=== PATIENT | male | born 1945 | race Caucasian/White ===

== ENCOUNTER → 2016-05-23 | Outpatient (CLI) | payer OTHER ==
[~2016-05-23] MED LIST: METO50TA7 PO
--- NOTE | 2016-05-23 14:07 | DIAGNOSTIC IMAGING REPORT ---
LEFT RIBS INCLUDING PA ERECT CHEST CLINICAL HISTORY: Left rib pain status post trauma COMPARISON STUDY: No previous studies for comparison. FINDINGS: The heart is mildly enlarged. There is no pneumothorax. There is a prominent left cardiophrenic angle fat pad. There is no lobar consolidation. No left-sided rib fractures are visualized. IMPRESSION: No evidence of pneumothorax. No left-sided rib fractures identified. Electronically signed by: Pierre Carrion M.D. 05/23/2016 2:06 PM Dictated Date/Time: 05/23/2016 2:05 PM
== END | disposition home or self-care (01) ==
LOC: C.RAD 10:49
PROVIDERS: ATTEND Internal Medicine
DX: R07.81 Pleurodynia (principal); W19.XXXA Unspecified fall, initial encounter

== ENCOUNTER → 2017-02-04 | Outpatient (CLI) | payer OTHER ==
[2017-02-04 15:10] LABS: ALT/SGPT 23 U/L (12-78); AST/SGOT 20 U/L (15-37); BLOOD UREA NITROGEN 28 mg/dl (7-18); CALCIUM 8.5 mg/dl (8.5-10.1); CARBON DIOXIDE 26 mmol/L (21-32); CHLORIDE 107 mmol/L (98-107); CREATININE 0.91 mg/dl (0.60-1.40); GLUCOSE 86 mg/dl (70-99); MAGNESIUM 2.3 mg/dl (1.8-2.4); POTASSIUM 4.4 mmol/L (3.5-5.1); SODIUM 140 mmol/L (136-145)
[2017-02-04 15:12] LABS: ALB/GLOB RATIO 0.9 (0.9-2); ALKALINE PHOSPHATASE 92 U/L (45-117); C-REACTIVE PROTEIN < 0.29 mg/dl (0-0.29)
[2017-02-04 16:06] LABS: BASO % 0.4 %; BASO ABS # 0.03 K/uL (0-0.2); COMPLETE YES; EOS % 1.6 %; HEMATOCRIT 43.2 % (42-52); IG% 0.1 %; LYMPH ABS # 2.69 K/uL (1.2-3.4); MEAN CORPUSCULAR HEMOGLOBIN 33.1 pg (25-34); MEAN CORPUSCULAR HGB CONC 34.5 g/dl (32-36); MEAN PLATELET VOLUME 10.3 fL (7.4-10.4); MONO % 7.9 %; PLATELET COUNT 203 K/uL (130-400); WHITE BLOOD COUNT 6.73 K/uL (4.8-10.8)
== END | disposition home or self-care (01) ==
LOC: C.LABSPEC 14:41
PROVIDERS: ATTEND Internal Medicine
DX: R51 Headache (principal); H53.40 Unspecified visual field defects; R25.2 Cramp and spasm

== ENCOUNTER → 2017-02-04 | Outpatient (CLI) | payer OTHER ==
--- NOTE | 2017-02-04 19:54 | DIAGNOSTIC IMAGING REPORT ---
MRI OF THE BRAIN COMBO CLINICAL HISTORY: Right-sided headache. Visual changes in the right eye. Right jaw pain. COMPARISON STUDY: MR angiogram of the brain dated 02/16/2007. TECHNIQUE: MRI of the brain was performed utilizing various T1 and T2-weighted sequences in the axial, sagittal, and coronal planes. Contrast-enhanced sequences were acquired following the administration of 11 cc of Gadavist. FINDINGS: Brain parenchyma: There are age-related involutional changes noting mild patchy subcortical and periventricular microangiopathic disease. There is no hemorrhage or mass effect. There is no restricted diffusion to suggest acute ischemia. No enhancing mass lesion is identified on the postcontrast images. Rosenthal-white matter differentiation is preserved. No extra-axial fluid collection is seen. The cerebellar tonsils are normal in configuration. Faint mineralization is noted in the basal ganglia. Ventricles, sulci, and cisterns: Prominent secondary to involutional change. Pituitary and sella: Partially empty sella is incidentally noted. Intracranial vasculature: Normal flow voids are maintained at the skull base. Orbits: The bony orbits are grossly intact. Orbital contents are normal in appearance. Sinuses and mastoids: Trace mucosal thickening is seen in the left maxillary antrum. The remaining paranasal sinuses and the metatarsals are clear. Calvarium: Unremarkable. Cervical cord: Partially visualized cervical spinal cord is normal in morphology and signal intensity. IMPRESSION: No acute intracranial abnormality. Electronically signed by: Jasper Owusu M.D. 02/04/2017 7:53 PM Dictated Date/Time: 02/04/2017 7:49 PM
== END | disposition home or self-care (01) ==
LOC: C.MRI 18:39
PROVIDERS: ATTEND Internal Medicine
DX: H53.9 Unspecified visual disturbance (principal); R51 Headache

== ENCOUNTER → 2017-02-09 | Outpatient (CLI) | payer OTHER ==
--- NOTE | 2017-02-09 10:55 | DIAGNOSTIC IMAGING REPORT ---
CAROTID DOPPLER NECK ART HISTORY: Mental status change VISUAL CHANGES COMPARISON: None. TECHNIQUE: Real-time, grayscale, and color Doppler sonography of the carotid arteries was performed. Imaging reviewed in the transverse and longitudinal planes. All measurements were calculated based on NASCET criteria. FINDINGS: Antegrade flow is seen in the bilateral vertebral arteries. The brachial pressures are hemodynamically similar. Moderate plaque formation bilaterally The peak systolic velocity within the right ICA is 62. The right systolic ratio is 0.9. The peak systolic velocity within the left ICA is 62. The left systolic ratio is 0.7. IMPRESSION: No hemodynamically significant stenosis seen within the carotid arteries. Mild/moderate plaque formation bilaterally. 50% narrowing right external carotid artery The above report was generated using voice recognition software. It may contain grammatical, syntax or spelling errors. Electronically signed by: Too Romero M.D. 02/09/2017 10:54 AM Dictated Date/Time: 02/09/2017 10:53 AM
== END | disposition home or self-care (01) ==
LOC: C.ULTR 10:07
PROVIDERS: ATTEND Internal Medicine
DX: H53.40 Unspecified visual field defects (principal); I65.21 Occlusion and stenosis of right carotid artery

== ENCOUNTER 2017-04-17 03:55 | Emergency (ER) | payer OTHER ==
[~2017-04-17] VITALS: Ht 172.7 cm; Wt 119.1 kg
[~2017-04-17 03:55] MED LIST changes: -METO50TA7 PO; +METO50TA8 PO
[2017-04-17 04:00] VITALS: TEMP 36.3; Ht 172.7 cm; Wt 119.1 kg
[2017-04-17] MEDS ORDERED: ONDANSETRON INJ 2 MG/ML 2 ML VIAL IV STA (04:55)
[2017-04-17] MEDS ORDERED: MoRPHine SULFATE 10 MG/ML CARP/VIAL IV STA ×2 (04:55→06:21)
[2017-04-17 05:21] LABS: BASO % 0.2 %; BASO ABS # 0.02 K/uL (0-0.2); EOS % 3.2 %; EOS ABS # 0.26 K/uL (0-0.5); HEMATOCRIT 43.2 % (42-52); HEMOGLOBIN 14.6 g/dL (14.0-18.0); IG# 0.02 K/uL (0.00-0.02); LYMPH % 29.9 %; LYMPH ABS # 2.44 K/uL (1.2-3.4); MEAN CELL VOLUME 96.2 fL (80-100); MEAN CORPUSCULAR HEMOGLOBIN 32.5 pg (25-34); MEAN CORPUSCULAR HGB CONC 33.8 g/dl (32-36); MEAN PLATELET VOLUME 9.8 fL (7.4-10.4); MONO % 11.8 %; MONO ABS # 0.96 K/uL (0.11-0.59); NEUT % 54.7 %; NEUT ABS # 4.47 K/uL (1.4-6.5); PLATELET COUNT 165 K/uL (130-400); RED CELL DISTRIBUTION WIDTH CV 13.8 % (11.5-14.5); RED CELL DISTRIBUTION WIDTH SD 48.9 fL (36.4-46.3); WHITE BLOOD COUNT 8.17 K/uL (4.8-10.8)
[2017-04-17 05:38] LABS: CALCIUM 8.7 mg/dl (8.5-10.1); CREATININE 0.79 mg/dl (0.60-1.40); POTASSIUM 4.2 mmol/L (3.5-5.1)
--- NOTE | 2017-04-17 05:42 | EMERGENCY ROOM VISIT NOTE ---
ED Visit Note First contact with patient: 04:03 I have personally seen and evaluated the patient with the PA. I agree with the diagnosis and management decisions and have been personally involved in the case. Please see Lynnette Hrenandez PA-C's notes for further details of the history, physical and visit.
[2017-04-17] MEDS ORDERED: OXYC-90 PO (06:42)
--- NOTE | 2017-04-17 06:44 | EMERGENCY ROOM VISIT NOTE ---
History First contact with patient: 04:03 Chief Complaint: FACIAL PAIN/INJURY Stated Complaint: SEVERE PAIN ON RIGHT SIDE OF FACE History of Present Illness The patient is a 71 year old male who presents to the Emergency Room with complaints of severe pain on the right side of her face. The patient reports that the pain started yesterday. The pain started in his right eye and then moved down lower into his cheek and jaw. The patient states that the pain is now severe and rates the discomfort a 9.5/10. He states that he had a similar episode of pain 2 months ago and saw his primary care provider for this. He had a full workup for temporal arteritis and states that it was negative. He saw an safety analyst him that he had some vision changes in the right eye, which prompted this workup. The patient states that his pain has now been constant. He took ibuprofen without relief. He denies any facial drooping, slurred speech, blurred vision, numbness or weakness. Review of Systems A complete 10 point review of systems was reviewed with the patient with pertinent positives and negatives as per history of present illness. All else were negative. Past Medical/Surgical History Medical Problems: (1) Chronic osteoarthritis (2) Hydronephrosis, left Social History Smoking Status: Never Smoker Alcohol Use: none Drug Use: none Occupation Status: retired Current/Historical Medications Scheduled Metoprolol Succ (Toprol Xl) (Toprol-Xl), 50 MG PO DAILY Scheduled PRN Oxycodone Ir (Roxicodone Ir), 1-2 TAB PO Q4H PRN for Pain Physical Exam Vital Signs Date Time Temp Pulse Resp B/P (MAP) Pulse Ox O2 Delivery O2 Flow Rate FiO2 04/17/17 06:52 61 20 120/67 95 04/17/17 06:26 59 20 132/84 96 Room Air 04/17/17 05:25 59 16 114/72 93 Room Air 04/17/17 04:00 36.3 67 18 182/98 98 Room Air Physical Exam VITALS: Vitals are noted on the nurse's note and reviewed by myself. Vital signs stable. GENERAL: This is a 71-year-old male, in no acute distress, nondiaphoretic, well- developed well-nourished. SKIN: The skin was without rashes. HEAD: Normocephalic atraumatic. EARS: External auditory canals clear, tympanic membranes pearly cole without erythema or effusion bilaterally. EYES: Pupils equal round and reactive to light and accommodation. Extraocular movements intact. Intraocular pressures measure 14 in the left eye, 15 in the right eye. MOUTH: Mucous membranes moist. Tonsils are not enlarged. Pharynx without erythema or exudate. NECK: Supple without nuchal rigidity. No lymphadenopathy. HEART: Regular rate and rhythm without murmurs gallops or rubs. LUNGS: Clear to auscultation bilaterally without wheezes, rales or rhonchi. MUSCULOSKELETAL: Strength 5/5 throughout. NEURO: Patient was alert and oriented to person place and time. Normal sensation. No focal neurological deficits. Normal facial expressions. Medical Decision & Procedures Laboratory Results 04/17/17 05:05 Red Blood Count 4.49, Mean Corpuscular Volume 96.2, Mean Corpuscular Hemoglobin 32.5, Mean Corpuscular Hemoglobin Concent 33.8, Mean Platelet Volume 9.8, Neutrophils (%) (Auto) 54.7, Lymphocytes (%) (Auto) 29.9, Monocytes (%) (Auto) 11.8, Eosinophils (%) (Auto) 3.2, Basophils (%) (Auto) 0.2, Neutrophils # (Auto ) 4.47, Lymphocytes # (Auto) 2.44, Monocytes # (Auto) 0.96, Eosinophils # (Auto ) 0.26, Basophils # (Auto) 0.02 04/17/17 05:05 Test 04/17/17 05:05 White Blood Count 8.17 K/uL (4.8-10.8) Red Blood Count 4.49 M/uL (4.7-6.1) Hemoglobin 14.6 g/dL (14.0-18.0) Hematocrit 43.2 % (42-52) Mean Corpuscular Volume 96.2 fL (80-100) Mean Corpuscular Hemoglobin 32.5 pg (25-34) Mean Corpuscular Hemoglobin Concent 33.8 g/dl (32-36) Platelet Count 165 K/uL (130-400) Mean Platelet Volume 9.8 fL (7.4-10.4) Neutrophils (%) (Auto) 54.7 % Lymphocytes (%) (Auto) 29.9 % Monocytes (%) (Auto) 11.8 % Eosinophils (%) (Auto) 3.2 % Basophils (%) (Auto) 0.2 % Neutrophils # (Auto) 4.47 K/uL (1.4-6.5) Lymphocytes # (Auto) 2.44 K/uL (1.2-3.4) Monocytes # (Auto) 0.96 K/uL (0.11-0.59) Eosinophils # (Auto) 0.26 K/uL (0-0.5) Basophils # (Auto) 0.02 K/uL (0-0.2) RDW Standard Deviation 48.9 fL (36.4-46.3) RDW Coefficient of Variation 13.8 % (11.5-14.5) Immature Granulocyte % (Auto) 0.2 % Immature Granulocyte # (Auto) 0.02 K/uL (0.00-0.02) Erythrocyte Sedimentation Rate 12 mm/hr (0-14) Anion Gap 3.0 mmol/L (3-11) Est Creatinine Clear Calc Drug Dose 109.1 ml/min Estimated GFR () 105.4 Estimated GFR (Non- 91.0 BUN/Creatinine Ratio 35.6 (10-20) Calcium Level 8.7 mg/dl (8.5-10.1) C-Reactive Protein 0.31 mg/dl (0-0.29) Medications Administered Medications (Trade) Dose Ordered Sig/Sherly Route Start Time Stop Time Status Last Admin Dose Admin Morphine Sulfate (MoRPHine SULFATE INJ) 8 mg NOW STAT IV 04/17/17 04:55 04/17/17 04:57 DC 04/17/17 05:07 8 MG Ondansetron HCl (Zofran Inj) 4 mg NOW STAT IV 04/17/17 04:55 04/17/17 04:57 DC 04/17/17 05:05 4 MG Morphine Sulfate (MoRPHine SULFATE INJ) 6 mg NOW STAT IV 04/17/17 06:21 04/17/17 06:22 DC 04/17/17 06:27 6 MG ECG Rate (beats per minute): 63 Rhythm: normal sinus Findings: RBBB Change: no significant change ED Course The patient was evaluated as above. Labs were drawn and IV access was obtained. Patient was medicated with 8 mg morphine IV and 4 mg Zofran IV. Patient was reevaluated and was feeling much better. Patient was evaluated prior to discharge he stated that his pain was returning. An additional dose of morphine was ordered for the patient. Discharge instructions were reviewed with the patient. The patient verbalized understanding of my assessment and treatment plan and was discharged home in good condition. Medical Decision Differential diagnosis includes temporal arteritis, trigeminal neuralgia, herpes zoster, ice pick headache, migraine headache, glaucoma, among others. The patient is a 71-year-old male who presents today complaining of right-sided facial pain. Patient has had a full workup for temporal arteritis in the past including MRI, labs and biopsy which were negative. Labs today are unremarkable , without any leukocytosis. ESR and CRP are not significantly elevated. Intraocular pressures are not elevated. Patient did feel significantly better after receiving the morphine. I really symptoms may be secondary to trigeminal neuralgia given the patient's presentation. He will be discharged with a prescription for pain medication and will follow-up with his primary care provider today for further evaluation and workup. The patient was independently evaluated by Dr. Lubin, ED attending physician, who agreed with my assessment and treatment plan. Based on the patient's presentation and work up, I feel the patient is stable for outpatient treatment. The patient was educated to return to the emergency department for any worsening of their current condition or new/concerning symptoms. [] will follow up with []. [facility] Drug Monitoring Program Search Results: patient reviewed within database, no issues identified Medication Reconcilliation Current Medication List: was personally reviewed by me Blood Pressure Screening Patient's blood pressure: Normal blood pressure Impression Primary Impression: Right sided facial pain Departure Information Dispostion Home / Self-Care Condition GOOD Prescriptions Oxycodone Ir (Roxicodone Ir) 5 Mg Tab 1-2 TAB PO Q4H Y for Pain, #20 TAB For Initial Treatment Prov: Lynnette Hernandez ., JOSE ENRIQUE 04/17/17 Referrals King Gomez M.D. (PCP) Patient Instructions My [facility] Additional Instructions You have been prescribed OxyIR to be used for pain control. Take 1-2 tablets every 4-6 hours as needed for pain. This is a narcotic medication. You cannot drive or consume alcohol while on this medicine. This medicine should only be used for pain that cannot be controlled with [id number] pain medicines. For pain control, you can use the following [id number] medicines (if >12 yo): - Regular strength (325mg/tab) Tylenol (acetaminophen) 2 tabs every 4-6 hours as needed. Do not exceed 12 tablets in a 24 hour period. Avoid taking more than 4 grams (4000 mg) of Tylenol per day. This includes any other sources of acetaminophen you may take on a regular basis. - Regular strength (200 mg/tab) Advil (ibuprofen) 1-2 tabs every 4-6 hours as needed. Do not exceed a dose of 3200 mg per day. Follow-up with Dr. Emile Rai today. Call for appointment. Return here for worsening pain, numbness, weakness or any other new/concerning symptoms.
[2017-04-17 06:52] VITALS: BP 120/67; PULSE 61; O2SAT 95
--- NOTE | 2017-04-17 14:23 | Pharmacy Progress Note ---
ED Pharmacist Progress Note Date of Service: Apr 17, 2017. Received call from outpatient pharmacist stating current oxycodone RX would require a prior auth. In order to remedy this the RX was changed to oxycodone 1 tab q4h prn X 3 days (qty 18). This was discussed with Fermín Cook PA-C,
== END 2017-04-17 06:53 | disposition home or self-care (01) ==
LOC: C.EDB 03:56
DX: R51 Headache (principal); M19.90 Unspecified osteoarthritis, unspecified site

== ENCOUNTER 2023-06-14 21:43 | Inpatient (IN) ==
--- OUTSIDE RECORDS SUMMARY | 2023-06-14 21:49 | External Medical Summary | Summary of Care ---
Author Name Unknown Organization [facility] Address [address] [facility] [place] [address] Phone [phone] Care Team Providers Care Detective Sergeant Name Role Phone Vic Bill Rizwanbenjamin Primary Care Provider Reason for Visit * Reason Comments IV Therapy Hydration. Encounter Details Date Type Department Care Team (Latest Contact Info) Description 06/11/2023 2:15 PM EST Hem/Onc Treatment Hematology/Oncology Treatment, [address] [id number] Laura, Chair [address] [place], [place] [id number] Dehydration*; Malignant neoplasm of cardio-esophageal junction (HCC) Allergies No known active allergiesdocumented as of this encounter (statuses as of 06/11/2023) Medications Medication Sig Dispensed Refills Start Date End Date Status Aspirin 81 MG Oral Tablet Chewable Take 1 Tablet by mouth in the morning. 0 Active Ventolin HFA 108 (90 Base) MCG/ACT Inhalation Aerosol SolutionIndications :Pneumonia due to infectious organism, unspecified laterality, unspecified part of lung Inhale 2 Puffs by mouth every 4 hours as needed for Wheezing. 18 g 1 06/09/2022 Active Additional Information Patient not taking.Reported on 04/22/2023 Rosuvastatin Calcium 20 MG Oral Tablet (Crestor) Take 1 Tablet by mouth in the morning. 90 Tablet 3 07/16/2022 Active Losartan Potassium 25 MG Oral Tablet (Cozaar)Indications :Hypertension goal BP (blood pressure) < 140/90 Take 1 Tablet by mouth in the morning. 90 Tablet 3 07/16/2022 Active Finasteride 5 MG Oral Tablet (Proscar) TAKE 1 TABLET BY MOUTH EVERY MORNING 90 Tablet 3 12/26/2022 Active Pantoprazole Sodium 40 MG Oral Tablet Delayed Release (Protonix)Indicatio ns:Gastroesophageal reflux disease with esophagitis without hemorrhage Take 1 Tablet by mouth in the morning. 30 minutes before the first meal of the day. Do not crush, split or chew the tablet. 90 Tablet 3 03/24/2023 Active Ciprofloxacin HCl 500 MG Oral Tablet (Cipro) Take 1 Tablet by mouth in the morning and 1 Tablet before bedtime. 10 Tablet 0 04/08/2023 Active Additional Information Patient not taking.Reported on 04/22/2023 Metoprolol Succinate ER 50 MG Oral Tablet Extended Release 24 Hour (toPROL XL) Take 1 Tablet by mouth in the morning. 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 30 Tablet 0 05/05/2023 Active Escitalopram Oxalate 10 MG Oral Tablet (Lexapro)Indication s:Adjustment disorder with depressed mood Take 1 Tablet by mouth at bedtime. 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 Cancer Staging:Clinical stage from 04/23/2023:Stage III(cT2, cN1, cM0, G3) - Signed by Drew Novoa MD on 04/23/2023 Prediabetes 07/28/2022 Overview: Per Prediabetes protocol Body mass index (BMI) of 40.0 to 44.9 in adult 0 06/30/2022 Overview: Per Obesity protocol Morbid obesity due to excess calories 01/07/2022 History of bilateral knee replacement 01/07/2022 Essential tremor 01/07/2022 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 S/P left rotator cuff repair 01/07/2022 TIA (transient ischemic attack) documented as of this encounter (statuses as of 06/11/2023) Immunizations Name Administration Dates Next Due COVID-19 mRNA, LNP-s, No Pre serve, 2-Dose Series (Moderna) 06/18/2020,05/21/2020 COVID-19, mRNA, LNP-s, PF, B ooster, 100mcg/0.5mg (Moderna) 03/06/2021 Covid-19, Mrna, Lnp-s, Pf, B ivalent, 30 Mcg, IM, 12 yrs and above ([employer]) 04/02/2022 Pneumococcal Conjugate Vaccine, 20-valent (Prevn ar20) 02/02/2023 Seasonal Influenza, Quadrivalent Hd (Fluzone Hd) 01/26/2023,01/07/2022 TDAP (age 10 and older)(Boostrix) 02/02/2023 Zoster Vaccine Recombinant (Shingrix) 02/02/2023 documented as of this encounter Social History Tobacco Use Types Packs/Day Years Used Date Smoking Tobacco: Never Passive Smoke Exposure: Never Smokeless Tobacco: Never Alcohol Use Standard Drinks/Week Comments Yes 0 (1 standard drink = 0.6 oz pur e alcohol) 1 drink/day PHQ-2 Answer Date Recorded PHQ Adult Total Score 1 07/16/2022 Sex and Gender Information Value Date Recorded Sex Assigned at Not on file Gender Identity Not on file Sexual Orientation Not on file Job Start Date Occupation Industry Not on file Not on file Not on file documented as of this encounter Last Filed Vital Signs Vital Sign Reading Time Taken Comments Blood Pressure 122/67 06/11/2023 1:25 PM EST Pulse 96 06/11/2023 1:25 PM EST Temperature 36.8 C (98.2 F) 06/11/2023 1:25 PM ES T Respiratory Rate 18 06/11/2023 1:25 PM EST Oxygen Saturation 94% 06/11/2023 1:25 PM EST Inhaled Oxygen Concentration - - Weight - - Height - - Body Mass Index - - documented in this encounter Nursing Notes * Lillie Alexis RN - 06/11/2023 3:49 PM EST Goals: Patient will remain free from injury. Possible barriers to meeting goals: Fall risk d/t ambulation with IV pole. Stability of the patient: Moderately unstable - medium risk of patient condition declining or worsening Summary regarding today's goals: Met: Patient remained free of injury. Patient tolerated infusion well. Discharged in stable condition. * Lillie Alexis RN - 06/11/2023 2:40 PM EST Chair 6. Patient arrived today for hydration. Patient stated he fell on Thursday night, he got dizzy and lightheaded. He states just hasn't been feeling well. Very tired and weak. PIV accessed. Safety and Risk for Injury Patient will remain free from injury. Ensure appropriate safety devices are available. Provide and maintain safe environment. documented in this encounter Plan of Treatment Upcoming Encounters Date Type Department Care Team (Late st Contact Info) Description 06/16/2023 9:00 AM EST Laboratory Laboratory [facility] Marybel Sanchez [address] [place] [phone] Henri Sanchez [facility] [address] [place] [id number] 06/16/2023 9:30 AM EST Office Visit Hematology/Oncology [facility] Marybel Sanchez [address] [place] [phone] An Holly CRNP [address] [place] [address] [place] [id number] 06/16/2023 10:00 AM EST Hem/Onc Treatment Hematology/Oncology Treatment, [place] [address] [place] [phone] Laura, Chair [address] Hem Onc Scenery [address] [place] [id number] 10/05/2023 12:00 PM EDT Office Visit Family [facility] [address] [place] [phone] Vic Bill, [address] [place] [address] Health Maintenance Due Date Last Done Comments COVID-19 Vaccine ( season) 2022 04/02/2022, 03/06/2021, 06/18/2020, Additional history exists Zoster Vaccines (2 of 2) 03/30/2023 02/02/2023 Depression Screening 07/17/2023 07/16/2022 HbA1c 03/24/2024 03/24/2023, 01/18, 07/14/2022, Additional history exists DTaP,Tdap,and Td Vaccines (2 - Td or Tdap) 02/02/2033 02/02/2023 Influenza Vaccine (FLU shot) Completed 01/26/2023, 01/07/2022, 01/07/2022 Pneumococcal Vaccine: 65+ Years Completed 02/02/2023 Colonoscopy Discontinued 03/27/2023, 03/27/2023 Colorectal Cancer Screening Discontinued Cologuard Discontinued Fecal Occult Blood Test Discontinued GARDASIL-HPV IMMUNIZATION SERIES Aged Out No longer eligible based on patient's age to complete this topic Hepatitis B Aged Out No longer eligi ble based on patient's age to complete this topic MENINGOCOCCAL (MENACTRA/MENVEO) Aged Out No longer eligible based on patient's age to complete this topic Sigmoidoscopy Discontinued documented as of this encounter Medical Devices Not on filedocumented as of this encounter Visit Diagnoses Diagnosis Dehydration- Primary Malignant neoplasm of cardio-esophageal junction (HCC) Malignant neoplasm of cardia documented in this encounter Administered Medications Active Administered Medications - up to 3 most recent administrations Medication Order MAR Action Action Date Dose Rate Site hEParin 100 UNIT/ML Lock Flush inj 500 Units 500 Units (5 mL), IV Lock, PRN Other, IV Flush, Starting on Effie 06/11/23 at 1338, Until Thu06/12/23 at 1337, For 24 hours, Do not flush if lock, PICC, or central line not in place; IV infusing or unable to flush. sodium chloride 0.9 % flush central line 10 mL 10 mL, IV Push, PRN Other, IV Flush, Starting on Effie 06/11/23 at 1338, Until Thu06/12/23 at 1337, For 24 hours, Do not flush if lock, PICC, or central line not in place; IV infusing or unable to flush. Inactive Administered Medications - up to 3 most recent administrations Medication Order MAR Action Action Date Dose Rate Site NSS infusion FOR HYDRATION Intravenous, at 500 mL/hr Administer over 2 Hours, ONCE, 1 dose, On Effie 06/11/23 at 1445 Start Infusion 06/11/2023 1:38 PM EST 1,000 mL 500 mL/hr documented in this encounter Care Teams Detective Sergeant Relationship Specialty Start Date End Date Vic Bill DO [address] [id number] PCP - General Family Medicine 01/07/22 documented as of this encounter
--- OUTSIDE RECORDS SUMMARY | 2023-06-14 21:49 | External Medical Summary | Summary of Care ---
Author Name Unknown Organization [facility] Address [address] [place] [address] Phone [phone] Care Team Providers Care Medical Records Administrator Name Role Phone Vic Bill Primary Care Provider Reason for Visit * Reason Onset Date Comments Fall 06/10/2023 Appointment Canceled 06/10/2023 Appointment reschedule due to radiation appointment Encounter Details Date Type Department Care Team (Late st Contact Info) Description 06/10/2023 Refill Hematology/Oncology, [facility] [address] [place] [address] Devon Cortes MD [address] [place] [address] Malignant neoplasm of lower third of esophagus (HCC) Allergies No known active allergiesdocumented as of this encounter (statuses as of 06/10/2023) Medications Medication Sig Dispensed Refills Start Date End Date Status Aspirin 81 MG Oral Tablet Chewable Take 1 Tablet by mouth in the morning. 0 Active Ventolin HFA 108 (90 Base) MCG/ACT Inhalation Aerosol SolutionIndicatio ns:Pneumonia due to infectious organism, unspecified laterality, unspecified part of lung Inhale 2 Puffs by mouth every 4 hours as needed for Wheezing. 18 g 1 06/09/2022 Active Additional Information Patient not taking.Reported on 04/22/2023 Rosuvastatin Calcium 20 MG Oral Tablet (Crestor) Take 1 Tablet by mouth in the morning. 90 Tablet 3 07/16/2022 Active Losartan Potassium 25 MG Oral Tablet (Cozaar)Indicatio ns:Hypertension goal BP (blood pressure) < 140/90 Take 1 Tablet by mouth in the morning. 90 Tablet 3 07/16/2022 Active Finasteride 5 MG Oral Tablet (Proscar) TAKE 1 TABLET BY MOUTH EVERY MORNING 90 Tablet 3 12/26/2022 Active Pantoprazole Sodium 40 MG Oral Tablet Delayed Release (Protonix)Indicat ions:Gastroesopha geal reflux disease with esophagitis without hemorrhage Take [...] 3 04/27/2023 Active dexAMETHasone 4 MG Oral TabletIndications :Malignant neoplasm of lower third of esophagus (HCC) 8 mg (2 tab) 12 and 6 hours before chemotherapy 40 Tablet 0 05/05/2023 Active Additional Information Patient taking differently: 4 mg (1 tab) 12 and 6 hours before chemotherapy, Reported on 05/19/2023 Prochlorperazine Maleate 10 MG Oral Tablet (Compazine)Indica tions:Malignant neoplasm of lower third of esophagus (HCC) Take 1 Tablet by mouth every 6 hours as needed for Nausea. 30 Tablet 0 05/05/2023 Active Escitalopram Oxalate 10 MG Oral Tablet (Lexapro)Indicati ons:Adjustment disorder with depressed mood Take 1 Tablet by mouth at bedtime. 30 Tablet 5 06/09/2023 Active Ondansetron HCl 8 MG Oral TabletIndications :Malignant neoplasm of lower third of esophagus (HCC) Take 1 Tablet by mouth every 8 hours as needed for Nausea. 30 Tablet 1 06/10/2023 Active Ondansetron HCl 8 MG Oral TabletIndications :Malignant neoplasm of lower third of esophagus (HCC) Take 1 Tablet by mouth every 8 hours as needed for Nausea. 30 Tablet 0 05/05/2023 Discontinue d(Refill) documented as of this encounter (statuses as of 06/10/2023) Active Problems Problem Noted Date Diagnosed Date [...] as of this encounter (statuses as of 06/10/2023) Immunizations Name Administration Dates Next Due COVID-19 mRNA, LNP-s, No Pre serve, 2-Dose Series (Moderna) 06/18/2020,05/21/2020 COVID-19, mRNA, LNP-s, PF, B ooster, 100mcg/0.5mg (Moderna) 03/06/2021 Covid-19, Mrna, Lnp-s, Pf, B ivalent, 30 Mcg, IM, 12 yrs and above (Pfizer) 04/02/2022 Pneumococcal Conjugate Vaccine, 20-valent (Prevn ar20) [...] on file documented as of this encounter Miscellaneous Notes * Telephone Encounter - Devon Cortes MD - 06/10/2023 9:17 AM ESTSigned Prescriptions: Disp Refills Ondansetron HCl 8 MG Oral Tablet 30 Tab*1 Sig: Take 1 Tablet by mouth every 8 hours as needed for Nausea. Authorizing Provider: DEVON CORTES * Telephone Encounter - Mariaa Ortega RN - 06/10/2023 8:21 AM EST Patient Linda called to reschedule hydration appointment due to schedule conflict with Radiation appointment. Linda reports that Joel had a fall Thursday morning at 3 a.m. Linda reports that Joel was getting up to the bathroom in the middle of the night and got lightheaded and dizzy and fell on his butt. Linda denies any head injury, but reports he has been walking with his cane due to pain in his tail bone. Linda reports that the dizziness is getting increasingly worse. Her daughter, who is an RN, has beenchecking his blood pressure and it has been consistently around 100/50. Linda reports that he has stopped taking metoprolol as she believes this is causing his low blood pressure and dizziness. Encouraged Linda to check his blood pressure twice a day at home with their machine and that management of his blood pressure medication should be discussed with his PCP, Dr. Bill. Informed Linda I message sent to Dr. Bill in regards to his blood pressure medication. Linda asking for refill on Zofran to be sent to [facility]. Refill placed and routed to Dr. Cortes. Linda reporting that patient has tried to take dexamethasone, but he is intolerant to it with insomnia and jitteriness. Linda asking if there is a different steroid that he can take. Informed Linda thisis an expected side effect of a steroid and any steroid prescribed would be likely to have the sameeffect. Encouraged compliance with dexamethasone for treatment. Encouraged Linda to have patient sleep during the day and find activities to occupy his time while taking the steroid. documented in this encounter Plan of Treatment Upcoming Encounters Date Type Department Care Team (Late st Contact Info) Description 06/11/2023 2:15 PM EST Hem/Onc Treatment Hematology/[address]cology [address] [phone] Laura, Chair 11 Hem Onc [address] [place] [address] 06/16/2023 9:00 AM EST Laboratory Laboratory [facility] [address] [place] [phone] Laura, Lab [address] [facility] [place] [address] 06/16/2023 9:30 AM EST Office Visit Hematology/Oncology [facility] [address] [place] [phone] An Holly CRNP 400 [facility] [place] [address] 06/16/2023 10:00 AM EST Hem/Onc Treatment Hematology/Oncology [address], [address] [phone] Laura, Chair 9 Hem Onc [address] [place] [address] 06/22/2023 9:30 AM EST Office Visit Hematology/Oncology [facility] [address] [facility] [place] [phone] Devon Cortes MD [address] [facility] [place] [address] 10/05/2023 12:00 PM EDT Office Visit Family [facility] [address] [place] [address] Vic Bill DO [address] [place] [address] Health Maintenance Due Date Last Done Comments COVID-19 Vaccine (2022- season) 2022 04/02/2022, 03/06/2021, 06/18/2020, Additional history [...] as of this encounter Visit Diagnoses Diagnosis Malignant neoplasm of lower third of esophagus (HCC) Malignant neoplasm of lower third of esophagus documented in this encounter Care Teams Medical Records Administrator Relationship Specialty Start Date End Date Vic Bill DO [address] [place] [address] PCP - General Family Medicine 01/07/22 documented as of this encounter
--- OUTSIDE RECORDS SUMMARY | 2023-06-14 21:49 | External Medical Summary | Summary of Care ---
Author Name Unknown Organization [facility] Address [address] [place] [address] Phone [phone] Care Team Providers Care Financial Aid Advisor Name Role Phone Vic Bill Primary Care Provider Reason for Visit * Reason Onset Date Comments Fall 06/10/2023 Appointment Canceled 06/10/2023 Appointment reschedule due to radiation appointment Encounter Details Date Type Department Care Team (Late st Contact Info) Description 06/10/2023 Refill Hematology/Oncology, [facility] [address] [place] [address] Devon Cortes MD [address] [place] [address] Malignant neoplasm of lower third of esophagus [...] encounter Miscellaneous Notes * Telephone Encounter - Vic Bill DO - 06/10/2023 1:22 PM EST Agree with DC of metoprolol Given his pre-syncope and light headedness Would also advise stopping losartan if the light headedness continues * Telephone Encounter - Devon Cortes MD [...] refill on Zofran to be sent to [facility]. Refill placed and routed to Dr. [...] 2:15 PM EST Hem/Onc Treatment Hematology/Oncology Treatment, [address] [phone] Laura, Chair 11 Hem Onc [address] [place] [address] 06/16/2023 9:00 AM EST Laboratory Laboratory [address] [place] [phone] [facility] [address] [place] [address] 06/16/2023 9:30 AM EST Office Visit Hematology/Oncology [address] [place] [phone] An Holly CRNP [address] [facility] [place] [address] 06/16/2023 10:00 AM EST Hem/Onc Treatment Hematology/Oncology Treatment, [place] [address] [place] [address] Lauar, Chair 9 Hem Onc Scene [address] [place] [address] 06/22/2023 9:30 AM EST Office Visit Hematology/Oncology [facility] Laura [place] [address] [place] [phone] Devon Cortes MD [address] [place] [address] 10/05/2023 12:00 PM EDT Office Visit Family [facility] [address] [place] [address] Vic Bill DO [address] [place] [address] Health Maintenance Due Date Last Done Comments [...] esophagus documented in this encounter Care Teams Financial Aid Advisor Relationship Specialty Start Date End Date Vic Bill DO [address] [place] [address] PCP - General Family Medicine 01/07/22 documented as of this encounter
--- OUTSIDE RECORDS SUMMARY | 2023-06-14 21:49 | External Medical Summary | Summary of Care ---
Author Name Unknown Organization [facility] Address [address] [place] [address] Phone [phone] Care Team Providers Care Manager Employment Name Role Phone Fly Vic Sherbenjamin Primary Care Provider Reason for Visit * Reason Comments Chemotherapy C1/D1 - Taxol/Carbop latin * Episode Based Medications (Routine) - Authorized Specialty Diagnoses / Procedures Referred By Kwaku cueva Referred To Contact Diagnoses Malignant neoplasm of cardio-esophageal junction (HCC) Encounter for antineoplastic chemotherapy Procedures [place] PALONOSETRON HCL [place] CARBOPLATIN INJECTION [place] PACLITAXEL INJECTION Danny Concepcion MD 200 [facility] [place] [address] Anc Hem/Onc [address] [address] Referral ID Status Reason Start Date Expiration Date V isits Requested Visits Authorized [id number] Authorized 05/05/2023 04/19/2099 [id number] Encounter Details Date Type Department Care Team (Latest Contact Info) Description 05/18/2023 10:30 AM EST Hem/Onc Treatment Hematology/Oncolog y Treatment, [address] [phone] Laura, Chair 6 Hem Onc [address] [place] [address] Malignant neoplasm of cardio-esophageal junction (HCC)*; Encounter for antineoplastic chemotherapy Allergies No known active allergiesdocumented as of [...] before chemotherapy 40 Tablet 0 05/05/2023 Active Ondansetron HCl 8 MG Oral TabletIndications: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 30 Tablet 0 05/05/2023 Active Prochlorperazine Maleate 10 MG Oral Tablet (Compazine)Indicati ons:Malignant neoplasm of lower third of esophagus (HCC) Take 1 Tablet by mouth every 6 hours as needed for Nausea. 30 Tablet 0 05/05/2023 Active documented as of this encounter (statuses as of 06/10/2023) Active Problems Problem Noted Date Diagnosed Date Encounter for antineoplastic chemotherapy 2023 Malignant neoplasm [...] Sign Reading Time Taken Comments Blood Pressure 134/80 05/18/2023 10:10 AM EST Pulse 69 05/18/2023 10:10 AM EST Temperature 36.3 C (97.4 F) 05/18/2023 1 0:10 AM EST Respiratory Rate 16 05/18/2023 10:1 0 AM EST Oxygen Saturation 93% 05/18/2023 10: 10 AM EST Inhaled Oxygen Concentration - - Weight 110.9 kg (244 lb 9.6 oz) 024 10:10 AM EST Height - - Body Mass Index 37.19 05/15/2023 12:49 PM EST documented in this encounter Nursing Notes * Torrie Maldonado RN - 05/18/2023 1:39 PM EST Goals: Patient will remain free from injury. Possible barriers to meeting goals: ambulating with IV pole Stability of the patient: Moderately stable - low risk of patient condition declining or worsening Summary regarding today's goals: Met: pt remained free of harm today Functional status at today's visit: Fully active, able to carry on all pre-disease performance without restriction The drug name, dose, infusion volume, rate and route of administration, expiration date and time, appearance and physical integrity of the drug and rate set on the pump and sequencing of drug administration (as applicable) were verified by me and second sign-in RN. Patient was assessed for symptoms or adverse side effects during treatment. Patient tolerated treatment well without any acute issues or problems. Patient left facility in stable condition and denied any further needs. * Torrie Maldonado RN - 05/18/2023 10:23 AM EST Chair 7. IV inserted. Patient presents today for first cycle of chemotherapy. Patient was educated about establishing IV access, giving premeds, taking PRN home medications, process of getting medication from pharmacy, layout of treatment room, use of call lentz, etc. Patient communicated understanding and denied any further questions, concerns, needs. Chemo agents Taxol/Carboplatin Appetite not great, difficulty swallowing food d/t tumor location/cancer Nausea/Vomiting no Diarrhea no Constipation no Mucositis no Fatigue no Bleeding no Infection no Rash no Numbness tingling no Pain no Radiation yes, 1pm today and daily for several weeks ABN Labs WNL for tx Alt in Tx: N/A Return in 1 week Safety and Risk for Injury Patient will remain free from injury. Ensure appropriate safety devices are available. Provide and maintain safe environment. documented in this encounter Plan of Treatment Upcoming Encounters Date Type Department Care Team (Late st Contact Info) Description 06/10/2023 11:45 AM EST Hem/Onc Treatment Hematology/Oncology [address] [phone] Laura, Chair 11 Hem Onc [address] [place] [address] 06/16/2023 9:00 AM EST Laboratory Laboratory [address] [place] [phone] [place], Lab [address] [place] [address] 06/16/2023 9:30 AM EST Office Visit Hematology/Oncology [address] [place] [phone] An Holly CRNP [address] [facility] [place] [address] 06/16/2023 10:00 AM EST Hem/Onc Treatment Hematology/Oncology [address] [phone] Laura, Chair 9 Hem Onc [address] [place] [address] 06/22/2023 9:30 AM EST Office Visit Hematology/Oncology [facility] Laura [place] [address] [place] [phone] Danny Concepcion MD [address] [place] [address] 10/05/2023 12:00 PM EDT Office Visit [facility] [address] [place] [address] Vic Bill DO [address] [place] [address] Health Maintenance Due Date Last Done Comments [...] encounter Visit Diagnoses Diagnosis 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 Encounter for antineoplastic chemotherapy documented in this encounter Administered Medications Inactive Administered Medications - up to 3 most recent administrations Medication Order MAR Action Action Date Dose Rate Site CARBOplatin (Paraplatin) 220 mg in D5W 250 mL infusion 220 mg (rounded from 219.8 mg, Target AUC = 2), IV Piggyback, at 500 mL/hr Administer over 30 Minutes, PROTECT FROM LIGHT, ONCE, 1 dose, On Thu05/18/23 at 1200 Start Infusion 05/18/2023 12:00 PM EST 220 mg 500 mL/hr dexAMETHasone (Decadron) tab 12 mg 12 mg, Oral, ONCE, On Thu05/18/23 at 1130, For 1 dose Given 05/18/2023 10:34 AM EST 12 mg diphenhydrAMINE (Benadryl) 25 mg in NSS 50 mL ivpb 25 mg, IV Piggyback, ONCE, 1 dose, On Thu05/18/23 at 1100 Start Infusion 05/18/2023 10:36 AM EST 25 mg 200 mL/hr Famotidine (Pepcid) tab 20 mg 20 mg, Oral, ONCE, On Thu05/18/23 at 1130, For 1 dose Given 05/18/2023 10:34 AM EST 20 mg NSS infusion Intravenous, at 50 mL/hr, PRN, Starting on Thu05/18/23 at 1130, Until Thu05/18/23 at 1749, Maintenance line Start Infusion 05/18/2023 10:20 AM EST 50 mL/hr PACLitaxel (Taxol) 116 mg in NSS 250 mL infusion 116 mg (50 mg/m2 2.32 m2 Treatment Plan BSA from Recorded weight), IV Piggyback, at 250 mL/hr Administer over 60 Minutes, Administer through 0.22 micron low protein binding filter!, ONCE, 1 dose, On Thu05/18/23 at 1200 Start Infusion 05/18/2023 10:58 AM EST 116 mg 250 mL/hr Palonosetron (Aloxi) inj SOLN 0.25 mg 0.25 mg, IV Push, ONCE, On Thu05/18/23 at 1130, For 1 dose, Restricted per S antiemetic guidelines Given 05/18/2023 10:35 AM EST 0.25 mg documented in this encounter Care Teams Manager Employment Relationship Specialty Start Date End Date Vic Bill DO [address] [place] [address] PCP - General Family Medicine 01/07/22 documented as of this encounter
--- OUTSIDE RECORDS SUMMARY | 2023-06-14 21:49 | External Medical Summary | Summary of Care ---
Author Name Unknown Organization [facility] Address [address] [place] [address] Phone [phone] Care Team Providers Care Internet Programmer Name Role Phone Fly Vic Sherbenjamin Primary Care Provider Reason for Visit * Reason Comments Chemotherapy C1/D1 - Taxol/Carbop latin * Episode Based Medications (Routine) - Authorized Specialty Diagnoses / Procedures Referred By Kwaku cueva Referred To Contact Diagnoses Malignant neoplasm of cardio-esophageal junction (HCC) Encounter for antineoplastic chemotherapy Procedures [place] PALONOSETRON HCL [place] CARBOPLATIN INJECTION [place] PACLITAXEL INJECTION Danny Concepcion MD 200 [place] [address] Anc Hem/Onc [address] [address] Referral ID Status Reason Start Date Expiration Date V isits Requested Visits Authorized [id number] Authorized 05/05/2023 04/19/2099 999 [id number] Encounter Details Date Type Department Care Team (Latest Contact Info) Description 05/18/2023 10:30 AM EST Hem/Onc Treatment Hematology/Oncolog y Treatment, [address] [place] [address] [phone] Laura, Chair 6 Hem Onc [address] [place] [address] Malignant neoplasm of cardio-esophageal junction (HCC)*; Encounter [...] 06/10/2023 11:45 AM EST Hem/Onc Treatment Hematology/Oncology [address] [phone] Laura, Chair 11 Hem Onc [address] [place] [address] 06/16/2023 9:00 AM EST Laboratory Laboratory [address] [place] [phone] [place], Lab [address] [place] [address] 06/16/2023 9:30 AM EST Office Visit Hematology/Oncology [address] [place] [phone] An Holly CRNP [address] [facility] [place] [address] 06/16/2023 10:00 AM EST Hem/Onc Treatment Hematology/Oncology [address] [phone] Laura, Chair 9 Hem Onc [address] [place] [address] 06/22/2023 9:30 AM EST Office Visit Hematology/Oncology Kathya Laura [place] [address] [place] [phone] Danny Concepcion MD [address] [place] [address] 10/05/2023 12:00 PM EDT Office Visit [facility] [address] [place] [address] Vic Bill DO [address] [place] [address] Health Maintenance Due Date Last Done Comments [...] mg documented in this encounter Care Teams Internet Programmer Relationship Specialty Start Date End Date Vic Bill DO [address] [place] [address] PCP - General Family Medicine 01/07/22 documented as of this encounter
--- OUTSIDE RECORDS SUMMARY | 2023-06-14 21:49 | External Medical Summary | Summary of Care ---
Author Name Unknown Organization [facility] Address [address] [place] [address] Phone [phone] Care Team Providers Care Local Company Refrigerated Truck Driver Name Role Phone Vic Bill Primary Care Provider Reason for Visit * Reason Onset Date Comments Fall 06/10/2023 Appointment Canceled 06/10/2023 Appointment reschedule due to radiation appointment Encounter Details Date Type Department Care Team (Late st Contact Info) Description 06/10/2023 Refill Hematology/Oncology, [facility] [address] [place] [address] Devon Cortes MD [address] [place] [address] Malignant neoplasm of lower third of esophagus [...] due to schedule conflict with Radiation appointment. [place] reports that Joel had a fall Thursday [...] refill on Zofran to be sent to [facility]. Refill placed and routed to Dr. [...] 06/11/2023 2:15 PM EST Hem/Onc Treatment Hematology/Oncology [address] [phone] Laura, Chair 11 Hem Onc [address] [place] [address] 06/16/2023 9:00 AM EST Laboratory Laboratory [facility] [address] [place] [phone] Laura, Lab [address] [facility] [address] 06/16/2023 9:30 AM EST Office Visit Hematology/Oncology [facility] [address] [place] [phone] An Holly CRNP 400 [facility] [place] [address] 06/16/2023 10:00 AM EST Hem/Onc Treatment Hematology/Oncology Treatment, [address] [phone] Laura, Chair 9 Hem Onc [address] [place] [address] 06/22/2023 9:30 AM EST Office Visit Hematology/Oncology [facility] [address] [facility] [place] [phone] Devon Cortes MD 200 [facility] [place] [address] 10/05/2023 12:00 PM EDT Office Visit Family [facility] [address] [place] [address] Vic Bill DO [address] [place] [address] Health Maintenance Due Date Last Done Comments [...] esophagus documented in this encounter Care Teams Local Company Refrigerated Truck Driver Relationship Specialty Start Date End Date Vic Bill DO [address] [place] [address] PCP - General Family Medicine 01/07/22 documented as of this encounter
--- OUTSIDE RECORDS SUMMARY | 2023-06-14 21:49 | External Medical Summary | Summary of Care ---
Author Name Unknown Organization [facility] Address [address] [place] [address] Phone [phone] Care Team Providers Care Stapler Hand Name Role Phone Vic Bill Primary Care Provider Reason for Visit * Reason Onset Date Comments Fall 06/10/2023 Appointment Canceled 06/10/2023 Appointment reschedule due to radiation appointment Encounter Details Date Type Department Care Team (Late st Contact Info) Description 06/10/2023 Refill Hematology/Oncology, [facility] [address] [place] [address] Devon Cortes MD [address] [place] [address] Malignant neoplasm of lower third of esophagus [...] encounter Miscellaneous Notes * Telephone Encounter - Avelina Harman LPN - 06/10/2023 2:22 PM EST Called pts spouse Linda-- no answer, LM on verified VM regarding message below. Also sent my g * Telephone Encounter - Vic Bill DO [...] refill on Zofran to be sent to [facility]. Refill placed and routed to [...] 2:15 PM EST Hem/Onc Treatment Hematology/Oncology Treatment, [place] [address] [place] [phone] Laura, Chair 11 Hem Onc Scenery [address] [place] [address] 06/16/2023 9:00 AM EST Laboratory Laboratory [facility] Marybel Sanchez [address] [place] [phone] Laura, Lab Scenery 200 [facility] [place] [address] 06/16/2023 9:30 AM EST Office Visit Hematology/Oncology [facility] [address] [place], [place] [address] An Holly CRNP [address] [place] [address] 06/16/2023 10:00 AM EST Hem/Onc Treatment Hematology/Oncology Treatment, [place] [address] [facility] [address] [place] [phone] Laura, Chair 9 Hem Onc [facility] 200 [facility] [place] [address] 06/22/2023 9:30 AM EST Office Visit Hematology/Oncology [facility] [place] 200 [facility] [place] [phone] Devon Cortes MD 200 [facility] [place] [address] 10/05/2023 12:00 PM EDT Office Visit Family Practice [facility] [address] [place] [address] Vic Bill DO [address] [place] [address] Health Maintenance Due Date Last Done Comments [...] esophagus documented in this encounter Care Teams Stapler Hand Relationship Specialty Start Date End Date Vic Bill DO [address] [place] [address] PCP - General Family Medicine 01/07/22 documented as of this encounter
--- OUTSIDE RECORDS SUMMARY | 2023-06-14 21:50 | External Medical Summary | Summary of Care ---
Author Name Unknown Organization [facility] Address [address] [place] [address] Phone [phone] Care Team Providers Care Leather Carver Name Role Phone Fly Vic Sherbenjamin Primary Care Provider Reason for Visit * Reason Comments Chemotherapy C1/D1 - Taxol/Carbop latin * Episode Based Medications (Routine) - Authorized Specialty Diagnoses / Procedures Referred By Kwaku cueva Referred To Contact Diagnoses Malignant neoplasm of cardio-esophageal junction (HCC) Encounter for antineoplastic chemotherapy Procedures [place] PALONOSETRON HCL MI CARBOPLATIN INJECTION MI PACLITAXEL INJECTION Danny Concepcion MD 200 [place] [address] Anc Hem/Onc [address] [address] Referral ID Status Reason Start Date Expiration Date V isits Requested Visits Authorized [id number] Authorized 05/05/2023 04/19/2099 [id number] Encounter Details Date Type Department Care Team (Latest Contact Info) Description 05/18/2023 10:30 AM EST Hem/Onc Treatment Hematology/Oncolog y Treatment, [address] [address] Laura, Chair 6 Hem Onc [address] [place] [address] Malignant neoplasm of cardio-esophageal junction (HCC)*; Encounter [...] 06/10/2023 11:45 AM EST Hem/Onc Treatment [facility]ematology[address]cology [address] [phone] Laura, Chair 11 Hem Onc [address] [place] [address] 06/16/2023 9:00 AM EST Laboratory Laboratory [address] [place] [phone] [place] Lab [address] [place] [address] 06/16/2023 9:30 AM EST Office Visit Hematology/Oncology [address] [place] [phone] An Holly CRNP [facility] [place] [address] 06/16/2023 10:00 AM EST Hem/Onc Treatment Hematology/[address]cology [address] [phone] Laura, Chair 9 Hem Onc [address] [place] [address] 06/22/2023 9:30 AM EST Office Visit Hematology/Oncology Kathya Laura [place] [address] [place] [phone] Danny Concepcion MD [address] [place] [address] 10/05/2023 12:00 PM EDT Office Visit [facility] [address] [place] [address] Vic Bill DO [address] [place] [address] Health Maintenance Due Date Last Done Comments [...] mg documented in this encounter Care Teams Leather Carver Relationship Specialty Start Date End Date Vic Bill DO [address] [place] [address] PCP - General Family Medicine 01/07/22 documented as of this encounter
--- OUTSIDE RECORDS SUMMARY | 2023-06-14 21:50 | External Medical Summary | Summary of Care ---
Author Name Unknown Organization [facility] Address [address] [place] [address] Phone [phone] Care Team Providers Care Mixer Lever Operator Name Role Phone BillDamionteresa Astorgabenjamin Primary Care Provider Reason for Visit * Reason Comments Chemotherapy Paclitaxel/carboplat in. IV Therapy Hydration. * Episode Based Medications (Routine) - Authorized Specialty Diagnoses / Procedures Referred By Kwaku cueva Referred To Contact Diagnoses Malignant neoplasm of cardio-esophageal junction (HCC) Encounter for antineoplastic chemotherapy Procedures [place] PALONOSETRON HCL VA CARBOPLATIN INJECTION VA PACLITAXEL INJECTION Danny Concepcion MD 200 [facility] [place] [address] Anc Hem/Onc [address] [address] Referral ID Status Reason Start Date Expiration Date V isits Requested Visits Authorized [id number] Authorized 05/05/2023 04/19/2099 [id number] Encounter Details Date Type Department Care Team (Latest Contact Info) Description 06/08/2023 10:00 AM EST Hem/Onc Treatment Hematology/Oncolog y Treatment, [address] [address] Chair Laura 2 Hem Onc [address] [place] [address] Malignant neoplasm of cardio-esophageal junction (HCC)*; Encounter for antineoplastic chemotherapy Allergies No known active allergiesdocumented as of this encounter (statuses as of 06/08/2023) Medications Medication Sig Dispensed Refills Start Date [...] 6 hours before chemotherapy, Reported on 05/19/2023 Ondansetron HCl 8 MG Oral TabletIndications: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 30 Tablet 0 05/05/2023 Active Prochlorperazine Maleate 10 MG Oral Tablet (Compazine)Indicati ons:Malignant neoplasm of lower third of esophagus (HCC) Take 1 Tablet by mouth every 6 hours as needed for Nausea. 30 Tablet 0 05/05/2023 Active Mirtazapine 15 MG Oral Tablet (Remeron)Indication s:Adjustment disorder with depressed mood Take 1 Tablet by mouth at bedtime. 30 Tablet 5 05/25/2023 Active documented as of this encounter (statuses as of 06/08/2023) Active Problems Problem Noted Date Diagnosed Date [...] as of this encounter (statuses as of 06/08/2023) Immunizations Name Administration Dates Next Due COVID-19 [...] on file documented as of this encounter Nursing Notes * Lillie Alexis RN - 06/08/2023 1:56 PM EST Goals: Patient will remain free from injury. Possible barriers to meeting goals: Fall risk d/t ambulation with IV pole. Stability of the patient: Moderately unstable - medium risk of patient condition declining or worsening Summary regarding today's goals: Met: Patient remained free of injury. Functional status at today's visit: Restricted in physically strenuous activity but ambulatory and able to carry out work on a light orsedentary nature, e.g. light house work, office work The drug name, dose, infusion volume, rate and route of administration, expiration date and time, appearance and physical integrity of the drug and rate set on the pump and sequencing of drug administration (as applicable) were verified by me and second sign-in RN. Patient was assessed for symptoms or adverse side effects during treatment. Patient tolerated procedure well. Discharged in stable condition. * Lillie Alexis RN - 06/08/2023 10:09 AM EST Chair 7. Patient arrived for paclitaxel/carboplatin. Patient was seen by Dr. Concepcion today(see visit note), per Dr. Concepcion ok for treatment but would like patient to also get 1 liter of NSS over 2 hours with treatment today. PIV established. Safety and Risk for Injury Patient will remain free from injury. Ensure appropriate safety devices are available. Provide and maintain safe environment. documented in this encounter Plan of Treatment Upcoming Encounters Date Type Department Care Team (Late st Contact Info) Description 06/10/2023 11:45 AM EST [facility] [phone] Laura, Chair 11 Hem Onc Scenery 200 [facility] [place] [address] 06/16/2023 9:00 AM EST Laboratory Laboratory [facility] [place] 200 [facility] [place] [phone] Laura, Lab [facility] 200 [facility] [place] [address] 06/16/2023 9:30 AM EST Office Visit Hematology/Oncology [facility] [place] [address] [place] [phone] An Holly CRNP 400 [place] [address] 06/16/2023 10:00 AM EST [facility] [phone] Laura, Chair 9 Hem Onc [facility] 200 [facility] [place] [address] 06/22/2023 9:30 AM EST Office Visit Hematology/Oncology [facility] [place] 200 [place] [place] [phone] Danny Concepcion MD [address] [place] [address] 10/05/2023 12:00 PM EDT Office Visit [facility] 132 [facility] [place] [address] Vic Bill [address] [place] [address] Health Maintenance Due Date Last Done Comments COVID-19 Vaccine (5 - 2022-24 season) 2022 04/02/2022, 03/06/2021, 06/18/2020, Additional history [...] chemotherapy documented in this encounter Administered Medications Active Administered Medications - up to 3 most recent administrations Medication Order MAR Action Action Date Dose Rate Site diphenhydrAMINE (Benadryl) inj 50 mg 50 mg, IV Push, ONCE PRN Other, Hypersensitivity Reaction, Starting on 06/08/23 at 1005, Until 06/09/23 at 1004, For 24 hours EPINEPHrine 1 MG/ML inj 0.3 mg 0.3 mg, Intramuscular, ONCE PRN Other, Hypersensitivity Reaction or Anaphylaxis, Starting on 06/08/23 at 1005, Until 06/09/23 at 1004, For 24 hours hEParin 100 UNIT/ML Lock Flush inj 500 Units 500 Units (5 mL), IV Lock, PRN Other, IV Flush, Starting on Thu06/08/23 at 1005, Until Thu06/09/23 at 1004, For 24 hours, Do not flush if lock, PICC, or central line not in place; IV infusing or unable to flush. Hydrocortisone Sod Suc (PF) (Solu-Cortef) inj 100 mg 100 mg, IV Push, ONCE PRN Other, Hypersensitivity Reaction, Starting on Thu06/08/23 at 1005, Until Thu06/09/23 at 1004, For 24 hours LORAzepam (Ativan) tab 0.5 mg 0.5 mg, Oral, ONCE PRN Anxiety, Nausea, Starting on Thu06/08/23 at 1115, Until Discontinued NSS infusion Intravenous, at 50 mL/hr, PRN, Starting on Thu06/08/23 at 1115, Until Discontinued, Maintenance line Start Infusion 06/08/2023 10:00 AM EST 50 mL/hr oxygen GAS Inhalation, OXYGEN, First dose on Thu06/08/23 at 1045, Until Discontinued, Device/Managed by: Low Flow Device, Goal SPO2 (%): 91-95, Starting Device: Nasal Cannula, Initial Flow Rate (LPM): 2, Lowest Support: Nasal Cannula: Flow 0-6 LPM. Titrate up/down by 1 LPM., Higher Support: Non-Rebreather (NRB) Mask: Minimum of 10 LPM. Titrate to maintain bag inflation., Titration Interval: Q2 minutes and as needed., Notify Provider: For sudden DECREASE in resting SPO2 to less than 85% and when escalating delivery device., Wean patient off Oxygen when the oxygen saturation is greater than or equal to 93% sodium chloride 0.9 % flush central line 10 mL 10 mL, IV Push, PRN Other, IV Flush, Starting on Thu06/08/23 at 1005, Until Thu06/09/23 at 1004, For 24 hours, Do not flush if lock, PICC, or central line not in place; IV infusing or unable to flush. Inactive Administered Medications - up to 3 most recent administrations Medication Order MAR Action Action Date Dose Rate Site CARBOplatin (Paraplatin) 241 mg in D5W 250 mL infusion 241 mg (rounded from 241.2 mg, Target AUC = 2), IV Piggyback, at 500 mL/hr Administer over 30 Minutes, PROTECT FROM LIGHT, ONCE, 1 dose, On Thu06/08/23 at 1215 Start Infusion 06/08/2023 12:20 PM EST 241 mg 500 mL/hr dexAMETHasone (Decadron) tab 12 mg 12 mg, Oral, ONCE, On Thu06/08/23 at 1030, For 1 dose Given 06/08/2023 10:15 AM EST 12 mg diphenhydrAMINE (Benadryl) 25 mg in NSS 50 mL ivpb 25 mg, IV Piggyback, ONCE, 1 dose, On Thu06/08/23 at 1045 Start Infusion 06/08/2023 10:17 AM EST 25 mg 200 mL/hr Famotidine (Pepcid) tab 20 mg 20 mg, Oral, ONCE, On Thu06/08/23 at 1030, For 1 dose Given 06/08/2023 10:15 AM EST 20 mg NSS infusion FOR HYDRATION Intravenous, at 500 mL/hr Administer over 2 Hours, ONCE, 1 dose, On Thu06/08/23 at 1045 Start Infusion 06/08/2023 10:00 AM EST 1,000 mL 500 mL/hr PACLitaxel (Taxol) 116 mg in NSS 250 mL infusion 116 mg (50 mg/m2 2.32 m2 Treatment Plan BSA from Recorded weight), IV Piggyback, at 250 mL/hr Administer over 60 Minutes, Administer through 0.22 micron low protein binding filter!, ONCE, 1 dose, On Thu06/08/23 at 1115 Start Infusion 06/08/2023 11:20 AM EST 116 mg 250 mL/hr Palonosetron (Aloxi) inj SOLN 0.25 mg 0.25 mg, IV Push, ONCE, On Thu06/08/23 at 1030, For 1 dose, Restricted per GHS antiemetic guidelines Given 06/08/2023 10:16 AM EST 0.25 mg documented in this encounter Care Teams Mixer Lever Operator Relationship Specialty Start Date End Date Vic Bill DO [address] [place] [address] PCP - General Family Medicine 01/07/22 documented as of this encounter
--- OUTSIDE RECORDS SUMMARY | 2023-06-14 21:50 | External Medical Summary | Summary of Care ---
Author Name Unknown Organization [facility] Address [address] [facility] [address] Phone [phone] Care Team Providers Care Woodworking Belt Sander Name Role Phone Vic Bill Primary Care Provider Reason for Visit * Reason Onset Date Comments Advice 06/05/2023 allyson Encounter Details Date Type Department Care Team (Late st Contact Info) Description 06/05/2023 Telephone Hematology/Oncology [facility] [place] 200 [facility] [place] [address] Ally[place], Danny Pinzon MD 200 [place] [address] Advice (allyson) Allergies No known active allergiesdocumented as of this encounter (statuses as of 06/05/2023) Medications Medication Sig Dispensed Refills Start Date [...] as of this encounter (statuses as of 06/05/2023) Active Problems Problem Noted Date Diagnosed Date [...] as of this encounter (statuses as of 06/05/2023) Immunizations Name Administration Dates Next Due COVID-19 mRNA, LNP-s, No Pre serve, 2-Dose Series (Moderna) 06/18/2020,05/21/2020 COVID-19, mRNA, LNP-s, PF, B ooster, 100mcg/0.5mg (Moderna) 03/06/2021 Covid-19, Mrna, Lnp-s, Pf, B ivalent, 30 Mcg, IM, 12 yrs and above ([employer]) 04/02/2022 Pneumococcal Conjugate Vaccine, 20-valent (Prevn ar20) [...] as of this encounter Miscellaneous Notes * Addendum Note - Won Cuenca RN - 06/05/2023 10:54 AM ESTAddended by: WON CUENCA on: 06/05/2023 10:54 AM Modules accepted: Orders * Telephone Encounter - Won Cuenca RN - 06/05/2023 10:43 AM EST Message sent to Rad Onc as patient is scheduled for Radiation today at 1PM. * Telephone Encounter - Patricia Bill LPN - 06/05/2023 10:24 AM EST Called spoke with and she is going to get him ready and come on over. She stated he does have radiation at 1pm * Telephone Encounter - Won Cuenca RN - 06/05/2023 10:07 AM EST Per , would like patient to have Hydration 1L over 2 hours with PRN mag if needed. Scheduling- Please call patients and schedule patient for 2 hour apt today"Hydration" (Ally[place]).Please also schedule lab appointment 1 hour prior "CBCD, CMP,Mag." * Telephone Encounter - Won Cuenca RN - 06/05/2023 9:46 AM EST Spoke with patients daughter, has noticed that her father has been drinking less fluids, weak, and has been feeling unwell since Thursday. Hasn't fallen but feels unsteady. He states nothing has tasted good, was able to drink tea/toast. Denies nausea/vomiting. Patient with some "hot flashes" but denies fevers. TT sent to Dr. Concepcion to see if he would like labs/fluids today. * Telephone Encounter - Yusra Correia OSA - 06/05/2023 9:38 AM EST Patients daughter called in stating that the patient has a lot of weakness and decreased fluid intake since . She is concerned the patient may need fluids. documented in this encounter Plan of Treatment Upcoming Encounters Date Type Department Care Team (Late st Contact Info) Description 06/05/2023 11:00 AM EST Hem/Onc Treatment Hematology/Oncology Treatment, [place] 200 [facility], [place] [address] Laura, Chair 5 Hem Onc Scenery 200 [facility] [place] [address] Arrived 06/08/2023 8:50 AM EST Laboratory Laboratory [facility] [place] [address] [place] [phone] Laura, [facility] 200 [facility] [place], [place] [address] 06/08/2023 10:00 AM EST Hem/Onc Treatment Hematology/Oncology Treatment, [place] 200 [facility], [place] [address] Laura, Chair 2 Hem Onc Scenery 200 [facility] [place], [place] [address] 06/16/2023 9:00 AM EST Laboratory Laboratory [facility] [place] [address] [place] [phone] Laura, Lab Scenery [address] [place], [place] [address] 06/16/2023 9:30 AM EST Office Visit Hematology/Oncology [facility] [place] [address] [place] [address] An Holly CRNP 400 [facility] [place] [address] 06/16/2023 10:00 AM EST Hem/Onc Treatment Hematology/Oncology Treatment, [place] [address] [place] [address] Laura, Chair 9 Hem Onc Scenery [address] [place] [address] 10/05/2023 12:00 PM EDT Office Visit [facility] [address] [place] [address] Vic Bill, [address] [place] [address] Scheduled Orders Name Type Priority Associated Diagnoses Orde r Schedule MAGNESIUM Lab STAT Malignant neoplasm of cardio-esophageal junction (HCC) Expected: 06/05/2023, Expires: 06/05/2024 Health Maintenance Due Date Last Done Comments [...] junction (HCC)- Primary Malignant neoplasm of cardia documented in this encounter Care Teams Woodworking Belt Sander Relationship Specialty Start Date End Date Vic Bill DO [address] [place] [address] PCP - General Family Medicine 01/07/22 documented as of this encounter
--- OUTSIDE RECORDS SUMMARY | 2023-06-14 21:50 | External Medical Summary | Summary of Care ---
Author Name Unknown Organization [facility] Address [address] [place] [address] Phone [phone] Care Team Providers Care Screedman Name Role Phone Vic Bill Primary Care Provider Encounter Details Date Type Department Care Team (Late st Contact Info) Description 06/08/2023 Orders Only Hematology/Oncology, [facility] 400 [place] [address] Danny Concepcion MD 200 [place] [address] Allergies No known active allergiesdocumented as of [...] 30 Mcg, IM, 12 yrs and above ([employer]) 04/02/2022 Pneumococcal Conjugate Vaccine, 20-valent (Prevn ar20) [...] on file documented as of this encounter Plan of Treatment Upcoming Encounters Date Type Department Care Team (Late st Contact Info) Description 06/16/2023 9:00 AM EST Laboratory Laboratory [facility] [address] [place] [phone] Laura, Lab Scenery [address] [place] [address] 06/16/2023 9:30 AM EST Office Visit Hematology/Oncology [facility] [address] [place] [address] An Holly CRNP 400 [facility] [place] [address] 06/16/2023 10:00 AM EST Hem[facility] [address] [place] [address] Laura, Chair 9 Hem Onc Scenery [address] [place] [address] 10/05/2023 12:00 PM EDT Office Visit Family [facility] [address] [place] [address] Vic Bill DO [address] [place] [address] Health Maintenance Due Date Last Done Comments [...] Not on filedocumented as of this encounter Care Teams Screedman Relationship Specialty Start Date End Date Vic Bill DO [address] [place] [address] PCP - General Family Medicine 01/07/22 documented as of this encounter
--- OUTSIDE RECORDS SUMMARY | 2023-06-14 21:50 | External Medical Summary | Summary of Care ---
Author Name Unknown Organization [facility] Address [address] [facility] [address] Phone [phone] Care Team Providers Care Air Intercept Controller Name Role Phone Vic Bill Primary Care Provider Reason for Visit * Reason Onset Date Comments Advice 06/05/2023 allyson Encounter Details Date Type Department Care Team (Late st Contact Info) Description 06/05/2023 Telephone Hematology/Oncology [facility] [place] [facility] [place] [address] Allyosn, Danny Pinzon MD 200 [facility] [place] [address] Advice (allyson) Allergies No known active allergiesdocumented [...] 30 Mcg, IM, 12 yrs and above ([employer]) 04/02/2022 Pneumococcal Conjugate Vaccine, 20-valent (Prevn ar20) [...] encounter Miscellaneous Notes * Telephone Encounter - Patricia Bill LPN - 06/05/2023 10:24 AM EST Called spoke with and she is going to get him ready and come on over. She stated he does have radiation at 1pm * Telephone Encounter - Won Rhodes RN - 06/05/2023 10:07 AM EST Per , would like patient to have Hydration 1L over 2 hours with PRN mag if needed. Scheduling- Please call patients and schedule patient for 2 hour apt today"Hydration" (Allyson).Please also schedule lab appointment 1 hour prior "CBCD, CMP,Mag." * Telephone Encounter - Won Rhodes RN - 06/05/2023 9:46 AM EST Spoke [...] Team (Late st Contact Info) Description 06/05/2023 10:40 AM EST Laboratory Laboratory [facility] [place] 200 [facility] [place] [phone] Laura, Lab Scenery [address] [place], [place] [address] 06/05/2023 11:00 AM EST Hem/Onc Treatment Hematology/Oncology Treatment, [place] 200 [facility], [place] [address] Park, Chair 5 Hem Onc Scenery [address] [place] [address] 06/08/2023 8:50 AM EST Laboratory Laboratory [address] [place] [address] [place], [place] [phone] Laura, Lab Scenery [address] [place], [place] [address] 06/08/2023 10:00 AM EST Hem/Onc Treatment Hematology/Oncology Treatment, [place] 200 [facility], [place] [address] Laura, Chair 2 Hem Onc Scenery [address] [place], [place] [address] 06/16/2023 9:00 AM EST Laboratory Laboratory [facility] [place] [address] [place], [place] [phone] Laura, Lab Scenery [address] [place], [place] [address] 06/16/2023 9:30 AM EST Office Visit Hematology/Oncology [facility] [place] [address] [place], [place] [address] An Holly CRNP [address] [place] [address] 06/16/2023 10:00 AM EST Hem/Onc Treatment Hematology/Oncology Treatment, [place] 200 [facility], [place] [address] Laura, Chair 9 Hem Onc Scenery [address] [place], [place] [address] 10/05/2023 12:00 PM EDT Office Visit Family Practice [facility] [address] [place] [address] Vic Bill DO [address] [place] [address] Health Maintenance Due Date Last Done Comments [...] filedocumented as of this encounter Care Teams Air Intercept Controller Relationship Specialty Start Date End Date Vic Bill DO [address] [place] [address] PCP - General Family Medicine 01/07/22 documented as of this encounter
--- OUTSIDE RECORDS SUMMARY | 2023-06-14 21:50 | External Medical Summary | Summary of Care ---
Author Name Unknown Organization [facility] Address [address] [place] [address] Phone [phone] Care Team Providers Care Salesperson [employer]ets [employer] Pet Supp[employer] Name Role Phone Fly Vic Sherbenjamin Primary Care Provider Reason for Visit * Reason Comments Chemotherapy C1/D1 - Taxol/Carbop latin * Episode Based Medications (Routine) - Authorized Specialty Diagnoses / Procedures Referred By Kwaku cueva Referred To Contact Diagnoses Malignant neoplasm of cardio-esophageal junction (HCC) Encounter for antineoplastic chemotherapy Procedures ND PALONOSETRON HCL ND CARBOPLATIN INJECTION ND PACLITAXEL INJECTION Danny Concepcion MD 200 [place] [address] Anc Hem/Onc [address] [address] Referral ID Status Reason Start Date Expiration Date V isits Requested Visits Authorized [id number] Authorized 05/05/2023 04/19/2099 [id number] Encounter Details Date Type Department Care Team (Latest Contact Info) Description 05/18/2023 10:30 AM EST Hem/Onc Treatment Hematology/Oncolog y Treatment, [address] [phone] Laura, Chair 6 Hem Onc [address] [place] [address] Malignant neoplasm of cardio-esophageal junction (HCC)*; Encounter [...] 06/10/2023 11:45 AM EST Hem/Onc Treatment Hematology/[address]cology [address] [phone] Laura, Chair 11 Hem Onc [address] [place] [address] 06/16/2023 9:00 AM EST Laboratory Laboratory [address] [place] [phone] [place], Lab [address] [place] [address] 06/16/2023 9:30 AM EST Office Visit Hematology/Oncology [address] [place] [phone] An [place] [facility] [place] [address] 06/16/2023 10:00 AM EST Hem/Onc Treatment Hematology/Oncology [address] [phone] Laura, Chair 9 Hem Onc [address] [place] [address] 06/22/2023 9:30 AM EST Office Visit Hematology/Oncology Kathya Laura [place] [address] [place] [phone] Danny Concepcion MD [address] [place] [address] 10/05/2023 12:00 PM EDT Office Visit [facility] [address] [place] [address] Vic Bill DO [address] [place] [address] Health Maintenance Due Date Last Done Comments [...] mg documented in this encounter Care Teams Salesperson [employer] Relationship Specialty Start Date End Date Vic Bill DO [address] [place] [address] PCP - General Family Medicine 01/07/22 documented as of this encounter
--- OUTSIDE RECORDS SUMMARY | 2023-06-14 21:50 | External Medical Summary | Summary of Care ---
Author Name Unknown Organization [facility] Address [address] [facility] [address] Phone [phone] Care Team Providers Care Call Out Operator Name Role Phone Vic Bill Primary Care Provider Reason for Visit * Reason Onset Date Comments Advice 06/05/2023 allyson Encounter Details Date Type Department Care Team (Late st Contact Info) Description 06/05/2023 Telephone Hematology/Oncology [facility] [place] 200 [facility] [place] [address] Allyson, Danny Pinzon MD 200 [place] [address] Advice (allyson) Allergies No known active allergiesdocumented [...] 30 Mcg, IM, 12 yrs and above (SpineThera) 04/02/2022 Pneumococcal Conjugate Vaccine, 20-valent (Prevn ar20) [...] encounter Miscellaneous Notes * Telephone Encounter - Airam Torres RN - 06/05/2023 1:04 PM EST Patient is not tolerating treatment well. Unsure if he wants to continue with chemotherapy. Scheduling: please add patient to see Dr Concepcion Thursday06/08/23 at 9:30am. I called rad/onc (Jazz) and they will tell him appt is being added. Thanks! * Addendum Note - Won Cuenca RN [...] Team (Late st Contact Info) Description 06/08/2023 8:50 AM EST Laboratory Laboratory [facility] [place] 200 [address] [place] [phone] Laura Lab [place] [address] [place] [address] 06/08/2023 10:00 AM EST Hem/Onc Treatment Hematology/Oncology Treatment, [place] [address] [place] [address] Laura, Chair 2 Hem Onc [facility] 200 [address] [place] [address] 06/16/2023 9:00 AM EST Laboratory Laboratory [facility] Laura [place] [address] [phone] Laura Lab Kath[place] [address] [place] [address] 06/16/2023 9:30 AM EST Office Visit Hematology/Oncology Kathya Laura [place] [address] [place] [address] An [place], TERESA [address] [place] [address] 06/16/2023 10:00 AM EST Hem/Onc Treatment Hematology/Oncology Treatment, [place] [address] [place] [address] Laura, Chair 9 Hem Onc Scenery [address] [place] [address] 10/05/2023 12:00 PM EDT Office Visit Family [facility] [address] [place] [address] Vic Bill, [address] [place] [address] Health Maintenance Due Date Last Done Comments [...] Not on filedocumented as of this encounter Results * MAGNESIUM (06/05/2023 10:54 AM EST) Magnesium 2.4 1.5 - 2.6 mg/dL 06/05/2023 11:23 AM EST [facility] 56-02 Blood Venous blood specimen / Unknown Venipuncture / Unknown 06/05/2023 10:54 AM EST 06/05/2023 10:55 AM EST Danny Concepcion MD LAB BLOOD ORDERA BLES [facility] 56-[address] [place] [address] documented in this encounter Visit Diagnoses Diagnosis 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
--- OUTSIDE RECORDS SUMMARY | 2023-06-14 21:50 | External Medical Summary ---
Author Name Unknown Address Unknown Organization K09[facility] [place] [address] Laboratory Report Ordering Provider Test Date Status SEBASTIAN OSORIO 06/08/2023 09:02:28 Final Observation Date Value Abnormality Reference (Units ) Status WBC, Total 06/08/2023 09:02:28 2.42 Below low normal 4. 00-10.80 (K/uL) Final RBC 06/08/2023 09:02:28 4.49 4.50-5.25 (M/uL) Final Hemoglobin 06/08/2023 09:02:28 14.4 14.0-16.8 (g/dL) Final HCT 06/08/2023 09:02:28 42.7 40.0-48.4 (%) Final MCV 06/08/2023 09:02:28 95.1 82.0-99.5 (fL) Final MCH 06/08/2023 09:02:28 32.1 27.0-34.0 (pg) Final MCHC 06/08/2023 09:02:28 33.7 32.0-36.0 (g/dL) Final RDW 06/08/2023 09:02:28 13.9 11.5-15.5 (%) Final Platelets 06/08/2023 09:02:28 125 Below low normal 140 -400 (K/uL) Final MPV 06/08/2023 09:02:28 8.9 6.6-11.1 ( fL) Final Performing Location [facility] [place] [address]
--- OUTSIDE RECORDS SUMMARY | 2023-06-14 21:50 | External Medical Summary ---
Author Name Unknown Address Unknown Organization [facility] [place] [address] Laboratory Report Ordering Provider Test Date Status SEBASTIAN OSORIO 06/05/2023 10:54:51 Final Observation Date Value Abnormality Reference (Units ) Status WBC, Total 06/05/2023 10:54:51 1.84 Below low normal 4. 00-10.80 (K/uL) Final RBC 06/05/2023 10:54:51 4.55 4.50-5.25 (M/uL) Final Hemoglobin 06/05/2023 10:54:51 14.3 14.0-16.8 (g/dL) Final HCT 06/05/2023 10:54:51 43.8 40.0-48.4 (%) Final MCV 06/05/2023 10:54:51 96.3 82.0-99.5 (fL) Final MCH 06/05/2023 10:54:51 31.4 27.0-34.0 (pg) Final MCHC 06/05/2023 10:54:51 32.6 32.0-36.0 (g/dL) Final RDW 06/05/2023 10:54:51 14.1 11.5-15.5 (%) Final Platelets 06/05/2023 10:54:51 120 Below low normal 140 -400 (K/uL) Final MPV 06/05/2023 10:54:51 9.3 6.6-11.1 ( fL) Final Performing Location [facility] [place] [address]
--- OUTSIDE RECORDS SUMMARY | 2023-06-14 21:50 | External Medical Summary | Summary of Care ---
Author Name Unknown Organization [facility] Address [address] [facility] [address] Phone [phone] Care Team Providers Care Vamp Maker Name Role Phone Vic Bill Primary Care Provider Reason for Visit * Reason Onset Date Comments Advice 06/05/2023 allyson Encounter Details Date Type Department Care Team (Late st Contact Info) Description 06/05/2023 Telephone Hematology/Oncology [facility] [place] 200 [facility] [place] [address] Allyson, Danny Pinzon MD 200 [facility] [place] [address] Advice (allyson) Allergies No known active allergiesdocumented [...] 30 Mcg, IM, 12 yrs and above (Visual[employer]) 04/02/2022 Pneumococcal Conjugate Vaccine, 20-valent (Prevn ar20) [...] Encounter - Patricia Bill LPN - 06/05/2023 1:14 PM EST Appt added * Telephone Encounter - Airam Torres RN [...] Description 06/08/2023 8:50 AM EST Laboratory Laboratory [facility] [place] [address] [place] [phone] Laura, Lab [facility] 200 [facility] [place] [address] 06/08/2023 9:30 AM EST Office Visit Hematology/Oncology [facility] Laura [place] [address] [place] [address] Danny Concepcion MD [address] [place] [address] 06/08/2023 10:00 AM EST Hem/Onc Treatment Hematology/Oncology Treatment, [place] [address] [place] [address] Park, Chair 2 Hem Onc Scenery [address] [place], [place] [address] 06/16/2023 9:00 AM EST Laboratory Laboratory [facility] [address] [place] [phone] Laura, Lab Scenery 200 [facility] [place] [address] 06/16/2023 9:30 AM EST Office Visit Hematology/Oncology [facility] 200 [facility] [place] [address] An Holly CRNP [address] [place], [place] [address] [address] 06/16/2023 10:00 AM EST Hem[facility] [address] [place] [address] Laura, Chair 9 Hem Onc Scenery [address] [place] [address] 10/05/2023 12:00 PM EDT Office Visit Family Practice 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
--- OUTSIDE RECORDS SUMMARY | 2023-06-14 21:50 | External Medical Summary | Summary of Care ---
Author Name Unknown Organization [facility] Address [address] [facility] [place] [address] Phone [phone] Care Team Providers Care Ultrasound Specialist Name Role Phone Vic Bill Primary Care Provider Reason for Visit * Reason Comments Outpatient Testing Encounter Details Date Type Department Care Team (Late st Contact Info) Description 06/05/2023 10:40 AM EST Laboratory Laboratory [facility] [address] [place] [phone] [facility] Scenery 200 [facility] [place] [address] Malignant neoplasm of cardio-esophageal junction (HCC) Allergies [...] III(cT2, cN1, cM0, G3) - Signed by Fackinor, Drew A, MD on 04/23/2023 Prediabetes 07/28/2022 Overview: Per [...] 30 Mcg, IM, 12 yrs and above (iKaaz) 04/02/2022 Pneumococcal Conjugate Vaccine, 20-valent (Prevn ar20) [...] Description 06/08/2023 8:50 AM EST Laboratory Laboratory [facility] [address] [place], [place] [phone] Laura, Lab Scenery [address] [place], [place] [address] 06/08/2023 10:00 AM EST Hem/Onc Treatment Hematology/Oncology Treatment, [place] 200 [facility], [place] [address] Laura, Chair 2 Hem Onc Scenery [address] [place], [place] [address] 06/16/2023 9:00 AM EST Laboratory Laboratory [facility] [place] [address] [place], [place] [phone] Laura, Lab Scenery [address] [place], [place] [address] 06/16/2023 9:30 AM EST Office Visit Hematology/Oncology [facility] [place] [address] [place], [place] [address] An Holly CRNP 400 [facility] [address] 06/16/2023 10:00 AM EST Hem[facility] 200 [facility], [place] [address] Laura, Chair 9 Hem Onc Scen[address] [place], [place] [address] 10/05/2023 12:00 PM EDT Office Visit Family [facility] [address] [place] [address] Vic Bill DO [address] [place] [address] Pending Results Name Type Priority Associated Diagnoses Date /Time CBC WITH WBC DIFFERENTIAL Lab STAT Malignant neoplasm of cardio-esophageal junction (HCC) 06/05/2023 10:54 AM EST COMPREHENSIVE METABOLIC PANEL Lab STAT Malignant neoplasm of cardio-esophageal junction (HCC) 06/05/2023 10:54 AM EST CBC Lab STAT Malignant neoplasm of cardio-esophageal junction (HCC) 06/05/2023 10:54 AM EST DIFFERENTIAL, AUTOMATED Lab STAT Malignant neoplasm of cardio-esophageal junction (HCC) 06/05/2023 10:54 AM EST MAGNESIUM Lab STAT Malignant neoplasm of cardio-esophageal junction (HCC) 06/05/2023 10:54 AM EST Health Maintenance Due Date Last Done Comments [...] Diagnoses Diagnosis 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
--- OUTSIDE RECORDS SUMMARY | 2023-06-14 21:50 | External Medical Summary ---
Author Name Unknown Address Unknown Organization K09:[facility] 56-02 - 200 Ann Marie Chairez [place] [address] Laboratory Report Ordering Provider Test Date Status SEBASTIAN OSORIO 06/05/2023 10:54:51 Final Observation Date Value Abnormality Reference (Units ) Status BUN 06/05/2023 10:54:51 25 Above high normal 6-20 (mg/dL) Final Creatinine 06/05/2023 10:54:51 0.8 0.6-1.2 (mg/dL) Final Glomerular filtration rate/1.73 sq M.predicted [Volume Rate/Area] in Serum, Plasma or Blood by Creatinine-based formula (CKD-EPI) 06/05/2023 10:54:51 >90 >=60 (mL/min) Final eGFR is calculated based on the CKD-EPI 2020 equation SODIUM 06/05/2023 10:54:51 136 135-146 (m mol/L) Final Potassium 06/05/2023 10:54:51 4.5 3.5-5.1 (m mol/L) Final Cl 06/05/2023 10:54:51 101 98-107 (mm ol/L) Final CO2 06/05/2023 10:54:51 27 22-32 (mmo l/L) Final Anion gap 06/05/2023 10:54:51 8 7-15 (mmol /L) Final Glucose 06/05/2023 10:54:51 126 Above high normal 70 -120 (mg/dL) Final Albumin 06/05/2023 10:54:51 3.7 Below low normal 3.8 -5.0 (g/dL) Final AST (Aspartate aminotransferase) 06/05/2023 10:54:51 15 10-50 (U/L) Fin al Alk Phos 06/05/2023 10:54:51 90 35-130 (U/ L) Final Bilirubin, Total 06/05/2023 10:54:51 0.6 <=1 .2 (mg/dL) Final Calcium 06/05/2023 10:54:51 9.2 8.4-10.2 ( mg/dL) Final Protein 06/05/2023 10:54:51 6.8 6.0-8.3 (g /dL) Final ALT (Alanine aminotransferase) 06/05/2023 10:54:51 7 Below low normal 10-50 (U/L) Final Performing Location [facility] [address] [place] [address]
--- OUTSIDE RECORDS SUMMARY | 2023-06-14 21:50 | External Medical Summary | Summary of Care ---
Author Name Unknown Organization [facility] Address [address] [place] [address] Phone [phone] Care Team Providers Care Flyer Builder Name Role Phone Vic Bill Primary Care Provider Encounter Details Date Type Department Care Team (Late st Contact Info) Description 06/05/2023 Orders Only Hematology/Oncology, [facility] 400 [facility] [address] Danny Concepcion MD 200 [place] [address] Allergies No known active allergiesdocumented [...] 30 Mcg, IM, 12 yrs and above ([employer]t [employer]) 04/02/2022 Pneumococcal Conjugate Vaccine, 20-valent (Prevn ar20) [...] Description 06/05/2023 10:40 AM EST Laboratory Laboratory Scenery [facility] [address] [place], [place] [phone] Park, Lab Scenery [address] [place], [place] [address] 06/05/2023 11:00 AM EST Hem[facility]c [facility] 200 [facility], [place] [address] Laura, Chair 5 Hem Onc Scenery [address] [place], [place] [address] 06/08/2023 8:50 AM EST Laboratory Laboratory [facility] [place] [address] [place], [place] [phone] Laura, Lab Scenery [address] [facility] [place], [place] [address] 06/08/2023 10:00 AM EST Hem/Onc Treatment [facility] 200 [facility], [place] [address] Laura, Chair 2 Hem Onc Scenery [address] [place], [place] [address] 06/16/2023 9:00 AM EST Laboratory Laboratory [facility] [address] [place], [place] [phone] Laura, Lab Scenery [address] [facility] [place], [place] [address] 06/16/2023 9:30 AM EST Office Visit Hematology/Oncology [facility] [address] [place] [address] An Holly CRNP [address] [place], [place] [address] [address] 06/16/2023 10:00 AM EST Hem/Onc Treatment [facility] 200 [facility], [place] [address] Laura, Chair 9 Hem Onc Scenery [address] [place], [place] [address] 10/05/2023 12:00 PM EDT Office Visit Family Practice [facility] [address] [place] [address] Vic Bill DO [address] [place] [address] Health Maintenance Due Date Last Done Comments COVID-19 Vaccine (2022-24 season) 2022 04/02/2022, 03/06/2021, 06/18/2020, Additional history [...] filedocumented as of this encounter Care Teams Flyer Builder Relationship Specialty Start Date End Date Vic Bill DO [address] [place] [address] PCP - General Family Medicine 01/07/22 documented as of this encounter
--- OUTSIDE RECORDS SUMMARY | 2023-06-14 21:50 | External Medical Summary | Summary of Care ---
Author Name Unknown Organization [facility] Address [address] [facility] [address] Phone [phone] Care Team Providers Care Gaming Director Name Role Phone Vic Bill Primary Care Provider Reason for Visit * Reason Comments Outpatient Testing Encounter Details Date Type Department Care Team (Late st Contact Info) Description 06/08/2023 8:50 AM EST Laboratory Laboratory [facility] [address] [place] [phone] [facility] Scenery 200 [facility] [place] [address] Malignant neoplasm of cardio-esophageal junction (HCC) Allergies [...] 30 Mcg, IM, 12 yrs and above ([employer]) 04/02/2022 Pneumococcal Conjugate Vaccine, 20-valent (Prevn ar20) [...] Upcoming Encounters Date Type Department Care Team (Latest Contact Info) Description 06/08/2023 9:30 AM EST Office Visit Hematology/Oncology [facility] [address] [place], [place] [address] Danny Concepcion MD [address] [place] [address] Outpatient Consult Note 06/08/2023 10:00 AM EST Hem/Onc Treatment [facility] 200 [facility] [place] [facility] [address] Laura, Chair 2 Hem Onc Scenery 200 [facility] [place], [place] [address] Arrived 06/16/2023 9:00 AM EST Laboratory Laboratory [facility] [place] [address] [place] [phone] Laura, Lab [facility] [place] [address] 06/16/2023 9:30 AM EST Office Visit Hematology/Oncology [facility] [place] [address] [place], [place] [address] An Holly CRNP [address] [place], [place] [address] 06/16/2023 10:00 AM EST Hem/Onc Treatment [facility] 200 [facility] [place] [address] Laura, Chair 9 Hem Onc Scenery 200 [place] [address] 10/05/2023 12:00 PM EDT Office Visit [facility] [address] [place] [address] Vic Bill DO 132 [place] [address] Pending Results Name Type Priority Associated Diagnoses Date /Time CBC WITH WBC DIFFERENTIAL Lab STAT Malignant neoplasm of cardio-esophageal junction (HCC) 06/08/2023 9:02 AM EST COMPREHENSIVE METABOLIC PANEL Lab STAT Malignant neoplasm of cardio-esophageal junction (HCC) 06/08/2023 9:02 AM EST CBC Lab STAT Malignant neoplasm of cardio-esophageal junction (HCC) 06/08/2023 9:02 AM EST DIFFERENTIAL, AUTOMATED Lab STAT Malignant neoplasm of cardio-esophageal junction (HCC) 06/08/2023 9:02 AM EST Health Maintenance Due Date Last [...] cardia documented in this encounter Care Teams Gaming Director Relationship Specialty Start Date End Date Vic Bill DO 132 [facility] [place] [address] PCP - General Family Medicine 01/07/22 documented as of this encounter
--- OUTSIDE RECORDS SUMMARY | 2023-06-14 21:50 | External Medical Summary | Summary of Care ---
Author Name Unknown Organization [facility] Address [address] [facility] [place] [place] [address] Phone [phone] Care Team Providers Care Inspector Watch Train Name Role Phone Vic Bill Rizwanbenjamin Primary Care Provider Reason for Visit * Reason Comments IV Therapy Hydration Encounter Details Date Type Department Care Team (Latest Contact Info) Description 06/05/2023 11:00 AM EST Hem/Onc Treatment Hematology/Oncology Treatment, [address] [address] Laura, Chair 5 Hem Onc Scene [address] [place] [address] Dehydration*; Malignant neoplasm of cardio-esophageal junction (HCC) [...] 30 Mcg, IM, 12 yrs and above ([employer]) 04/02/2022 Pneumococcal Conjugate Vaccine, 20-valent (Prevn ar20) [...] Sign Reading Time Taken Comments Blood Pressure 131/84 06/05/2023 11:00 AM EST Pulse 90 06/05/2023 11:00 AM EST Temperature 36.3 C (97.4 F) 06/05/2023 11:[address] Respiratory Rate 16 06/05/2023 11:00 AM EST Oxygen Saturation 96% 06/05/2023 11:00 AM EST Inhaled Oxygen Concentration - - Weight - - Height - - Body Mass Index - - documented in this encounter Nursing Notes * Torrie Maldonado, RN - 06/05/2023 12:25 PM EST Chair 7. IV inserted. Patient added on to schedule today for 1L NSS and lab work. Labs completed and all WNL. Patient will just receive 1L NSS, and then has radiation at 1 pm afterwards. Overall patient just expressed he has just not been feeling like himself. He feels a "pressure in his head" that is generally there but it does not necessarily feel like a headache. He said it "kind of feels like a headache." Patient has not been drinking much fluid and not eating as much now that he is on treatments. He tries to drink protein shakes but he says he just hates drinking them now, takes about 1.5 hours to get one down. RN educated we can continue to give patient fluids during treatments and radiation if he is not drinking enough at home. Will reassess Thursday when patient comes -- will f/u and have an appt with Dr. Concepcion with labs prior and follow afterwards with treatment. In regards to other chemo side effects, patient does not have much nausea but does throw up, typically after trying to eat some food, he feels it sits in his "chest" and then comes up and after he does this, he says he feels much better. Patient has not complained about much otherwise except just feeling foggy and not himself. He says "I just don't care anymore." Patient is very tearful and feels he cannot get back to how heused to feel. [place] and feels very sad he has not been motivated or able to go out feed the horses/take care of his animals. Patient is ordered mirtazapine 15 mg daily, but his wifesays she was not sure if he took it today or yesterday. Patient just continued to say "I just need to get over it and grow up and stop being a baby." Continues to be tearful, emotional support provided to patient during this time. Patient's fluids started and he is comfortable. Patient feeling emotionally better after discussingthe above. Patient denies further needs at this time. Safety and Risk for Injury Patient will remain free from injury. Ensure appropriate safety devices are available. Provide and maintain safe environment. documented in this encounter Plan of Treatment Upcoming Encounters Date Type Department Care Team (Late st Contact Info) Description 06/08/2023 8:50 AM EST Laboratory Laboratory [facility] [place] [address] [place] [phone] Laura, Lab [facility] [address] [place] [id number] 06/08/2023 9:30 AM EST Office Visit Hematology/Oncology [facility] [place] [address] [place] [id number] Danny Concepcion MD [address] [place] [id number] 06/08/2023 10:00 AM EST Hem/Onc Treatment Hematology/Oncology Treatment, [place] [address] [place] [address] Laura, Chair 2 Hem Onc Scene [address] [place] [id number] 06/16/2023 9:00 AM EST Laboratory Laboratory [facility] [place] [address] [place] [id number] Laura, Lab [address] [place] [address] [id number] 06/16/2023 9:30 AM EST Office Visit Hematology/Oncology [facility] [place] [address] [place] [address] An Holly CRNP [address] [place] [address] 06/16/2023 10:00 AM EST Hem/Onc Treatment Hematology/Oncology Treatment, [place] [address] [place] [address] Laura, Chair 9 Hem Onc Scen[address] [place] [address] 10/05/2023 12:00 PM EDT Office Visit [facility] [address] [place] [address] Vic Bill, [address] [place] [address] Health Maintenance Due Date Last Done Comments [...] Lock, PRN Other, IV Flush, Starting on Thu06/05/23 at 1232, Until 06/06/23 at 1231, For 24 hours, Do not flush if lock, PICC, or central line not in place; IV infusing or unable to flush. sodium chloride 0.9 % flush central line 10 mL 10 mL, IV Push, PRN Other, IV Flush, Starting on Thu06/05/23 at 1232, Until 06/06/23 at 1231, For 24 hours, Do not flush if lock, PICC, or central line not in place; IV infusing or unable to flush. Inactive Administered Medications - up to 3 most recent administrations Medication Order MAR Action Action Date Dose Rate Site NSS infusion FOR HYDRATION Intravenous, at 500 mL/hr Administer over 2 Hours, ONCE, 1 dose, On Thu06/05/23 at 1345 Start Infusion 06/05/2023 11:00 AM EST 1,000 mL 500 mL/hr documented in this encounter Care Teams Inspector Watch Train Relationship Specialty Start Date End Date Vic Bill DO [address] [place] [id number] PCP - General Family Medicine 01/07/22 documented as of this encounter
--- OUTSIDE RECORDS SUMMARY | 2023-06-14 21:50 | External Medical Summary ---
Author Name Unknown Address Unknown Organization [id number]:[facility] [address] [place] [address] Laboratory Report Ordering Provider Test Date Status SEBASTIAN OSORIO 06/08/2023 09:02:28 Final Observation Date Value Abnormality Reference (Units ) Status BUN 06/08/2023 09:02:28 25 Above high normal 6-20 (mg/dL) Final Creatinine 06/08/2023 09:02:28 0.8 0.6-1.2 (mg/dL) Final Glomerular filtration rate/1.73 sq M.predicted [Volume Rate/Area] in Serum, Plasma or Blood by Creatinine-based formula (CKD-EPI) 06/08/2023 09:02:28 >90 >=60 (mL/min) Final eGFR is calculated based on the CKD-EPI 2020 equation SODIUM 06/08/2023 09:02:28 137 135-146 (m mol/L) Final Potassium 06/08/2023 09:02:28 3.9 3.5-5.1 (m mol/L) Final Cl 06/08/2023 09:02:28 100 98-107 (mm ol/L) Final CO2 06/08/2023 09:02:28 29 22-32 (mmo l/L) Final Anion gap 06/08/2023 09:02:28 8 7-15 (mmol /L) Final Glucose 06/08/2023 09:02:28 139 Above high normal 70 -120 (mg/dL) Final Albumin 06/08/2023 09:02:28 3.5 Below low normal 3.8 -5.0 (g/dL) Final AST (Aspartate aminotransferase) 06/08/2023 09:02:28 17 10-50 (U/L) Fin al Alk Phos 06/08/2023 09:02:28 87 35-130 (U/ L) Final Bilirubin, Total 06/08/2023 09:02:28 0.5 <=1 .2 (mg/dL) Final Calcium 06/08/2023 09:02:28 9.3 8.4-10.2 ( mg/dL) Final Protein 06/08/2023 09:02:28 6.6 6.0-8.3 (g /dL) Final ALT (Alanine aminotransferase) 06/08/2023 09:02:28 16 10-50 (U/L) Brandyn arellano Performing Location [facility] [address] [place] [address]
--- OUTSIDE RECORDS SUMMARY | 2023-06-14 21:50 | External Medical Summary ---
Author Name Unknown Address Unknown Organization K09:[facility] [address] [facility] [place] [address] Laboratory Report Ordering Provider Test Date Status SEBASTIAN OSORIO 06/08/2023 09:02:28 Final Observation Date Value Abnormality Reference (Units ) Status SYNC LEUKOCYTES IN BLOOD BY AUTOMATED COUNT 06/08/2023 09:02:28 2.42 Below low normal 4.00-10.80 (K/uL) Final Neutrophils/100 leukocytes in Blood by Manual count 06/08/2023 09:02:28 71.0 40.0-75.0 (%) Final Lymphocytes/100 leukocytes in Blood by Manual count 06/08/2023 09:02:28 15.0 Below low normal 18.0-42.0 (%) Final Monocytes/100 leukocytes in Blood by Manual count 06/08/2023 09:02:28 12.0 Above high normal 1.0-11.0 (%) Final Eosinophils/100 leukocytes in Blood by Manual count 06/08/2023 09:02:28 2.0 0.0-6.0 (%) Final Neutrophils [#/volume] in Blood by Manual count 06/08/2023 09:02:28 1.72 Below low normal 1.80-7.70 (K/uL) Final Lymphocytes [#/volume] in Blood by Manual count 06/08/2023 09:02:28 0.36 Below low normal 1.00-4.80 (K/uL) Final Monocytes [#/volume] in Blood by Manual count 06/08/2023 09:02:28 0.29 0.00-1.10 (K/uL) Final Eosinophils [#/volume] in Blood by Manual count 06/08/2023 09:02:28 0.05 0.00-0.70 (K/uL) Final Nucleated erythrocytes/100 leukocytes [Ratio] in Blood by Automated count 06/08/2023 09:02:28 Final Performing Location [facility] [place] [address]
--- OUTSIDE RECORDS SUMMARY | 2023-06-14 21:50 | External Medical Summary ---
Author Name Unknown Address Unknown Organization K09:[facility] [address] [place] [address] Laboratory Report Ordering Provider Test Date Status SEBASTIAN OSORIO 06/05/2023 10:54:51 Final Observation Date Value Abnormality Reference (Units ) Status SYNC LEUKOCYTES IN BLOOD BY AUTOMATED COUNT 06/05/2023 10:54:51 1.84 Below low normal 4.00-10.80 (K/uL) Final Segs 06/05/2023 10:54:51 73.4 40.0-75.0 (%) Final Lymphs % 06/05/2023 10:54:51 19.0 18.0-42.0 (%) Final Monos 06/05/2023 10:54:51 6.0 1.0-11.0 (%) Final Eosinophils 06/05/2023 10:54:51 1.1 0.0-6.0 (%) Final Basos 06/05/2023 10:54:51 0.5 0.0-2.0 (%) Final Absolute Segs 06/05/2023 10:54:51 1.35 Below low normal 1.80-7.70 (K/uL) Final Lymphs, absolute 06/05/2023 10:54:51 0.35 Below low normal 1.00-4.80 (K/ul) Final Monos, Abs 06/05/2023 10:54:51 0.11 0.00-1.10 (K/uL) Final Eos, Abs 06/05/2023 10:54:51 0.02 0.00-0.70 (K/uL) Final Basos, Abs 06/05/2023 10:54:51 0.01 0.00-0.20 (K/uL) Final Performing Location [facility] [address] [place] [address]
--- OUTSIDE RECORDS SUMMARY | 2023-06-14 21:50 | External Medical Summary | Summary of Care ---
Author Name Unknown Organization [facility] Address [address] [facility] [address] Phone [phone] Care Team Providers Care Medical Anthropologist Name Role Phone Vic Bill Primary Care Provider Reason for Visit * Reason Comments Follow Up Encounter Details Date Type Department Care Team (Late st Contact Info) Description 06/08/2023 9:30 AM EST Office Visit Hematology/Oncology [facility] [place] 200 [facility] [place] [address] Danny Concepcion MD 200 [facility] [place] [address] Malignant neoplasm of cardio-esophageal junction (HCC)* Allergies No known active allergiesdocumented as of [...] 30 Mcg, IM, 12 yrs and above ([employer]) 04/02/2022 Pneumococcal Conjugate Vaccine, 20-valent (Prevn ar20) 02/02/2023 Seasonal Influenza, Quadrivalent Hd (Fluzone Hd) 01/26/2023,01/07/2022 TDAP (age 10 and older)(Boostrix) 02/02/2023 Zoster Vaccine Recombinant (Shingrix) 02/02/2023 documented as of this encounter Social History Tobacco Use Types Packs/Day Years Used Date Smoking Tobacco: Never Passive Smoke Exposure: Never Smokeless Tobacco: Never Tobacco Cessation:Counseling Given: Not Answered Alcohol Use Standard Drinks/Week Comments Yes 0 [...] Sign Reading Time Taken Comments Blood Pressure 109/76 06/08/2023 9:17 AM EST Pulse 100 06/08/2023 9:17 AM EST Temperature 36.5 C (97.7 F) 06/08/2023 9:17 AM ES T Respiratory Rate 16 06/08/2023 9:17 AM EST Oxygen Saturation 95% 06/08/2023 9:17 AM EST Inhaled Oxygen Concentration - - Weight 104.2 kg (229 lb 11.2 oz) 06/08/2023 9:17 AM EST Height 167.6 cm (5' 6") 06/08/2023 9:17 AM EST Body Mass Index 37.07 06/08/2023 9:17 AM EST documented in this encounter Progress Notes * Danny Concepcion MD - 06/08/2023 9:12 AM EST Outpatient Consult Note Data Source: Patient, Epic record. Data Source: Patient, Epic record. 06/08/2023 9:12 AM Joel Nunez [id number] 77 year old Patient Encounter: HEMATOLOGY/ONCOLOGY 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 He also had episodes of regurgitation. He had upper endoscopy and endoscopic ultrasound done on 04/08/2023 which revealed hypoechoic mass was found in the gastroesophageal junction. The mass was encountered at 38 cm from the incisors and extended to 41 cm. The lesion was partially circumferential (involving 50% of the lumen), there were also enlarged lymph nodes. The endosonographic borders were well-defined. 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 FNA from the subcarinal lymph node was non diagnostic. 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 Final Diagnosis A. Lymph Node, Subcarinal, EUS guided fine needle aspiration: Adequacy: Less than optimal- Evaluation limited by scant cellularity. Category: Non-diagnostic. Interpretation: Cellular necrosis. See comment. Other: Cellblock: The histological sections of the cellblock preparation show similar findings. Comment: The cell block demonstrates necrotic debris with few small round bening-appearing lymphocytes present throughout. Immunohistochemical stains are performed on block A1 and controls stain appropriately. A cytokeratin AE1/AE3 stain highlights rare possible benign-appearing squamous epithelialcells and debris. A GMS stain is negative for fungal elements. An AFB-faisal stain is negative for acid-fast bacilli. Viable cells are not present to differentiate metastatic tumor vs benign lymph node HER2 Interpretation Her-2/debi expression is NEGATIVE Patient had PET scan done on 04/21/2023 which revealed focal thickening in the distal esophagus, consistent with known adenocarcinoma, hypermetabolic subcarinal lymph node conglomerate would normallybe concerning for metastatic disease. However, given the presence of internal calcifications and a similar appearing right lung base calcified granuloma, old granulomatous disease is highly considered in this case, no evidence of metastatic disease in the abdomen or pelvis. He denies smoking. He takes 1 drink occasionally. Family history significant for mother was diagnosed breast cancer with bone metastasis. I have also discussed with Dr Maldonado who agree for neoadjuvant chemoradiation then restaging imaging and surgical evaluation. . Interval History: Currently he is on weekly Taxol plus carboplatin concurrent with radiation therapy. He received 15 after 28 fraction of radiation therapy. He is complaining generalized weakness, fatigue and hot flashes. He also had issues toxicity from Decadron which was discontinued before the Taxol. LABS/IMAGING: Results for orders placed or performed in visit on 06/05/23 COMPREHENSIVE METABOLIC PANEL Result Value Ref Range BUN 25 (H) 6 - 20 mg/dL Creatinine 0.8 0.6 - 1.2 mg/dL Estimated Glomerular Filtration Rate >90 >=60 mL/min Sodium 136 135 - 146 mmol/L Potassium 4.5 3.5 - 5.1 mmol/L Chloride 101 98 - 107 mmol/L CO2 27 22 - 32 mmol/L Anion Gap 8 7 - 15 mmol/L Glucose 126 (H) 70 - 120 mg/dL Albumin 3.7 (L) 3.8 - 5.0 g/dL AST 15 10 - 50 U/L Alkaline Phosphatase 90 35 - 130 U/L Bilirubin, Total 0.6 <=1.2 mg/dL Calcium 9.2 8.4 - 10.2 mg/dL Protein 6.8 6.0 - 8.3 g/dL ALT 7 (L) 10 - 50 U/L CBC Result Value Ref Range WBC 1.84 (L) 4.00 - 10.80 K/uL RBC 4.55 4.50 - 5.25 M/uL HGB 14.3 14.0 - 16.8 g/dL HCT 43.8 40.0 - 48.4 % MCV 96.3 82.0 - 99.5 fL MCH 31.4 27.0 - 34.0 pg MCHC 32.6 32.0 - 36.0 g/dL RDW 14.1 11.5 - 15.5 % PLT 120 (L) 140 - 400 K/uL MPV 9.3 6.6 - 11.1 fL DIFFERENTIAL, AUTOMATED Result Value Ref Range WBC 1.84 (L) 4.00 - 10.80 K/uL Neutrophils % 73.4 40.0 - 75.0 % Lymphocytes % 19.0 18.0 - 42.0 % Monocytes % 6.0 1.0 - 11.0 % Eosinophils % 1.1 0.0 - 6.0 % Basophils % 0.5 0.0 - 2.0 % Absolute Neutrophils 1.35 (L) 1.80 - 7.70 K/uL Absolute Lymphocytes 0.35 (L) 1.00 - 4.80 K/ul Absolute Monocytes 0.11 0.00 - 1.10 K/uL Absolute Eosinophils 0.02 0.00 - 0.70 K/uL Absolute Basophils 0.01 0.00 - 0.20 K/uL MAGNESIUM Result Value Ref Range Magnesium 2.4 1.5 - 2.6 mg/dL DIFFERENTIAL, TECHNOLOGIST REVIEW Result Value Ref Range nRBCs All his blood counts are in acceptable range including magnesium level and electrolytes. REVIEW OF SYSTEMS: General: No Fever, chills, night sweats HEENT: No change in visual acuity, blurred or double vision. No epistaxis, nasal discharge or change in hearing. Complain of dysphagia, no muscosal ulceration, or sores noted. Cardiovascular: No chest pain, CURRIE, or palpitations Respiratory: No shortness of breath, cough, hemoptysis, or pleuritic chest pain Gastrointestinal: No abdominal pain, episodes of nausea, vomiting, No diarrhea, rectal pain or bleeding Genitourinary: Denies Hematuria or dysuria Musculoskeletal: Generalized weakness and fatigue Skin: No skin rash or lesions noted Neurologic: No numbness, weakness, neuropathic pain or change in cognitive function Psychiatric: No vegetative signs of depression Endocrine: No symptoms of hypothyroidism or hyperglycemia Hematologic: No bleeding or lymph nodes noted As mentioned above, all of the systems were reviewed in full and are unremarkable. 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 Ventolin HFA 108 (90 Base) MCG/ACT Inhalation Aerosol Solution Inhale 2 Puffs by mouth every 4 hours as needed for Wheezing. (Patient not taking: Reported on 04/22/2023) 18 g 1 Rosuvastatin Calcium 20 MG Oral Tablet (Crestor) Take 1 Tablet by mouth in the morning. 90 Tablet 3 Losartan Potassium 25 MG Oral Tablet (Cozaar) Take 1 Tablet by mouth in the morning. 90 Tablet 3 Finasteride 5 MG Oral Tablet (Proscar) TAKE 1 TABLET BY MOUTH EVERY MORNING 90 Tablet 3 Zoster Vac Recomb Adjuvanted 50 MCG/0.5ML Intramuscular Suspension Reconstituted (Shingrix) Inject 0.5 mL into a large muscle now and repeat dose in 60 to 180 days 1 Each 1 Pantoprazole Sodium 40 MG Oral Tablet Delayed Release (Protonix) Take 1 Tablet by mouth in the morning. 30 minutes before the first meal of the day. Do not crush, split or chew the tablet. 90 Tablet 3 Ciprofloxacin HCl 500 MG Oral Tablet (Cipro) Take 1 Tablet by mouth in the morning and 1 Tablet before bedtime. (Patient not taking: Reported on 04/22/2023) 10 Tablet 0 Metoprolol Succinate ER 50 MG Oral Tablet Extended Release 24 Hour (toPROL XL) Take 1 Tablet by mouth in the morning. 90 Tablet 3 dexAMETHasone 4 MG Oral Tablet 8 mg (2 tab) 12 and 6 hours before chemotherapy (Patient taking differently: 4 mg (1 tab) 12 and 6 hours before chemotherapy) 40 Tablet 0 Ondansetron HCl 8 MG Oral Tablet Take 1 Tablet by mouth every 8 hours as needed for Nausea. 30 Tablet 0 Prochlorperazine Maleate 10 MG Oral Tablet (Compazine) Take 1 Tablet by mouth every 6 hours as needed for Nausea. 30 Tablet 0 Mirtazapine 15 MG Oral Tablet (Remeron) Take 1 Tablet by mouth at bedtime. 30 Tablet 5 No current facility-administered medications for this visit. Social History Tobacco Use Smoking status: Never Passive exposure: Never Smokeless tobacco: Never Vaping Use Vaping Use: Never used Substance Use Topics Alcohol use: Yes Comment: 1 drink/day Drug use: Never Review of patient's allergies indicates: No Known Allergies PHYSICAL EXAMINATION: General Appearance: Healthy appearing patient in no acute distress There were no vitals taken for this visit. Vitals reviewed. HEENT: No oral or pharyngeal masses, ulceration or thrush noted, no sinus tenderness. Neck is supple with no thyromegaly or JVD noted. Lymph Nodes: No lymphadenopathy noted in the occipital, pre and post auricular, cervical, supra andinfraclavicular, axillary, epitrochlear, inguinal, and popliteal region. Lungs/Thorax: Clear to auscultation, no accessory muscles of respiration being used. Heart: Regular rate and rhythm, normal S1, S2 Abdomen: Soft, nontender, bowel sounds present, no appreciable hepatosplenomegaly, no palpable masses Extremeties: Good pulses bilaterally, no peripheral edema. ASSESSMENT: 77-year-old male with a past medical history significant for hypertension and heart disease recently presented with uncomfortable feeling in swallowing and weight loss and decreased appetite. He had endoscopy done which shows mass in the distal esophagus with possible lymph node metastasis. Biopsy from the lymph node was nondiagnostic and biopsy from the esophageal masses consistent with poorly differentiated adenocarcinoma with signet ri ring features. Patient was stage as T2 N1 based on the endoscopic ultrasound finding. He also had a PET scan done which shows thickening in the distal esophagus and there were hypermetabolic subcarinal lymph node with internal calcification and are similar appearing right lung base calcified granuloma, old granulomatous disease is highly considered otherwise there has no other metastatic disease. Patient has local disease esophageal cancer with signet ring features and currently receiving weekly Taxol plus carboplatin and radiation therapy. He completed so far as 15 fraction of radiation therapy. I have also discussed with DR Maldonado who agree for chemoradiation neoadjuvant chemoradiation then restaging imaging and surgical evaluation. He is complaining generalized weakness, poor appetite and chest discomfort. His blood counts are inacceptable range. Most likely he is side effects from the chemotherapy and radiation therapy. I will give extra IV fluid today and also on 06/10/2023. At this point will continue his current treatment. Discussed with the patient and in detail about the diagnosis and reviewed all the available blood test result with them. PLAN: As above. He will return clinic for follow-up in 2 weeks. The patient voiced understanding of all of the above. All questions and concerns were addressed in an apparently satisfactory manner. Danny Concepcion MD (This note was completed using the dictation program Fluency Direct. As such, there may be misspellings, word substitutions, or other variations that should not change the essence of the clinical content of this encounter note. If there is need for further clarification, please direct questions to me.) documented in this encounter Nursing Notes * Patricia Bill LPN - 06/08/2023 9:18 AM EST Patient identifed by name and birthdate Do you have any concerns about pain management for today's visit? No Living Will or Advance Directive for Health Care as noted on the problem list. [facility] is a way you can talk to your provider on line through e-mail. Would you like to sign up? I can activate it for you? ALREADY ACTIVE Filed Vitals: 06/08/23 0917 BP: 109/76 Pulse: 100 Resp: 16 Temp: 36.5 C (97.7 F) TempSrc: Tympanic SpO2: 95% Weight: 104.2 kg (229 lb 11.2 oz) Height: 1.676 m (5' 6") Patient was instructed to not get up on the exam table/exam chair until directed and assisted by their provider; patient is to remain seated in the chair/ wheelchair/ exam table/ exam chair for fall prevention and safety reasons. Patient is aware to have assistance to step down off exam table/exam chair with personnel. Patient voiced full comprehension of instructions. NOTE: Patient reports having dizziness especially when standing up, he gets hot flashes then immediately gets chills, Also reported some gum pain documented in this encounter Plan of Treatment Upcoming Encounters Date Type Department Care Team (Late st Contact Info) Description 06/16/2023 9:00 AM EST Laboratory Laboratory [facility] [address] [place] [phone] Laura, Lab [facility] 200 [facility] [place] [address] 06/16/2023 9:30 AM EST Office Visit Hematology/Oncology [facility] [address] [place] [address] An Holly CRNP 400 [facility] [place] [address] 06/16/2023 10:00 AM EST Hem[facility] [address] [place] [address] Laura, Chair 9 Hem Onc [facility] 200 [facility] [place] [address] 10/05/2023 12:00 PM EDT Office Visit [facility] [address] [place] [address] Vic Bill, [address] [place] [address] Health Maintenance Due Date Last Done Comments [...] cardia documented in this encounter Care Teams Medical Anthropologist Relationship Specialty Start Date End Date Vic Bill DO 132 [facility] [place] [address] PCP - General Family Medicine 01/07/22 documented as of this encounter
--- OUTSIDE RECORDS SUMMARY | 2023-06-14 21:50 | External Medical Summary | Summary of Care ---
Author Name Unknown Organization [facility] Address [address] [place] [address] Phone [phone] Care Team Providers Care Transport Assistant Name Role Phone Vic Bill Primary Care Provider Encounter Details Date Type Department Care Team (Late st Contact Info) Description 06/08/2023 Orders Only Hematology/Oncology, [facility] 400 [place] [address] Danny Concepcion MD 200 [place] [address] Allergies No known active allergiesdocumented [...] 30 Mcg, IM, 12 yrs and above ([employer]) 04/02/2022 Pneumococcal Conjugate Vaccine, 20-valent (Prevn ar20) [...] Description 06/16/2023 9:00 AM EST Laboratory Laboratory [facility] [address] [place] [address] Lauar, Lab [address] [place] [address] 06/16/2023 9:30 AM EST Office Visit Hematology/Oncology [facility] [address] [place] [address] An Holly CRNP 400 [facility] [place] [address] 06/16/2023 10:00 AM EST Hem[facility] [address] [place] [address] Laura, Chair 9 Hem Onc [address] [place] [address] 10/05/2023 12:00 PM EDT Office Visit Family [facility] [address] [place] [address] Vic Bill DO [address] [place] [address] Health Maintenance Due Date Last Done Comments [...] filedocumented as of this encounter Care Teams Transport Assistant Relationship Specialty Start Date End Date Vic Bill DO [address] [place] [address] PCP - General Family Medicine 01/07/22 documented as of this encounter
--- OUTSIDE RECORDS SUMMARY | 2023-06-14 21:50 | External Medical Summary | Summary of Care ---
Author Name Unknown Organization [facility] Address [address] [facility] [address] Phone [phone] Care Team Providers Care Appellate Law Clerk Name Role Phone Vic Bill Primary Care Provider Reason for Visit * Reason Onset Date Comments Advice 06/05/2023 allyson Encounter Details Date Type Department Care Team (Late st Contact Info) Description 06/05/2023 Telephone Hematology/Oncology [facility] [place] 200 [facility] [place] [facility] [place] [address] Allyson, Danny Pinzon MD 200 [facility] [place] [address] Advice (allyson) Allergies No known active allergiesdocumented [...] 30 Mcg, IM, 12 yrs and above ([employer]) 04/02/2022 Pneumococcal Conjugate Vaccine, 20-valent (Prevn ar20) [...] EST Laboratory [facility] 200 [facility] [place] [phone] Laura, Lab [address] [place], [place] [address] 06/05/2023 11:00 AM EST Hem/Onc Treatment Hematology/Oncology Treatment, [place] 200 [facility], [place] [address] Park, Chair 5 Hem Onc Sc[address] [place] [address] 06/08/2023 8:50 AM EST Laboratory Laboratory [address] [place] [address] [place], [place] [id number] Laura, Lab [address] [place], [place] [address] 06/08/2023 10:00 AM EST Hem/Onc Treatment Hematology/Oncology Treatment, [place] 200 [facility], [place] [address] Laura, Chair 2 Hem Onc [address] [place], [place] [address] 06/16/2023 9:00 AM EST Laboratory Laboratory [facility] [place] [address] [place], [place] [phone] aLura, Lab Sc[address]ery [address] [place], [place] [address] 06/16/2023 9:30 AM EST Office Visit Hematology/Oncology [facility] [place] [address] [place], [place] [address] An Holly CRNP [address] [place] [address] 06/16/2023 10:00 AM EST Hem/Onc Treatment Hematology/Oncology Treatment, [place] 200 [facility], [place] [address] Laura, Chair 9 Hem Onc [address] [place], [place] [address] 10/05/2023 12:00 PM EDT Office Visit Family Practice [facility] [address] [place] [address] Vic Bill DO [address] [place] [address] Health Maintenance Due Date Last Done Comments [...] filedocumented as of this encounter Care Teams Appellate Law Clerk Relationship Specialty Start Date End Date Vic Bill DO [address] [place] [address] PCP - General Family Medicine 01/07/22 documented as of this encounter
--- OUTSIDE RECORDS SUMMARY | 2023-06-14 21:50 | External Medical Summary ---
Author Name Unknown Address Unknown Organization [facility] [place] [address] Laboratory Report Ordering Provider Test Date Status SEBASTIAN OSORIO 06/05/2023 10:54:51 Final Observation Date Value Abnormality Reference (Units ) Status Magnesium 06/05/2023 10:54:51 2.4 1.5-2.6 (m g/dL) Final Performing Location [facility] [place] [address]
--- OUTSIDE RECORDS SUMMARY | 2023-06-14 21:50 | External Medical Summary | Summary of Care ---
Author Name Unknown Organization [facility] Address [address] [facility] [address] Phone [phone] Care Team Providers Care Shop Helper Name Role Phone Vic Bill Primary Care Provider Reason for Visit * Reason Onset Date Comments Advice 06/05/2023 allyson Encounter Details Date Type Department Care Team (Late st Contact Info) Description 06/05/2023 Telephone Hematology/Oncology [facility] [place] [address] [facility] [place] [address] Allyson, Danny Pinzon MD [address] [place] [address] Advice (allyson) Allergies No known active allergiesdocumented [...] 30 Mcg, IM, 12 yrs and above ([email or web address]) 04/02/2022 Pneumococcal Conjugate Vaccine, 20-valent (Prevn ar20) [...] encounter Miscellaneous Notes * Telephone Encounter - Won Rhodes RN - 06/05/2023 10:43 AM EST Message [...] 11:00 AM EST Hem/Onc Treatment Hematology/Oncology Treatment, [place] 200 [facility], [place] [address] Laura, Chair 5 Hem Onc [address] [place] [address] 06/08/2023 8:50 AM EST Laboratory Laboratory [address]ery [place] [address] [place] [phone] Laura, Lab [address] [place] [facility] [address] 06/08/2023 10:00 AM EST Hem/Onc Treatment Hematology/Oncology Treatment, [place] [address] [facility], [place] [address] Laura, Chair 2 Hem Onc [address] [place] [address] 06/16/2023 9:00 AM EST Laboratory Laboratory [facility] [place] [place] [address] [place] [phone] Laura, Lab [address] [facility], [place] [address] 06/16/2023 9:30 AM EST Office Visit Hematology/Oncology [facility] [place] [address] [place] [address] An Holly CRNP [facility] [place] [address] 06/16/2023 10:00 AM EST Hem/Onc Treatment Hematology/Oncology Treatment, [place] 200 [facility], [place] [address] Laura, Chair 9 Hem Onc Sc[address]ery [address] [place] [address] 10/05/2023 12:00 PM EDT Office Visit Family Practice [facility] [address] [place] [address] Vic Bill DO [address] [place] [address] Health Maintenance Due Date Last Done Comments [...] filedocumented as of this encounter Care Teams Shop Helper Relationship Specialty Start Date End Date Vic Bill DO [address] [place] [address] PCP - General Family Medicine 01/07/22 documented as of this encounter
--- OUTSIDE RECORDS SUMMARY | 2023-06-14 21:50 | External Medical Summary | Summary of Care ---
Author Name Unknown Organization [facility] Address [address] [facility] [place] [place] [address] Phone [phone] Care Team Providers Care Hydraulic Riveter Name Role Phone Vic Bill Primary Care Provider Reason for Visit * Reason Comments Chemotherapy Chemo/recheck Encounter Details Date Type Department Care Team (Late st Contact Info) Description 06/01/2023 11:00 AM EST Office Visit Hematology/Oncology [facility] [address] [facility] [place] [address] An Holly CRNP [address] [facility] [place] [address] Malignant neoplasm of cardio-esophageal junction (HCC)*; Encounter [...] Sign Reading Time Taken Comments Blood Pressure 140/82 06/01/2023 10:54 AM EST Pulse 72 06/01/2023 10:54 AM EST Temperature 37.1 C (98.8 F) 06/01/2023 10:[address] Respiratory Rate 16 06/01/2023 10:54 AM EST Oxygen Saturation 95% 06/01/2023 10:54 AM EST Inhaled Oxygen Concentration - - Weight 107.3 kg (236 lb 8 oz) 06/01/2023 10:54 A M EST Height 167.6 cm (5' 6") 06/01/2023 10:54 AM EST Body Mass Index 38.17 06/01/2023 10:54 AM EST documented in this encounter Progress Notes * An Holly CRNP - 06/01/2023 11:00 AM EST Hematology/Oncology Outpatient Clinic note [facility] [address] [facility] [place] [address] Name: Joel Nunez Date: 05/31/2023 CHIEF COMPLAINT: Joel Nunez is a 77 year old male patient of Dr. Danny Concepcion here today for f/u visit today. From Patient chart confirmed with patient. From Dr. Danny Trejoon note 05/05/23. 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 He also had episodes of regurgitation. He had upper endoscopy and endoscopic ultrasound done on which revealed hypoechoic mass was found in the gastroesophageal junction. The mass was encountered at 38 cm from the incisors and extended to 41 cm. The lesion was partially circumferential(involving 50% of the lumen), there were also enlarged lymph nodes. The endosonographic borders were well-defined. Biopsy from the mass is consistent with invasive poorly differentiated adenocarcinoma with signet ring features. FNA from the [...] metastatic disease in the abdomen or pelvis. Patient has appointment with Dr. Solis on 05/15/2023. He denies smoking. He takes 1 drink occasionally. Family history significant for mother was diagnosed breast cancer with bone metastasis. HISTORY OF PRESENT ILLNESS: Joel Nunez is a 77 year old male with a history as outlined above. Currently here for f/u visit today and consideration for C1D15 of treatment. Patient noticing some increased trouble swallowing. Having a lot of phlelgm. Feels that things are not going down and is refluxing food during meals. Will happen about six times while eating. Then may not happen for a day or two before happening again. Cannot eat meat. Trying to eat soft foods and chew it well. Tries drinking during meals and sometimes this makes it better but sometimes worse.No difficulties swallowing liquids and is trying to drinkincreased fluid. Is sore but denies any severe pain with swallowing. Taking protonix once a day. Ant iemetics are not making a difference. Had one episode of neuropathy in his right hand, only lasted for an hour or so and then resolved. No further episodes. Reporting severe fatigue. 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 Past Surgical History: Procedure Laterality Date COLONOSCOPY, DIAGNOSTIC (RECTUM) 03/27/2023 COLONOSCOPY FLEXIBLE PROXIMAL DIAGNOSTIC performed by Yady Luis DO at ENDOSCOPY [facility] EGD, FLEXIBLE, DIAGNOSTIC 03/27/2023 ESOPHAGOGASTRODUODENOSCOPY (EGD), FLEXIBLE, TRANSORAL, DIAGNOSTIC performed by Yady Luis DO at ENDOSCOPY [facility] EGD, W/ENDOSCOPIC US 04/08/2023 ESOPHAGOGASTRODUODENOSCOPY (EGD), FLEXIBLE, TRANSORAL, ENDOSCOPIC ULTRASOUND performed by Tay Duran DO at ENDOSCOPY [facility] Social History Socioeconomic History Marital status: Spouse name: Not on file Number of children: Not on file Years of education: Not on file Highest education level: Not on file Occupational History Not on file Tobacco Use Smoking status: Never Passive exposure: Never Smokeless tobacco: Never Vaping Use Vaping Use: Never used Substance and Sexual Activity Alcohol use: Yes Comment: 1 drink/day Drug use: Never Sexual activity: Not on file Other Topics Concern Not on file Social History Narrative Not on file Social Determinants of Health Financial Resource Strain: Not on file Food Insecurity: Not on file Transportation Needs: Not on file Physical Activity: Not on file Stress: Not on file Social Connections: Not on file Intimate Partner Violence: Not on file Housing Stability: Not on file Review of patient's allergies indicates: No Known Allergies Current Outpatient Medications Medication Sig Dispense Refill [...] No current facility-administered medications for this visit. REVIEW OF SYSTEMS: See HPI - otherwise negative OBJECTIVE: Filed Vitals: 06/01/23 1054 BP: 140/82 Pulse: 72 Resp: 16 Temp: 37.1 C (98.8 F) TempSrc: Tympanic SpO2: 95% Weight: 107.3 kg (236 lb 8 oz) Height: 1.676 m (5' 6") Wt Readings from Last 5 Encounters: 06/01/23 107.3 kg (236 lb 8 oz) 05/25/23 108.5 kg (239 lb 3.2 oz) 05/18/23 110.9 kg (244 lb 9.6 oz) 05/15/23 111.6 kg (246 lb 1.6 oz) 05/05/23 112.5 kg (248 lb 1.6 oz) PHYSICAL EXAM: ECOG: Performance Status 1 = 80-90% Symptoms but nearly ambulatory General Appearance: No acute distress HEENT: Normal - No oral or pharyngeal masses, ulceration or thrush noted Lymph Nodes: Normal - No palpable lymph nodes in the neck or supraclavicular areas Lungs/Thorax: Normal - Clear to auscultation Heart: Normal - Regular rate and rhythm, normal S1, S2, no appreciable murmurs Pulses/Extremities: Normal - 2+ throughout and symmetrical, no edema Abdomen: Normal - Soft, nontender, bowel sounds present, no appreciable hepatosplenomegaly, no palpable masses Neurologic: Normal - Grossly intact LABS: Results for orders placed or performed in visit on 06/01/23 COMPREHENSIVE METABOLIC PANEL Result Value Ref Range BUN 24 (H) 6 - 20 mg/dL Creatinine 0.9 0.6 - 1.2 mg/dL Estimated Glomerular Filtration Rate 89 >=60 mL/min Sodium 139 135 - 146 mmol/L Potassium 4.0 3.5 - 5.1 mmol/L Chloride 102 98 - 107 mmol/L CO2 28 22 - 32 mmol/L Anion Gap 9 7 - 15 mmol/L Glucose 143 (H) 70 - 120 mg/dL Albumin 3.7 (L) 3.8 - 5.0 g/dL AST 13 10 - 50 U/L Alkaline Phosphatase 93 35 - 130 U/L Bilirubin, Total 0.3 <=1.2 mg/dL Calcium 9.4 8.4 - 10.2 mg/dL Protein 6.5 6.0 - 8.3 g/dL ALT 14 10 - 50 U/L CBC Result Value Ref Range WBC 2.17 (L) 4.00 - 10.80 K/uL RBC 4.36 4.50 - 5.25 M/uL HGB 13.8 (L) 14.0 - 16.8 g/dL HCT 42.3 40.0 - 48.4 % MCV 97.0 82.0 - 99.5 fL MCH 31.7 27.0 - 34.0 pg MCHC 32.6 32.0 - 36.0 g/dL RDW 13.8 11.5 - 15.5 % PLT 138 (L) 140 - 400 K/uL MPV 9.0 6.6 - 11.1 fL DIFFERENTIAL, AUTOMATED Result Value Ref Range WBC 2.17 (L) 4.00 - 10.80 K/uL Neutrophils % 60.3 40.0 - 75.0 % Lymphocytes % 24.0 18.0 - 42.0 % Monocytes % 13.4 (H) 1.0 - 11.0 % Eosinophils % 1.8 0.0 - 6.0 % Basophils % 0.5 0.0 - 2.0 % Absolute Neutrophils 1.31 (L) 1.80 - 7.70 K/uL Absolute Lymphocytes 0.52 (L) 1.00 - 4.80 K/ul Absolute Monocytes 0.29 0.00 - 1.10 K/uL Absolute Eosinophils 0.04 0.00 - 0.70 K/uL Absolute Basophils 0.01 0.00 - 0.20 K/uL DIFFERENTIAL, TECHNOLOGIST REVIEW Result Value Ref Range nRBCs IMPRESSION/PLAN: Esophageal adenocarcinoma Encounter for chemotherapy Lab results reviewed: unremarkable Ok for treatment today as scheduled. Appears to be tolerating well other than fatigue. Confirms taking dexamethasone as prescribed. Patient reporting occasional dysphagia with solid foods. Denies pain with swallowing. Reinforced dietary modifications including bland soft foods and soups. Eating frequent small meals throughout theday. Avoid hot or cold foods. Recommend high calorie supplements between meals. Encouraged to continue to increase oral fluid intake. Discussed option for PRN IVF between treatments if needed. Plan for chemoradiation neoadjuvant only and proceed to esophagectomy. Per patient end date of radiation therapy currently planned for the or 22 of June. RTC in two weeks with provider for chemo return RTC in four weeks with physician TERESA Crespo documented in this encounter Nursing Notes * Patricia Bill LPN - 06/01/2023 10:57 AM EST Patient identifed by name and birthdate Do you have any concerns about pain management for today's visit? No Living Will or Advance Directive for Health Care as noted on the problem list. [facility] is a way you can talk to your provider on line through e-mail. Would you like to sign up? I can activate it for you? ALREADY ACTIVE Filed Vitals: 06/01/23 1054 BP: 140/82 Pulse: 72 Resp: 16 Temp: 37.1 C (98.8 F) TempSrc: Tympanic SpO2: 95% Weight: 107.3 kg (236 lb 8 oz) Height: 1.676 m (5' 6") Patient [...] personnel. Patient voiced full comprehension of instructions. documented in this encounter Plan of Treatment Upcoming Encounters Date Type Department Care Team (Late st Contact Info) Description 06/08/2023 8:50 AM EST Laboratory Laboratory [facility] [place] [address] [facility] [place] [phone] [place], Lab [facility] [address] [facility] [place] [address] 06/08/2023 9:30 AM EST Office Visit Hematology/Oncology [facility] [place] [address] [place] [address] Danny Concepcion MD [address] [place] [address] 06/08/2023 10:00 AM EST Hem/Onc Treatment Hematology/Oncology Treatment, [place] [address] [place] [address] [place], Chair 2 Hem Onc [facility] [address] [place] [address] 06/16/2023 9:00 AM EST Laboratory Laboratory Scenery [facility] [address] [place] [phone] Laura, Lab [address] [place] [address] 06/16/2023 9:30 AM EST Office Visit Hematology/Oncology [facility] [place] [address] [place] [address] An Holly CRNP [address] [facility] [place] [address] 06/16/2023 10:00 AM EST Hem/Onc Treatment Hematology/Oncology [facility], [place] [address] [place] [address] Laura, Chair 9 Hem Onc Scenery [address] [facility] [place] [address] 10/05/2023 12:00 PM EDT Office Visit Family Practice [facility] [address] [place] [address] Vic Bill, [address] [place] [address] Health Maintenance Due Date Last Done Comments COVID-19 Vaccine ( - 2022-24 season) 2022 04/02/2022, 03/06/2021, 06/18/2020, [...] for antineoplastic chemotherapy documented in this encounter Care Teams Hydraulic Riveter Relationship Specialty Start Date End Date Vic Bill DO [address] [place] [address] PCP - General Family Medicine 01/07/22 documented as of this encounter
--- OUTSIDE RECORDS SUMMARY | 2023-06-14 21:51 | External Medical Summary | Summary of Care ---
Author Name Unknown Organization [facility] Address [address] [facility] [address] Phone [phone] Care Team Providers Care Waiter/Waitress Captain Name Role Phone Johnaa Bill DO Primary Care Provider Reason for Visit * Reason Onset Date Comments Advice 05/21/2023 Encounter Details Date Type Department Care Team (Late st Contact Info) Description 05/21/2023 Telephone Family Practice [facility] [address] [place] [address] Johana Bill DO [address] [facility] [place] [address] Advice Allergies No known active allergiesdocumented as of this encounter (statuses as of 05/27/2023) Medications Medication Sig Dispensed Refills Start Date [...] as of this encounter (statuses as of 05/27/2023) Active Problems Problem Noted Date Diagnosed Date [...] as of this encounter (statuses as of 05/27/2023) Immunizations Name Administration Dates Next Due COVID-19 mRNA, LNP-s, No Pre serve, 2-Dose Series (Moderna) 06/18/2020,05/21/2020 COVID-19, mRNA, LNP-s, PF, B ooster, 100mcg/0.5mg (Moderna) 03/06/2021 Covid-19, Mrna, Lnp-s, Pf, B ivalent, 30 Mcg, IM, 12 yrs and above ([email or web address]) 04/02/2022 Pneumococcal Conjugate Vaccine, 20-valent (Prevn ar20) [...] encounter Miscellaneous Notes * Addendum Note - Johana Bill DO - 05/25/2023 1:09 PM ESTAddended by: JOHANA BILL on: 05/25/2023 01:09 PM Modules accepted: Orders * Telephone Encounter - Johana Bill DO - 05/25/2023 1:09 PM EST Would advise trying low dose remeron at bed time for depression Sent to pharmacy * Telephone Encounter - Airam Torres RN - 05/22/2023 10:22 AM EST Reviewed with An, would defer to PCP for medication for depression. Called patients . She notes that patient is doing better today. Drinking fluids, last night he had 2 bowls of ham and will soup that their daughter made and then finished the rest this morning which surprised her. Advised that we would defer to PCP for medication for depression, but did offer to place oncology behavioral health referral if patient felt it would helpful to speak to someone. She declined this at this time as she states that patient is very quiet so she doesn't think he would talk to anyone. Offered to route this encounter to PCP, she verbalized appreciation. * Telephone Encounter - Almita Delgadillo RN - 05/21/2023 3:[address] Concepcion/Covering provider: please advise. Ana Luisa LAZCANO you are seeing the patient on 06/01/23. * Telephone Encounter - Juliann Castellanos OSA - 05/21/2023 3:29 PM EST An Holly pt. Pt not feeling well after chemo on Thursday. Yesterday and today has nausea. took Zofran and still not wanting to eat. , Linda, feels as if he is depressed. He is not himself. Feeling down. Can something be prescribed for depression? Please call Linda back at [phone] documented in this encounter Plan of Treatment Upcoming Encounters Date Type Department Care Team (Late st Contact Info) Description 06/01/2023 9:50 AM EST Laboratory Laboratory [facility] [place] [address] [place] [phone] Laura, Lab [address] COUNT INCLUDES [facility] [place] [address] 06/01/2023 11:00 AM EST Office Visit Hematology/Oncology [facility] [place] [address] [place] [address] An Holly CRNP [address] [facility] [place] [address] 06/01/2023 11:00 AM EST Hem/Onc Treatment Hematology/Oncology Treatment, [place] [address] [facility] [place] [address] Laura, Chair 7 Hem Onc [facility] [address] [place] [address] 06/08/2023 8:50 AM EST Laboratory Laboratory [facility] [place] [address] [place] [phone] Laura Lab Scenery [address] COUNT INCLUDES THE [facility] [place] [address] 06/08/2023 10:00 AM EST Hem/Onc Treatment [facility] [place] [facility] [address] Laura, Chair 2 Hem Onc [address]enery [address] [place] [address] 06/15/2023 9:00 AM EST Laboratory Laboratory [facility] [place] [address] [place] [phone] Henri Sanchez Scenery 200 [facility] [place] [address] 06/15/2023 10:00 AM EST Hem/Onc Treatment Hematology/Oncology Treatment, [place] [address] [place] [address] Laura, Chair 1 Hem Onc Scenery [address] [place] [address] 10/05/2023 12:00 PM EDT Office Visit Family [facility] [address] [place] [address] Johana Bill, [address] [place] [address] Health Maintenance Due Date Last Done Comments [...] as of this encounter Visit Diagnoses Diagnosis Adjustment disorder with depressed mood- Primary documented in this encounter Care Teams Waiter/Waitress Captain Relationship Specialty Start Date End Date Johana Bill DO [address] [place] [address] PCP - General Family Medicine 01/07/22 documented as of this encounter
--- OUTSIDE RECORDS SUMMARY | 2023-06-14 21:51 | External Medical Summary ---
Author Name Unknown Address Unknown Organization K[facility] [address] [place] [address] Laboratory Report Ordering Provider Test Date Status SEBASTIAN OSORIO 06/01/2023 09:58:55 Final Observation Date Value Abnormality Reference (Units ) Status BUN 06/01/2023 09:58:55 24 Above high normal 6-20 (mg/dL) Final Creatinine 06/01/2023 09:58:55 0.9 0.6-1.2 (mg/dL) Final Glomerular filtration rate/1.73 sq M.predicted [Volume Rate/Area] in Serum, Plasma or Blood by Creatinine-based formula (CKD-EPI) 06/01/2023 09:58:55 89 >=60 (mL/min) Final eGFR is calculated based on the CKD-EPI 2020 equation SODIUM 06/01/2023 09:58:55 139 135-146 (m mol/L) Final Potassium 06/01/2023 09:58:55 4.0 3.5-5.1 (m mol/L) Final Cl 06/01/2023 09:58:55 102 98-107 (mm ol/L) Final CO2 06/01/2023 09:58:55 28 22-32 (mmo l/L) Final Anion gap 06/01/2023 09:58:55 9 7-15 (mmol /L) Final Glucose 06/01/2023 09:58:55 143 Above high normal 70 -120 (mg/dL) Final Albumin 06/01/2023 09:58:55 3.7 Below low normal 3.8 -5.0 (g/dL) Final AST (Aspartate aminotransferase) 06/01/2023 09:58:55 13 10-50 (U/L) Fin al Alk Phos 06/01/2023 09:58:55 93 35-130 (U/ L) Final Bilirubin, Total 06/01/2023 09:58:55 0.3 <=1 .2 (mg/dL) Final Calcium 06/01/2023 09:58:55 9.4 8.4-10.2 ( mg/dL) Final Protein 06/01/2023 09:58:55 6.5 6.0-8.3 (g /dL) Final ALT (Alanine aminotransferase) 06/01/2023 09:58:55 14 10-50 (U/L) Brandyn arellano Performing Location [facility] [address] [place] [address]
--- OUTSIDE RECORDS SUMMARY | 2023-06-14 21:51 | External Medical Summary | Summary of Care ---
Author Name Unknown Organization [facility] Address [address] [facility] [place] [address] Phone [phone] Care Team Providers Care Cab Starter Name Role Phone Vic Bill Primary Care Provider Reason for Visit * Reason Comments Outpatient Testing Encounter Details Date Type Department Care Team (Late st Contact Info) Description 05/25/2023 8:00 AM EST Laboratory Laboratory [facility] [address] [place] [phone] [facility] 200 [facility] [place] [address] Malignant neoplasm of cardio-esophageal junction (HCC) Allergies No known active allergiesdocumented as of this encounter (statuses as of 05/25/2023) Medications Medication Sig Dispensed Refills Start Date [...] as of this encounter (statuses as of 05/25/2023) Active Problems Problem Noted Date Diagnosed Date [...] as of this encounter (statuses as of 05/25/2023) Immunizations Name Administration Dates Next Due COVID-19 mRNA, LNP-s, No Pre serve, 2-Dose Series (Moderna) 06/18/2020,05/21/2020 COVID-19, mRNA, LNP-s, PF, B ooster, 100mcg/0.5mg (Moderna) 03/06/2021 Covid-19, Mrna, Lnp-s, Pf, B ivalent, 30 Mcg, IM, 12 yrs and above ([employer]) 04/02/2022 Pneumococcal Conjugate Vaccine, 20-valent (Prevn ar20) [...] Care Team (Late st Contact Info) Description 05/25/2023 9:00 AM EST Hem/Onc Treatment Hematology/Oncology Treatment, [place] [address] [place] [address] Laura, Chair 2 Hem Onc [address] [place] [address] Arrived 06/01/2023 9:50 AM EST Laboratory Laboratory Scenery [facility] [place] [address] [place], [place] [phone] Laura, Lab Scenery [address] [place], [place] [address] 06/01/2023 11:00 AM EST Office Visit Hematology/Oncology [facility] [place] [address] [place], [place] [address] An Holly CRNP [address] [facility] [place] [address] 06/01/2023 11:00 AM EST [facility] 200 [facility] [place], [place] [address] Laura, Chair 7 Hem Onc Scenery [address] [place], [place] [address] 06/08/2023 8:50 AM EST Laboratory Laboratory [facility] Laura [place] [address] [place], [place] [phone] Laura, Lab Scenery [address] [place], [place] [address] 06/08/2023 10:00 AM EST Hem/Onc Treatment Hematology/Oncology Treatment [place] [address] [facility] [place], [place] [address] Laura, Chair 2 Hem Onc Scenery [address] [place] [address] 06/15/2023 9:00 AM EST Laboratory Laboratory Scenery [facility] [place] [address] [place], [place] [phone] Laura, Lab Scenery [address] [place], [place] [address] 06/15/2023 10:00 AM EST [facility] [address] [place] [address] Laura, Chair 1 Hem Onc Scenery [address] [place] [address] 10/05/2023 12:00 PM EDT Office Visit [facility] [address] [place] [address] Vic Bill, [address] [place] [address] Pending Results Name Type Priority Associated Diagnoses Date /Time CBC WITH WBC DIFFERENTIAL Lab STAT Malignant neoplasm of cardio-esophageal junction (HCC) 05/25/2023 8:03 AM EST COMPREHENSIVE METABOLIC PANEL Lab STAT Malignant neoplasm of cardio-esophageal junction (HCC) 05/25/2023 8:03 AM EST CBC Lab STAT Malignant neoplasm of cardio-esophageal junction (HCC) 05/25/2023 8:03 AM EST DIFFERENTIAL, AUTOMATED Lab STAT Malignant neoplasm of cardio-esophageal junction (HCC) 05/25/2023 8:03 AM EST Health Maintenance Due Date Last [...] cardia documented in this encounter Care Teams Cab Starter Relationship Specialty Start Date End Date Vic Bill DO [address] [place] [address] PCP - General Family Medicine 01/07/22 documented as of this encounter
--- OUTSIDE RECORDS SUMMARY | 2023-06-14 21:51 | External Medical Summary ---
Author Name Unknown Address Unknown Organization [facility] [place] [address] Laboratory Report Ordering Provider Test Date Status SEBASTIAN OSORIO 05/25/2023 08:03:50 Final Observation Date Value Abnormality Reference (Units ) Status Nucleated erythrocytes/100 leukocytes [Ratio] in Blood by Automated count 05/25/2023 08:03:50 Final Performing Location [facility] [place] [address]
--- OUTSIDE RECORDS SUMMARY | 2023-06-14 21:51 | External Medical Summary ---
Author Name Unknown Address Unknown Organization [facility] [address] [place] [address] Laboratory Report Ordering Provider Test Date Status SEBASTIAN OSORIO 05/25/2023 08:03:50 Final Observation Date Value Abnormality Reference (Units ) Status SYNC LEUKOCYTES IN BLOOD BY AUTOMATED COUNT 05/25/2023 08:03:50 6.55 4.00-10.80 (K/uL) Final Segs 05/25/2023 08:03:50 88.1 Above high normal 40.0-75.0 (%) Final Lymphs % 05/25/2023 08:03:50 9.3 Below low normal 18.0-42.0 (%) Final Monos 05/25/2023 08:03:50 2.3 1.0-11.0 (%) Final Eosinophils 05/25/2023 08:03:50 0.3 0.0-6.0 (%) Final Basos 05/25/2023 08:03:50 0.0 0.0-2.0 (%) Final Absolute Segs 05/25/2023 08:03:50 5.77 1.80-7.70 (K/uL) Final Lymphs, absolute 05/25/2023 08:03:50 0.61 Below low normal 1.00-4.80 (K/ul) Final Monos, Abs 05/25/2023 08:03:50 0.15 0.00-1.10 (K/uL) Final Eos, Abs 05/25/2023 08:03:50 0.02 0.00-0.70 (K/uL) Final Basos, Abs 05/25/2023 08:03:50 0.00 0.00-0.20 (K/uL) Final Performing Location [facility] [address] [place] [address]
--- OUTSIDE RECORDS SUMMARY | 2023-06-14 21:51 | External Medical Summary | Summary of Care ---
Author Name Unknown Organization [facility] Address [address] [facility] [address] Phone [phone] Care Team Providers Care Manufacturer'S Representative Name Role Phone Johana Bill DO Primary Care Provider Reason for Visit * Reason Onset Date Comments Advice 05/21/2023 Encounter Details Date Type Department Care Team (Late st Contact Info) Description 05/21/2023 Telephone Family Practice [facility] [address] [place] [address] Johana Bill DO [address] [facility] [place] [address] Advice Allergies No known active allergiesdocumented as [...] Mcg, IM, 12 yrs and above ([email or web address]) 04/02/2022 Pneumococcal Conjugate Vaccine, 20-valent (Prevn ar20) [...] for depression? Please call Linda back at [phone] documented in this encounter Plan of Treatment Upcoming Encounters Date Type Department Care Team (Late st Contact Info) Description 06/01/2023 9:50 AM EST Laboratory Laboratory [facility] [place] [address] [place] [phone] Laura, Lab Scenery [address] [facility] [place] [address] 06/01/2023 11:00 AM EST Office Visit Hematology/Oncology [facility] [place] [address] [place] [address] An Holly CRNP 400 [facility] [place] [address] 06/01/2023 11:00 AM EST Hem/Onc Treatment Hematology/Oncology Treatment, [place] 200 [facility] [place] [address] Laura, Chair 7 Hem Onc [facility] [address] [place] [address] 06/08/2023 8:50 AM EST Laboratory Laboratory [facility] [place] [address] [place] [phone] Laura Lab Scenery [address] [facility] [place] [address] 06/08/2023 10:00 AM EST Hem/Onc Treatment [facility]ology[facility], [place] 200 [facility] [address] Laura, Chair 2 Hem Onc Scenery [address] [place] [address] 06/15/2023 9:00 AM EST Laboratory Laboratory [facility] [place] [address] [place] [phone] Henri Sanchez Scenery 200 [facility] [place] [address] 06/15/2023 10:00 AM EST Hem/Onc Treatment Hematology/Oncology Treatment, [place] [address] [place] [address] Laura, Chair 1 Hem Onc Scenery [address] [place] [address] 10/05/2023 12:00 PM EDT Office Visit Family [facility] [address] [place] [address] Johana Bill, [address] [place] [address] Health Maintenance Due Date Last Done Comments [...] Primary documented in this encounter Care Teams Manufacturer'S Representative Relationship Specialty Start Date End Date Johana Bill DO [address] [place] [address] PCP - General Family Medicine 01/07/22 documented as of this encounter
--- OUTSIDE RECORDS SUMMARY | 2023-06-14 21:51 | External Medical Summary ---
Author Name Unknown Address Unknown Organization K[facility] [place] [address] Laboratory Report Ordering Provider Test Date Status SEBASTIAN OSORIO 05/25/2023 08:03:50 Final Observation Date Value Abnormality Reference (Units ) Status WBC, Total 05/25/2023 08:03:50 6.55 4.00-10.8 0 (K/uL) Final RBC 05/25/2023 08:03:50 4.48 4.50-5.25 (M/uL) Final Hemoglobin 05/25/2023 08:03:50 14.3 14.0-16.8 (g/dL) Final HCT 05/25/2023 08:03:50 44.0 40.0-48.4 (%) Final MCV 05/25/2023 08:03:50 98.2 82.0-99.5 (fL) Final MCH 05/25/2023 08:03:50 31.9 27.0-34.0 (pg) Final MCHC 05/25/2023 08:03:50 32.5 32.0-36.0 (g/dL) Final RDW 05/25/2023 08:03:50 13.8 11.5-15.5 (%) Final Platelets 05/25/2023 08:03:50 133 Below low normal 140 -400 (K/uL) Final MPV 05/25/2023 08:03:50 10.1 6.6-11.1 ( fL) Final Performing Location [facility] [address]
--- OUTSIDE RECORDS SUMMARY | 2023-06-14 21:51 | External Medical Summary ---
Author Name Unknown Address Unknown Organization K09:[facility] [place] [address] Laboratory Report Ordering Provider Test Date Status SEBASTIAN OSORIO 05/25/2023 08:03:50 Final Observation Date Value Abnormality Reference (Units ) Status BUN 05/25/2023 08:03:50 20 6-20 (mg/dL) Final Creatinine 05/25/2023 08:03:50 0.7 0.6-1.2 (mg/dL) Final Glomerular filtration rate/1.73 sq M.predicted [Volume Rate/Area] in Serum, Plasma or Blood by Creatinine-based formula (CKD-EPI) 05/25/2023 08:03:50 >90 >=60 (mL/min) Final eGFR is calculated based on the CKD-EPI 2020 equation SODIUM 05/25/2023 08:03:50 136 135-146 (m mol/L) Final Potassium 05/25/2023 08:03:50 4.8 3.5-5.1 (m mol/L) Final Cl 05/25/2023 08:03:50 103 98-107 (mm ol/L) Final CO2 05/25/2023 08:03:50 22 22-32 (mmo l/L) Final Anion gap 05/25/2023 08:03:50 11 7-15 (mmol /L) Final Glucose 05/25/2023 08:03:50 208 Above high normal 70 -120 (mg/dL) Final Albumin 05/25/2023 08:03:50 3.7 Below low normal 3.8 -5.0 (g/dL) Final AST (Aspartate aminotransferase) 05/25/2023 08:03:50 23 10-50 (U/L) Fin al Result may be falsely elevat ed due to hemolysis. Alk Phos 05/25/2023 08:03:50 106 35-130 (U/ L) Final Bilirubin, Total 05/25/2023 08:03:50 0.6 <=1 .2 (mg/dL) Final Calcium 05/25/2023 08:03:50 9.4 8.4-10.2 ( mg/dL) Final Protein 05/25/2023 08:03:50 6.8 6.0-8.3 (g /dL) Final ALT (Alanine aminotransferase) 05/25/2023 08:03:50 27 10-50 (U/L) Final Performing Location [facility] [address] [place] [address]
--- OUTSIDE RECORDS SUMMARY | 2023-06-14 21:51 | External Medical Summary ---
Author Name Unknown Address Unknown Organization K09[facility] [place] [place] [address] Laboratory Report Ordering Provider Test Date Status SEBASTIAN OSORIO 06/01/2023 09:58:55 Final Observation Date Value Abnormality Reference (Units ) Status Nucleated erythrocytes/100 leukocytes [Ratio] in Blood by Automated count 06/01/2023 09:58:55 Final Performing Location [facility] [place] [address]
--- OUTSIDE RECORDS SUMMARY | 2023-06-14 21:51 | External Medical Summary | Summary of Care ---
Author Name Unknown Organization [facility] Address [address] [facility] [place] [address] Phone [phone] Care Team Providers Care Information Writer Name Role Phone Vic Bill Primary Care Provider Reason for Visit * Reason Comments Outpatient Testing Encounter Details Date Type Department Care Team (Late st Contact Info) Description 06/01/2023 9:50 AM EST Laboratory Laboratory [facility] [address] [place] [phone] [facility] [place] 200 [facility] [place] [address] Malignant neoplasm of cardio-esophageal junction (HCC) Allergies No known active allergiesdocumented as of this encounter (statuses as of 06/01/2023) Medications Medication Sig Dispensed Refills Start Date [...] as of this encounter (statuses as of 06/01/2023) Active Problems Problem Noted Date Diagnosed Date [...] as of this encounter (statuses as of 06/01/2023) Immunizations Name Administration Dates Next Due COVID-19 mRNA, LNP-s, No Pre serve, 2-Dose Series (Modern[employer]) 06/18/2020,05/21/2020 COVID-19, mRNA, LNP-s, PF, B ooster, 100mcg/0.5mg (Moderna) 03/06/2021 Covid-19, Mrna, Lnp-s, Pf, B ivalent, 30 Mcg, IM, 12 yrs and above ([employer]) 04/02/2022 Pneumococcal Conjugate Vaccine, 20-valent (Prevn ar20) [...] 11:00 AM EST Office Visit Hematology/Oncology Scenery [facility] [address] [place], [place] [address] An Holly CRNP 400 [facility] [place] [address] 06/01/2023 11:00 AM EST Hem/Onc Treatment Hematology/Oncology Treatment, [place] 200 [facility], [place] [address] Laura, Chair 7 Hem Onc Scenery [address] [place], [place] [address] 06/08/2023 8:50 AM EST Laboratory Laboratory [facility] Laura [place] [address] [place], [place] [phone] Laura, Lab Scenery [address] [place], [place] [address] 06/08/2023 10:00 AM EST Hem/Onc Treatment Hematology/Oncology Treatment, [place] 200 [facility], [place] [address] Laura, Chair 2 Hem Onc Scenery [address] [place], [place] [address] 06/15/2023 9:00 AM EST Laboratory Laboratory [place] [facility] [address] [place], [place] [phone] Laura, Lab Scenery [address] [facility] [place], [place] [address] 06/15/2023 10:00 AM EST Hem/Onc Treatment Hematology/Oncology Treatment, [place] 200 [facility], [place] [address] Laura, Chair 1 Hem Onc Scenery [address] [place], [place] [address] 10/05/2023 12:00 PM EDT Office Visit [facility] [address] [place] [address] Vic Bill, [address] [place] [address] Pending Results Name Type Priority Associated Diagnoses Date /Time CBC WITH WBC DIFFERENTIAL Lab STAT Malignant neoplasm of cardio-esophageal junction (HCC) 06/01/2023 9:58 AM EST COMPREHENSIVE METABOLIC PANEL Lab STAT Malignant neoplasm of cardio-esophageal junction (HCC) 06/01/2023 9:58 AM EST CBC Lab STAT Malignant neoplasm of cardio-esophageal junction (HCC) 06/01/2023 9:58 AM EST DIFFERENTIAL, AUTOMATED Lab STAT Malignant neoplasm of cardio-esophageal junction (HCC) 06/01/2023 9:58 AM EST Health Maintenance Due Date Last [...] cardia documented in this encounter Care Teams Information Writer Relationship Specialty Start Date End Date Vic Bill DO [address] [place] [address] PCP - General Family Medicine 01/07/22 documented as of this encounter
--- OUTSIDE RECORDS SUMMARY | 2023-06-14 21:51 | External Medical Summary | Summary of Care ---
Author Name Unknown Organization [facility] Address [address] [facility] [address] Phone [phone] Care Team Providers Care Electromechanisms Design Drafter Name Role Phone Vic Bill DO Primary Care Provider Reason for Visit * Reason Onset Date Comments Advice 05/21/2023 Encounter Details Date Type Department Care Team (Late st Contact Info) Description 05/21/2023 Telephone Family Practice [facility] [address] [place] [address] Vic Bill DO [address] [facility] [place] [address] Advice Allergies No known active allergiesdocumented as of this encounter (statuses as of 05/22/2023) Medications Medication Sig Dispensed Refills Start Date [...] as of this encounter (statuses as of 05/22/2023) Active Problems Problem Noted Date Diagnosed Date [...] as of this encounter (statuses as of 05/22/2023) Immunizations Name Administration Dates Next Due COVID-19 mRNA, LNP-s, No Pre serve, 2-Dose Series (Moderna) 06/18/2020,05/21/2020 COVID-19, mRNA, LNP-s, PF, B ooster, 100mcg/0.5mg (Moderna) 03/06/2021 Covid-19, Mrna, Lnp-s, Pf, B ivalent, 30 Mcg, IM, 12 yrs and above ([employer]) 04/02/2022 Pneumococcal Conjugate Vaccine, 20-valent (Prevn ar20) [...] OSA - 05/21/2023 3:29 PM EST An Avni pt. Pt not feeling well after chemo on Thursday. Yesterday and today has nausea. took Zofran and still not wanting to eat. , Linda, feels as if he is depressed. He is not himself. Feeling down. Can something be prescribed for depression? Please call Linda back at [phone] documented in this encounter Plan of Treatment Upcoming Encounters Date Type Department Care Team (Late st Contact Info) Description 05/25/2023 8:00 AM EST Laboratory Laboratory [facility] Laura [place] [address] [place] [phone] [facility] [place] [address] 05/25/2023 9:00 AM EST Hem/Onc Treatment Hematology/Oncology Treatment, [place] [address] [place] [address] Laura, Chair 2 Hem Onc Scenery [address] [place] [address] 06/01/2023 9:50 AM EST Laboratory Laboratory Scenery [facility] [address] [place], [place] [phone] Laura, Lab Scenery [address] [place] [address] 06/01/2023 11:00 AM EST Office [facility] [address] [place], [place] [address] An Holly CRNP [address] [place] [address] [place] [address] 06/01/2023 11:00 AM EST [facility] 200 [facility], [place] [address] Laura, Chair 7 Hem Onc Scenery [address] [place], [place] [address] 06/08/2023 8:50 AM EST Laboratory Laboratory [facility] [address] [place], [place] [phone] Laura, Lab Scenery [address] [place] [address] 06/08/2023 10:00 AM EST [facility] [address] [facility] [address] [place], [place] [address] Laura, Chair 2 Hem Onc Scenery [address] [place] [address] 06/15/2023 9:00 AM EST Laboratory [facility] [address] [place] [phone] Laura, Lab Scenery [address] [place] [address] 06/15/2023 10:00 AM EST Hem/Onc Treatment Hematology/Oncology Treatment, [place] [address] [place] [address] Laura, Chair 1 Hem Onc Scenery [address] [place] [address] 10/05/2023 12:00 PM EDT Office Visit [facility] [address] [place] [address] Vic Bill DO [address] [place] [address] Health Maintenance Due Date Last Done Comments [...] filedocumented as of this encounter Care Teams Electromechanisms Design Drafter Relationship Specialty Start Date End Date Vic Bill DO [address] [place] [address] PCP - General Family Medicine 01/07/22 documented as of this encounter
--- OUTSIDE RECORDS SUMMARY | 2023-06-14 21:51 | External Medical Summary | Summary of Care ---
Author Name Unknown Organization [facility] Address [address] [place] [address] Phone [phone] Care Team Providers Care Survival Equipment Repairer Name Role Phone Fly Vic Sherbenjamin Primary Care Provider Reason for Visit * Reason Comments Chemotherapy Taxol/Carbo C1D15 * Episode Based Medications (Routine) - Authorized Specialty Diagnoses / Procedures Referred By Kwaku cueva Referred To Contact Diagnoses Malignant neoplasm of cardio-esophageal junction (HCC) Encounter for antineoplastic chemotherapy Procedures NV PALONOSETRON HCL NV CARBOPLATIN INJECTION NV PACLITAXEL INJECTION Danny Concepcion MD 200 [facility] [place] [place] [address] Anc Hem/Onc [facility] Laura [address] [place] [address] Referral ID Status Reason Start Date Expiration Date V isits Requested Visits Authorized [id number] Authorized 05/05/2023 04/19/2099 [id number] Encounter Details Date Type Department Care Team (Latest Contact Info) Description 06/01/2023 11:00 AM EST Hem/Onc Treatment Hematology/Oncolog y Treatment, [address] [address] Laura, Chair 7 Hem Onc [address] [place] [address] Malignant neoplasm of cardio-esophageal junction (HCC)*; Encounter [...] as of this encounter Nursing Notes * Maura Goomdan RN - 06/01/2023 2:14 PM EST Pt completed treatment without issues. IV removed by Regulo Alexis RN. Goals: Pt will remain free from injury. Possible barriers to meeting goals: ambulation with IV pole/pt is a high fall risk Stability of the patient: Moderately stable - low risk of patient condition declining or worsening Summary regarding today's goals: Met: Pt remained free from injury during treatment today. Discharged in stable condition. * Maura Goodman RN - 06/01/2023 1:44 PM EST Chair 4, Taxol/Carbo D15C1. Pt seen by An MOORE; refer to OV notes. Labs okay for treatment; proceed as ordered. PIV established; NSS infusing. Safety and Risk for Injury Patient will remain free from injury. Ensure appropriate safety devices are available. Provide and maintain safe environment. Functional status at today's visit: Restricted in [...] symptoms or adverse side effects during treatment. documented in this encounter Plan of Treatment Upcoming Encounters Date Type Department Care Team (Late st Contact Info) Description 06/08/2023 8:50 AM EST Laboratory Laboratory [facility] [address] [place] [phone] Laura, Lab Scenery [address] [place] [address] 06/08/2023 10:00 AM EST [facility] [address] Laura, Chair 2 Hem Onc Scenery [address] [place] [address] 06/16/2023 9:00 AM EST Laboratory Laboratory [facility] [place] [address] [place] [phone] Laura, Lab Scenery [address] [place] [address] 06/16/2023 9:30 AM EST Office Visit Hematology/Oncology [facility] [place] [address] [place] [address] An Holly CRNP 400 [facility] [address] 06/16/2023 10:00 AM EST Hem/Onc Treatment Hematology/Oncology Treatment, [place] 200 [facility], [place] [address] Laura, Chair 9 Hem Onc Scenery [address] [place], [place] [address] 10/05/2023 12:00 PM EDT Office Visit [facility] [address] [place] [address] Vic Bill, [address] [place] [address] Health Maintenance Due Date Last Done Comments [...] ONCE PRN Other, Hypersensitivity Reaction, Starting on Thu06/01/23 at 1154, Until Tu06/02/23 at 1153, For 24 hours EPINEPHrine 1 MG/ML inj 0.3 mg 0.3 mg, Intramuscular, ONCE PRN Other, Hypersensitivity Reaction or Anaphylaxis, Starting on Thu06/01/23 at 1154, Until Tu06/02/23 at 1153, For 24 hours hEParin 100 UNIT/ML Lock Flush inj 500 Units 500 Units (5 mL), IV Lock, PRN Other, IV Flush, Starting on Thu06/01/23 at 1154, Until Thu06/02/23 at 1153, For 24 hours, Do not flush if lock, PICC, or central line not in place; IV infusing or unable to flush. Hydrocortisone Sod Suc (PF) (Solu-Cortef) inj 100 mg 100 mg, IV Push, ONCE PRN Other, Hypersensitivity Reaction, Starting on Thu06/01/23 at 1154, Until Thu06/02/23 at 1153, For 24 hours LORAzepam (Ativan) tab 0.5 mg 0.5 mg, Oral, ONCE PRN Anxiety, Nausea, Starting on Thu06/01/23 at 1300, Until Discontinued NSS infusion Intravenous, at 50 mL/hr, PRN, Starting on Thu06/01/23 at 1300, Until Discontinued, Maintenance line Start Infusion 06/01/2023 12:05 PM EST 50 mL/hr oxygen GAS Inhalation, OXYGEN, First dose on Thu06/01/23 at 1600, Until Discontinued, Device/Managed by: Low Flow Device, [...] Push, PRN Other, IV Flush, Starting on Thu06/01/23 at 1154, Until Thu06/02/23 at 1153, For 24 hours, Do not flush if [...] PROTECT FROM LIGHT, ONCE, 1 dose, On Thu06/01/23 at 1330 Start Infusion 06/01/2023 1:36 PM EST 220 mg 500 mL/hr dexAMETHasone (Decadron) tab 12 mg 12 mg, Oral, ONCE, On Thu06/01/23 at 1300, For 1 dose Given 06/01/2023 12:06 PM EST 12 mg diphenhydrAMINE (Benadryl) 25 mg in NSS 50 mL ivpb 25 mg, IV Piggyback, ONCE, 1 dose, On Thu06/01/23 at 1230 Start Infusion 06/01/2023 12:09 PM EST 25 mg 200 mL/hr Famotidine (Pepcid) tab 20 mg 20 mg, Oral, ONCE, On Thu06/01/23 at 1300, For 1 dose Given 06/01/2023 12:06 PM EST 20 mg PACLitaxel (Taxol) 116 mg in NSS 250 mL infusion 116 mg (50 mg/m2 2.32 m2 Treatment Plan BSA from Recorded weight), IV Piggyback, at 250 mL/hr Administer over 60 Minutes, Administer through 0.22 micron low protein binding filter!, ONCE, 1 dose, On Thu06/01/23 at 1330 Start Infusion 06/01/2023 12:32 PM EST 116 mg 250 mL/hr Palonosetron (Aloxi) inj SOLN 0.25 mg 0.25 mg, IV Push, ONCE, On Thu06/01/23 at 1300, For 1 dose, Restricted per S antiemetic guidelines Given 06/01/2023 12:06 PM EST 0.25 mg documented in this encounter Care Teams Survival Equipment Repairer Relationship Specialty Start Date End Date Vic Bill DO [address] [place] [address] PCP - General Family Medicine 01/07/22 documented as of this encounter
--- OUTSIDE RECORDS SUMMARY | 2023-06-14 21:51 | External Medical Summary ---
Author Name Unknown Address Unknown Organization K[facility] [place] [address] Laboratory Report Ordering Provider Test Date Status SEBASTIAN OSORIO 06/01/2023 09:58:55 Final Observation Date Value Abnormality Reference (Units ) Status SYNC LEUKOCYTES IN BLOOD BY AUTOMATED COUNT 06/01/2023 09:58:55 2.17 Below low normal 4.00-10.80 (K/uL) Final Segs 06/01/2023 09:58:55 60.3 40.0-75.0 (%) Final Lymphs % 06/01/2023 09:58:55 24.0 18.0-42.0 (%) Final Monos 06/01/2023 09:58:55 13.4 Above high normal 1.0-11.0 (%) Final Eosinophils 06/01/2023 09:58:55 1.8 0.0-6.0 (%) Final Basos 06/01/2023 09:58:55 0.5 0.0-2.0 (%) Final Absolute Segs 06/01/2023 09:58:55 1.31 Below low normal 1.80-7.70 (K/uL) Final Lymphs, absolute 06/01/2023 09:58:55 0.52 Below low normal 1.00-4.80 (K/ul) Final Monos, Abs 06/01/2023 09:58:55 0.29 0.00-1.10 (K/uL) Final Eos, Abs 06/01/2023 09:58:55 0.04 0.00-0.70 (K/uL) Final Basos, Abs 06/01/2023 09:58:55 0.01 0.00-0.20 (K/uL) Final Performing Location [facility] [place] [address]
--- OUTSIDE RECORDS SUMMARY | 2023-06-14 21:51 | External Medical Summary | Summary of Care ---
Author Name Unknown Organization [facility] Address [address] [facility] [address] Phone [phone] Care Team Providers Care Salesperson Flying Squad Name Role Phone Johana Bill DO Primary Care Provider Reason for Visit * Reason Onset Date Comments Advice 05/21/2023 Encounter Details Date Type Department Care Team (Late st Contact Info) Description 05/21/2023 Telephone Family Practice [facility] [address] [place] [address] Johana Bill DO [address] [facility] [place] [address] Advice Allergies No known active allergiesdocumented as [...] 30 Mcg, IM, 12 yrs and above ([employer]) 04/02/2022 Pneumococcal Conjugate Vaccine, 20-valent (Prevn ar20) [...] for depression? Please call Linda back at [phone] documented in this encounter Plan of Treatment Upcoming Encounters Date Type Department Care Team (Late st Contact Info) Description 06/01/2023 9:50 AM EST Laboratory Laboratory [facility] [place] [address] [place] [phone] Laura, Lab Scenery [address] [facility] [place] [address] 06/01/2023 11:00 AM EST Office Visit Hematology/Oncology [facility] [place] [address] [place] [address] An Holly CRNP 400 [facility] [place] [address] 06/01/2023 11:00 AM EST Hem/Onc Treatment Hematology/Oncology Treatment, [place] 200 [facility] [place] [address] Laura, Chair 7 Hem Onc [facility] [address] [place] [address] 06/08/2023 8:50 AM EST Laboratory Laboratory [facility] [place] [address] [place] [phone] Laura Lab Scenery [address] [facility] [place] [address] 06/08/2023 10:00 AM EST Hem/Onc Treatment Hematology[facility]Oncology Treatment, [place] 200 [facility] [address] Laura, Chair 2 Hem Onc Scenery [address] [place] [address] 06/15/2023 9:00 AM EST Laboratory Laboratory [facility] [place] [address] [place] [phone] Henri Sanchez Scenery 200 [facility] [place] [address] 06/15/2023 10:00 AM EST Hem/Onc Treatment Hematology/Oncology Treatment, [place] [address] [place] [address] Laura, Chair 1 Hem Onc Scenery [address] [place] [address] 10/05/2023 12:00 PM EDT Office Visit [facility] [address] [place] [address] Johana Bill, [address] [place] [address] Health Maintenance Due Date Last Done Comments [...] Primary documented in this encounter Care Teams Salesperson Flying Squad Relationship Specialty Start Date End Date Johana Bill DO [address] [place] [address] PCP - General Family Medicine 01/07/22 documented as of this encounter
--- OUTSIDE RECORDS SUMMARY | 2023-06-14 21:51 | External Medical Summary | Summary of Care ---
Author Name Unknown Organization [facility] [address] [facility] [address] Phone [phone] Care Team Providers Care Steam Clothes Press Operator Name Role Phone Johana Bill DO Primary Care Provider Reason for Visit * Reason Onset Date Comments Advice 05/21/2023 Encounter Details Date Type Department Care Team (Late st Contact Info) Description 05/21/2023 Telephone Family Practice [facility] [address] [place] [address] Johana Bill DO [address] [facility] [place] [id number] Advice Allergies No known active allergiesdocumented as [...] 30 Mcg, IM, 12 yrs and above (Eqalix) 04/02/2022 Pneumococcal Conjugate Vaccine, 20-valent (Prevn ar20) [...] encounter Miscellaneous Notes * Telephone Encounter - Lauryn Black RN - 05/27/2023 9:58 AM EST Called pharmacy and confirmed that medication has been picked up. * Addendum Note - Johana Bill DO [...] PM EST Dr. Concepcion/Covering provider: please advise. An: NENO you are seeing the patient on 06/01/23. [...] for depression? Please call Linda back at [phone] documented in this encounter Plan of Treatment Upcoming Encounters Date Type Department Care Team (Late st Contact Info) Description 06/01/2023 9:50 AM EST Laboratory Laboratory [facility] [address] [facility] [place] [phone] Henri Sanchez [place] [address] [address] [place] [address] 06/01/2023 11:00 AM EST Office Visit Hematology/Oncology [facility] [address] [place] [address] An Holly, TERESA [address] [place] [address] 06/01/2023 11:00 AM EST Hem/Onc Treatment [address]ematology[address], [address] [address] Laura, Chair 7 Hem Onc [facility] [address] [place] [address] 06/08/2023 8:50 AM EST Laboratory Laboratory [facility] [place] [address] [place] [phone] Laura Lab [facility] [address] [place] [address] 06/08/2023 10:00 AM EST Hem/Onc Treatment [address]ematology[address] [address] Laura, Chair 2 Hem Onc [address] [place], [place] [address] 06/15/2023 9:00 AM EST Laboratory Laboratory [address] [place] [address] [place] [phone] Laura, Lab Scenery [address] [place] [address] 06/15/2023 10:00 AM EST Hem/Onc Treatment Hematology/Oncology Treatment, [place] [address] [place], [place] [address] Laura, Chair 1 Hem Onc [address] [place] [address] 10/05/2023 12:00 PM EDT Office Visit Family Practice [facility] [address] [place] [address] Johana Bill, [address] [place] [address] Health Maintenance Due Date Last Done Comments [...] Primary documented in this encounter Care Teams Steam Clothes Press Operator Relationship Specialty Start Date End Date Johana Bill DO [address] [place] [address] PCP - General Family Medicine 01/07/22 documented as of this encounter
--- OUTSIDE RECORDS SUMMARY | 2023-06-14 21:51 | External Medical Summary ---
Author Name Unknown Address Unknown Organization K09:[facility] [place] [address] Laboratory Report Ordering Provider Test Date Status SEBASTIAN OSORIO 06/05/2023 10:54:51 Final Observation Date Value Abnormality Reference (Units ) Status Nucleated erythrocytes/100 leukocytes [Ratio] in Blood by Automated count 06/05/2023 10:54:51 Final Performing Location [facility] [place] [address]
--- OUTSIDE RECORDS SUMMARY | 2023-06-14 21:51 | External Medical Summary ---
Author Name Unknown Address Unknown Organization [facility] [place] [address] Laboratory Report Ordering Provider Test Date Status SEBASTIAN OSORIO 06/01/2023 09:58:55 Final Observation Date Value Abnormality Reference (Units ) Status WBC, Total 06/01/2023 09:58:55 2.17 Below low normal 4. 00-10.80 (K/uL) Final RBC 06/01/2023 09:58:55 4.36 4.50-5.25 (M/uL) Final Hemoglobin 06/01/2023 09:58:55 13.8 Below low normal 14 .0-16.8 (g/dL) Final HCT 06/01/2023 09:58:55 42.3 40.0-48.4 (%) Final MCV 06/01/2023 09:58:55 97.0 82.0-99.5 (fL) Final MCH 06/01/2023 09:58:55 31.7 27.0-34.0 (pg) Final MCHC 06/01/2023 09:58:55 32.6 32.0-36.0 (g/dL) Final RDW 06/01/2023 09:58:55 13.8 11.5-15.5 (%) Final Platelets 06/01/2023 09:58:55 138 Below low normal 140 -400 (K/uL) Final MPV 06/01/2023 09:58:55 9.0 6.6-11.1 ( fL) Final Performing Location [facility] [address] [place] [address]
--- OUTSIDE RECORDS SUMMARY | 2023-06-14 21:51 | External Medical Summary | Summary of Care ---
Author Name Unknown Organization [facility] Address [address] [place] [address] Phone [phone] Care Team Providers Care Bowl Sander Name Role Phone Fly Vic Sherbenjamin Primary Care Provider Reason for Visit * Reason Comments Chemotherapy C1/D8 - Taxol/Carbop latin * Episode Based Medications (Routine) - Authorized Specialty Diagnoses / Procedures Referred By Kwaku cueva Referred To Contact Diagnoses Malignant neoplasm of cardio-esophageal junction (HCC) Encounter for antineoplastic chemotherapy Procedures OK PALONOSETRON HCL OK CARBOPLATIN INJECTION OK PACLITAXEL INJECTION Danny Concepcion MD [address] [facility] [place] [address] Anc Hem/Onc [facility] Laura [address] [place] [id number] Referral ID Status Reason Start Date Expiration Date V isits Requested Visits Authorized [id number] Authorized 05/05/2023 04/19/[phone] Encounter Details Date Type Department Care Team (Latest Contact Info) Description 05/25/2023 9:00 AM EST Hem/Onc Treatment Hematology/Oncolog y Treatment, [address] [address] Laura, Chair 2 Hem Onc [address] [place] [address] Malignant neoplasm of cardio-esophageal junction (HCC)*; Encounter [...] Sign Reading Time Taken Comments Blood Pressure 132/87 05/25/2023 9:00 AM EST Pulse 71 05/25/2023 9:00 AM EST Temperature 36.3 C (97.4 F) 05/25/2023 9:00 AM ES T Respiratory Rate 16 05/25/2023 9:00 AM EST Oxygen Saturation 93% 05/25/2023 9:00 AM EST Inhaled Oxygen Concentration - - Weight 108.5 kg (239 lb 3.2 oz) 05/25/2023 9:00 AM EST Height - - Body Mass Index 36.37 05/15/2023 12:49 PM EST documented in this encounter Nursing Notes * Torrie Maldonado RN - 05/25/2023 12:10 PM EST Goals: Patient will remain free from injury. Possible barriers to meeting goals: ambulating with IV pole Stability of the patient: Moderately stable - low risk of patient condition declining or worsening Summary regarding today's goals: Met: pt remained free of harm today Functional status at today's visit: Restricted in [...] further needs. * Torrie Maldonado RN - 05/25/2023 10:09 AM EST Chair 9. IV inserted. Patient here for tx, overall feeling better today. Patient said after his tx last week, he had to go to the hospital about 1 am Thursday night because he had been constipated and in a lot of pain fromnot going. Patient said he takes daily stool softeners and Miralax as needed, at baseline, and saidhe definitely knew he was constipated. He ended up having a BM and has been feeling back to himself. RN educated that the Zofran can also cause constipation as well and to make sure he is staying ahead of his constipation this time with his treatment. Patient says he is also trying to eat differently and eat different foods. With it being difficult to eat a lot of foods d/t tumor location and eatsolid foods, he is trying to make it work now to prevent constipation. Patient had also expressed he felt very bad with the steroids and could not sleep at all the night of his treatment. Sonal said he called in and he was instr Chemo agents Taxol/Carboplatin Appetite overall fair, taste had gotten bad but improved over the weekend, otherwise, can only eat soft foods and liquids overall, and cannot eat a lot at once because he feels it sits where to tumoris at and can make him nauseas and vomit. Nausea/Vomiting overall not too nauseas, pt said he just "did not feel great" last week but later started improving Diarrhea no Constipation yes, see above noted Mucositis no Fatigue some fatigue yes, improved now. [place] and feels he cannot do as much as he is used to now, but his helps a lot Bleeding no Infection no Rash rash was noted on face, but when patient was asked about the rash, he states that he does get a rash from time to time on his face and this had been going on before chemo started. Patient did not seem to feel the rash noted today was d/t the chemo but will CTM Numbness tingling no Pain -- patient states he does get a pain where his tumor is located on occasion, and says it is very painful but only lasts about 5 minutes, then goes away completed, until it happens again, randomly Radiation yes, today at 1pm ABN Labs WNL for tx Alt in Tx: N/A Return in 1 week Safety and Risk for Injury Patient will remain free from injury. Ensure appropriate safety devices are available. Provide and maintain safe environment. documented in this encounter Plan of Treatment Upcoming Encounters Date Type Department Care Team (Late st Contact Info) Description 06/01/2023 9:50 AM EST Laboratory Laboratory [facility] [place] [address] [place] [phone] [place], Lab Scenery [address] [facility] [place] [address] 06/01/2023 11:00 AM EST Office Visit Hematology/Oncology [facility] [place] [address] [place] [address] An Holly CRNP [address] [place] [address] 06/01/2023 11:00 AM EST Hem/Onc Treatment Hematology/Oncology Treatment, [place] [address] [facility] [address] Laura, Chair 7 Hem Onc Scen[address] [place] [address] 06/08/2023 8:50 AM EST Laboratory Laboratory [facility] [place] [address] [place] [phone] Laura, Lab Scenery [address] [facility] [place] [address] 06/08/2023 10:00 AM EST Hem/Onc Treatment Hematology/Oncology Treatment, [place] [address] [facility] [address] Laura, Chair 2 Hem Onc Sc[address] [place] [address] 06/15/2023 9:00 AM EST Laboratory Laboratory [address] [place] [address] [place] [phone] [place], Lab Scenery [address] [facility] [place] [address] 06/15/2023 10:00 AM EST Hem/Onc Treatment Hematology/Oncology Treatment, [place] [address] [place] [address] Laura, Chair 1 Hem Onc Scenery [address] [place] [address] 10/05/2023 12:00 PM EDT Office Visit Family [facility] [address] [place] [address] Vic Bill, [address] [place] [address] Health Maintenance Due Date Last Done Comments [...] ONCE PRN Other, Hypersensitivity Reaction, Starting on Thu05/25/23 at 0919, Until Thu05/26/23 at 0918, For 24 hours EPINEPHrine 1 MG/ML inj 0.3 mg 0.3 mg, Intramuscular, ONCE PRN Other, Hypersensitivity Reaction or Anaphylaxis, Starting on Thu05/25/23 at 0919, Until Thu05/26/23 at 0918, For 24 hours hEParin 100 UNIT/ML Lock Flush inj 500 Units 500 Units (5 mL), IV Lock, PRN Other, IV Flush, Starting on Thu05/25/23 at 0919, Until Thu05/26/23 at 0918, For 24 hours, Do not flush if lock, PICC, or central line not in place; IV infusing or unable to flush. Hydrocortisone Sod Suc (PF) (Solu-Cortef) inj 100 mg 100 mg, IV Push, ONCE PRN Other, Hypersensitivity Reaction, Starting on Thu05/25/23 at 0919, Until Thu05/26/23 at 0918, For 24 hours LORAzepam (Ativan) tab 0.5 mg 0.5 mg, Oral, ONCE PRN Anxiety, Nausea, Starting on Thu05/25/23 at 1030, Until Discontinued NSS infusion Intravenous, at 50 mL/hr, PRN, Starting on Thu05/25/23 at 1030, Until Discontinued, Maintenance line Start Infusion 05/25/2023 9:05 AM EST 50 mL/hr oxygen GAS Inhalation, OXYGEN, First dose on Thu05/25/23 at 1000, Until Discontinued, Device/Managed by: Low Flow Device, [...] Push, PRN Other, IV Flush, Starting on Thu05/25/23 at 0919, Until Thu05/26/23 at 0918, For 24 hours, Do not flush if lock, PICC, or central line not in place; IV infusing or unable to flush. Inactive Administered Medications - up to 3 most recent administrations Medication Order MAR Action Action Date Dose Rate Site CARBOplatin (Paraplatin) 268 mg in D5W 250 mL infusion 268 mg (rounded from 268.4 mg, Target AUC = 2), IV Piggyback, at 500 mL/hr Administer over 30 Minutes, PROTECT FROM LIGHT, ONCE, 1 dose, On Thu05/25/23 at 1100 Start Infusion 05/25/2023 11:04 AM EST 268 mg 500 mL/hr dexAMETHasone (Decadron) tab 12 mg 12 mg, Oral, ONCE, On Thu05/25/23 at 1030, For 1 dose Given 05/25/2023 9:38 AM EST 12 mg diphenhydrAMINE (Benadryl) 25 mg in NSS 50 mL ivpb 25 mg, IV Piggyback, ONCE, 1 dose, On Thu05/25/23 at 1000 Start Infusion 05/25/2023 9:40 AM EST 25 mg 200 mL/hr Famotidine (Pepcid) tab 20 mg 20 mg, Oral, ONCE, On Thu05/25/23 at 1030, For 1 dose Given 05/25/2023 9:38 AM EST 20 mg PACLitaxel (Taxol) 116 mg in NSS 250 mL infusion 116 mg (50 mg/m2 2.32 m2 Treatment Plan BSA from Recorded weight), IV Piggyback, at 250 mL/hr Administer over 60 Minutes, Administer through 0.22 micron low protein binding filter!, ONCE, 1 dose, On Thu05/25/23 at 1100 Start Infusion 05/25/2023 10:02 AM EST 116 mg 250 mL/hr Palonosetron (Aloxi) inj SOLN 0.25 mg 0.25 mg, IV Push, ONCE, On Thu05/25/23 at 1030, For 1 dose, Restricted per [facility] antiemetic guidelines Given 05/25/2023 9:39 AM EST 0.25 mg documented in this encounter Care Teams Bowl Sander Relationship Specialty Start Date End Date Vic Bill DO [address] [place] [address] PCP - General Family Medicine 01/07/22 documented as of this encounter
[2023-06-14 22:18] LABS: Basophils # (auto) 0.02 K/uL (0.00-0.20); Basophils % (auto) 0.9 %; Eosinophils # (auto) 0.02 K/uL (0.00-0.50); Eosinophils % (auto) 0.9 %; Hematocrit (blood only) 38.6 % (42.0-52.0); Hemoglobin 13.6 g/dl (14.0-18.0); Immature Granulocytes # (auto) 0.02 K/uL (0.01-0.20); Immature Granulocytes % (auto) 0.9 %; Lymphocytes # (auto) 0.38 K/uL (1.20-3.40); Lymphocytes % (auto) 17.5 %; Mean Corpuscular Hemoglobin 31.5 pg (25.0-34.0); Mean Corpuscular Hgb Conc 35.2 g/dL (32.0-36.0); Mean Corpuscular Volume 89.4 fL (80.0-100.0); Mean Platelet Volume 9.7 fL (9.4-12.4); Monocytes % (auto) 13.8 %; Neutrophils # (auto) 1.43 K/uL (1.40-6.50); Platelet Count 101 K/uL (130-400); RDW Coefficient of Variation 13.3 % (11.5-14.5); RDW Standard Deviation 42.6 fL (36.4-46.3); Red Blood Count 4.32 M/uL (4.70-6.10); White Blood Count 2.17 K/ul (4.8-10.8)
[2023-06-14 22:30] LABS: Albumin Level 3.5 gm/dl (3.4-5.0); Bilirubin,Total 0.8 mg/dl (0.2-1.0); Calcium 8.9 mg/dl (8.6-10.3); Potassium 4.4 mmol/L (3.5-5.1)
[2023-06-14 22:36] LABS: Albumin Globulin Ratio 1.1 (0.9-2); BUN Creatinine Ratio 47.6 (10-20); Creatinine Clr Calc Pharmacy 115.9 ml/min; Est GFR (African American) 110.9 ml/min; Est GFR (Non-African American) 95.7 ml/min; Globulin 3.1 gm/dl (2.5-4.0); Total Protein 6.6 gm/dl (6.0-8.3)
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
[2023-06-14 22:50] LABS: Magnesium 1.9 mg/dl (1.7-2.4)
[2023-06-14] MEDS: SODIUM CHLORIDE 0.9% 1,000 ML IV SCH (22:52)
[2023-06-15 00:30] LABS: Appearance Urine Cloudy (Clear); Bacteria Urine Automated Negative (Negative); Bilirubin Urine Negative (Negative); Blood Urine Negative (Negative); Color Urine Yellow; Glucose Urine UA Negative (Negative); Ketones Urine Negative (Negative); Leukocyte Esterase Urine Negative (Negative); Nitrite Urine Negative (Negative); Protein Urine Negative (Negative); RBC Urine Automated 0-4 /hpf (0-4); Specific Gravity Urine 1.024 (1.000-1.030); Urobilinogen Urine Negative (Negative); pH Urine 5.5 (4.5-7.5)
--- NOTE | 2023-06-15 00:58 | Emergency Department Note ---
ED Visit Note I have personally evaluated this patient examined him and reviewed the pertinent labs and data. I have discussed the case with Manuel Sarabia, the physician financial planning assistant and agree with the plan. Please refer to the PA note. This patient is being treated for esophageal cancer with chemo and radiation with the radiation last on Thursday he has had some nausea he cannot swallow because he has discomfort. He feels dehydrated no chest pain or shortness of breath. Has been weak at home. We did hydrate him with normal saline and his labs look fairly reassuring he has some mild pancytopenia consistent with the chemo. He has nothing to suggest infection or sepsis but he continues to not feel well and weak. I talked to his daughter at length who is a nurse and she does not feel he can go home. He appears in no respiratory distress on my exam and his abdomen is benign his lungs are clear. We have consulted Dr. Bunn to see the patient in the ER for admission/observation and further rehydration and treatment EKGas per my independent interpretation-normal sinus rhythm rate of 94. Right bundle branch block. Nonspecific T wave abnormality. No acute ST segment elevation. When I compare it to old EKG from 02-24-2023 there is no acute change .
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
[2023-06-15] MEDS ORDERED: ACETAMINOPHEN SUSP 325 MG/10.15 ML UDC PO PRN (01:52)
[2023-06-15 02:20] LABS: Influenza A virus by PCR Negative (Neg); Influenza B virus by PCR Negative (Neg); RSV by PCR Negative (Neg); SARS CoV2 RNA(COVID-19) Ceph NEGATIVE (Negative)
[2023-06-15 02:51] LABS: Thyroid Stimulating Hormone 1.164 uIu/ml (0.300-4.500)
[2023-06-15] MEDS: SODIUM CHLORIDE 0.9% 1,000 ML IV ONE (03:11)
[2023-06-15 03:45] LABS: BUN Creatinine Ratio 54.2 (10-20); Creatinine Clr Calc Pharmacy 152.1 ml/min; Est GFR (African American) 124.1 ml/min; Potassium 3.6 mmol/L (3.5-5.1)
[2023-06-15 03:59] LABS: Eosinophils # (auto) 0.02 K/uL (0.00-0.50); Eosinophils % (auto) 1.1 %; Hematocrit (blood only) 34.2 % (42.0-52.0); Hemoglobin 11.7 g/dl (14.0-18.0); Immature Granulocytes # (auto) 0.02 K/uL (0.01-0.20); Immature Granulocytes % (auto) 1.1 %; Lymphocytes # (auto) 0.36 K/uL (1.20-3.40); Lymphocytes % (auto) 19.9 %; Mean Corpuscular Hgb Conc 34.2 g/dL (32.0-36.0); Mean Corpuscular Volume 90.5 fL (80.0-100.0); Mean Platelet Volume 9.2 fL (9.4-12.4); Monocytes % (auto) 16.6 %; Neutrophils # (auto) 1.11 K/uL (1.40-6.50); Neutrophils % (auto) 61.3 %; Platelet Count 97 K/uL (130-400); Platelet Estimate Decreased (Normal); RDW Coefficient of Variation 13.3 % (11.5-14.5); RDW Standard Deviation 43.2 fL (36.4-46.3); Red Blood Count 3.78 M/uL (4.70-6.10); White Blood Count 1.81 K/ul (4.8-10.8)
[2023-06-15] MEDS: ASPIRIN 81 MG ECTAB PO SCH (07:42)
[2023-06-15] MEDS: ESCITALOPRAM OXALATE 10 MG TAB PO SCH (07:43)
[2023-06-15] MEDS: LOSARTAN POTASSIUM 25 MG TAB PO SCH (07:43)
[2023-06-15] MEDS: PANTOprazole 40 MG TAB PO SCH (07:43)
[2023-06-15] MEDS: FINASTERIDE 5 MG TAB PO SCH (07:43)
[2023-06-15] MEDS: ROSUVASTATIN CALCIUM 20 MG TAB PO SCH (07:43)
--- NOTE | 2023-06-15 08:23 | Hospitalist Progress Note ---
Date of Service June 15, 2023 Assessment & Plan (1) Odynophagia: Plan Pt is a 77yoF with PMHx significant for complete heart block status post PPM, hypertension, TIA/PVD as per records, esophageal cancer with ongoing chemoradiation, prediabetes, BPH, urolithiasis admitted with odynophagia. Odynophagia Esophageal cancer Pt with noted odynophagia Daughter also requesting PEG placement as pt has not been able to eat States he need nutritional support so that surgery can be considered to treat his cancer as well GI consulted, appreciate recs -no EGD -lidocaine -add sucralfate if not improving Reached out to GI about PEG placement on 06/16 about possible PEG placement per daughter request, awaiting further recs. Ongoing chemoradiation for esophageal cancer, visit yesterday discontinued as pt hospitalized. Pancytopenia In setting of chemo Continue to monitor complete heart block s/p pacemaker placement HTN Slightly elevated Continue home losartan as tolerated Pt currently refusing po meds Mood On lexapro Pt currently refusing po meds GERD Continue ppi Pt currently refusing po meds HLD Continue statin Pt currently refusing po meds BPH Continue home finasteride Pt currently refusing po meds Prediabetes hemoglobin A1c of 6.20 March 2023 Monitor glucose levels CODE STATUS: full code Diet: Liquids DVT prophylaxis: SCDs Re: Thrombocytopenia Dispo: PT/OT, pt currently refusing participation Admission and Anticipated Discharge Date Admission Date: June 15, 2023 Subjective Pt was seen laying in bed. Stated that he felt better. Feels like the fluids are helping. Later discussion with his daughter who works in the PCU here States that she has been in communication with Dr Duran from [facility]. Would like radiation held. Also wants a PEG tube placed. Review of Systems Review of Systems: All systems reviewed & are unremarkable except as noted in Subjective Physical Exam Physical Exam: General: Alert, oriented. No acute distress Skin: No noted rashes or bruises Psych: Appropriate mood and affect Neuro: No gross deficits HEENT: NC/AT Chest: Nontender to palpation. CV: RRR Resp: Breath sounds clear bilaterally, no increased effort of breathing. Abdomen: Soft, nontender, nondistended. Extremities: No edema in lower extremities bilaterally. Results & Data Results & Data Vital Signs (Past 12 Hours) Vital Signs Temp Pulse Pulse Resp BP BP Pulse Ox 06/15/23 08:17 36.8 C 77 18 148/93 H 95 06/15/23 04:15 36.6 C 69 18 150/76 H 95 06/15/23 03:11 78 18 137/76 94 06/15/23 02:00 98 06/15/23 00:00 18 97 06/14/23 22:55 79 18 142/86 H 95 06/14/23 22:55 94 06/14/23 21:52 36.0 C L 104 H 17 152/86 H 94 O2 Del Method 06/15/23 08:17 Room Air 06/15/23 04:15 Room Air 06/15/23 03:11 Room Air 06/15/23 02:00 Room Air 06/15/23 00:00 Room Air 06/14/23 22:55 Room Air 06/14/23 22:55 Room Air 06/14/23 21:52 Room Air
[2023-06-15] MEDS ORDERED: METOPROLOL SUCC 50MG EXT REL TAB PO SCH (09:00)
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
[2023-06-15] MEDS: LIDOCAINE VISCOUS 2% 15 ML UDC PO SCH (13:20)
--- NOTE | 2023-06-15 16:00 | Electrocardiogram Report ---
Test Reason : Blood Pressure : / mmHG Vent. Rate : 094 BPM Atrial Rate : 094 BPM P-R Int : 142 ms QRS Dur : 124 ms QT Int : 362 ms P-R-T Axes : 003 029 -12 degrees QTc Int : 452 ms Normal sinus rhythm Right bundle branch block Abnormal ECG When compared with ECG of 24-FEB-2023 11:32, MI interval has decreased Confirmed by Emanuel Tripathi ([id number]) on 06/15/2023 4:00:20 PM Referred By: REFERRED SELF Confirmed By:Emanuel Tripathi
--- OUTSIDE RECORDS SUMMARY | 2023-06-16 07:31 | External Medical Summary | Summary of Care ---
Author Name Unknown Organization [facility] [address] [facility] [address] Phone [phone] Care Team Providers Care Sock Knitting Machine Operator Name Role Phone Vic Bill DO Primary Care Provider Reason for Visit * Reason Onset Date Comments FYI 03/16/2023 Advice 03/16/2023 Encounter Details Date Type Department Care Team (Late st Contact Info) Description 03/16/2023 Telephone Family Practice [facility] [address] [place] [id number] Vic Bill DO [address] [place] [id number] FYI; Advice Allergies No known active allergiesdocumented as of this encounter (statuses as of 06/15/2023) Medications Medication Sig Dispensed Refills Start Date End Date Status Aspirin 81 MG Oral Tablet Chewable Take 1 Tablet by mouth in the morning. 0 Active Ventolin HFA 108 (90 Base) MCG/ACT Inhalation Aerosol SolutionIndicati ons:Pneumonia due to infectious organism, unspecified laterality, unspecified part of lung Inhale 2 Puffs by mouth every 4 hours as needed for Wheezing. 18 g 1 06/09/2022 Active Additional Information Patient not taking.Reported on 04/22/2023 Rosuvastatin Calcium 20 MG Oral Tablet (Crestor) Take 1 Tablet by mouth in the morning. 90 Tablet 3 07/16/2022 Active Losartan Potassium 25 MG Oral Tablet (Cozaar)Indicati ons:Hypertension goal BP (blood pressure) < 140/90 Take 1 Tablet by mouth in the morning. 90 Tablet 3 07/16/2022 Active Finasteride 5 MG Oral Tablet (Proscar) TAKE 1 TABLET BY MOUTH EVERY MORNING 90 Tablet 3 12/26/2022 Active Omeprazole 40 MG Oral Capsule Delayed Release (PriLOSEC)Indica tions:Gastroesop hageal reflux disease with esophagitis without hemorrhage Take 1 Capsule by mouth in the morning. 1 hour before the first meal of the day. 90 Capsule 3 02/02/2023 Discontinued documented as of this encounter (statuses as of 06/15/2023) Active Problems Problem Noted Date Diagnosed Date [...] as of this encounter (statuses as of 06/15/2023) Immunizations Name Administration Dates Next Due COVID-19 mRNA, LNP-s, No Pre serve, 2-Dose Series (Moderna) 06/18/2020,05/21/2020 COVID-19, mRNA, LNP-s, PF, B ooster, 100mcg/0.5mg (Moderna) 03/06/2021 Covid-19, Mrna, Lnp-s, Pf, B ivalent, 30 Mcg, IM, 12 yrs and above ([facility]) 04/02/2022 Pneumococcal Conjugate Vaccine, 20-valent (Prevn ar20) [...] encounter Miscellaneous Notes * Telephone Encounter - Fermín Crowley OSA - 03/19/2023 2:39 PM EST 2nd attempt, LMOM for pt to schedule f/u with [facility]. Sent [employer] message * Telephone Encounter - Stacy Bill OSA - 03/17/2023 12:54 PM EST LM for pt/ to call back for message/appt * Telephone Encounter - Vic Bill DO - 03/17/2023 12:50 PM EST Advise f/u in short term with Thiede or Rhed for 40 min appt and then f/u with me as scheduled I can weigh in if needed But he just had pacer placed which is good And hopefully will help prevent the passing out * Telephone Encounter - Corby Chirinos OSA - 03/16/2023 12:49 PM EST Patients Linda is calling to speak with Dr. Bill or one of his providers regarding their plan for Joel moving forward. She states waiting until June is not feasible. documented in this encounter Plan of Treatment Upcoming Encounters Date Type Department Care Team (Late st Contact Info) Description 10/05/2023 12:00 PM EDT Office Visit [facility] [address] [place] [id number] Vic Bill DO [address] [place] [address] Health Maintenance Due Date Last Done Comments [...] filedocumented as of this encounter Care Teams Sock Knitting Machine Operator Relationship Specialty Start Date End Date Vic Bill DO [address] [place] [address] PCP - General Family Medicine 01/07/22 documented as of this encounter
[2023-06-16 08:02] LABS: Hematocrit (blood only) 35.3 % (42.0-52.0); Hemoglobin 12.3 g/dl (14.0-18.0); Mean Corpuscular Hemoglobin 31.4 pg (25.0-34.0); Mean Corpuscular Hgb Conc 34.8 g/dL (32.0-36.0); Mean Corpuscular Volume 90.1 fL (80.0-100.0); Mean Platelet Volume 9.2 fL (9.4-12.4); Platelet Count 101 K/uL (130-400); RDW Coefficient of Variation 13.5 % (11.5-14.5); RDW Standard Deviation 43.3 fL (36.4-46.3); Red Blood Count 3.92 M/uL (4.70-6.10); White Blood Count 2.04 K/ul (4.8-10.8)
[2023-06-16 08:18] LABS: Albumin Globulin Ratio 1.1 (0.9-2); Albumin Level 3.1 gm/dl (3.4-5.0); BUN Creatinine Ratio 51.1 (10-20); Bilirubin,Total 0.6 mg/dl (0.2-1.0); Calcium 8.5 mg/dl (8.6-10.3); Est GFR (African American) 127.4 ml/min; Est GFR (Non-African American) 109.9 ml/min; Globulin 2.7 gm/dl (2.5-4.0); Magnesium 1.9 mg/dl (1.7-2.4); Phosphorus 3.4 mg/dl (2.5-4.9); Potassium 3.6 mmol/L (3.5-5.1); Total Protein 5.8 gm/dl (6.0-8.3)
[2023-06-16 08:32] LABS: Basophils # (auto) 0.02 K/uL (0.00-0.20); Eosinophils # (auto) 0.01 K/uL (0.00-0.50); Eosinophils % (auto) 0.5 %; Immature Granulocytes # (auto) 0.03 K/uL (0.01-0.20); Immature Granulocytes % (auto) 1.5 %; Lymphocytes # (auto) 0.34 K/uL (1.20-3.40); Lymphocytes % (auto) 16.7 %; Monocytes # (auto) 0.34 K/uL (0.11-0.59); Monocytes % (auto) 16.7 %; Neutrophils % (auto) 63.6 %; RBC Morphology Unremarkable
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
[2023-06-16] MEDS: SODIUM CHLORIDE 0.9% 500 ML IV SCH (11:07)
--- NOTE | 2023-06-16 12:34 | Hospitalist Progress Note ---
Date of Service June 16, 2023 Assessment & Plan (1) Odynophagia: Plan Pt is a 77yoF with PMHx significant for complete heart block status post PPM, hypertension, TIA/PVD as per records, esophageal cancer with ongoing chemoradiation, prediabetes, BPH, urolithiasis admitted with odynophagia. Odynophagia Esophageal cancer Pt with noted odynophagia Daughter also requesting PEG placement as pt has not been able to eat States he need nutritional support so that surgery can be considered to treat his cancer as well GI consulted, appreciate recs -no EGD -lidocaine -add sucralfate if not improving Reached out to GI about PEG placement on 06/16 about possible PEG placement per daughter request, awaiting further recs. -GI recommending surgery consult given pt might need J tube -surgery consulted, recommending starting ppn, possible transfer to pt's surgical oncologist at [facility] -Pt's surgical oncologist Brian Solis was contacted on 06/16 via Fab [employer] asking to discuss possible transfer. Conversation via [email or web address] text, he was advised pt currently admitted and [facility] surgery service recommending transfer. Awaiting further response/recs from him. PPN orders placed to start ppn on 06/17. Ongoing chemoradiation for esophageal cancer Pancytopenia In setting of chemo Continue to monitor complete heart block s/p pacemaker placement HTN Slightly elevated Continue home losartan as tolerated Pt currently refusing po meds Mood On lexapro Pt currently refusing po meds GERD Continue ppi Pt currently refusing po meds HLD Continue statin Pt currently refusing po meds BPH Continue home finasteride Pt currently refusing po meds Prediabetes hemoglobin A1c of 6.20 March 2023 Monitor glucose levels CODE STATUS: full code Diet: Liquids DVT prophylaxis: SCDs Re: Thrombocytopenia Dispo: PT/OT, pt currently refusing participation Admission and Anticipated Discharge Date Admission Date: June 15, 2023 Subjective Pt refusing po meds. Daughter would like feeding option, possible transfer to [facility]. Review of Systems Review of Systems: All systems reviewed & are unremarkable except as noted in Subjective Physical Exam Physical Exam: General: Alert, oriented. No acute distress Skin: No noted rashes or bruises Psych: Appropriate mood and affect Neuro: No gross deficits HEENT: NC/AT Chest: Nontender to palpation. CV: RRR Resp: Breath sounds clear bilaterally, no increased effort of breathing. Abdomen: Soft, nontender, nondistended. Extremities: No edema in lower extremities bilaterally. Results & Data Results & Data Vital Signs (Past 12 Hours) Vital Signs Temp Pulse Resp BP Pulse Ox O2 Del Method 06/16/23 08:05 36.7 C 89 18 146/92 H 94 Room Air
[2023-06-16] MEDS: SODIUM CHLORIDE 0.9% 1,000 ML IV SCH (12:46)
[2023-06-17] MEDS ORDERED: DEXTROSE 10% 1,000 ML IV PRN (04:11)
[2023-06-17] MEDS ORDERED: TPN/PPN CONSULT PHARMACY PRN (04:15)
[2023-06-17 05:54] LABS: Hematocrit (blood only) 34.5 % (42.0-52.0); Mean Corpuscular Hemoglobin 31.8 pg (25.0-34.0); Mean Corpuscular Hgb Conc 34.8 g/dL (32.0-36.0); Mean Corpuscular Volume 91.5 fL (80.0-100.0); Mean Platelet Volume 9.3 fL (9.4-12.4); Platelet Count 90 K/uL (130-400); RDW Coefficient of Variation 13.7 % (11.5-14.5); Red Blood Count 3.77 M/uL (4.70-6.10); White Blood Count 2.16 K/ul (4.8-10.8)
[2023-06-17 06:10] LABS: Albumin Globulin Ratio 1.1 (0.9-2); Albumin Level 2.8 gm/dl (3.4-5.0); BUN Creatinine Ratio 52.2 (10-20); Bilirubin,Total 0.6 mg/dl (0.2-1.0); Calcium 7.9 mg/dl (8.6-10.3); Creatinine Clr Calc Pharmacy 159.5 ml/min; Est GFR (African American) 126.3 ml/min; Est GFR (Non-African American) 108.9 ml/min; Globulin 2.6 gm/dl (2.5-4.0); Magnesium 1.8 mg/dl (1.7-2.4); Phosphorus 3.7 mg/dl (2.5-4.9); Potassium 3.2 mmol/L (3.5-5.1); Total Protein 5.4 gm/dl (6.0-8.3)
--- NOTE | 2023-06-17 06:36 | Surgery Progress Note ---
Date of Service June 17, 2023 Assessment & Plan (1) Esophageal cancer: Plan: Patient awaiting transfer for planned procedure at [place] and agrees with that plan. I have advised him that medicine will follow up with him today regarding the status of the transfer and address his nutritional needs if that may be further delayed. We will follow with you to transfer. The surgical PA/ADMINISTRATIVE SERVICES SPECIALIST will follow up to see what ETA for transfer is. Admission and Anticipated Discharge Date Admission Date: June 15, 2023 Subjective Patient seen this am. C/o heartburn and inability to tolerate ice after having an episode of vomiting yellow gunk followed by thick white "gummy" material. He is wondering when he may be transferred to his surgeons in [place] and whether or not he will receive TPN while here awaiting transfer. Physical Exam Constitutional: average body habitus; not ill appearing, not in distress and not diaphoretic Respiratory: normal respiratory effort; no respiratory distress, no labored breathing and does not use accessory muscles Results & Data Vital Signs (Past 12 Hours) Vital Signs Temp Pulse Resp BP Pulse Ox O2 Del Method 06/16/23 20:30 Room Air 06/16/23 20:15 37.1 C 92 H 16 147/86 H 96 Room Air PG Care Time/CCT Total # of Minutes Spent Total Time Spent with Patient: Total time spent is greater than 50% in coordination of care (as documented) at patient's floor/unit and/or counseling patient: C[place] [address] SUB INP/OBS CARE 25MIN Patient Type Established Diagnoses 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
[2023-06-17] MEDS: POTASSIUM CHLORIDE / WTR 10 MEQ/100 ML PLCT IV SCH (07:51)
--- NOTE | 2023-06-17 10:34 | Pharmacy Report ---
Pharmacy Initial PN Consult Nt - Date of Service June 17, 2023 - Scope Pharmacy has been consulted on this date to manage parenteral nutrition orders and order appropriate labs. As part of the Nutrition Support Team Guidelines, pharmacy will work in conjunction with dietary when determining the patients caloric needs. - Subjective * The patient is a 77 year old Male admitted on 06/17/23 for ODYNOPHAGIA, WEAKNESS. * Patient is to receive parenteral nutrition for odynophagia secondary to esophageal cancer w/ plan for J-tube placement. * Pertinent PMHx: esophageal cancer w/ ongoing chemoradiation, prediabetes, and hypertension - Objective Vascular Access: * Patient currently has a [peripheral line][central line]. * [Peripheral line was confirmed by IV Team to be acceptable for PPN use on this date.] Height & Weight (Last Documented) Height 5 ft 8 in Weight 103.7 kg Diet Order(s) 06/15/23 Dinner Diet 06/18/23 00:01 NPO Intake & Ouput (24hrs) 06/16/23 06/17/23 06/18/23 06:59 06:59 06:59 Intake Total 1000 / 1000 1098 / 1098 200 / 200 Output Total 6 / 6 Balance 994 / 994 1098 / 1098 200 / 200 Selected Laboratory Results 06/17/23 05:23 Sodium 136 Potassium 3.2 L Chloride 104 Carbon Dioxide 23 Anion Gap 9 BUN 24 H Creatinine 0.46 L Est GFR ( Amer) 126.3 Est GFR (Non-Af Amer) 108.9 BUN/Creatinine Ratio 52.2 H Glucose 95 Calcium 7.9 L Phosphorus 3.7 Magnesium 1.8 Total Bilirubin 0.6 AST 19 ALT [address] - Follow Up Nutrition Assessment Start: 06/15/23 13:11 Freq: Status: Active Protocol: Document 06/17/23 09:09 [id number] (Rec: 06/17/23 09:17 [id number]) RD - Initial Nutrition Assessment Start: 06/15/23 12:45 Freq: Status: Active Protocol: Document 06/15/23 12:45 ALR (Rec: 06/15/23 13:11 ALR [id number]) - Assessment & Plan Assessment: * Appreciate dietitians recommendations for macronutrients. Okay to start at goal. * Plan is for OR tomorrow for J-tube placement, PPN today per surgery * Labs largely WNL, potassium of 3.2 mmol/L this morning and repleted with 30 mEq IV KCl * Anticipating short-term PPN Plan: * For Day #1 of PPN administration, the following will be ordered: * Macronutrients: * Amino Acids: 85 grams/day * Dextrose: 100 grams/day * Lipids: 50 grams/day * Micronutrients: * TPN electrolytes: 40 mL/day - Contains 35 mEq Na, 20 mEq K, 4.5 mEq Ca, 5 mEq Mg, 35 mEq Cl, 29.5 mEq Acetate per 20 mL * Sodium chloride: 80 mEq/day * Potassium phosphate: 21 mMol/day * Potassium acetate: 30 mEq/day * Multivitamins: 10 mL/day * Trace elements: 1 mL/day * Thiamine: 100 mg/day * Total volume of 2106 mL will be infused over 24 hours and will provide 1180 kcal/day * Patient is on PPN which has a maximum mOsm/L of 900. Final osmolarity of current solution is 887 mOsm/L. * Labs will be ordered per PN protocol. * Pharmacy will follow and adjust PN orders on a daily basis. Thank you!
--- NOTE | 2023-06-17 11:24 | Hospitalist Progress Note ---
Date of Service June 17, 2023 Assessment & Plan (1) Odynophagia: Plan Pt is a 77yoF with PMHx significant for complete heart block status post PPM, hypertension, TIA/PVD as per records, esophageal cancer with ongoing chemoradiation, prediabetes, BPH, urolithiasis admitted with odynophagia. Odynophagia Esophageal cancer Pt with noted odynophagia Daughter also requesting PEG placement as pt has not been able to eat States he need nutritional support so that surgery can be considered to treat his cancer as well GI consulted, appreciate recs -no EGD -lidocaine -add sucralfate if not improving Reached out to GI about PEG placement on 06/16 about possible PEG placement per daughter request, awaiting further recs. -GI recommending surgery consult given pt might need J tube -surgery consulted, recommending starting ppn, possible transfer to pt's surgical oncologist at [facility] -Pt's surgical oncologist Brian Solis was contacted on 06/16 via [facility] Bitt[facility] asking to discuss possible transfer. Conversation via [email or web address] text, he was advised pt currently admitted and General surgery service recommending transfer. -PPN orders placed to start ppn on 06/17. - discussed with Dr. Solis today. Pt has received rounds of xrt, plan is for surgery 6 weeks after completion of radiation. He expects sx to improve after completion of radiation. - Dr. Solis recommends J tube vs corflo. Discussed these options with daughter and surgical team, Dr. Ellington. Dr. Solis okay for procedure to be done here and will not interfere with his upcoming surgery. -Tentative plan is for patient to have a J tube placement tomorrow to assist with nutritional support -Dr. Ellington would like to talk to Dr. Solis, and her number was provided to him to give a call back via [email or web address] text. -Daughter is in agreement of plan Ongoing chemoradiation for esophageal cancer Paroxysmal atrial fibrillation Received phone call from daughter that patient's pacemaker was interrogated and she was notified that he has been having intermittent episodes of atrial fibrillation Will transfer patient to telemetry for further monitoring Will consult cardiology in light of upcoming procedure tomorrow EKG NSR Will need to get electrolytes, potassium and magnesium replaced, will discuss with pharmacy [id number], given NSR will hold on anticoag at this time Pancytopenia In setting of chemo, stable Continue to monitor complete heart block s/p pacemaker placement pacer interrogation as above HTN chronic, stable Continue home losartan as tolerated Pt currently refusing po meds Mood On lexapro Pt currently refusing po meds GERD Continue ppi Pt currently refusing po meds HLD Continue statin Pt currently refusing po meds BPH Continue home finasteride Pt currently refusing po meds Prediabetes hemoglobin A1c of 6.20 March 2023 Monitor glucose levels CODE STATUS: full code Diet: Liquids DVT prophylaxis: SCDs Re: Thrombocytopenia Dispo: PT/OT, pt currently refusing participation Patient was seen and examined in collaboration with, Dr. Wen, placed addendum. A total of 95 minutes was spent coordinating, documenting, and providing care for this patient excluding time spent in the performance of separately billed services. This included personally viewing all current laboratories and imaging studies, medication reconciliation, outpatient chart review, and discussion with specialists. Admission and Anticipated Discharge Date Admission Date: June 17, 2023 Supervising Physician Co-Signing Physician Notes Pt seen and examined by me, care coordinated with Steven Galvan PA-C. Pls refer to her note above for further detail. I take responsibility for the plan. Pt with Odynophagia and Esophageal cancer, currently presents d/t inability to take PO. Patient is currently lying in bed, in no acute distress. He is awake alert oriented answering questions appropriately. Currently denies any significant pain besides some esophageal pain. Denies abd. pain. Denies chest pain , shortness of breath. Lungs CTAB, heart sounds regular. abdomen soft nontender. Surgery consulted and discussed w/ C surg. oncology. Plan for J-tube placement tmrw. MD Bettye Subjective This is a 77-year-old male currently undergoing chemoradiation for GE junction esophageal adenocarcinoma. He is hospitalized secondary to weakness and inability to tolerate oral intake. Daughter is at bedside. Initial plan was for transfer to [facility] for possible surgical procedure due to patient inability to tolerate oral intake. Discussed case with daughter, patient surgical oncologist Dr. Solis, who states a cor tonny or J tube would be feasible at this point in time. He expects swallowing to improve with chemo/radiation. Her currently is ordered to begin PPN. He feels generally weak. Describes painful swallowing and viscous lidocaine is only very temporary. He denies f/c/s, chest pain, sob, n/v, abd pain. He is agreeable to a J tube as he wishes to get stronger. When discussing a corflo he asked that I please, "leave him alone." Review of Systems Review of Systems: All systems reviewed & are unremarkable except as noted in HPI & below Physical Exam Physical Exam: Gen: WD/WN, elderly, M, sitting up in bed, disgusted, chronically ill appearing, NAD, A&O x3 HEENT: Normocephalic, atraumatic, conjunctivae moist, sclerae anicteric, mucous membranes moist. Lung: Clear to Auscultation bilaterally, no wheezes/rales/rhonchi Heart: Regular rate, regular rhythm, no murmurs, rubs, or gallops Abdomen: Soft, NT, ND +BS x 4 Extremities: No edema Skin: Warm, no rash, negative turgor. Results & Data Results & Data Vital Signs (Past 12 Hours) Vital Signs Temp Pulse Resp BP Pulse Ox O2 Del Method 06/17/23 07:21 36.7 C 84 18 127/75 95 Room Air Laboratory Results Short CBC 06/17/23 Range/Units 05:23 WBC 2.16 L (4.8-10.8) K/ul Hgb 12.0 L (14.0-18.0) g/dl Hct 34.5 L (42.0-52.0) % Plt Count 90 L (130-400) K/uL BMP 06/17/23 05:23 Sodium 136 Potassium 3.2 L Chloride 104 Carbon Dioxide 23 BUN 24 H Creatinine 0.46 L Glucose 95 Calcium 7.9 L Liver Function 06/17/23 Range/Units 05:23 Total Bilirubin 0.6 (0.2-1.0) mg/dl AST 19 (13-39) U/L ALT 30 (7-52) U/L Alkaline Phosphatase 64 (34-104) U/L Albumin 2.8 L (3.4-5.0) gm/dl Medications Administered Current Inpatient Medications Acetaminophen (Acetaminophen Susp 325 Mg/10.15 Ml Udc) 650 mg PO Q6H PRN PRN Reason: pain/fever Stop: 07/15/23 01:51 Aspirin (Aspirin 81 Mg Ectab) 81 mg PO DAILY [facility] Stop: 07/15/23 08:59 Last Admin: 06/17/23 07:50 Dose: Not Given Escitalopram Oxalate (Escitalopram Oxalate 10 Mg Tab) 10 mg PO DAILY [facility] Stop: 07/15/23 08:59 Last Admin: 06/17/23 07:50 Dose: Not Given Finasteride (Finasteride 5 Mg Tab) 5 mg PO DAILY [facility] Stop: 07/15/23 08:59 Last Admin: 06/17/23 07:50 Dose: Not Given Promethazine HCl 6.25 mg/ (Sodium Chloride) 50.25 mls @ 201 mls/hr IV Q6H PRN PRN Reason: Nausea And Vomiting Stop: 07/15/23 01:51 Sodium Chloride (Nss) 1,000 mls @ 60 mls/hr IV .[id number] [facility] Stop: 06/17/23 15:59 Last Admin: 06/17/23 05:39 Dose: 60 mls/hr Dextrose (D10w) 1,000 mls @ 0 mls/hr IV .Q0M PRN PRN Reason: protocol (see label comments) Stop: 07/17/23 04:10 Fat Emulsion-[place] Oil/Soybean Oil (Clinolipid 20% Iv Fat Emulsion) 250 mls @ 41.7 mls/hr IV .Q6H [facility] Stop: 06/17/23 21:59 Amino Acids 2,106 ml/ (Nutrition (Parenteral)) 2,106 mls @ 87.8 mls/hr IV .Q24H [facility]; Protocol Stop: 06/18/23 15:59 Lidocaine HCl (Lidocaine Viscous 2% 15 Ml Udc) 15 ml PO AC [facility] Stop: 07/15/23 11:29 Last Admin: 06/17/23 11:08 Dose: Not Given Losartan Potassium (Losartan Potassium 25 Mg Tab) 25 mg PO DAILY [facility] Stop: 07/15/23 08:59 Last Admin: 06/17/23 07:50 Dose: Not Given Miscellaneous (Stop Order) 1 each N/A TODAY@1559 ONE Stop: 06/17/23 16:00 Miscellaneous (Stop Clinolipid) 1 each N/A TODAY@22 [facility] Stop: 06/17/23 22:01 Miscellaneous Information (Tpn/Ppn Consult Pharmacy) 1 each N/A UD PRN PRN Reason: Consult Stop: 07/17/23 04:14 Morphine Sulfate (Morphine Sulfate 4 Mg/Ml 1 Ml Carp\\Vial) 4 mg IV Q4H PRN PRN Reason: Pain Stop: 06/29/23 01:51 Oxycodone HCl (Oxycodone Hcl Soln 5 Mg/5 Ml Udc) 5 mg PO QID PRN PRN Reason: Pain Stop: 06/29/23 01:51 Pantoprazole Sodium (Pantoprazole 40 Mg Tab) 40 mg PO DAILY [facility] Stop: 07/15/23 08:59 Last Admin: 06/17/23 07:50 Dose: Not Given Rosuvastatin Calcium (Rosuvastatin Calcium 20 Mg Tab) 20 mg PO DAILY [facility] Stop: 07/15/23 08:59 Last Admin: 06/17/23 07:50 Dose: Not Given
[2023-06-17] MEDS ORDERED: POTASSIUM CHLORIDE / WTR 10 MEQ/100 ML PLCT IV SCH (12:00)
[2023-06-17] MEDS: MAGNESIUM SULFATE / D5W 1 GM/100 ML BAG IV SCH (12:05)
--- NOTE | 2023-06-17 15:08 | Electrocardiogram Report ---
Test Reason : Blood Pressure : / mmHG Vent. Rate : 087 BPM Atrial Rate : 087 BPM P-R Int : 150 ms QRS Dur : 130 ms QT Int : 388 ms P-R-T Axes : 058 025 -05 degrees QTc Int : 466 ms Normal sinus rhythm Right bundle branch block Abnormal ECG When compared with ECG of 14-JUN-2023 22:09, No significant change was found Confirmed by Emanuel Tripathi ([id number]) on 06/17/2023 3:08:16 PM Referred By: REFERRED SELF Confirmed By:Emanuel Tripathi
[2023-06-17] MEDS: PERIPHERAL TPN IV SCH (15:56)
[2023-06-17] MEDS: CLINOLIPID 20% IV FAT EMULSION 250 ML IV SCH (15:56)
[2023-06-17] MEDS: [UNRECOGNIZED DRUG - OTHER] IV SCH (15:56)
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
[2023-06-17] MEDS: METOPROLOL SUCC 25MG EXT REL TAB PO SCH (16:43)
[2023-06-17] MEDS: METOPROLOL TARTRATE 1 MG/ML VIAL IV SCH (16:47)
[2023-06-17] MEDS: METOPROLOL TARTRATE 1 MG/ML VIAL IV ONE (16:48)
[2023-06-17] MEDS ORDERED: hydrALAZINE HCL 20 MG/ML VIAL IV PRN (17:45)
[2023-06-17] MEDS: STOP CLINOLIPID SCH (23:07)
[2023-06-18] MEDS: PROMETHAZINE HCL 6.25 MG in SODIUM CHLORIDE 0.9% 50 ML IV PRN (00:25)
[2023-06-18 04:10] LABS: Hematocrit (blood only) 32.4 % (42.0-52.0); Hemoglobin 11.1 g/dl (14.0-18.0); Mean Corpuscular Hemoglobin 31.4 pg (25.0-34.0); Mean Corpuscular Hgb Conc 34.3 g/dL (32.0-36.0); Mean Corpuscular Volume 91.5 fL (80.0-100.0); Mean Platelet Volume 9.1 fL (9.4-12.4); Platelet Count 88 K/uL (130-400); RDW Coefficient of Variation 13.6 % (11.5-14.5); RDW Standard Deviation 43.8 fL (36.4-46.3); Red Blood Count 3.54 M/uL (4.70-6.10); White Blood Count 1.74 K/ul (4.8-10.8)
[2023-06-18 04:37] LABS: Albumin Globulin Ratio 1.1 (0.9-2); Albumin Level 2.7 gm/dl (3.4-5.0); Bilirubin,Total 0.6 mg/dl (0.2-1.0); Calcium 7.6 mg/dl (8.6-10.3); Creatinine Clr Calc Pharmacy 188.1 ml/min; Est GFR (African American) 135.1 ml/min; Est GFR (Non-African American) 116.6 ml/min; Globulin 2.5 gm/dl (2.5-4.0); Phosphorus 2.7 mg/dl (2.5-4.9); Potassium 3.8 mmol/L (3.5-5.1); Total Protein 5.2 gm/dl (6.0-8.3)
--- NOTE | 2023-06-18 10:36 | Surgery Progress Note ---
Date of Service June 18, 2023 Assessment & Plan (1) Esophageal cancer: Plan: Pt in bed resting, was moved to tele unit was going in and out of Afib noted after interrogation of his pacemaker Unable to eat due to dysphagia states lidocaine helps only for a few minutes and he is not able to take fluids in Plan for jejunostomy tube today, robotic, possible laparoscopic, possible open. Consent has been obtained. Admission and Anticipated Discharge Date Admission Date: June 17, 2023 Subjective Pt in bed resting, was moved to tele unit was going in and out of Afib noted after interrogation of his pacemaker Unable to eat due to dysphagia states lidocaine helps only for a few minutes and he is not able to take fluids in Currently getting PPN Review of Systems Constitutional: + fatigue; no fever and no chills Respiratory: no dyspnea Cardiovascular: no chest pain Gastrointestinal: + dysphagia; no nausea and no vomiting Physical Exam Physical Exam: alert oriented Constitutional: cooperative and comfortable; no acute distress Respiratory: normal respiratory effort and able to speak in complete sentences; no respiratory distress Cardiovascular: Rate/Rhythm: regular rate Gastrointestinal (Abdomen): Inspection/Auscultation: abdomen not distended Percussion/Palpation: abdomen soft Results & Data Vital Signs (Past 12 Hours) Vital Signs Pulse Resp BP 06/18/23 07:01 71 170/85 H 06/18/23 04:29 87 26 H 06/18/23 04:29 164/93 H 06/18/23 04:00 84 18 06/18/23 03:00 84 19 06/18/23 02:00 81 20 06/18/23 01:00 80 10 L 06/18/23 00:45 77 151/72 H 06/18/23 00:30 77 15 06/18/23 00:25 87 157/94 H 06/18/23 00:21 157/99 H 06/18/23 00:21 86 16 06/18/23 00:00 87 18 06/17/23 23:30 87 19 06/17/23 23:00 89 19 06/17/23 22:00 84 18 PG Care Time/CCT Total # of Minutes Spent Total Time Spent with Patient: Total time spent is greater than 50% in coordination of care (as documented) at patient's floor/unit and/or counseling patient: Coding Level of Care Code 31911 SUB INP/OBS CARE 1/25MIN Diagnoses 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
--- NOTE | 2023-06-18 11:18 | Cardiology Progress Note ---
Date of Service June 18, 2023 Assessment & Plan (1) Paroxysmal atrial fibrillation: (2) Hypertension: (3) Odynophagia: (4) Esophageal cancer: Plan Assessment: 77 year old male with esophageal cancer undergoing chemoradiation with plans for G tube placement tomorrow asked to be seen by cardiology due to an abnormal remote pacemaker device report for A-fib with RVR lasting 22 hours. Plan: 1. paroxysmal A-fib -New diagnosis. -Patient is asymptomatic and euvolemic on physical exam -No evidence of A-fib events during course of hospitalization. -CHADS-VASC score 3. -At this time, patient remains in NSR. -We will not initiate anticoagulation therapy in light of this as well as he is scheduled to move forward with feeding tube placement which is a necessity. -Spoke with hospitalist team today and have been informed that surgery does not want to move forward with G tube placement and would rather have PICC line placed and receive TPN support. This patient can not remain without beta domonique therapy as he will have recurrence of A-fib. This is only going to be available OP in oral form. 2. Hypertension -poorly controlled in the setting of no PO intake. -Continue with IV lopressor as ordered -may consider catapress patch if ongoing NPO status 2. Odynophagia 3. Esophageal cancer -Per management of primary team. -will not start anticoagulation therapy at this time. -Ok to proceed with placement of feeding tube if surgery decides to move forward. Case has been discussed with Dr. Israel. Further recommendations regarding plan of care as per his assessment. I spent a total of 30 minutes on the date of service in preparation, delivery, documentation of the care provided to the patient excluding any time spent in the performance of separately billed services. TERESA Robertson [facility] Cardiology [facility] Admission and Anticipated Discharge Date Admission Date: June 17, 2023 Supervising Physician Co-Signing Physician Notes I have reviewed the advance practitioner's documentation, and I agree with, and take responsibility for the plan of care. 77-year-old male feeling well from a cardiovascular perspective today. Blood pressure controlled with intravenous Lopressor and as needed hydralazine. Pacemaker interrogation is demonstrating episodes of asymptomatic atrial fibrillation. Notes intermittent mild discomfort in his epigastric region. Reports rare episodes of hemoptysis over the past 2 weeks. No hemoptysis or hematemesis during hospitalization. Remains in sinus rhythm on telemetry since admission. PE: VSS. Hypertensive. General: NAD, awake alert orient x 3. Heart: Regular rhythm, normal S1-S2. No murmur. Lungs: Clear bilateral, no rales, rhonchi, wheeze. Extremities: No edema. A/P: 77-year-old patient with evidence of paroxysmal atrial fibrillation via pacemaker interrogation. Elevated blood pressure noted on admission with antihypertensive therapies on hold. Remains in sinus rhythm on telemetry. Currently NPO in anticipation of J-tube placement. Continue Lopressor 5 mg IV every 6 hours perioperatively and hydralazine 10 mg IV every 6 hours as needed for hypertension. Transition back to Toprol-XL 50 mg daily and losartan when J- tube in place. Currently, risk of anticoagulation appears to outweigh benefit with recent episode of hemoptysis reported. Hemoglobin stable. I spent a total of 30 minutes on the date of service in preparation, delivery, and documentation of the care provided to this patient, excluding any time spent in the performance of separately billed services. Subjective 06/18/23: Patient resting comfortably in bed. Offers no significant complaints. BP well above target. Still unable to take PO meds. Spoke with hospitalist team that states that surgery has changed their mind and will now be placing a G tube at this time. Patient is to have PICC line placed for TPN and will be having a G tube at later date. This creates significant concern for management of his other medical comorbidities. Review of Telemetry demonstrates paced. No events overnight and no recurrence of A-fib. Denies any chest pain, pressure, palpitations, no shortness of breath of dyspnea. No edema. Notes, labs/diagnostics and VS reviewed. Review of Systems Review of Systems: All systems reviewed & are unremarkable except as noted in HPI & below Physical Exam Constitutional: well developed and well nourished; no acute distress Neck: normal visual inspection and trachea midline Respiratory: normal respiratory effort, lungs clear to auscultation Cardiovascular: RRR, no murmur, no edema Vessels: dorsalis pedis pulses present; no JVD Extremities: no edema Skin: no rashes, warm and dry Psychiatric: A+Ox3, euthymic affect Results & Data Vital Signs (Past 12 Hours) Vital Signs Pulse Resp BP Pulse Ox 06/18/23 10:11 81 06/18/23 10:07 81 19 86 L 06/18/23 10:07 121/68 06/18/23 10:05 81 19 06/18/23 08:34 85 13 06/18/23 08:34 152/95 H 06/18/23 08:00 97 H 24 06/18/23 07:01 71 170/85 H 06/18/23 07:00 79 19 06/18/23 04:29 87 26 H 06/18/23 04:29 164/93 H 06/18/23 04:00 84 18 06/18/23 03:00 84 19 06/18/23 02:00 81 20 06/18/23 01:00 80 10 L 06/18/23 00:45 77 151/72 H 06/18/23 00:30 77 15 06/18/23 00:25 87 157/94 H 06/18/23 00:21 157/99 H 06/18/23 00:21 86 16 06/18/23 00:00 87 18 06/17/23 23:30 87 19 Laboratory Results Cardiac Enzymes 06/18/23 Range/Units 03:54 AST 16 (13-39) U/L Lipids 06/18/23 Range/Units 03:54 Triglycerides 112 (0-150) mg/dl CBC 06/18/23 Range/Units 03:54 WBC 1.74 L (4.8-10.8) K/ul RBC 3.54 L (4.70-6.10) M/uL Hgb 11.1 L (14.0-18.0) g/dl Hct 32.4 L (42.0-52.0) % Plt Count 88 L (130-400) K/uL Comprehensive Metabolic Panel 06/18/23 Range/Units 03:54 Sodium 133 L (136-145) mmol/L Potassium 3.8 (3.5-5.1) mmol/L Chloride 103 (98-107) mmol/L Carbon Dioxide 25 (21-32) mmol/L BUN 23 (6-23) mg/dl Creatinine 0.39 L (0.6-1.4) mg/dl Glucose 125 H (70-99(Fasting)) mg/dl Calcium 7.6 L (8.6-10.3) mg/dl AST 16 (13-39) U/L ALT 26 (7-52) U/L Alkaline Phosphatase 59 (34-104) U/L Total Protein 5.2 L (6.0-8.3) gm/dl Albumin 2.7 L (3.4-5.0) gm/dl Intake and Output 06/17/23 06/18/23 06/18/23 22:59 06:59 14:59 Intake Total 983 / 1422.417 50.25 / 1422.417 Balance 983 / 1422.417 50.25 / 1422.417 Intake: IV 983 / 1422.417 50.25 / 1422.417 Clinolipid 20% IV Fat Emulsion 250 / 250 250 ml @ 41.7 mls/hr IV .Q6H [facility] Rx#:[id number] Magnesium Sulfate / D5w 1 gm In 100 / 189.167 100 ml @ 50 mls/hr IV Q2H [facility] Rx#:[id number] Promethazine HCl 6.25 mg In 50.25 / 50.25 Sodium Chloride 0.9% 50 ml @ 201 mls/hr IV Q6H PRN Rx#: [id number] Sodium Chloride 0.9% 1,000 ml @ 633 / 633 60 mls/hr IV .[id number] [facility] Rx#: [id number] Oral 0 / 0 0 / 0 Other: Other Intake Source ice chips # Unmeasured Voids 1 1 Weight 101 kg Weight Measurement Method Built in [facility]
[2023-06-18] MEDS: ACETAMINOPHEN 1,000 MG/100 ML VIAL IV STA (11:23)
--- NOTE | 2023-06-18 11:34 | Pharmacy Report ---
Pharmacy PN Follow-up Note - Date of Service June 18, 2023 - Subjective * Patient is currently on day #2 of PPN for odynophagia. * PMHx: esophageal cancer w/ ongoing chemoradiation, prediabetes, hypertension. * Patient currently has a peripheral line that was confirmed by IV Team to be acceptable for PPN use on 06/17/23. - Objective Height & Weight (Last Documented) Height 5 ft 8 in Weight 101 kg Diet Order(s) 06/18/23 00:01 NPO Intake & Ouput (24hrs) 06/17/23 06/18/23 06/19/23 06:59 06:59 06:59 Intake Total 1098 / 1098 1422.417 / 1422.417 Balance 1098 / 1098 1422.417 / 1422.417 Selected Laboratory Results 06/18/23 03:54 Sodium 133 L Potassium 3.8 Chloride 103 Carbon Dioxide 25 Anion Gap 5 BUN 23 Creatinine 0.39 L Est GFR ( Amer) 135.1 Est GFR (Non-Af Amer) 116.6 BUN/Creatinine Ratio 59.0 H Glucose 125 H Calcium 7.6 L Phosphorus 2.7 D Magnesium 2.0 Total Bilirubin 0.6 AST 16 ALT 26 Alkaline Phosphatase 59 Triglycerides 112 - Assessment & Plan Assessment: * Appreciate dietitians recommendations for macronutrients. Tolerating at goal. * Per surgery's note, no longer planning for J-tube. Looks like PICC placement and long-term TPN may be the plan. * Na, Phos, Ca all decreased slightly on this AM's BMP. Will increase each in the bag. No outside electrolytes today. * TPN electrolytes in stock at [facility] on 06/19/23 and are on long-term backorder so will remove these today and replace with individual electrolytes. Plan: * For Day #2 of PPN administration, the following will be ordered: * Macronutrients: * Amino Acids: 85 grams/day * Dextrose: 100 grams/day * Lipids: 50 grams/day * Micronutrients: * Sodium phosphate: 30 mMol/day * Sodium chloride: 100 mEq/day * Sodium acetate: 20 mEq/day * Potassium chloride: 60 mEq/day * Potassium acetate: 40 mEq/day * Magnesium sulfate: 8.12 mEq/day * Calcium gluconate: 13.95 mEq/day * Multivitamins: 10 mL/day * Trace elements: 1 mL/day * Thiamine: 100 mg/day * Total volume of 2154 mL will be infused over 24 hours and will provide 1180 kcal/day * Patient is on PPN which has a maximum mOsm/L of 900. Final osmolarity of current solution is 877 mOsm/L. * Labs will be ordered per PN protocol. * Pharmacy will follow and adjust PN orders on a daily basis. Thank you!
[2023-06-18] MEDS: MoRPHine SULFATE 4 MG/ML 1 ML CARP\\VIAL IV PRN (12:50)
--- NOTE | 2023-06-18 13:07 | Hospitalist Progress Note ---
Date of Service June 18, 2023 Assessment & Plan (1) Odynophagia: Plan Pt is a 77yoF with PMHx significant for complete heart block status post PPM, hypertension, TIA/PVD as per records, esophageal cancer with ongoing chemoradiation, prediabetes, BPH, urolithiasis admitted with odynophagia. Odynophagia Esophageal cancer Pt with noted odynophagia Daughter also requesting PEG placement as pt has not been able to eat States he need nutritional support so that surgery can be considered to treat his cancer as well GI consulted, appreciate recs -no EGD -lidocaine -add sucralfate if not improving Reached out to GI about PEG placement on 06/16 about possible PEG placement per daughter request, awaiting further recs. -GI recommending surgery consult given pt might need J tube -surgery consulted, recommending starting ppn, possible transfer to pt's surgical oncologist at [facility] -Pt's surgical oncologist Brian Solis was contacted on 06/16 via [employer] asking to discuss possible transfer. Conversation via [employer] text, he was advised pt currently admitted and General surgery service recommending transfer. -PPN orders placed to start ppn on 06/17. - discussed with Dr. Solis. Pt has received rounds of xrt, plan is for surgery 6 weeks after completion of radiation. He expects sx to improve after completion of radiation. - Dr. Solis recommends J tube vs corflo. Discussed these options with daughter and surgical team, Dr. Ellington. Dr. Solis okay for procedure to be done here and will not interfere with his upcoming surgery. -Tentative plan is for patient to have a J tube placement to assist with nutritional support -Dr. Ellington would like to talk to Dr. Solis, and her number was provided to him to give a call back via [employer] text. -Daughter is in agreement of plan Ongoing chemoradiation for esophageal cancer Paroxysmal atrial fibrillation Received phone call from daughter that patient's pacemaker was interrogated and she was notified that he has been having intermittent episodes of atrial fibrillation Will transfer patient to telemetry for further monitoring consulted cardiology in light of upcoming procedure tomorrow EKG NSR Will need to get electrolytes, potassium and magnesium replaced, will discuss with pharmacy [id number], given NSR will hold on anticoag at this time Considering TPN however pt will be off beta domonique if not having j-tube - concern for uncontrolled afib Pancytopenia In setting of chemo, stable Continue to monitor complete heart block s/p pacemaker placement pacer interrogation as above HTN chronic, stable Continue home losartan as tolerated Pt currently refusing po meds Mood On lexapro Pt currently refusing po meds GERD Continue ppi Pt currently refusing po meds HLD Continue statin Pt currently refusing po meds BPH Continue home finasteride Pt currently refusing po meds Prediabetes hemoglobin A1c of 6.20 March 2023 Monitor glucose levels CODE STATUS: full code Diet: Liquids DVT prophylaxis: SCDs Re: Thrombocytopenia Dispo: PT/OT, pt currently refusing participation Admission and Anticipated Discharge Date Admission Date: June 17, 2023 Subjective Pt is a 77 yo M currently undergoing chemoradiation for GE junction esophageal adenocarcinoma. He is hospitalized secondary to weakness and inability to tolerate oral intake. Discussed today again with surgical oncologist Dr. Solis, and Dr. Stephenson - considering J tube placement vs. PICC placement for TPN. Consent obtained for PICC line. Discussed w/ cardiology - concern about pt's Afib if not bale to take beta domonique - which he can't do just w/ TPN. Discussed also with pt's daughter. Cont. to have pain w/ swallowing and viscous lidocaine is only very temporary. Has pain even when not swallowing. He denies f/c/s, chest pain, sob, n/v, abd pain. Review of Systems Review of Systems: All systems reviewed & are unremarkable except as noted in Subjective Physical Exam Physical Exam: Gen: WD/WN, elderly, M, sitting up in bed, +chronically ill appearing, NAD, A&O x3 HEENT: Normocephalic, atraumatic, conjunctivae moist, sclerae anicteric, mucous membranes moist. Lung: Clear to Auscultation bilaterally, no wheezes/rales/rhonchi Heart: Regular rate, regular rhythm, no murmurs, rubs, or gallops Abdomen: Soft, NT, ND +BS x 4 Extremities: No edema Skin: Warm, no rash, negative turgor. Results & Data Results & Data Vital Signs (Past 12 Hours) Vital Signs Pulse Resp BP Pulse Ox 06/18/23 12:55 68 06/18/23 11:25 80 133/81 06/18/23 10:11 81 06/18/23 10:07 81 19 86 L 06/18/23 10:07 121/68 06/18/23 10:05 81 19 06/18/23 08:34 85 13 06/18/23 08:34 152/95 H 06/18/23 08:00 97 H 24 06/18/23 07:01 71 170/85 H 06/18/23 07:00 79 19 06/18/23 04:29 87 26 H 06/18/23 04:29 164/93 H 06/18/23 04:00 84 18 06/18/23 03:00 84 19 06/18/23 02:00 81 20 06/18/23 01:00 80 10 L Laboratory Results 06/18/23 06/18/23 Range/Units 12:47 03:54 WBC 1.74 L (4.8-10.8) K/ul RBC 3.54 L (4.70-6.10) M/uL Hgb 11.1 L (14.0-18.0) g/dl Hct 32.4 L (42.0-52.0) % MCV 91.5 (80.0-100.0) fL MCH 31.4 (25.0-34.0) pg MCHC 34.3 (32.0-36.0) g/dL RDW Std Deviation 43.8 (36.4-46.3) fL RDW Coeff of Meka 13.6 (11.5-14.5) % Plt Count 88 L (130-400) K/uL MPV 9.1 L (9.4-12.4) fL Sodium 133 L (136-145) mmol/L Potassium 3.8 (3.5-5.1) mmol/L Chloride 103 (98-107) mmol/L Carbon Dioxide 25 (21-32) mmol/L Anion Gap 5 (3-11) BUN 23 (6-23) mg/dl Creatinine 0.39 L (0.6-1.4) mg/dl Est Cr Clr Drug Dosing 188.1 ml/min Est GFR ( Amer) 135.1 ml/min Est GFR (Non-Af Amer) 116.6 ml/min BUN/Creatinine Ratio 59.0 H (10-20) Glucose 125 H (70-99(Fasting)) mg/dl POC Glucose 115 H (70-99) mg/dl Calcium 7.6 L (8.6-10.3) mg/dl Phosphorus 2.7 D (2.5-4.9) mg/dl Magnesium 2.0 (1.7-2.4) mg/dl Total Bilirubin 0.6 (0.2-1.0) mg/dl AST 16 (13-39) U/L ALT 26 (7-52) U/L Alkaline Phosphatase 59 (34-104) U/L Total Protein 5.2 L (6.0-8.3) gm/dl Albumin 2.7 L (3.4-5.0) gm/dl Globulin 2.5 (2.5-4.0) gm/dl Albumin/Globulin Ratio 1.1 (0.9-2) Triglycerides 112 (0-150) mg/dl Medications Administered Current Inpatient Medications Aspirin (Aspirin 81 Mg Ectab) 81 mg PO DAILY [facility] Stop: 07/15/23 08:59 Last Admin: 06/18/23 09:27 Dose: Not Given Escitalopram Oxalate (Escitalopram Oxalate 10 Mg Tab) 10 mg PO DAILY [facility] Stop: 07/15/23 08:59 Last Admin: 06/18/23 09:27 Dose: Not Given Finasteride (Finasteride 5 Mg Tab) 5 mg PO DAILY [facility] Stop: 07/15/23 08:59 Last Admin: 06/18/23 09:27 Dose: Not Given Hydralazine HCl (Hydralazine Hcl 20 Mg/Ml Vial) 10 mg IV Q6 PRN PRN Reason: htn Stop: 07/17/23 17:44 Promethazine HCl 6.25 mg/ (Sodium Chloride) 50.25 mls @ 201 mls/hr IV Q6H PRN PRN Reason: Nausea And Vomiting Stop: 07/15/23 01:51 Last Infusion: 06/18/23 00:42 Dose: Infused Dextrose (D10w) 1,000 mls @ 0 mls/hr IV .Q0M PRN PRN Reason: protocol (see label comments) Stop: 07/17/23 04:10 Amino Acids 2,106 ml/ (Nutrition (Parenteral)) 2,106 mls @ 87.8 mls/hr IV .Q24H [facility]; Protocol Stop: 06/18/23 15:59 Last Admin: 06/17/23 15:56 Dose: 87.8 mls/hr Acetaminophen (Ofirmev) 1,000 mg in 100 mls @ 400 mls/hr IV Q8H PRN PRN Reason: Pain Stop: 06/21/23 11:03 Pantoprazole Sodium 40 mg/ (Syringe) 10 mls @ 5 mls/min IV DAILY@1100 [facility] Stop: 07/18/23 11:14 Fat Emulsion-[place] Oil/Soybean Oil (Clinolipid 20% Iv Fat Emulsion) 250 mls @ 41.7 mls/hr IV .Q6H [facility] Stop: 06/18/23 21:59 Amino Acids 2,154 ml/ (Nutrition (Parenteral)) 2,154 mls @ 89.75 mls/hr IV .Q24H [facility]; Protocol Stop: 06/19/23 15:59 Lidocaine HCl (Lidocaine Viscous 2% 15 Ml Udc) 15 ml PO AC [facility] Stop: 07/15/23 11:29 Last Admin: 06/18/23 11:20 Dose: Not Given Losartan Potassium (Losartan Potassium 25 Mg Tab) 25 mg PO DAILY [facility] Stop: 07/15/23 08:59 Last Admin: 06/18/23 09:27 Dose: Not Given Metoprolol Tartrate (Metoprolol Tartrate 1 Mg/Ml Vial) 5 mg IV Q6 [facility] Stop: 07/17/23 17:59 Last Admin: 06/18/23 11:25 Dose: 5 mg Miscellaneous (Stop Clinolipid) 1 each N/A TODAY@22 [facility] Stop: 07/18/23 21:59 Miscellaneous Information (Tpn/Ppn Consult Pharmacy) 1 each N/A UD PRN PRN Reason: Consult Stop: 07/17/23 04:14 Morphine Sulfate (Morphine Sulfate 4 Mg/Ml 1 Ml Carp\Vial) 4 mg IV Q4H PRN PRN Reason: Pain Stop: 06/29/23 01:51 Last Admin: 06/18/23 12:50 Dose: 4 mg Morphine Sulfate (Morphine Sulfate 2 Mg/Ml Carp) 1 mg IV Q2H PRN PRN Reason: Pain Stop: 07/02/23 12:48 Oxycodone HCl (Oxycodone Hcl Soln 5 Mg/5 Ml Udc) 5 mg PO QID PRN PRN Reason: Pain Stop: 06/29/23 01:51 Rosuvastatin Calcium (Rosuvastatin Calcium 20 Mg Tab) 20 mg PO DAILY [facility] Stop: 07/15/23 08:59 Last Admin: 06/18/23 09:27 Dose: Not Given
[2023-06-18] MEDS: PANTOprazole 40 MG in SYRINGE DAILY IV SCH (13:33)
[2023-06-18] MEDS ORDERED: PROPOFOL IV EMULSION 10 MG/ML 20 ML VIAL IV ONE (14:58)
[2023-06-18] MEDS ORDERED: GLYCOPYRROLATE 0.2 MG/ML VIAL ONE (14:58)
[2023-06-18] MEDS ORDERED: LIDOCAINE 2% 2 ML VIAL/AMP(20MG/ML) INFIL ONE (14:58)
[2023-06-18] MEDS ORDERED: DEXAMETHASONE SOD INJ 4 MG/ML VIAL ONE (14:58)
[2023-06-18] MEDS ORDERED: ONDANSETRON INJ 2 MG/ML 2 ML VIAL ONE (14:58)
[2023-06-18] MEDS ORDERED: MIDAZOLAM HCL 1 MG/ML 2ML VIAL ONE (14:59)
[2023-06-18] MEDS ORDERED: fentaNYL citrate PF 100 MCG/2 ML VIAL ONE (14:59)
[2023-06-18] MEDS ORDERED: SUGAMMADEX SODIUM 200 MG/2 ML VIAL IV ONE (15:01)
[2023-06-18] MEDS ORDERED: ATROPINE SULFATE 0.1 MG/ML 10ML SYR IV PRN (15:02)
[2023-06-18] MEDS ORDERED: ePHEDrine sulfate 50 MG/ML AMP IV PRN (15:02)
[2023-06-18] MEDS ORDERED: fentaNYL citrate PF 100 MCG/2 ML VIAL IV PRN (15:02)
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
[2023-06-18] MEDS: cefOXitin SOD 1,000 MG VIAL IV STA (16:06)
[2023-06-18] MEDS ORDERED: cefOXitin SOD 1,000 MG VIAL ONE (16:07)
[2023-06-18] MEDS ORDERED: PHENYLEPHRINE HCL 10 MG/ML VIAL ONE (16:37)
[2023-06-18] MEDS: BUPIVACAINE 0.5 % 5 MG/1 ML MPF 30ML VIAL ONE (18:04)
--- NOTE | 2023-06-18 18:19 | Operative Report ---
PG Post Operative Report Pre & Post Diagnosis Operation Date: 06/18/23 11:25 Pre-Op Diagnosis: ODYNOPHAGIA, WEAKNESS Post-Op Diagnosis: ODYNOPHAGIA, WEAKNESS I identified the patient and participated in the time-out.: Yes Procedure Operation Date: 06/18/23 11:25 Actual Procedures p Robot assisted Laparoscopic, Jejunostomy Tube Placement(Not Applicable) - Usman Ellington DO Surgeon Jose Ellington DO Hourly Shift Manager ANKIT Bates Estimated Blood Loss 1 Findings Consistent with Post-Op Diagnosis Specimens None Drains None Anesthesia Type General Complications None Indications Esophageal cancer, inability to take in oral intake. Description of Procedure The patient was brought back to the operating room placed on the operating room table in supine position. He was connected to cardiac and oxygen monitoring, supplemental O2 was administered. SCDs were applied to bilateral lower extremities. The patient was administered general anesthesia and a secure airway was established. The abdomen was prepped and draped in typical sterile fashion and a timeout was conducted. Local anesthetic was injected into the skin and subcutaneous tissues just above the umbilicus and a Veress needle was used at this point to access the intra-abdominal space. Pneumoperitoneum was established with CO2 to a goal pressure 15 mmHg. Once this was established, the Veress needle was removed and an 8 mm robotic trocar was inserted using direct visualization with a Visiport and 5 mm laparoscope at the right side of the abdominal wall adjacent to the umbilicus. Under direct visualization 2 additional robotic trocars were inserted at the right upper and right lower quadrants. The robot was docked, targeted and aligned. Once at the console the ligament of Treitz was identified, a location 20 cm downstream was selected and measured to the abdominal wall. A 5 mm trocar was inserted at this location and the selected site on the jejunum was sutured to the left lateral abdominal wall just caudal to this trocar using a 2-0 absorbable V-Loc suture. An enterotomy was then made several centimeters downstream from this location. A pursestring suture was fixed around this enterotomy using a 3-0 Vicryl suture and a 14 Telugu jejunostomy feeding tube was inserted at the 5 mm trocar site. The 5 mm trocar had been removed. The feeding tube was inserted for about 20 cm downstream up to the point at which the balloon portion of the tube was inserted into the enterostomy. Of note, the balloon was not used, not expanded. The pursestring suture was tied. The previously placed the V-lock stitch was then used to Nicholas the jejunum around the exposed portion of the jejunostomy tube from its insertion site at the abdominal wall to just distal to its insertion into the small intestine this and was then additionally tacked to the abdominal wall. The V-Loc suture was locked in place and cut. The 2 needles from the Vicryl suture as well as the V-Loc suture were both removed along with the cut tails of the stitches. The instruments were removed, CO2 insufflation was discontinued and pneumoperitoneum was evacuated. The robot was undocked. The bumper to the jejunostomy tube was placed at the skin without tension. The 3 robotic incisions along the right abdominal wall were closed using 4-0 Vicryl suture. The incisions were dressed with Dermabond. The patient tolerated the procedure well, he was awakened from anesthesia. The secure airway was removed and he was transferred to recovery in stable condition I attest to the content of the Intraoperative Record and any orders documented therein. Any exceptions are noted below.
--- NOTE | 2023-06-18 18:46 | Anesthesiology Progress Note ---
Date of Service June 18, 2023 Anesthesia Post Procedure Vital Signs Vital Signs: Temp Pulse Pulse Pulse Resp BP BP 06/18/23 18:40 86 17 115/81 06/18/23 18:30 87 12 130/78 06/18/23 18:24 97.2 F L 90 16 116/62 06/18/23 15:05 72 16 142/88 H 06/18/23 15:00 142/88 H 06/18/23 15:00 76 13 06/18/23 14:00 103/67 06/18/23 14:00 78 17 06/18/23 13:06 06/18/23 13:00 69 06/18/23 13:00 130/78 06/18/23 12:55 68 06/18/23 12:53 71 10 L 06/18/23 12:53 136/78 06/18/23 12:00 71 18 06/18/23 12:00 126/79 06/18/23 11:26 84 18 06/18/23 11:26 133/81 06/18/23 11:25 80 133/81 06/18/23 11:00 84 15 06/18/23 10:11 81 06/18/23 10:07 81 19 06/18/23 10:07 121/68 06/18/23 10:05 81 19 06/18/23 08:34 85 13 06/18/23 08:34 152/95 H 06/18/23 08:00 97 H 24 06/18/23 07:01 71 170/85 H 06/18/23 07:00 79 19 06/18/23 04:29 87 26 H 06/18/23 04:29 164/93 H 06/18/23 04:00 84 18 06/18/23 03:00 84 19 06/18/23 02:00 81 20 06/18/23 01:00 80 10 L 06/18/23 00:45 77 151/72 H 06/18/23 00:30 77 15 06/18/23 00:25 87 157/94 H 06/18/23 00:21 157/99 H 06/18/23 00:21 86 16 06/18/23 00:00 87 18 06/17/23 23:30 87 19 06/17/23 23:00 89 19 02/28/24 22:00 84 18 06/17/23 21:11 169/102 H 06/17/23 21:02 88 29 H 06/17/23 21:00 85 23 06/17/23 20:00 86 21 06/17/23 19:00 84 17 Pulse Ox O2 Del Method O2 Flow Rate 06/18/23 18:40 95 Nasal Cannula 3 06/18/23 18:30 93 Nasal Cannula 3 06/18/23 18:24 93 Nasal Cannula 3 06/18/23 15:05 96 Room Air 06/18/23 15:00 06/18/23 15:00 94 06/18/23 14:00 06/18/23 14:00 94 06/18/23 13:06 Room Air 06/18/23 13:00 06/18/23 13:00 06/18/23 12:55 06/18/23 12:53 06/18/23 12:53 06/18/23 12:00 06/18/23 12:00 06/18/23 11:26 06/18/23 11:26 06/18/23 11:25 06/18/23 11:00 06/18/23 10:11 06/18/23 10:07 86 L 06/18/23 10:07 06/18/23 10:05 06/18/23 08:34 06/18/23 08:34 06/18/23 08:00 06/18/23 07:01 06/18/23 07:00 06/18/23 04:29 06/18/23 04:29 06/18/23 04:00 06/18/23 03:00 06/18/23 02:00 06/18/23 01:00 06/18/23 00:45 06/18/23 00:30 06/18/23 00:25 06/18/23 00:21 06/18/23 00:21 06/18/23 00:00 06/17/23 23:30 06/17/23 23:00 06/17/23 22:00 06/17/23 21:11 06/17/23 21:02 06/17/23 21:00 06/17/23 20:00 06/17/23 19:00 Pain Intensity Throat: Pain Intensity: 7 Transfer of Care Handoff Completed per policy Notes Mental Status: alert / awake / arousable and participated in evaluation Patient Amnestic to Procedure: Yes Nausea / Vomiting: adequately controlled Pain: adequately controlled Airway Patency, RR, SpO2: stable & adequate BP & HR: stable & adequate Hydration State: stable & adequate Anesthetic Complications: no major complications apparent and Pt Satisfied with anesthetic care
[2023-06-18] MEDS: [UNRECOGNIZED DRUG - OTHER] IV SCH (19:15)
[2023-06-18] MEDS: PERIPHERAL TPN IV SCH (19:15)
[2023-06-18] MEDS: CLINOLIPID 20% IV FAT EMULSION 250 ML IV SCH (19:16)
[2023-06-18] MEDS: MoRPHine SULFATE 2 MG/ML CARP IV PRN (20:01)
[2023-06-18] MEDS: oxyCODONE HCL SOLN 5 MG/5 ML UDC PO PRN (20:02)
[2023-06-18] MEDS: cefOXitin 1,000 MG in DEXTROSE 5 % MINI-B 50 ML IV SCH (20:41)
[2023-06-18] MEDS: STOP CLINOLIPID SCH (22:34)
[2023-06-19] MEDS: ACETAMINOPHEN 1,000 MG/100 ML VIAL IV PRN (03:50)
[2023-06-19 04:23] LABS: Hematocrit (blood only) 31.1 % (42.0-52.0); Hemoglobin 11.1 g/dl (14.0-18.0); Mean Corpuscular Hemoglobin 31.9 pg (25.0-34.0); Mean Corpuscular Hgb Conc 35.7 g/dL (32.0-36.0); Mean Corpuscular Volume 89.4 fL (80.0-100.0); Mean Platelet Volume 9.2 fL (9.4-12.4); Platelet Count 81 K/uL (130-400); RDW Coefficient of Variation 13.4 % (11.5-14.5); RDW Standard Deviation 43.1 fL (36.4-46.3); Red Blood Count 3.48 M/uL (4.70-6.10); White Blood Count 1.93 K/ul (4.8-10.8)
[2023-06-19 04:40] LABS: BUN Creatinine Ratio 42.9 (10-20); Calcium 8.3 mg/dl (8.6-10.3); Creatinine Clr Calc Pharmacy 172.4 ml/min; Est GFR (African American) 131.1 ml/min; Est GFR (Non-African American) 113.1 ml/min; Magnesium 1.9 mg/dl (1.7-2.4); Phosphorus 3.9 mg/dl (2.5-4.9); Potassium 4.6 mmol/L (3.5-5.1)
[2023-06-19] MEDS ORDERED: MoRPHine SULFATE 2 MG/ML CARP IV PRN (07:49)
--- NOTE | 2023-06-19 07:52 | Hospitalist Progress Note ---
Date of Service June 19, 2023 Assessment & Plan (1) Odynophagia: Plan Pt is a 77yoF with PMHx significant for complete heart block status post PPM, hypertension, TIA/PVD as per records, esophageal cancer with ongoing chemoradiation, prediabetes, BPH, urolithiasis admitted with odynophagia. Odynophagia Esophageal cancer Pt with noted odynophagia Daughter also requesting PEG placement as pt has not been able to eat States he need nutritional support so that surgery can be considered to treat his cancer as well GI consulted, appreciate recs -no EGD -lidocaine -add sucralfate if not improving Reached out to GI about PEG placement on 06/16 about possible PEG placement per daughter request, awaiting further recs. -GI recommending surgery consult given pt might need J tube -surgery consulted, recommending starting ppn, possible transfer to pt's surgical oncologist at [facility] -Pt's surgical oncologist Brian Solis was contacted on 06/16 via [employer] asking to discuss possible transfer. Conversation via [employer] text, he was advised pt currently admitted and General surgery service recommending transfer. -PPN orders placed to start ppn on 06/17. - discussed with Dr. Solis. Pt has received rounds of xrt, plan is for surgery 6 weeks after completion of radiation. He expects sx to improve after completion of radiation. - Dr. Solis recommends J tube vs corflo. Discussed these options with daughter and surgical team, Dr. Ellington. Dr. Solis okay for procedure to be done here and will not interfere with his upcoming surgery. -Tentative plan is for patient to have a J tube placement to assist with nutritional support -Dr. Ellington would like to talk to Dr. Solis, and her number was provided to him to give a call back via [employer] text. -Daughter is in agreement of plan Ongoing chemoradiation for esophageal cancer - J-tube placed by surgery 06/18 starting feeds - cont. to closely monitor - if H&H trending dowm, will stop feeds Paroxysmal atrial fibrillation Received phone call from daughter that patient's pacemaker was interrogated and she was notified that he has been having intermittent episodes of atrial fibrillation transferred patient to telemetry for further monitoring Cardiology consulted - > switch IV metoprolol to PO/ J-tube now PE - scattered pulmonary emboli w/ poss. right heart strain - developed chest pain which led to CT PE study - starting IV heparin - discussed w/ surgery - monitor H&H Pancytopenia In setting of chemo, stable Continue to monitor complete heart block s/p pacemaker placement pacer interrogation as above HTN chronic, stable Continue home losartan as tolerated Pt currently refusing po meds on IV metoprolol-> now switching to po/ J-tube Mood On lexapro Pt currently refusing po meds GERD Continue ppi - IV form Pt currently refusing po meds HLD Continue statin Pt currently refusing po meds BPH Continue home finasteride Pt currently refusing po meds Prediabetes hemoglobin A1c of 6.20 March 2023 Monitor glucose levels CODE STATUS: full code Diet: Liquids DVT prophylaxis: SCDs Re: Thrombocytopenia Dispo: PT/OT, pt currently refusing participation Admission and Anticipated Discharge Date Admission Date: June 17, 2023 Subjective Pt is a 77 yo M currently undergoing chemoradiation for GE junction esophageal adenocarcinoma. He is hospitalized secondary to weakness and inability to tolerate oral intake. S/p J tube placement yesterday Overnight developed much more severe chest pain. ECG troponin, CT PE ordered this a.m. Discussed with cardiology and surgery. Patient denies any abdominal pain. CT PE positive for scattered bilateral PE, with possible right heart strain. Troponin mildly elevated, per cardiology, IV metoprolol switched to p.o. to be able to take via J-tube. IV heparin started, monitor H&H. Discussed also with pt's daughter. Review of Systems Review of Systems: All systems reviewed & are unremarkable except as noted in Subjective Physical Exam Physical Exam: Gen: WD/WN, elderly, M, sitting up in bed, +chronically ill appearing, NAD, A&O x3 HEENT: Normocephalic, atraumatic, conjunctivae moist, sclerae anicteric, mucous membranes moist. Lung: Clear to Auscultation bilaterally, no wheezes/rales/rhonchi Heart: Regular rate, regular rhythm, no murmurs, rubs, or gallops Abdomen: Soft, NT, ND +BS x 4 Extremities: No edema Skin: Warm, no rash, negative turgor. Results & Data Results & Data Vital Signs (Past 12 Hours) Vital Signs Pulse Resp BP Pulse Ox O2 Del Method O2 Flow Rate 03/01/24 06:49 59 L 119/71 06/19/23 02:30 116/72 06/19/23 02:30 62 10 L 06/19/23 02:00 123/76 06/19/23 02:00 67 12 06/19/23 01:30 123/77 06/19/23 01:30 68 15 06/19/23 01:00 71 13 06/19/23 01:00 117/60 06/19/23 00:54 79 16 06/19/23 00:54 123/66 06/19/23 00:00 78 13 06/18/23 23:00 76 8 L 06/18/23 22:00 75 15 06/18/23 21:00 71 12 97 06/18/23 20:30 74 14 96 06/18/23 20:15 69 10 L 96 06/18/23 20:00 70 15 125/77 94 06/18/23 20:00 Nasal Cannula 3 Laboratory Results 06/19/23 06/18/23 Range/Units 03:43 12:47 WBC 1.93 L (4.8-10.8) K/ul RBC 3.48 L (4.70-6.10) M/uL Hgb 11.1 L (14.0-18.0) g/dl Hct 31.1 L (42.0-52.0) % MCV 89.4 (80.0-100.0) fL MCH 31.9 (25.0-34.0) pg MCHC 35.7 (32.0-36.0) g/dL RDW Std Deviation 43.1 (36.4-46.3) fL RDW Coeff of Meka 13.4 (11.5-14.5) % Plt Count 81 L (130-400) K/uL MPV 9.2 L (9.4-12.4) fL Sodium 132 L (136-145) mmol/L Potassium 4.6 D (3.5-5.1) mmol/L Chloride 101 (98-107) mmol/L Carbon Dioxide 25 (21-32) mmol/L Anion Gap 6 (3-11) BUN 18 (6-23) mg/dl Creatinine 0.42 L (0.6-1.4) mg/dl Est Cr Clr Drug Dosing 172.4 ml/min Est GFR ( Amer) 131.1 ml/min Est GFR (Non-Af Amer) 113.1 ml/min BUN/Creatinine Ratio 42.9 H (10-20) Glucose 168 H (70-99(Fasting)) mg/dl POC Glucose 115 H (70-99) mg/dl Calcium 8.3 L (8.6-10.3) mg/dl Phosphorus 3.9 D (2.5-4.9) mg/dl Magnesium 1.9 (1.7-2.4) mg/dl Medications Administered Current Inpatient Medications Aspirin (Aspirin 81 Mg Ectab) 81 mg PO DAILY [facility] Stop: 07/15/23 08:59 Last Admin: 06/18/23 09:27 Dose: Not Given Escitalopram Oxalate (Escitalopram Oxalate 10 Mg Tab) 10 mg PO DAILY [facility] Stop: 07/15/23 08:59 Last Admin: 06/18/23 09:27 Dose: Not Given Finasteride (Finasteride 5 Mg Tab) 5 mg PO DAILY [facility] Stop: 07/15/23 08:59 Last Admin: 06/18/23 09:27 Dose: Not Given Hydralazine HCl (Hydralazine Hcl 20 Mg/Ml Vial) 10 mg IV Q6 PRN PRN Reason: htn Stop: 07/17/23 17:44 Promethazine HCl 6.25 mg/ (Sodium Chloride) 50.25 mls @ 201 mls/hr IV Q6H PRN PRN Reason: Nausea And Vomiting Stop: 07/15/23 01:51 Last Infusion: 06/18/23 00:42 Dose: Infused Dextrose (D10w) 1,000 mls @ 0 mls/hr IV .Q0M PRN PRN Reason: protocol (see label comments) Stop: 07/17/23 04:10 Acetaminophen (Ofirmev) 1,000 mg in 100 mls @ 400 mls/hr IV Q8H PRN PRN Reason: Pain Stop: 06/21/23 11:03 Last Infusion: 06/19/23 04:05 Dose: Infused Pantoprazole Sodium 40 mg/ (Syringe) 10 mls @ 5 mls/min IV DAILY@1100 [facility] Stop: 07/18/23 11:14 Last Admin: 06/18/23 13:33 Dose: 5 mls/min Amino Acids 2,154 ml/ (Nutrition (Parenteral)) 2,154 mls @ 89.75 mls/hr IV .Q24H [facility]; Protocol Stop: 06/19/23 15:59 Last Admin: 06/18/23 19:15 Dose: 89.8 mls/hr Lidocaine HCl (Lidocaine Viscous 2% 15 Ml Udc) 15 ml PO AC [facility] Stop: 07/15/23 11:29 Last Admin: 06/18/23 20:01 Dose: Not Given Losartan Potassium (Losartan Potassium 25 Mg Tab) 25 mg PO DAILY [facility] Stop: 07/15/23 08:59 Last Admin: 06/18/23 09:27 Dose: Not Given Metoprolol Tartrate (Metoprolol Tartrate 1 Mg/Ml Vial) 5 mg IV Q6 [facility] Stop: 07/17/23 17:59 Last Admin: 06/19/23 06:49 Dose: Not Given Miscellaneous (Stop Clinolipid) 1 each N/A TODAY@22 [facility] Stop: 07/18/23 21:59 Last Admin: 06/18/23 22:34 Dose: 1 each Miscellaneous Information (Tpn/Ppn Consult Pharmacy) 1 each N/A UD PRN PRN Reason: Consult Stop: 07/17/23 04:14 Morphine Sulfate (Morphine Sulfate 4 Mg/Ml 1 Ml Carp\Vial) 4 mg IV Q4H PRN PRN Reason: Pain Stop: 06/29/23 01:51 Last Admin: 06/18/23 12:50 Dose: 4 mg Morphine Sulfate (Morphine Sulfate 4 Mg/Ml 1 Ml Carp\Vial) 3 mg IV NOW STA Stop: 06/19/23 07:49 Morphine Sulfate (Morphine Sulfate 2 Mg/Ml Carp) 2 mg IV Q2H PRN PRN Reason: Pain Stop: 07/02/23 12:48 Oxycodone HCl (Oxycodone Hcl Soln 5 Mg/5 Ml Udc) 5 mg PO QID PRN PRN Reason: Pain Stop: 06/29/23 01:51 Last Admin: 06/19/23 04:49 Dose: 5 mg Rosuvastatin Calcium (Rosuvastatin Calcium 20 Mg Tab) 20 mg PO DAILY [facility] Stop: 07/15/23 08:59 Last Admin: 06/18/23 09:27 Dose: Not Given
[2023-06-19] MEDS: MoRPHine SULFATE 4 MG/ML 1 ML CARP\\VIAL IV STA (08:16)
--- NOTE | 2023-06-19 08:22 | Cardiology Progress Note ---
Date of Service June 19, 2023 Assessment & Plan (1) Paroxysmal atrial fibrillation: (2) Hypertension: (3) Odynophagia: (4) Esophageal cancer: (5) Right-sided chest pain: (6) Right sided facial pain: Plan Assessment: 77 year old male with esophageal cancer undergoing chemoradiation with plans for G tube placement tomorrow asked to be seen by cardiology due to an abnormal remote pacemaker device report for A-fib with RVR lasting 22 hours. Plan: 1. paroxysmal A-fib -New diagnosis. -Patient is asymptomatic and euvolemic on physical exam -No evidence of A-fib events during course of hospitalization. -CHADS-VASC score 3. -At this time patient remains in NSR -J-tube in place and has been used. We will discontinue IV lopressor in favor of starting Metoprolol Tartrate 25mg BID via J-tube. 2. Hypertension -controlled today -Switch from IV lopressor to Metoprolol tartrate 25mg BID via J-tube. -Continue Losartan 25mg QD 2. Odynophagia 3. Esophageal cancer -Per management of primary team. 4. right sided chest pain: -mild elevation in High sensativity troponin, will repeat to trend. -EKG shows no acute ischemic changes -CTA chest pending as per management of primary team for further evaluation. Case has been discussed with Dr. Israel. Further recommendations regarding plan of care as per his assessment. I spent a total of 30 minutes on the date of service in preparation, delivery, documentation of the care provided to the patient excluding any time spent in the performance of separately billed services. TERESA Robertson [facility] Admission and Anticipated Discharge Date Admission Date: June 17, 2023 Supervising Physician Co-Signing Physician Notes I have reviewed the advance practitioner's documentation, and I agree with, and take responsibility for the plan of care. 77-year-old male seen and examined at the bedside. J-tube placed 06/18/2023 without complication. Mild chest discomfort noted overnight. A CTA of the chest was performed demonstrating few scattered bilateral pulmonary emboli. Possible flattening of the interventricular septum representing right-sided heart strain. Remains in sinus rhythm on telemetry since admission. PE: VSS. General: NAD, awake alert orient x 3. Heart: Regular rhythm, normal S1-S2. No murmur. Lungs: Clear bilateral, no rales, rhonchi, wheeze. Extremities: No edema. A/P: 77-year-old patient with bilateral pulmonary embolus per CTA. Initiate anticoagulation as per the hospitalist service. Evidence of paroxysmal atrial fibrillation via pacemaker interrogation. Successful J-tube placement 06/18/2023. Transition IV beta-domonique to oral metoprolol tartrate 25 mg twice daily. Recommend repeat 2D transthoracic echocardiogram due to CT findings of possible right ventricular strain. No further inpatient cardiac testing or intervention recommended at this time. Cardiology will sign off. Please call with additional concerns/questions. I spent a total of 35 minutes on the date of service in preparation, delivery, and documentation of the care provided to this patient, excluding any time spent in the performance of separately billed services. Subjective 06/19/23: Patient seen and examined in follow up today. He is resting in bed with complaints of intermittent right sided chest discomfort. he reports that this has been going on for a few weeks, but has been much more persistent overnight. Hospitalist service has rounded and ordered a CTA chest, and High sensitivity troponin which is elevated at 50. EKG obtained showing no acute ST-T wave changes. Patient denies any shortness of breath, PND, pre-syncope, syncope or palpitations. Review of telemetry shows SR/Paced. No events overnight and no recurrence of A- fib. Labs/diagnostics, notes, vitals and telemetry reviewed. Review of Systems Review of Systems: All systems reviewed & are unremarkable except as noted in HPI & below Physical Exam Constitutional: well developed and well nourished; no acute distress Neck: normal visual inspection and trachea midline Respiratory: normal respiratory effort, lungs clear to auscultation Cardiovascular: RRR, no murmur, no edema Vessels: dorsalis pedis pulses present; no JVD Extremities: no edema Skin: no rashes, warm and dry Psychiatric: A+Ox3, euthymic affect Results & Data Vital Signs (Past 12 Hours) Vital Signs Pulse Resp BP Pulse Ox 06/19/23 07:30 121/73 06/19/23 07:30 68 15 06/19/23 07:00 114/69 06/19/23 07:00 64 12 06/19/23 06:49 59 L 119/71 06/19/23 02:30 116/72 06/19/23 02:30 62 10 L 06/19/23 02:00 123/76 06/19/23 02:00 67 12 06/19/23 01:30 123/77 06/19/23 01:30 68 15 06/19/23 01:00 71 13 06/19/23 01:00 117/60 06/19/23 00:54 79 16 06/19/23 00:54 123/66 06/19/23 00:00 78 13 06/18/23 23:00 76 8 L 06/18/23 22:00 75 15 06/18/23 21:00 71 12 97 06/18/23 20:30 74 14 96 Laboratory Results Cardiac Enzymes 06/19/23 Range/Units 07:48 Troponin I High Sens 52.0 H* (0-20) pg/ml CBC 06/19/23 Range/Units 03:43 WBC 1.93 L (4.8-10.8) K/ul RBC 3.48 L (4.70-6.10) M/uL Hgb 11.1 L (14.0-18.0) g/dl Hct 31.1 L (42.0-52.0) % Plt Count 81 L (130-400) K/uL Comprehensive Metabolic Panel 06/19/23 Range/Units 03:43 Sodium 132 L (136-145) mmol/L Potassium 4.6 D (3.5-5.1) mmol/L Chloride 101 (98-107) mmol/L Carbon Dioxide 25 (21-32) mmol/L BUN 18 (6-23) mg/dl Creatinine 0.42 L (0.6-1.4) mg/dl Glucose 168 H (70-99(Fasting)) mg/dl Calcium 8.3 L (8.6-10.3) mg/dl Intake and Output 06/18/23 06/19/23 06/19/23 22:59 06:59 14:59 Intake Total 3206 / 3656 350 / 3656 Output Total 751 / 1701 950 / 1701 Balance 2454 / 1954 -1954 Intake: IV 2105 / 6 350 / 2556 Aa 4.25%/D5w 2L 2,106 ml In 2105 Peripheral TPN bag 0 ml @ 87.8 mls/hr IV .Q24H [facility] Rx#: [id number] Acetaminophen 1,000 mg In 100 100 / 100 ml @ 400 mls/hr IV Q8H PRN Rx#: [id number] Clinolipid 20% IV Fat Emulsion 250 / 250 250 ml @ 41.7 mls/hr IV .Q6H [facility] Rx#:[id number] IV Perioperative 1100 / 1100 Oral 0 / 0 0 / 0 Output: Estimated Blood Loss 1 / 1 Urine Amount (Catheter) 750 / 1700 950 / 1700 Xie/Indwelling 750 / 1700 950 / 1700 Other: Weight 101 kg 101 kg Patient Weight 06/20/23 06:59 Weight 101 kg
[2023-06-19] MEDS: OPTIRAY 320 125ml IV ONE (08:35)
--- NOTE | 2023-06-19 08:56 | CT Scan Report ---
CHEST CTA for PULMONARY ARTERIES CT DOSE: HISTORY: Right-sided chest discomfort. TECHNIQUE: Multiaxial CT images of the chest were performed following the intravenous administration of contrast to evaluate the pulmonary arteries. 3D/Maximal intensity projection images were also obta ined. Sagittal and coronal reformations were also reviewed. A dose lowering technique was utilized a dhering to the principles of ALARA. COMPARISON STUDY: Chest CT 03/27/2023. FINDINGS: Normal caliber thoracic aorta with no evidence for a dissection. The heart is mildly enlarg ed. Left-sided pacemaker is again noted. Trace bilateral pleural effusions. No pericardial effusion. A few scattered filling defects seen within the bilateral upper lobes and left lower lobe pulmonary a rteries consistent with pulmonary emboli. There is mild flattening of the interventricular septum whi ch could represent developing right-sided heart strain. Limited views of the upper abdomen demonstrat e a small amount of pneumoperitoneum and predominantly right-sided abdominal wall mild subcutaneous e mphysema. This is indeterminate but could be due to recent postoperative change. Prior trauma or carlito l perforation or also considered in the differential diagnosis. There are healing right anterior sixt h and seventh rib fractures. No acute fractures identified. Stable 1.2 cm left hepatic lobe cyst. The visualized spleen and adrenal glands are unremarkable. Moderate thickening within the distal esophag us again noted. The thyroid gland enhances normally. No pneumothorax or pneumomediastinum. Subcentime ter mediastinal lymph nodes remain stable and do not meet CT criteria for pathologic involvement. The re is a calcified subcarinal lymph node. The central airways are patent. Bibasilar linear densities f avor subsegmental atelectasis. No evidence for pulmonary edema. IMPRESSION: 1. A few scattered bilateral pulmonary emboli. There is also flattening of the interventricular septu m which could represent early right-sided heart strain. 2. Small amount of pneumoperitoneum and predominantly right-sided abdominal wall subcutaneous emphyse ma. This is indeterminate but could be due to recent postoperative change. Prior trauma or bowel perf oration also considered in the differential diagnosis. Clinical correlation recommended. 3. Healing right anterior sixth and seventh rib fractures. No pneumothorax. No mediastinum. 4. Trace bilateral pleural effusions. 5. Moderate thickening of the distal esophagus again noted consistent the patient's known esophageal lesion. 6. Additional findings as described above. ACT 112: Negative or not required by law. Electronically signed by: Won Curiel M.D. 06/19/2023 8:54 AM
[2023-06-19] MEDS: HYDROmorphone INJ 0.5 MG/0.5 ML SYR IV PRN (09:33)
[2023-06-19] MEDS: LIDOCAINE 1%/EPINEPHRINE 1:100,000 50 ML VIAL INFIL ONE (11:33)
[2023-06-19] MEDS: TUBE FEEDING WATER FLUSH JT SCH (11:34)
[2023-06-19] MEDS: Heparin IV Adult Wt-Based Low-Dose *NO* INITIAL Bolus Protocol IV STA (11:49)
[2023-06-19] MEDS: ALTEPLASE, RECOMBINANT 1 MG/ML 2ML VIAL INSTIL ONE (12:29)
[2023-06-19 12:49] LABS: INR 1.2 (0.9-1.1); Partial Thromboplastin Time 28 Seconds (21-31); Prothrombin Time 12.8 Seconds (9.0-12.0)
--- NOTE | 2023-06-19 12:54 | Electrocardiogram Report ---
Test Reason : Blood Pressure : / mmHG Vent. Rate : 060 BPM Atrial Rate : 060 BPM P-R Int : 176 ms QRS Dur : 128 ms QT Int : 436 ms P-R-T Axes : 014 023 013 degrees QTc Int : 436 ms Normal sinus rhythm Right bundle branch block Abnormal ECG When compared with ECG of 17-JUN-2023 12:10, T wave inversion no longer evident in Anterior leads Confirmed by Vinnie Fuller ([id number]) on 06/19/2023 12:54:23 PM Referred By: REFERRED SELF Confirmed By:Vinnie Fuller
[2023-06-19] MEDS: HEPARIN SODIUM/DEXTROSE 25,000 UNITS/500 ML BAG IV SCH (13:03)
[2023-06-19] MEDS: HEPARIN 25000 UNIT/500 ML D5W IV ONE (13:04)
--- NOTE | 2023-06-19 14:27 | Pharmacy Report ---
Pharmacy PN Follow-up Note - Date of Service June 19, 2023 - Subjective Patient is currently on day #[] of [PPN][TPN] for [Indication]. - Objective Height & Weight (Last Documented) Height 5 ft 8 in Weight 101 kg Diet Order(s) 06/18/23 Dinner Diet Intake & Ouput (24hrs) 06/18/23 06/19/23 06/20/23 06:59 06:59 06:59 Intake Total 1422.417 / 1008.461 9166 / 3656 Output Total 1701 / 1701 400 / 400 Balance 1422.417 / 7505.985 1379 / 1954 -400 / -400 Selected Laboratory Results 06/19/23 03:43 Sodium 132 L Potassium 4.6 D Chloride 101 Carbon Dioxide 25 Anion Gap 6 BUN 18 Creatinine 0.42 L Est GFR ( Amer) 131.1 Est GFR (Non-Af Amer) 113.1 BUN/Creatinine Ratio 42.9 H Glucose 168 H Calcium 8.3 L Phosphorus 3.9 D Magnesium 1.9 - Assessment & Plan Assessment: 06/18: * Patient had J-tube placed PM- per rehabilitation worker's conversation with surgery okay to start Tube feeds via j-tube and stop PPN after yesterdays bag. Orders were placed by rehabilitation worker for the tube feeds. * Discussed with hospitalist to d/c TPN consult as it was ordered by primary service, per hospitalist patient is starting on IV heparin for PE(after rehabilitation worker had conversation with surgery) and has concerns starting tube feeds if patient starting heparin. Per hospitalist placed the tube feeds on hold until she is able to reach surgery and will continue with same PPN (with electrolyte adjustments) as yesterday for now pending further approval from surgery. * Appreciate dietitians recommendations for macronutrients. Tolerating at goal. * Per surgery's note, no longer planning for J-tube. Looks like PICC placement and long-term TPN may be the plan. * Na, Phos, Ca all decreased slightly on this AM's BMP. Will increase each in the bag. No outside electrolytes today. * TPN electrolytes in stock at [facility] on 06/19/23 and are on long-term backorder so will remove these today and replace with individual electrolytes. Plan: * For Day #3 of PPN administration, the following will be ordered: * Macronutrients: * Amino Acids: 85 grams/day * Dextrose: 100 grams/day * Lipids: 50 grams/day * Micronutrients: * Sodium phosphate: 30 mMol/day * Sodium chloride: 120 mEq/day * Sodium acetate: 60 mEq/day * Potassium chloride: 50 mEq/day * Potassium acetate: -- mEq/day * Magnesium sulfate: 8.12 mEq/day * Calcium gluconate: 9.3 mEq/day * Multivitamins: 10 mL/day * Trace elements: 1 mL/day * Thiamine: 100 mg/day * Total volume of 2147 mL will be infused over 24 hours and will provide 1180 kcal/day * Patient is on PPN which has a maximum mOsm/L of 900. Final osmolarity of current solution is 885 mOsm/L. * Labs will be ordered per PN protocol. * Pharmacy will follow and adjust PN orders on a daily basis. Thank you!
--- NOTE | 2023-06-19 16:09 | Surgery Progress Note ---
Date of Service June 19, 2023 Assessment & Plan (1) Right-sided chest pain: (2) Esophageal cancer: Plan POD 1 s/p robotic jejunostomy insertion. Patient c/o significant chest pain o/n worse than what he says he has had in the past. Discussed with primary medical team; CT chest, EKG, cardiac enzymes obtained. Patient appears to have evidence for b/l segmental PE's along with right heart strain. Mild pleural effusions b/l. Also, anterior rib fractures 6&7 noted on the right at the site of his chest pain. Abdominal and pelvic CT was obtain which expectedly reveals pneumoperitoneum, and other typical post operative changes. Patient is POD1 from a robotic jejunostomy placement. Advised the tube may be used after surgery. May continue using this tube for medication and/or alimentary administration. May be treated with heparin for PE's. Monitor H/H q8. Hold Heparin if an H/H has shown evidence for trending down. At that time, hold TF as well. Weekend surgical coverage will follow this Thursday and Thursday. Consent was obtained to place sutures to the bolster at the jejunostomy site. Local anesthetic was injected into the skin and two sutures were added at 3 and 9:00 The jejunostomy tube was also further secured to the bolster with tape. The patient experienced no pain with this. Please do not pull, yank or heavily manipulate this jejunostomy tube. Admission and Anticipated Discharge Date Admission Date: June 17, 2023 Subjective Patient seen and examined this am. Denies N/V, abdominal pain. Had chest pains o/n which he says he has been having occasionally but last night it became more severe. Physical Exam Constitutional: cooperative; not ill appearing, not in distress and not diaphoretic Respiratory: normal respiratory effort; no respiratory distress, no labored breathing and does not use accessory muscles Gastrointestinal (Abdomen): Inspection/Auscultation: abdomen not distended Percussion/Palpation: abdomen soft; abdomen nontender and no guarding Jejunostomy site is intact without erythema or drainage around the site. Non- tender. Results & Data Vital Signs (Past 12 Hours) Vital Signs Pulse Resp BP Pulse Ox O2 Del Method O2 Flow Rate 06/19/23 12:30 131/78 06/19/23 12:30 65 20 96 06/19/23 12:22 Nasal Cannula 2 06/19/23 12:00 63 13 95 06/19/23 12:00 129/76 06/19/23 11:30 66 14 95 06/19/23 11:30 140/83 06/19/23 11:00 63 16 94 06/19/23 11:00 134/78 06/19/23 10:30 65 12 96 06/19/23 10:30 114/75 06/19/23 10:00 60 14 96 06/19/23 10:00 135/81 06/19/23 09:30 153/93 H 06/19/23 09:30 60 10 L 97 06/19/23 09:00 136/89 06/19/23 09:00 62 8 L 97 06/19/23 08:41 60 19 06/19/23 08:41 134/82 06/19/23 08:00 142/78 H 06/19/23 08:00 61 12 06/19/23 07:30 121/73 06/19/23 07:30 68 15 06/19/23 07:00 114/69 06/19/23 07:00 64 12 06/19/23 06:49 59 L 119/71 PG Care Time/CCT Total # of Minutes Spent Total Time Spent with Patient: Total time spent is greater than 50% in coordination of care (as documented) at patient's floor/unit and/or counseling patient: Coding Level of Care Code 15273 SUB INP/OBS CARE 2/35MIN Diagnoses Right-sided chest pain R07.9 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
[2023-06-19] MEDS: LIDOCAINE 1% LOCAL 20 ML VIAL ONE (17:20)
[2023-06-19] MEDS: PEPTAMEN 1.5 CAL 1,000 ML BAG JT SCH (17:24)
[2023-06-19] MEDS: PERIPHERAL TPN IV SCH (17:27)
[2023-06-19] MEDS: [UNRECOGNIZED DRUG - OTHER] IV SCH (17:27)
[2023-06-19] MEDS: CLINOLIPID 20% IV FAT EMULSION 250 ML IV SCH (17:28)
[2023-06-19 17:56] LABS: Hematocrit (blood only) 32.9 % (42.0-52.0); Hemoglobin 11.2 g/dl (14.0-18.0)
[2023-06-19 20:10] LABS: ANTI-Xa, UFH(UnfractionatedHep 0.25 IU/ml (0.3-0.7)
[2023-06-19] MEDS: METOPROLOL TARTRATE 25 MG TAB PO SCH (20:28)
[2023-06-19 23:48] LABS: Hematocrit (blood only) 31.4 % (42.0-52.0); Hemoglobin 11.1 g/dl (14.0-18.0)
[2023-06-20 04:23] LABS: Hematocrit (blood only) 33.5 % (42.0-52.0); Hemoglobin 11.5 g/dl (14.0-18.0); Mean Corpuscular Hemoglobin 31.9 pg (25.0-34.0); Mean Corpuscular Hgb Conc 34.3 g/dL (32.0-36.0); Mean Corpuscular Volume 92.8 fL (80.0-100.0); Mean Platelet Volume 9.3 fL (9.4-12.4); Platelet Count 76 K/uL (130-400); RDW Coefficient of Variation 13.8 % (11.5-14.5); RDW Standard Deviation 44.6 fL (36.4-46.3); Red Blood Count 3.61 M/uL (4.70-6.10); White Blood Count 1.98 K/ul (4.8-10.8)
[2023-06-20 04:36] LABS: BUN Creatinine Ratio 39.6 (10-20); Calcium 7.9 mg/dl (8.6-10.3); Creatinine Clr Calc Pharmacy 150.8 ml/min; Est GFR (African American) 124.1 ml/min; Magnesium 1.8 mg/dl (1.7-2.4); Phosphorus 3.1 mg/dl (2.5-4.9); Potassium 4.1 mmol/L (3.5-5.1)
--- NOTE | 2023-06-20 08:12 | Hospitalist Progress Note ---
Date of Service June 20, 2023 Assessment & Plan (1) Odynophagia: Plan Pt is a 77yoF with PMHx significant for complete heart block status post PPM, hypertension, TIA/PVD as per records, esophageal cancer with ongoing chemoradiation, prediabetes, BPH, urolithiasis admitted with odynophagia. Odynophagia Esophageal cancer Pt with noted odynophagia Daughter also requesting PEG placement as pt has not been able to eat States he need nutritional support so that surgery can be considered to treat his cancer as well GI consulted, appreciate recs -no EGD -lidocaine -add sucralfate if not improving Reached out to GI about PEG placement on 06/16 about possible PEG placement per daughter request, awaiting further recs. -GI recommending surgery consult given pt might need J tube -surgery consulted, recommending starting ppn, possible transfer to pt's surgical oncologist at [facility] -Pt's surgical oncologist Brian Solis was contacted on 06/16 via [employer] asking to discuss possible transfer. Conversation via [employer] text, he was advised pt currently admitted and General surgery service recommending transfer. -PPN orders placed to start ppn on 06/17. - discussed with Dr. Solis. Pt has received rounds of xrt, plan is for surgery 6 weeks after completion of radiation. He expects sx to improve after completion of radiation. - Dr. Solis recommends J tube vs corflo. Discussed these options with daughter and surgical team, Dr. Ellington. Dr. Solis okay for procedure to be done here and will not interfere with his upcoming surgery. -Tentative plan is for patient to have a J tube placement to assist with nutritional support -Dr. Ellington would like to talk to Dr. Solis, and her number was provided to him to give a call back via [employer] text. -Daughter is in agreement of plan Ongoing chemoradiation for esophageal cancer - J-tube placed by surgery 06/18 starting feeds - cont. to closely monitor - if H&H trending dowm, will stop feeds Paroxysmal atrial fibrillation Received phone call from daughter that patient's pacemaker was interrogated and she was notified that he has been having intermittent episodes of atrial fibrillation transferred patient to telemetry for further monitoring Cardiology consulted - > switched IV metoprolol to PO/ J-tube now PE - scattered pulmonary emboli w/ poss. right heart strain - developed chest pain which led to CT PE study - started IV heparin - discussed w/ surgery - monitor H&H Pancytopenia In setting of chemo, stable Continue to monitor complete heart block s/p pacemaker placement pacer interrogation as above HTN chronic, stable Continue home losartan as tolerated Pt currently refusing po meds on IV metoprolol-> now switched to po/ J-tube Mood On lexapro Pt currently refusing po meds GERD Continue ppi - IV form Pt currently refusing po meds HLD Continue statin Pt currently refusing po meds BPH Continue home finasteride Pt currently refusing po meds Prediabetes hemoglobin A1c of 6.20 March 2023 Monitor glucose levels CODE STATUS: full code Diet: Liquids DVT prophylaxis: IV heparin - monitor H&H and Thrombocytopenia Dispo: PT/OT, pt currently refusing participation Admission and Anticipated Discharge Date Admission Date: June 17, 2023 Subjective Pt is a 77 yo M currently undergoing chemoradiation for GE junction esophageal adenocarcinoma. He is hospitalized secondary to weakness and inability to tolerate oral intake. S/p J tube placement CT PE positive for scattered bilateral PE, with possible right heart strain. Troponin mildly elevated, per cardiology, IV metoprolol switched to p.o. to be able to take via J-tube. IV heparin started yesterday, monitor H&H. Hgb 8.8 however when fluids stopped and repeated H&H unchanged Currently reports epigastric/ chest pain that comes and goes, gets exacerbated with movement. Discussed also with pt's daughter. Review of Systems Review of Systems: All systems reviewed & are unremarkable except as noted in Subjective Physical Exam Physical Exam: Gen: WD/WN, elderly, M, sitting up in bed, +chronically ill appearing A&O x3 HEENT: Normocephalic, atraumatic, conjunctivae moist, sclerae anicteric, mucous membranes moist. Lung: Clear to Auscultation bilaterally, no wheezes/rales/rhonchi Heart: Regular rate, regular rhythm, no murmurs, rubs, or gallops Abdomen: Soft, NT, ND +BS x 4 Extremities: No edema Skin: Warm, no rash, negative turgor. Results & Data Results & Data Vital Signs (Past 12 Hours) Vital Signs Temp Pulse Pulse Resp BP BP Pulse Ox 03/02/24 07:42 37.1 C 93 H 16 133/77 92 06/20/23 02:10 36.4 C L 80 22 133/80 06/20/23 00:00 72 06/19/23 23:18 36.5 C 77 14 127/78 90 06/19/23 20:25 36.6 C 85 14 131/76 95 O2 Del Method O2 Flow Rate 06/20/23 07:42 Room Air 06/20/23 02:10 Room Air 06/20/23 00:00 06/19/23 23:18 Nasal Cannula 2 06/19/23 20:25 Nasal Cannula 2 Laboratory Results 06/20/23 06/20/23 06/19/23 Range/Units 06:10 03:43 23:27 WBC 1.98 L (4.8-10.8) K/ul RBC 3.61 L (4.70-6.10) M/uL Hgb 11.5 L 11.1 L (14.0-18.0) g/dl Hct 33.5 L 31.4 L (42.0-52.0) % MCV 92.8 (80.0-100.0) fL MCH 31.9 (25.0-34.0) pg MCHC 34.3 (32.0-36.0) g/dL RDW Std Deviation 44.6 (36.4-46.3) fL RDW Coeff of Meka 13.8 (11.5-14.5) % Plt Count 76 L (130-400) K/uL MPV 9.3 L (9.4-12.4) fL PT (9.0-12.0) Seconds INR (0.9-1.1) APTT (21-31) Seconds PTT Ratio Heparin Anti-Xa, Unfract 0.50 (0.3-0.7) IU/ml Sodium 130 L (136-145) mmol/L Potassium 4.1 (3.5-5.1) mmol/L Chloride 97 L (98-107) mmol/L Carbon Dioxide 26 (21-32) mmol/L Anion Gap 7 (3-11) BUN 19 (6-23) mg/dl Creatinine 0.48 L (0.6-1.4) mg/dl Est Cr Clr Drug Dosing 150.8 ml/min Est GFR ( Amer) 124.1 ml/min Est GFR (Non-Af Amer) 107.0 ml/min BUN/Creatinine Ratio 39.6 H (10-20) Glucose 109 H (70-99(Fasting)) mg/dl POC Glucose 97 (70-99) mg/dl Calcium 7.9 L (8.6-10.3) mg/dl Phosphorus 3.1 (2.5-4.9) mg/dl Magnesium 1.8 (1.7-2.4) mg/dl Troponin I High Sens (0-20) pg/ml 06/19/23 06/19/23 06/19/23 Range/Units 23:15 19:23 17:36 WBC (4.8-10.8) K/ul RBC (4.70-6.10) M/uL Hgb 11.2 L (14.0-18.0) g/dl Hct 32.9 L (42.0-52.0) % MCV (80.0-100.0) fL MCH (25.0-34.0) pg MCHC (32.0-36.0) g/dL RDW Std Deviation (36.4-46.3) fL RDW Coeff of Meka (11.5-14.5) % Plt Count (130-400) K/uL MPV (9.4-12.4) fL PT (9.0-12.0) Seconds INR (0.9-1.1) APTT (21-31) Seconds PTT Ratio Heparin Anti-Xa, Unfract 0.25 L (0.3-0.7) IU/ml Sodium (136-145) mmol/L Potassium (3.5-5.1) mmol/L Chloride (98-107) mmol/L Carbon Dioxide (21-32) mmol/L Anion Gap (3-11) BUN (6-23) mg/dl Creatinine (0.6-1.4) mg/dl Est Cr Clr Drug Dosing ml/min Est GFR ( Amer) ml/min Est GFR (Non-Af Amer) ml/min BUN/Creatinine Ratio (10-20) Glucose (70-99(Fasting)) mg/dl POC Glucose 107 H (70-99) mg/dl Calcium (8.6-10.3) mg/dl Phosphorus (2.5-4.9) mg/dl Magnesium (1.7-2.4) mg/dl Troponin I High Sens (0-20) pg/ml 06/19/23 06/19/23 06/19/23 Range/Units 12:19 12:05 10:47 WBC (4.8-10.8) K/ul RBC (4.70-6.10) M/uL Hgb (14.0-18.0) g/dl Hct (42.0-52.0) % MCV (80.0-100.0) fL MCH (25.0-34.0) pg MCHC (32.0-36.0) g/dL RDW Std Deviation (36.4-46.3) fL RDW Coeff of Meka (11.5-14.5) % Plt Count (130-400) K/uL MPV (9.4-12.4) fL PT 12.8 H (9.0-12.0) Seconds INR 1.2 H (0.9-1.1) APTT 28 (21-31) Seconds PTT Ratio 1.0 Heparin Anti-Xa, Unfract (0.3-0.7) IU/ml Sodium (136-145) mmol/L Potassium (3.5-5.1) mmol/L Chloride (98-107) mmol/L Carbon Dioxide (21-32) mmol/L Anion Gap (3-11) BUN (6-23) mg/dl Creatinine (0.6-1.4) mg/dl Est Cr Clr Drug Dosing ml/min Est GFR ( Amer) ml/min Est GFR (Non-Af Amer) ml/min BUN/Creatinine Ratio (10-20) Glucose (70-99(Fasting)) mg/dl POC Glucose 124 H (70-99) mg/dl Calcium (8.6-10.3) mg/dl Phosphorus (2.5-4.9) mg/dl Magnesium (1.7-2.4) mg/dl Troponin I High Sens 45.2 H (0-20) pg/ml 06/19/23 Range/Units 07:48 WBC (4.8-10.8) K/ul RBC (4.70-6.10) M/uL Hgb (14.0-18.0) g/dl Hct (42.0-52.0) % MCV (80.0-100.0) fL MCH (25.0-34.0) pg MCHC (32.0-36.0) g/dL RDW Std Deviation (36.4-46.3) fL RDW Coeff of Meka (11.5-14.5) % Plt Count (130-400) K/uL MPV (9.4-12.4) fL PT (9.0-12.0) Seconds INR (0.9-1.1) APTT (21-31) Seconds PTT Ratio Heparin Anti-Xa, Unfract (0.3-0.7) IU/ml Sodium (136-145) mmol/L Potassium (3.5-5.1) mmol/L Chloride (98-107) mmol/L Carbon Dioxide (21-32) mmol/L Anion Gap (3-11) BUN (6-23) mg/dl Creatinine (0.6-1.4) mg/dl Est Cr Clr Drug Dosing ml/min Est GFR ( Amer) ml/min Est GFR (Non-Af Amer) ml/min BUN/Creatinine Ratio (10-20) Glucose (70-99(Fasting)) mg/dl POC Glucose (70-99) mg/dl Calcium (8.6-10.3) mg/dl Phosphorus (2.5-4.9) mg/dl Magnesium (1.7-2.4) mg/dl Troponin I High Sens 52.0 H* (0-20) pg/ml Medications Administered Current Inpatient Medications Aspirin (Aspirin 81 Mg Ectab) 81 mg PO DAILY [facility] Stop: 07/15/23 08:59 Last Admin: 06/19/23 09:33 Dose: Not Given Enteral Nutritional Formula (Peptamen 1.5 Fam 1,000 Ml Bag) 1,000 ml JT .See Protocol [facility]; Protocol Stop: 07/19/23 10:29 Last Admin: 06/19/23 17:24 Dose: 1,000 ml Escitalopram Oxalate (Escitalopram Oxalate 10 Mg Tab) 10 mg PO DAILY [facility] Stop: 07/15/23 08:59 Last Admin: 06/19/23 08:56 Dose: 10 mg Finasteride (Finasteride 5 Mg Tab) 5 mg PO DAILY [facility] Stop: 07/15/23 08:59 Last Admin: 06/19/23 08:56 Dose: 5 mg Hydralazine HCl (Hydralazine Hcl 20 Mg/Ml Vial) 10 mg IV Q6 PRN PRN Reason: htn Stop: 07/17/23 17:44 Hydromorphone HCl (Hydromorphone Inj 0.5 Mg/0.5 Ml Syr) 0.5 mg IV Q3H PRN PRN Reason: Pain Stop: 07/03/23 09:18 Last Admin: 06/20/23 06:10 Dose: 0.5 mg Promethazine HCl 6.25 mg/ (Sodium Chloride) 50.25 mls @ 201 mls/hr IV Q6H PRN PRN Reason: Nausea And Vomiting Stop: 07/15/23 01:51 Last Infusion: 06/20/23 02:02 Dose: Infused Acetaminophen (Ofirmev) 1,000 mg in 100 mls @ 400 mls/hr IV Q8H PRN PRN Reason: Pain Stop: 06/21/23 11:03 Last Infusion: 06/19/23 04:05 Dose: Infused Pantoprazole Sodium 40 mg/ (Syringe) 10 mls @ 5 mls/min IV DAILY@1100 [facility] Stop: 07/18/23 11:14 Last Admin: 06/19/23 11:34 Dose: 5 mls/min Heparin Sodium/Dextrose (Heparin Sodium/Dextrose) 25,000 units in 500 mls @ 22 mls/hr IV .[id number] [facility]; Protocol Stop: 07/19/23 11:59 Last Titration: 06/20/23 07:17 Dose: 1,100 units/hr, 22 mls/hr Lidocaine HCl (Lidocaine Viscous 2% 15 Ml Udc) 15 ml PO AC [facility] Stop: 07/15/23 11:29 Last Admin: 06/19/23 16:40 Dose: Not Given Losartan Potassium (Losartan Potassium 25 Mg Tab) 25 mg PO DAILY [facility] Stop: 07/15/23 08:59 Last Admin: 06/19/23 08:55 Dose: 25 mg Metoprolol Tartrate (Metoprolol Tartrate 25 Mg Tab) 25 mg PO BID [facility] Stop: 07/19/23 20:59 Last Admin: 06/19/23 20:28 Dose: 25 mg Morphine Sulfate (Morphine Sulfate 4 Mg/Ml 1 Ml Carp\Vial) 4 mg IV Q4H PRN PRN Reason: Pain Stop: 06/29/23 01:51 Last Admin: 06/18/23 12:50 Dose: 4 mg Morphine Sulfate (Morphine Sulfate 2 Mg/Ml Carp) 2 mg IV Q2H PRN PRN Reason: Pain Stop: 07/02/23 12:48 Oxycodone HCl (Oxycodone Hcl Soln 5 Mg/5 Ml Udc) 5 mg PO QID PRN PRN Reason: Pain Stop: 06/29/23 01:51 Last Admin: 06/19/23 04:49 Dose: 5 mg Rosuvastatin Calcium (Rosuvastatin Calcium 20 Mg Tab) 20 mg PO DAILY [facility] Stop: 07/15/23 08:59 Last Admin: 06/19/23 08:56 Dose: 20 mg Sterile Water (Tube Feeding Water Flush) 150 ml JT Q4H [facility] Stop: 07/19/23 10:29 Last Admin: 06/20/23 06:01 Dose: 150 ml
--- NOTE | 2023-06-20 10:15 | Surgery Progress Note ---
Date of Service June 20, 2023 Assessment & Plan (1) Esophageal cancer: Plan: s/p j tube placement working well abdomen with minimal post-op tenderness Admission and Anticipated Discharge Date Admission Date: June 17, 2023 Subjective doing well minimal complaints of abdominal discomfort Review of Systems Constitutional: no fever and no chills Ear, Nose, Mouth, Throat: + pain with swallowing Respiratory: no cough Gastrointestinal: + abdominal pain; no nausea and no vomit ing Physical Exam Gastrointestinal (Abdomen): Inspection/Auscultation: abdomen normal to inspection, normal bowel sounds and + abdominal surgical incision; abdomen not distended Percussion/Palpation: + abdomen tender and abdomen soft; no guarding and abdomen not rigid Results & Data Vital Signs (Past 12 Hours) Vital Signs Temp Pulse Pulse Resp BP BP Pulse Ox 06/20/23 08:14 86 06/20/23 08:00 06/20/23 07:42 37.1 C 93 H 16 133/77 92 06/20/23 02:10 36.4 C L 80 22 133/80 06/20/23 00:00 72 06/19/23 23:18 36.5 C 77 14 127/78 90 O2 Del Method O2 Flow Rate 06/20/23 08:14 06/20/23 08:00 Room Air 06/20/23 07:42 Room Air 06/20/23 02:10 Room Air 06/20/23 00:00 06/19/23 23:18 Nasal Cannula 2
[2023-06-20 13:02] LABS: Hematocrit (blood only) 26.2 % (42.0-52.0); Hemoglobin 8.8 g/dl (14.0-18.0)
[2023-06-20] MEDS: HYDROmorphone INJ 0.5 MG/0.5 ML SYR IV STA (14:18)
[2023-06-20 15:51] LABS: Hematocrit (blood only) 34.4 % (42.0-52.0); Hemoglobin 11.7 g/dl (14.0-18.0)
[2023-06-20] MEDS: PANTOprazole 40 MG in SYRINGE 0 ML IV SCH (20:37)
[2023-06-20 21:44] LABS: Hematocrit (blood only) 29.4 % (42.0-52.0); Hemoglobin 10.4 g/dl (14.0-18.0)
--- NOTE | 2023-06-21 07:42 | Hospitalist Progress Note ---
Date of Service June 21, 2023 Assessment & Plan (1) Odynophagia: Plan Pt is a 77yoF with PMHx significant for complete heart block status post PPM, hypertension, TIA/PVD as per records, esophageal cancer with ongoing chemoradiation, prediabetes, BPH, urolithiasis admitted with odynophagia. Odynophagia Esophageal cancer Pt with noted odynophagia Daughter also requesting PEG placement as pt has not been able to eat States he need nutritional support so that surgery can be considered to treat his cancer as well GI consulted, appreciate recs -no EGD -lidocaine -add sucralfate if not improving Reached out to GI about PEG placement on 06/16 about possible PEG placement per daughter request, awaiting further recs. -GI recommending surgery consult given pt might need J tube -surgery consulted, recommending starting ppn, possible transfer to pt's surgical oncologist at [facility] -Pt's surgical oncologist Brian Solis was contacted on 06/16 via [employer] asking to discuss possible transfer. Conversation via [employer] text, he was advised pt currently admitted and General surgery service recommending transfer. -PPN orders placed to start ppn on 06/17. - discussed with Dr. Solis. Pt has received rounds of xrt, plan is for surgery 6 weeks after completion of radiation. He expects sx to improve after completion of radiation. - Dr. Solis recommends J tube vs corflo. Discussed these options with daughter and surgical team, Dr. Ellington. Dr. Solis okay for procedure to be done here and will not interfere with his upcoming surgery. -Tentative plan is for patient to have a J tube placement to assist with nutritional support -Dr. Ellington would like to talk to Dr. Solis, and her number was provided to him to give a call back via [employer] text. -Daughter is in agreement of plan Ongoing chemoradiation for esophageal cancer - J-tube placed by surgery 06/18 starting feeds - cont. to closely monitor - if H&H trending dowm, will stop feeds Paroxysmal atrial fibrillation Received phone call from daughter that patient's pacemaker was interrogated and she was notified that he has been having intermittent episodes of atrial fibrillation transferred patient to telemetry for further monitoring Cardiology consulted - > switched IV metoprolol to PO/ J-tube now PE - scattered pulmonary emboli w/ poss. right heart strain - developed chest pain which led to CT PE study - started IV heparin - discussed w/ surgery - monitor H&H Pancytopenia In setting of chemo, stable Continue to monitor complete heart block s/p pacemaker placement pacer interrogation as above HTN chronic, stable Continue home losartan as tolerated Pt currently refusing po meds on IV metoprolol-> now switched to po/ J-tube Mood On lexapro Pt currently refusing po meds GERD Continue ppi - IV form Pt currently refusing po meds HLD Continue statin Pt currently refusing po meds BPH Continue home finasteride Pt currently refusing po meds Prediabetes hemoglobin A1c of 6.20 March 2023 Monitor glucose levels CODE STATUS: full code Diet: Liquids DVT prophylaxis: IV heparin - monitor H&H and Thrombocytopenia Dispo: PT/OT, pt currently refusing participation Admission and Anticipated Discharge Date Admission Date: June 17, 2023 Subjective Pt is a 77 yo M currently undergoing chemoradiation for GE junction esophageal adenocarcinoma. He is hospitalized secondary to weakness and inability to tolerate oral intake. S/p J tube placement CT PE positive for scattered bilateral PE, with possible right heart strain. Troponin mildly elevated, per cardiology, IV metoprolol switched to p.o. to be able to take via J-tube. IV heparin started, monitor H&H. Pain currently better controlled, gets exacerbated with movement. Surgery at the bedside. Review of Systems Review of Systems: All systems reviewed & are unremarkable except as noted in Subjective Physical Exam Physical Exam: Gen: WD/WN, elderly, M, sitting up in bed, A&O x3 HEENT: Normocephalic, atraumatic, conjunctivae moist, sclerae anicteric, mucous membranes moist. Lung: Clear to Auscultation bilaterally, no wheezes/rales/rhonchi Heart: Regular rate, regular rhythm, no murmurs, rubs, or gallops Abdomen: Soft, NT, ND +BS x 4 Extremities: No edema Skin: Warm, no rash, negative turgor. Results & Data Results & Data Vital Signs (Past 12 Hours) Vital Signs Temp Pulse Pulse Resp BP Pulse Ox O2 Del Method 06/21/23 03:03 36.7 C 100 H 18 116/76 94 Nasal Cannula 06/20/23 22:50 36.7 C 88 18 127/74 94 Nasal Cannula 06/20/23 22:30 85 06/20/23 20:00 Room Air Laboratory Results 06/21/23 06/21/23 06/21/23 Range/Units 14:37 12:01 07:08 WBC 2.16 L (4.8-10.8) K/ul RBC 3.36 L (4.70-6.10) M/uL Hgb 9.9 L 10.7 L (14.0-18.0) g/dl Hct 28.1 L 30.4 L (42.0-52.0) % MCV 90.5 (80.0-100.0) fL MCH 31.8 (25.0-34.0) pg MCHC 35.2 (32.0-36.0) g/dL RDW Std Deviation 45.4 (36.4-46.3) fL RDW Coeff of Meka 14.3 (11.5-14.5) % Plt Count 71 L (130-400) K/uL MPV 9.5 (9.4-12.4) fL Immature Gran % (Auto) 5.6 % Neut % (Auto) 70.8 % Lymph % (Auto) 12.5 % [place] % (Auto) 9.7 % Eos % (Auto) 0.9 % Baso % (Auto) 0.5 % Neut # (Auto) 1.53 (1.40-6.50) K/uL Lymph # (Auto) 0.27 L (1.20-3.40) K/uL [place] # (Auto) 0.21 (0.11-0.59) K/uL Eos # (Auto) 0.02 (0.00-0.50) K/uL Baso # (Auto) 0.01 (0.00-0.20) K/uL Immature Gran # (Auto) 0.12 (0.01-0.20) K/uL Toxic Granulation 1+ Polychromasia 1+ Heparin Anti-Xa, Unfract 0.53 (0.3-0.7) IU/ml Sodium 129 L (136-145) mmol/L Potassium 3.9 (3.5-5.1) mmol/L Chloride 97 L (98-107) mmol/L Carbon Dioxide 28 (21-32) mmol/L Anion Gap 4 (3-11) BUN 18 (6-23) mg/dl Creatinine 0.49 L (0.6-1.4) mg/dl Est Cr Clr Drug Dosing 147.6 ml/min Est GFR ( Amer) 123.0 ml/min Est GFR (Non-Af Amer) 106.1 ml/min BUN/Creatinine Ratio 36.7 H (10-20) Glucose 115 H (70-99(Fasting)) mg/dl POC Glucose 122 H (70-99) mg/dl Calcium 7.6 L (8.6-10.3) mg/dl Phosphorus 3.3 (2.5-4.9) mg/dl Magnesium 1.7 (1.7-2.4) mg/dl 06/21/23 06/21/23 06/20/23 Range/Units 06:23 00:02 21:29 WBC (4.8-10.8) K/ul RBC (4.70-6.10) M/uL Hgb 10.4 L (14.0-18.0) g/dl Hct 29.4 L (42.0-52.0) % MCV (80.0-100.0) fL MCH (25.0-34.0) pg MCHC (32.0-36.0) g/dL RDW Std Deviation (36.4-46.3) fL RDW Coeff of Meka (11.5-14.5) % Plt Count (130-400) K/uL MPV (9.4-12.4) fL Immature Gran % (Auto) % Neut % (Auto) % Lymph % (Auto) % [place] % (Auto) % Eos % (Auto) % Baso % (Auto) % Neut # (Auto) (1.40-6.50) K/uL Lymph # (Auto) (1.20-3.40) K/uL [place] # (Auto) (0.11-0.59) K/uL Eos # (Auto) (0.00-0.50) K/uL Baso # (Auto) (0.00-0.20) K/uL Immature Gran # (Auto) (0.01-0.20) K/uL Toxic Granulation Polychromasia Heparin Anti-Xa, Unfract (0.3-0.7) IU/ml Sodium (136-145) mmol/L Potassium (3.5-5.1) mmol/L Chloride (98-107) mmol/L Carbon Dioxide (21-32) mmol/L Anion Gap (3-11) BUN (6-23) mg/dl Creatinine (0.6-1.4) mg/dl Est Cr Clr Drug Dosing ml/min Est GFR ( Amer) ml/min Est GFR (Non-Af Amer) ml/min BUN/Creatinine Ratio (10-20) Glucose (70-99(Fasting)) mg/dl POC Glucose 129 H 117 H (70-99) mg/dl Calcium (8.6-10.3) mg/dl Phosphorus (2.5-4.9) mg/dl Magnesium (1.7-2.4) mg/dl 06/20/23 Range/Units 18:12 WBC (4.8-10.8) K/ul RBC (4.70-6.10) M/uL Hgb (14.0-18.0) g/dl Hct (42.0-52.0) % MCV (80.0-100.0) fL MCH (25.0-34.0) pg MCHC (32.0-36.0) g/dL RDW Std Deviation (36.4-46.3) fL RDW Coeff of Meka (11.5-14.5) % Plt Count (130-400) K/uL MPV (9.4-12.4) fL Immature Gran % (Auto) % Neut % (Auto) % Lymph % (Auto) % [place] % (Auto) % Eos % (Auto) % Baso % (Auto) % Neut # (Auto) (1.40-6.50) K/uL Lymph # (Auto) (1.20-3.40) K/uL [place] # (Auto) (0.11-0.59) K/uL Eos # (Auto) (0.00-0.50) K/uL Baso # (Auto) (0.00-0.20) K/uL Immature Gran # (Auto) (0.01-0.20) K/uL Toxic Granulation Polychromasia Heparin Anti-Xa, Unfract (0.3-0.7) IU/ml Sodium (136-145) mmol/L Potassium (3.5-5.1) mmol/L Chloride (98-107) mmol/L Carbon Dioxide (21-32) mmol/L Anion Gap (3-11) BUN (6-23) mg/dl Creatinine (0.6-1.4) mg/dl Est Cr Clr Drug Dosing ml/min Est GFR ( Amer) ml/min Est GFR (Non-Af Amer) ml/min BUN/Creatinine Ratio (10-20) Glucose (70-99(Fasting)) mg/dl POC Glucose 105 H (70-99) mg/dl Calcium (8.6-10.3) mg/dl Phosphorus (2.5-4.9) mg/dl Magnesium (1.7-2.4) mg/dl Medications Administered Current Inpatient Medications Aspirin (Aspirin 81 Mg Ectab) 81 mg PO DAILY [facility] Stop: 07/15/23 08:59 Last Admin: 06/20/23 09:09 Dose: 81 mg Enteral Nutritional Formula (Peptamen 1.5 Fam 1,000 Ml Bag) 1,000 ml JT .See Protocol [facility]; Protocol Stop: 07/19/23 10:29 Last Admin: 06/20/23 17:37 Dose: 1,000 ml Escitalopram Oxalate (Escitalopram Oxalate 10 Mg Tab) 10 mg PO DAILY [facility] Stop: 07/15/23 08:59 Last Admin: 06/20/23 09:09 Dose: 10 mg Finasteride (Finasteride 5 Mg Tab) 5 mg PO DAILY [facility] Stop: 07/15/23 08:59 Last Admin: 06/20/23 09:09 Dose: 5 mg Hydralazine HCl (Hydralazine Hcl 20 Mg/Ml Vial) 10 mg IV Q6 PRN PRN Reason: htn Stop: 07/17/23 17:44 Hydromorphone HCl (Hydromorphone Inj 0.5 Mg/0.5 Ml Syr) 0.5 mg IV Q3H PRN PRN Reason: Pain Stop: 07/03/23 09:18 Last Admin: 06/21/23 04:07 Dose: 0.5 mg Promethazine HCl 6.25 mg/ (Sodium Chloride) 50.25 mls @ 201 mls/hr IV Q6H PRN PRN Reason: Nausea And Vomiting Stop: 07/15/23 01:51 Last Infusion: 06/20/23 02:02 Dose: Infused Acetaminophen (Ofirmev) 1,000 mg in 100 mls @ 400 mls/hr IV Q8H PRN PRN Reason: Pain Stop: 06/21/23 11:03 Last Infusion: 06/19/23 04:05 Dose: Infused Heparin Sodium/Dextrose (Heparin Sodium/Dextrose) 25,000 units in 500 mls @ 22 mls/hr IV .[id number] [facility]; Protocol Stop: 07/19/23 11:59 Last Titration: 06/20/23 19:04 Dose: 1,100 units/hr, 22 mls/hr Pantoprazole Sodium 40 mg/ (Syringe) 10 mls @ 5 mls/min IV BID [facility] Stop: 07/20/23 20:59 Last Admin: 06/20/23 20:37 Dose: 5 mls/min Lidocaine HCl (Lidocaine Viscous 2% 15 Ml Udc) 15 ml PO AC [facility] Stop: 07/15/23 11:29 Last Admin: 06/20/23 16:33 Dose: Not Given Losartan Potassium (Losartan Potassium 25 Mg Tab) 25 mg PO DAILY [facility] Stop: 07/15/23 08:59 Last Admin: 06/20/23 09:09 Dose: 25 mg Metoprolol Tartrate (Metoprolol Tartrate 25 Mg Tab) 25 mg PO BID [facility] Stop: 07/19/23 20:59 Last Admin: 06/20/23 20:37 Dose: 25 mg Morphine Sulfate (Morphine Sulfate 4 Mg/Ml 1 Ml Carp\Vial) 4 mg IV Q4H PRN PRN Reason: Pain Stop: 06/29/23 01:51 Last Admin: 06/18/23 12:50 Dose: 4 mg Morphine Sulfate (Morphine Sulfate 2 Mg/Ml Carp) 2 mg IV Q2H PRN PRN Reason: Pain Stop: 07/02/23 12:48 Oxycodone HCl (Oxycodone Hcl Soln 5 Mg/5 Ml Udc) 5 mg PO QID PRN PRN Reason: Pain Stop: 06/29/23 01:51 Last Admin: 06/20/23 09:20 Dose: 5 mg Rosuvastatin Calcium (Rosuvastatin Calcium 20 Mg Tab) 20 mg PO DAILY [facility] Stop: 07/15/23 08:59 Last Admin: 03/02/24 09:09 Dose: 20 mg Sterile Water (Tube Feeding Water Flush) 150 ml JT Q4H [facility] Stop: 07/19/23 10:29 Last Admin: 06/21/23 06:37 Dose: 150 ml
[2023-06-21 08:26] LABS: Hematocrit (blood only) 30.4 % (42.0-52.0); Hemoglobin 10.7 g/dl (14.0-18.0); Mean Corpuscular Hemoglobin 31.8 pg (25.0-34.0); Mean Corpuscular Hgb Conc 35.2 g/dL (32.0-36.0); Mean Corpuscular Volume 90.5 fL (80.0-100.0); Mean Platelet Volume 9.5 fL (9.4-12.4); Platelet Count 71 K/uL (130-400); RDW Coefficient of Variation 14.3 % (11.5-14.5); RDW Standard Deviation 45.4 fL (36.4-46.3); Red Blood Count 3.36 M/uL (4.70-6.10); White Blood Count 2.16 K/ul (4.8-10.8)
[2023-06-21 08:32] LABS: BUN Creatinine Ratio 36.7 (10-20); Calcium 7.6 mg/dl (8.6-10.3); Creatinine Clr Calc Pharmacy 147.6 ml/min; Est GFR (Non-African American) 106.1 ml/min; Magnesium 1.7 mg/dl (1.7-2.4); Phosphorus 3.3 mg/dl (2.5-4.9); Potassium 3.9 mmol/L (3.5-5.1)
[2023-06-21 08:39] LABS: ANTI-Xa, UFH(UnfractionatedHep 0.53 IU/ml (0.3-0.7)
[2023-06-21 09:48] LABS: Basophils # (auto) 0.01 K/uL (0.00-0.20); Basophils % (auto) 0.5 %; Eosinophils # (auto) 0.02 K/uL (0.00-0.50); Eosinophils % (auto) 0.9 %; Immature Granulocytes # (auto) 0.12 K/uL (0.01-0.20); Immature Granulocytes % (auto) 5.6 %; Lymphocytes # (auto) 0.27 K/uL (1.20-3.40); Lymphocytes % (auto) 12.5 %; Monocytes # (auto) 0.21 K/uL (0.11-0.59); Monocytes % (auto) 9.7 %; Neutrophils # (auto) 1.53 K/uL (1.40-6.50); Neutrophils % (auto) 70.8 %; Polychromasia 1+; Toxic Granulation 1+
--- NOTE | 2023-06-21 11:59 | Surgery Progress Note ---
Date of Service June 21, 2023 Assessment & Plan (1) Esophageal cancer: Plan: s/p j tube placement working well abdomen with minimal post-op tenderness advance as tolerated to goal Admission and Anticipated Discharge Date Admission Date: June 17, 2023 Subjective Pt is a 77 yo M currently undergoing chemoradiation for GE junction esophageal adenocarcinoma. He is hospitalized secondary to weakness and inability to tolerate oral intake. S/p J tube placement CT PE positive for scattered bilateral PE, with possible right heart strain. Troponin mildly elevated, per cardiology, IV metoprolol switched to p.o. to be able to take via J-tube. IV heparin started yesterday, monitor H&H. Hgb 8.8 however when fluids stopped and repeated H&H unchanged doing well from J tube placement - on TF at 50; goal 60; no nausea/vomiting Physical Exam Physical Exam: NAD, A&Ox3 AFVSS Abd soft NTND J tube in place; no erythema Results & Data Vital Signs (Past 12 Hours) Vital Signs Temp Pulse Pulse Resp BP Pulse Ox O2 Del Method 06/21/23 11:20 37.3 C 86 17 134/80 93 Nasal Cannula 06/21/23 09:40 95 H 06/21/23 08:00 Nasal Cannula 06/21/23 07:41 37.3 C 93 H 18 137/81 97 Nasal Cannula 06/21/23 03:03 36.7 C 100 H 18 116/76 94 Nasal Cannula O2 Flow Rate 06/21/23 11:20 06/21/23 09:40 06/21/23 08:00 2 06/21/23 07:41 06/21/23 03:03
[2023-06-21 14:52] LABS: Hematocrit (blood only) 28.1 % (42.0-52.0); Hemoglobin 9.9 g/dl (14.0-18.0)
[2023-06-22 00:27] LABS: Hematocrit (blood only) 30.4 % (42.0-52.0); Hemoglobin 10.5 g/dl (14.0-18.0)
[2023-06-22] MEDS: HEPARIN 100 UNIT/ML 5ML FLUSH FLUSH STA (01:52)
[2023-06-22 06:28] LABS: Hematocrit (blood only) 31.6 % (42.0-52.0); Hemoglobin 10.9 g/dl (14.0-18.0); Mean Corpuscular Hemoglobin 31.5 pg (25.0-34.0); Mean Corpuscular Hgb Conc 34.5 g/dL (32.0-36.0); Mean Corpuscular Volume 91.3 fL (80.0-100.0); Mean Platelet Volume 9.5 fL (9.4-12.4); Platelet Count 62 K/uL (130-400); RDW Coefficient of Variation 14.2 % (11.5-14.5); Red Blood Count 3.46 M/uL (4.70-6.10); White Blood Count 2.58 K/ul (4.8-10.8)
[2023-06-22 06:46] LABS: BUN Creatinine Ratio 30.4 (10-20); Calcium 7.9 mg/dl (8.6-10.3); Creatinine Clr Calc Pharmacy 160.5 ml/min; Est GFR (African American) 126.3 ml/min; Est GFR (Non-African American) 108.9 ml/min; Magnesium 1.8 mg/dl (1.7-2.4); Phosphorus 3.9 mg/dl (2.5-4.9); Potassium 4.2 mmol/L (3.5-5.1)
[2023-06-22 07:20] LABS: ANTI-Xa, UFH(UnfractionatedHep < 0.10 IU/ml (0.3-0.7)
--- NOTE | 2023-06-22 07:26 | Hospitalist Progress Note ---
Date of Service June 22, 2023 Assessment & Plan (1) Odynophagia: Plan Pt is a 77yoF with PMHx significant for complete heart block status post PPM, hypertension, TIA/PVD as per records, esophageal cancer with ongoing chemoradiation, prediabetes, BPH, urolithiasis admitted with odynophagia. Odynophagia Esophageal cancer Pt with noted odynophagia Daughter also requesting PEG placement as pt has not been able to eat States he need nutritional support so that surgery can be considered to treat his cancer as well GI consulted, appreciate recs -no EGD -lidocaine -add sucralfate if not improving Reached out to GI about PEG placement on 06/16 about possible PEG placement per daughter request, awaiting further recs. -GI recommending surgery consult given pt might need J tube -surgery consulted, recommending starting ppn, possible transfer to pt's surgical oncologist at [facility] -Pt's surgical oncologist Brian Solis was contacted on 06/16 via [email or web address] asking to discuss possible transfer. Conversation via [employer] text, he was advised pt currently admitted and General surgery service recommending transfer. -PPN orders placed to start ppn on 06/17. - discussed with Dr. Solis. Pt has received rounds of xrt, plan is for surgery 6 weeks after completion of radiation. He expects sx to improve after completion of radiation. - Dr. Solis recommends J tube vs corflo. Discussed these options with daughter and surgical team, Dr. Ellington. Dr. Solis okay for procedure to be done here and will not interfere with his upcoming surgery. -Tentative plan is for patient to have a J tube placement to assist with nutritional support -Dr. Ellington would like to talk to Dr. Solis, and her number was provided to him to give a call back via [employer] text. -Daughter is in agreement of plan Ongoing chemoradiation for esophageal cancer - J-tube placed by surgery 06/18 starting feeds - cont. to closely monitor - if H&H trending dowm, will stop feeds 06/21 -substernal/epigastric pain not well-controlled. Starting fentanyl patch in addition to IV Dilaudid as needed. Palliative medicine also consulted for pain control. Discussed with Dr. Duran, from Rad Onc, possible treatment tomorrow if pain is better controlled. Paroxysmal atrial fibrillation Received phone call from daughter that patient's pacemaker was interrogated and she was notified that he has been having intermittent episodes of atrial fibrillation transferred patient to telemetry for further monitoring Cardiology consulted - > switched IV metoprolol to PO/ J-tube now PE - scattered pulmonary emboli w/ poss. right heart strain - developed chest pain which led to CT PE study - started IV heparin - discussed w/ surgery - monitor H&H Pancytopenia In setting of chemo, stable Continue to monitor complete heart block s/p pacemaker placement pacer interrogation as above HTN chronic, stable Continue home losartan as tolerated Pt currently refusing po meds on IV metoprolol-> now switched to po/ J-tube Mood On lexapro Pt currently refusing po meds GERD Continue ppi - IV form Pt currently refusing po meds HLD Continue statin Pt currently refusing po meds BPH Continue home finasteride Pt currently refusing po meds Prediabetes hemoglobin A1c of 6.20 March 2023 Monitor glucose levels CODE STATUS: full code Diet: Liquids DVT prophylaxis: IV heparin - monitor H&H and Thrombocytopenia Dispo: PT/OT, pt currently refusing participation Admission and Anticipated Discharge Date Admission Date: June 17, 2023 Subjective Pt is a 77 yo M currently undergoing chemoradiation for GE junction esophageal adenocarcinoma. He is hospitalized secondary to weakness and inability to tolerate oral intake. S/p J tube placement CT PE positive for scattered bilateral PE, with possible right heart strain. Troponin mildly elevated, per cardiology, IV metoprolol switched to p.o. to be able to take via J-tube. IV heparin started, monitor H&H. Pain gets exacerbated with movement. Substernal/epigastric pain worsened today. Started fentanyl patch in addition to IV Dilaudid as needed. Palliative medicine consulted. Discussed with Dr. Duran, radiology, plan for treatment when pain is better controlled, perhaps tomorrow. Review of Systems Review of Systems: All systems reviewed & are unremarkable except as noted in Subjective Physical Exam Physical Exam: Gen: WD/WN, elderly, M, sitting up in bed, A&O x3 HEENT: Normocephalic, atraumatic, conjunctivae moist, sclerae anicteric, mucous membranes moist. Lung: Clear to Auscultation bilaterally, no wheezes/rales/rhonchi Heart: Regular rate, regular rhythm, no murmurs, rubs, or gallops Abdomen: Soft, NT, ND +BS x 4 Extremities: No edema Skin: Warm, no rash, negative turgor. Results & Data Results & Data Vital Signs (Past 12 Hours) Vital Signs Temp Pulse Pulse Resp BP Pulse Ox O2 Del Method 06/22/23 03:13 37.2 C 78 20 130/74 94 Nasal Cannula 06/21/23 23:09 82 06/21/23 22:37 37.4 C 80 18 128/76 94 Nasal Cannula O2 Flow Rate 06/22/23 03:13 2 06/21/23 23:09 06/21/23 22:37 2 Laboratory Results 06/22/23 06/22/23 06/22/23 Range/Units 06:25 06:03 00:16 WBC 2.58 L (4.8-10.8) K/ul RBC 3.46 L (4.70-6.10) M/uL Hgb 10.9 L 10.5 L (14.0-18.0) g/dl Hct 31.6 L 30.4 L (42.0-52.0) % MCV 91.3 (80.0-100.0) fL MCH 31.5 (25.0-34.0) pg MCHC 34.5 (32.0-36.0) g/dL RDW Std Deviation 45.0 (36.4-46.3) fL RDW Coeff of Meka 14.2 (11.5-14.5) % Plt Count 62 L (130-400) K/uL MPV 9.5 (9.4-12.4) fL Immature Gran % (Auto) % Neut % (Auto) % Lymph % (Auto) % [place] % (Auto) % Eos % (Auto) % Baso % (Auto) % Neut # (Auto) (1.40-6.50) K/uL Lymph # (Auto) (1.20-3.40) K/uL [place] # (Auto) (0.11-0.59) K/uL Eos # (Auto) (0.00-0.50) K/uL Baso # (Auto) (0.00-0.20) K/uL Immature Gran # (Auto) (0.01-0.20) K/uL Toxic Granulation Polychromasia Heparin Anti-Xa, Unfract < 0.10 L (0.3-0.7) IU/ml Sodium 128 L (136-145) mmol/L Potassium 4.2 (3.5-5.1) mmol/L Chloride 96 L (98-107) mmol/L Carbon Dioxide 27 (21-32) mmol/L Anion Gap 5 (3-11) BUN 14 (6-23) mg/dl Creatinine 0.46 L (0.6-1.4) mg/dl Est Cr Clr Drug Dosing 160.5 ml/min Est GFR ( Amer) 126.3 ml/min Est GFR (Non-Af Amer) 108.9 ml/min BUN/Creatinine Ratio 30.4 H (10-20) Glucose 93 (70-99(Fasting)) mg/dl POC Glucose 99 (70-99) mg/dl Calcium 7.9 L (8.6-10.3) mg/dl Phosphorus 3.9 (2.5-4.9) mg/dl Magnesium 1.8 (1.7-2.4) mg/dl 06/22/23 06/21/23 06/21/23 Range/Units 00:09 18:01 14:37 WBC (4.8-10.8) K/ul RBC (4.70-6.10) M/uL Hgb 9.9 L (14.0-18.0) g/dl Hct 28.1 L (42.0-52.0) % MCV (80.0-100.0) fL MCH (25.0-34.0) pg MCHC (32.0-36.0) g/dL RDW Std Deviation (36.4-46.3) fL RDW Coeff of Meka (11.5-14.5) % Plt Count (130-400) K/uL MPV (9.4-12.4) fL Immature Gran % (Auto) % Neut % (Auto) % Lymph % (Auto) % [place] % (Auto) % Eos % (Auto) % Baso % (Auto) % Neut # (Auto) (1.40-6.50) K/uL Lymph # (Auto) (1.20-3.40) K/uL [place] # (Auto) (0.11-0.59) K/uL Eos # (Auto) (0.00-0.50) K/uL Baso # (Auto) (0.00-0.20) K/uL Immature Gran # (Auto) (0.01-0.20) K/uL Toxic Granulation Polychromasia Heparin Anti-Xa, Unfract (0.3-0.7) IU/ml Sodium (136-145) mmol/L Potassium (3.5-5.1) mmol/L Chloride (98-107) mmol/L Carbon Dioxide (21-32) mmol/L Anion Gap (3-11) BUN (6-23) mg/dl Creatinine (0.6-1.4) mg/dl Est Cr Clr Drug Dosing ml/min Est GFR ( Amer) ml/min Est GFR (Non-Af Amer) ml/min BUN/Creatinine Ratio (10-20) Glucose (70-99(Fasting)) mg/dl POC Glucose 94 90 (70-99) mg/dl Calcium (8.6-10.3) mg/dl Phosphorus (2.5-4.9) mg/dl Magnesium (1.7-2.4) mg/dl 06/21/23 06/21/23 Range/Units 12:01 07:08 WBC 2.16 L (4.8-10.8) K/ul RBC 3.36 L (4.70-6.10) M/uL Hgb 10.7 L (14.0-18.0) g/dl Hct 30.4 L (42.0-52.0) % MCV 90.5 (80.0-100.0) fL MCH 31.8 (25.0-34.0) pg MCHC 35.2 (32.0-36.0) g/dL RDW Std Deviation 45.4 (36.4-46.3) fL RDW Coeff of Meka 14.3 (11.5-14.5) % Plt Count 71 L (130-400) K/uL MPV 9.5 (9.4-12.4) fL Immature Gran % (Auto) 5.6 % Neut % (Auto) 70.8 % Lymph % (Auto) 12.5 % [place] % (Auto) 9.7 % Eos % (Auto) 0.9 % Baso % (Auto) 0.5 % Neut # (Auto) 1.53 (1.40-6.50) K/uL Lymph # (Auto) 0.27 L (1.20-3.40) K/uL [place] # (Auto) 0.21 (0.11-0.59) K/uL Eos # (Auto) 0.02 (0.00-0.50) K/uL Baso # (Auto) 0.01 (0.00-0.20) K/uL Immature Gran # (Auto) 0.12 (0.01-0.20) K/uL Toxic Granulation 1+ Polychromasia 1+ Heparin Anti-Xa, Unfract 0.53 (0.3-0.7) IU/ml Sodium 129 L (136-145) mmol/L Potassium 3.9 (3.5-5.1) mmol/L Chloride 97 L (98-107) mmol/L Carbon Dioxide 28 (21-32) mmol/L Anion Gap 4 (3-11) BUN 18 (6-23) mg/dl Creatinine 0.49 L (0.6-1.4) mg/dl Est Cr Clr Drug Dosing 147.6 ml/min Est GFR ( Amer) 123.0 ml/min Est GFR (Non-Af Amer) 106.1 ml/min BUN/Creatinine Ratio 36.7 H (10-20) Glucose 115 H (70-99(Fasting)) mg/dl POC Glucose 122 H (70-99) mg/dl Calcium 7.6 L (8.6-10.3) mg/dl Phosphorus 3.3 (2.5-4.9) mg/dl Magnesium 1.7 (1.7-2.4) mg/dl Medications Administered Current Inpatient Medications Aspirin (Aspirin 81 Mg Ectab) 81 mg PO DAILY [facility] Stop: 07/15/23 08:59 Last Admin: 06/21/23 08:06 Dose: 81 mg Enteral Nutritional Formula (Peptamen 1.5 Fam 1,000 Ml Bag) 1,000 ml JT .See Protocol [facility]; Protocol Stop: 07/19/23 10:29 Last Admin: 06/20/23 17:37 Dose: 1,000 ml Escitalopram Oxalate (Escitalopram Oxalate 10 Mg Tab) 10 mg PO DAILY [facility] Stop: 07/15/23 08:59 Last Admin: 06/21/23 08:06 Dose: 10 mg Finasteride (Finasteride 5 Mg Tab) 5 mg PO DAILY [facility] Stop: 07/15/23 08:59 Last Admin: 06/21/23 08:06 Dose: 5 mg Hydralazine HCl (Hydralazine Hcl 20 Mg/Ml Vial) 10 mg IV Q6 PRN PRN Reason: htn Stop: 07/17/23 17:44 Hydromorphone HCl (Hydromorphone Inj 0.5 Mg/0.5 Ml Syr) 0.5 mg IV Q3H PRN PRN Reason: Pain Stop: 07/03/23 09:18 Last Admin: 06/22/23 05:28 Dose: 0.5 mg Promethazine HCl 6.25 mg/ (Sodium Chloride) 50.25 mls @ 201 mls/hr IV Q6H PRN PRN Reason: Nausea And Vomiting Stop: 07/15/23 01:51 Last Infusion: 06/20/23 02:02 Dose: Infused Heparin Sodium/Dextrose (Heparin Sodium/Dextrose) 25,000 units in 500 mls @ 22 mls/hr IV .[id number] [facility]; Protocol Stop: 07/19/23 11:59 Last Admin: 06/21/23 12:57 Dose: 1,100 units/hr, 22 mls/hr Pantoprazole Sodium 40 mg/ (Syringe) 10 mls @ 5 mls/min IV BID [facility] Stop: 07/20/23 20:59 Last Admin: 06/21/23 20:32 Dose: 5 mls/min Lidocaine HCl (Lidocaine Viscous 2% 15 Ml Udc) 15 ml PO AC [facility] Stop: 07/15/23 11:29 Last Admin: 06/21/23 16:30 Dose: Not Given Losartan Potassium (Losartan Potassium 25 Mg Tab) 25 mg PO DAILY [facility] Stop: 07/15/23 08:59 Last Admin: 06/21/23 08:06 Dose: 25 mg Metoprolol Tartrate (Metoprolol Tartrate 25 Mg Tab) 25 mg PO BID [facility] Stop: 07/19/23 20:59 Last Admin: 06/21/23 20:32 Dose: 25 mg Morphine Sulfate (Morphine Sulfate 4 Mg/Ml 1 Ml Carp\Vial) 4 mg IV Q4H PRN PRN Reason: Pain Stop: 06/29/23 01:51 Last Admin: 06/18/23 12:50 Dose: 4 mg Morphine Sulfate (Morphine Sulfate 2 Mg/Ml Carp) 2 mg IV Q2H PRN PRN Reason: Pain Stop: 07/02/23 12:48 Oxycodone HCl (Oxycodone Hcl Soln 5 Mg/5 Ml Udc) 5 mg PO QID PRN PRN Reason: Pain Stop: 06/29/23 01:51 Last Admin: 06/22/23 04:17 Dose: 5 mg Rosuvastatin Calcium (Rosuvastatin Calcium 20 Mg Tab) 20 mg PO DAILY [facility] Stop: 07/15/23 08:59 Last Admin: 06/21/23 08:07 Dose: 20 mg Sterile Water (Tube Feeding Water Flush) 150 ml JT Q4H [facility] Stop: 07/19/23 10:29 Last Admin: 06/21/23 14:47 Dose: 150 ml
[2023-06-22] MEDS: fentaNYL 12 MCG/HR TDSY TD SCH (08:14)
--- NOTE | 2023-06-22 09:19 | Surgery Progress Note ---
<Statement entered by Jose Ellington, DO - 06/23/23 08:14> I have seen the patient. Feeds going well, no abdominal pain. No bulky gauze behind the bumper to keep sutures from pulling. Date of Service June 22, 2023 Assessment & Plan (1) Esophageal cancer: Plan: POD 4 Robot assisted Laparoscopic, Jejunostomy Tube Placement with Dr. Ashish Stephenson port sites CDI covered with dermabond, J tube site CDI no s/s of infection Resume feedings per primary service Abdomen soft non TTP, pt reports epigastric pain, on going since admission Poss. from tumor / healing rib fractures on right side seen on imaging Last documented BM 06/17/23 ordered suppository Denies N/V VSS Admission and Anticipated Discharge Date Admission Date: June 17, 2023 Subjective Patient reporting epigastric pain ongoing No nausea /vomiting denies abdominal pain otherwise Review of Systems Constitutional: + weakness Gastrointestinal: + abdominal pain (epigastric ) and + dys phagia; no nausea and no vomiting Musculoskeletal: + muscle weakness Integumentary: no rash Psychiatric: no confusion Physical Exam Physical Exam: alert oriented Constitutional: cooperative; no acute distress Respiratory: normal respiratory effort and able to speak in complete sentences; no respiratory distress wearing 02 at 2L/min Cardiovascular: Rate/Rhythm: regular rate (82) Gastrointestinal (Abdomen): Inspection/Auscultation: + abdominal surgical incision (dermabond CDI J tube no s/s of infection noted, dressing dry); abdomen not distended Percussion/Palpation: abdomen soft; no guarding Skin: no rashes, warm and dry Psychiatric: Orientation: oriented x 3 Results & Data Vital Signs (Past 12 Hours) Vital Signs Temp Pulse Pulse Resp BP Pulse Ox O2 Del Method 06/22/23 08:02 98.2 F 82 18 152/92 H 95 Nasal Cannula 06/22/23 03:13 99.0 F 78 20 130/74 94 Nasal Cannula 06/21/23 23:09 82 06/21/23 22:37 99.3 F 80 18 128/76 94 Nasal Cannula O2 Flow Rate 06/22/23 08:02 2.0 06/22/23 03:13 2 06/21/23 23:09 06/21/23 22:37 2 PG Care Time/CCT Total # of Minutes Spent Total Time Spent with Patient: Total time spent is greater than 50% in coordination of care (as documented) at patient's floor/unit and/or counseling patient: Coding Level of Care Code 80752 Post Operative Follow-Up Diagnoses 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
[2023-06-22] MEDS: bisacodyL 10 MG SUPP PR ONE (10:57)
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
[2023-06-22 15:22] LABS: ANTI-Xa, LMWH(Low Molecular Wt 0.35 IU/ML (< 0.10)
[2023-06-22] MEDS: oxyCODONE HCL SOLN 5 MG/5 ML UDC PO PRN (16:27)
[2023-06-22] MEDS: CHECK fentaNYL PATCH PLACEMENT SCH (16:28)
[2023-06-22] MEDS: diazePAM 2 MG TABLET PO PRN (16:33)
[2023-06-22] MEDS ORDERED: HEPARIN 100 UNIT/ML 5ML FLUSH FLUSH PRN (20:51)
[2023-06-23 06:29] LABS: Hematocrit (blood only) 31.5 % (42.0-52.0); Hemoglobin 10.8 g/dl (14.0-18.0); Mean Corpuscular Hemoglobin 30.7 pg (25.0-34.0); Mean Corpuscular Hgb Conc 34.3 g/dL (32.0-36.0); Mean Corpuscular Volume 89.5 fL (80.0-100.0); Mean Platelet Volume 9.2 fL (9.4-12.4); Platelet Count 66 K/uL (130-400); RDW Coefficient of Variation 13.9 % (11.5-14.5); RDW Standard Deviation 43.9 fL (36.4-46.3); Red Blood Count 3.52 M/uL (4.70-6.10); White Blood Count 2.59 K/ul (4.8-10.8)
[2023-06-23 06:52] LABS: BUN Creatinine Ratio 32.7 (10-20); Calcium 7.8 mg/dl (8.6-10.3); Creatinine Clr Calc Pharmacy 150.5 ml/min; Est GFR (Non-African American) 106.1 ml/min; Magnesium 1.8 mg/dl (1.7-2.4); Phosphorus 3.6 mg/dl (2.5-4.9)
[2023-06-23 06:53] LABS: Basophils # (auto) 0.02 K/uL (0.00-0.20); Basophils % (auto) 0.8 %; Eosinophils # (auto) 0.02 K/uL (0.00-0.50); Eosinophils % (auto) 0.8 %; Immature Granulocytes # (auto) 0.16 K/uL (0.01-0.20); Immature Granulocytes % (auto) 6.2 %; Lymphocytes # (auto) 0.33 K/uL (1.20-3.40); Lymphocytes % (auto) 12.7 %; Monocytes # (auto) 0.26 K/uL (0.11-0.59); Neutrophils % (auto) 69.5 %; Polychromasia 1+
--- NOTE | 2023-06-23 06:56 | Hospitalist Progress Note ---
Date of Service June 23, 2023 Assessment & Plan (1) Odynophagia: Plan Pt is a 77yoF with PMHx significant for complete heart block status post PPM, hypertension, TIA/PVD as per records, esophageal cancer with ongoing chemoradiation, prediabetes, BPH, urolithiasis admitted with odynophagia. Odynophagia Esophageal cancer Pt with noted odynophagia Daughter also requesting PEG placement as pt has not been able to eat States he need nutritional support so that surgery can be considered to treat his cancer as well GI consulted, appreciate recs -no EGD -lidocaine -add sucralfate if not improving Reached out to GI about PEG placement on 06/16 about possible PEG placement per daughter request, awaiting further recs. -GI recommending surgery consult given pt might need J tube -surgery consulted, recommending starting ppn, possible transfer to pt's surgical oncologist at [facility] -Pt's surgical oncologist Brian Solis was contacted on 06/16 via [employer] asking to discuss possible transfer. Conversation via [employer] text, he was advised pt currently admitted and General surgery service recommending transfer. -PPN orders placed to start ppn on 06/17. - discussed with Dr. Solis. Pt has received rounds of xrt, plan is for surgery 6 weeks after completion of radiation. He expects sx to improve after completion of radiation. - Dr. Solis recommends J tube vs corflo. Discussed these options with daughter and surgical team, Dr. Ellington. Dr. Solis okay for procedure to be done here and will not interfere with his upcoming surgery. -Tentative plan is for patient to have a J tube placement to assist with nutritional support -Dr. Ellington would like to talk to Dr. Solis, and her number was provided to him to give a call back via [employer] text. -Daughter is in agreement of plan Ongoing chemoradiation for esophageal cancer - J-tube placed by surgery 06/18 starting feeds - cont. to closely monitor - if H&H trending dowm, will stop feeds 3 -substernal/epigastric pain not well-controlled. Starting fentanyl patch in addition to IV Dilaudid as needed. Palliative medicine also consulted for pain control. Discussed with Dr. Duran, from Rad Onc, possible treatment tomorrow if pain is better controlled. 3/5 Per palliative - oxy via j-tube and valiym started. Plan for radiation treatment today. Paroxysmal atrial fibrillation Received phone call from daughter that patient's pacemaker was interrogated and she was notified that he has been having intermittent episodes of atrial fibrillation transferred patient to telemetry for further monitoring Cardiology consulted - > switched IV metoprolol to PO/ J-tube now PE - scattered pulmonary emboli w/ poss. right heart strain - developed chest pain which led to CT PE study - started IV heparin - discussed w/ surgery - monitor H&H Pancytopenia In setting of chemo, stable Continue to monitor complete heart block s/p pacemaker placement pacer interrogation as above HTN chronic, stable Continue home losartan as tolerated Pt currently npo d/t pain on IV metoprolol -> now switched to po/ J-tube Mood On lexapro Pt currently npo d/t pain GERD Continue ppi - IV form Pt currently npo d/t pain HLD Continue statin Pt currently npo d/t pain BPH Continue home finasteride Pt currently npo d/t pain Prediabetes hemoglobin A1c of 6.20 March 2023 Monitor glucose levels CODE STATUS: full code Diet: Liquids DVT prophylaxis: IV heparin - monitor H&H and Thrombocytopenia Dispo: PT/OT, ( pain w/ movement) Admission and Anticipated Discharge Date Admission Date: June 17, 2023 Subjective Pt is a 77 yo M currently undergoing chemoradiation for GE junction esophageal adenocarcinoma. He is hospitalized secondary to weakness and inability to tolerate oral intake. S/p J tube placement CT PE positive for scattered bilateral PE, with possible right heart strain. Troponin mildly elevated, per cardiology, IV metoprolol switched to p.o. to be able to take via J-tube. IV heparin started, monitor H&H. Pain gets exacerbated with movement. Substernal/epigastric pain - feels as a s junie sharp cramp to pt. Started fentanyl patch in addition to IV Dilaudid as needed. Palliative medicine consulted - oxy vua j-tube and valium started. Discussed with Dr. Duran, radiology, plan for radiation therapy treatment today. daughter aware and in agreement. Also discussed w/ RN at the bedside. Review of Systems Review of Systems: All systems reviewed & are unremarkable except as noted in Subjective Physical Exam Physical Exam: Gen: WD/WN, elderly, M, sitting up in bed, A&O x3 HEENT: Normocephalic, atraumatic, conjunctivae moist, sclerae anicteric, mucous membranes moist. Lung: Clear to Auscultation bilaterally, no wheezes/rales/rhonchi Heart: Regular rate, regular rhythm, no murmurs, rubs, or gallops Abdomen: Soft, + epigastric pain, ND +BS x 4 Extremities: No edema Skin: Warm, no rash, negative turgor. Results & Data Results & Data Vital Signs (Past 12 Hours) Vital Signs Temp Pulse Pulse Resp BP Pulse Ox O2 Del Method 06/23/23 02:40 36.6 C 83 18 125/77 94 Room Air 06/22/23 23:42 83 06/22/23 23:16 37.2 C 88 18 119/75 94 Room Air 06/22/23 22:56 36.6 C 82 18 109/73 93 Nasal Cannula 06/22/23 21:55 Room Air 06/22/23 19:34 36.6 C 92 H 18 115/77 94 Nasal Cannula Laboratory Results 06/23/23 06/23/23 06/22/23 Range/Units 05:33 00:08 18:00 WBC 2.59 L (4.8-10.8) K/ul RBC 3.52 L (4.70-6.10) M/uL Hgb 10.8 L (14.0-18.0) g/dl Hct 31.5 L (42.0-52.0) % MCV 89.5 (80.0-100.0) fL MCH 30.7 (25.0-34.0) pg MCHC 34.3 (32.0-36.0) g/dL RDW Std Deviation 43.9 (36.4-46.3) fL RDW Coeff of Meka 13.9 (11.5-14.5) % Plt Count 66 L (130-400) K/uL MPV 9.2 L (9.4-12.4) fL Heparin Anti-Xa, LM Wt (< 0.10) IU/ML Heparin Anti-Xa, Unfract Pending (0.3-0.7) IU/ml Sodium Pending Potassium Pending Chloride Pending Carbon Dioxide Pending Anion Gap Pending BUN Pending Creatinine Pending Est Cr Clr Drug Dosing Pending Est GFR ( Amer) Pending Est GFR (Non-Af Amer) Pending BUN/Creatinine Ratio Pending Glucose Pending POC Glucose 129 H 127 H (70-99) mg/dl Calcium Pending Phosphorus Pending Magnesium Pending 06/22/23 06/22/23 06/22/23 Range/Units 14:47 12:00 06:03 WBC (4.8-10.8) K/ul RBC (4.70-6.10) M/uL Hgb (14.0-18.0) g/dl Hct (42.0-52.0) % MCV (80.0-100.0) fL MCH (25.0-34.0) pg MCHC (32.0-36.0) g/dL RDW Std Deviation (36.4-46.3) fL RDW Coeff of Meka (11.5-14.5) % Plt Count (130-400) K/uL MPV (9.4-12.4) fL Heparin Anti-Xa, LM Wt 0.35 (< 0.10) IU/ML Heparin Anti-Xa, Unfract < 0.10 L (0.3-0.7) IU/ml Sodium Potassium Chloride Carbon Dioxide Anion Gap BUN Creatinine Est Cr Clr Drug Dosing Est GFR ( Amer) Est GFR (Non-Af Amer) BUN/Creatinine Ratio Glucose POC Glucose 103 H (70-99) mg/dl Calcium Phosphorus Magnesium Medications Administered Current Inpatient Medications Aspirin (Aspirin 81 Mg Ectab) 81 mg PO DAILY [facility] Stop: 07/15/23 08:59 Last Admin: 06/21/23 08:06 Dose: 81 mg Diazepam (Diazepam 2 Mg Tablet) 1 mg PO BID PRN PRN Reason: spasms, esopha spasms, anxiety Stop: 07/22/23 14:23 Last Admin: 06/22/23 16:33 Dose: 1 mg Enteral Nutritional Formula (Peptamen 1.5 Fam 1,000 Ml Bag) 1,000 ml JT .See Protocol [facility]; Protocol Stop: 07/19/23 10:29 Last Admin: 06/22/23 08:06 Dose: 1,000 ml Escitalopram Oxalate (Escitalopram Oxalate 10 Mg Tab) 10 mg PO DAILY [facility] Stop: 07/15/23 08:59 Last Admin: 06/22/23 07:51 Dose: 10 mg Fentanyl (Fentanyl 12 Mcg/Hr Tdsy) 12 mcg TD Q72H [facility] Stop: 07/06/23 07:59 Last Admin: 06/22/23 08:14 Dose: 12 mcg Finasteride (Finasteride 5 Mg Tab) 5 mg PO DAILY [facility] Stop: 07/15/23 08:59 Last Admin: 06/22/23 07:51 Dose: 5 mg Heparin Sodium (Beef Lung) (Heparin 10 Unit/Ml 5 Ml Flush) 5 ml FLUSH PRN PRN PRN Reason: Flush Stop: 07/22/23 21:02 Last Admin: 06/22/23 23:13 Dose: 5 ml Hydralazine HCl (Hydralazine Hcl 20 Mg/Ml Vial) 10 mg IV Q6 PRN PRN Reason: htn Stop: 07/17/23 17:44 Hydromorphone HCl (Hydromorphone Inj 0.5 Mg/0.5 Ml Syr) 0.5 mg IV Q3H PRN PRN Reason: Pain Stop: 07/03/23 09:18 Last Admin: 06/23/23 04:39 Dose: 0.5 mg Promethazine HCl 6.25 mg/ (Sodium Chloride) 50.25 mls @ 201 mls/hr IV Q6H PRN PRN Reason: Nausea And Vomiting Stop: 07/15/23 01:51 Last Infusion: 06/20/23 02:02 Dose: Infused Heparin Sodium/Dextrose (Heparin Sodium/Dextrose) 25,000 units in 500 mls @ 22 mls/hr IV .[id number] [facility]; Protocol Stop: 07/19/23 11:59 Last Titration: 06/22/23 15:50 Dose: 1,100 units/hr, 22 mls/hr Pantoprazole Sodium 40 mg/ (Syringe) 10 mls @ 5 mls/min IV BID [facility] Stop: 07/20/23 20:59 Last Admin: 06/22/23 20:54 Dose: 5 mls/min Lidocaine HCl (Lidocaine Viscous 2% 15 Ml Udc) 15 ml PO AC [facility] Stop: 07/15/23 11:29 Last Admin: 06/22/23 16:29 Dose: 15 ml Losartan Potassium (Losartan Potassium 25 Mg Tab) 25 mg PO DAILY [facility] Stop: 07/15/23 08:59 Last Admin: 06/22/23 07:51 Dose: 25 mg Metoprolol Tartrate (Metoprolol Tartrate 25 Mg Tab) 25 mg PO BID [facility] Stop: 07/19/23 20:59 Last Admin: 06/22/23 20:53 Dose: 25 mg Miscellaneous (Check Fentanyl Patch Placement) 1 each N/A QS [facility] Stop: 07/22/23 15:59 Last Admin: 06/23/23 00:53 Dose: 1 each Miscellaneous (Fentanyl Patch Remove & Waste) 1 each N/A Q72H [facility] Stop: 07/22/23 07:58 Last Admin: 06/22/23 10:11 Dose: Not Given Morphine Sulfate (Morphine Sulfate 4 Mg/Ml 1 Ml Carp\Vial) 4 mg IV Q4H PRN PRN Reason: Pain Stop: 06/29/23 01:51 Last Admin: 06/18/23 12:50 Dose: 4 mg Morphine Sulfate (Morphine Sulfate 2 Mg/Ml Carp) 2 mg IV Q2H PRN PRN Reason: Pain Stop: 07/02/23 12:48 Oxycodone HCl (Oxycodone Hcl Soln 5 Mg/5 Ml Udc) 7.5 mg PO QID PRN PRN Reason: Pain Stop: 06/29/23 01:51 Last Admin: 06/23/23 00:41 Dose: 7.5 mg Rosuvastatin Calcium (Rosuvastatin Calcium 20 Mg Tab) 20 mg PO DAILY [facility] Stop: 07/15/23 08:59 Last Admin: 06/22/23 07:51 Dose: 20 mg Sterile Water (Tube Feeding Water Flush) 150 ml JT Q4H [facility] Stop: 07/19/23 10:29 Last Admin: 06/23/23 05:58 Dose: 150 ml
[2023-06-23 07:34] LABS: ANTI-Xa, UFH(UnfractionatedHep 0.45 IU/ml (0.3-0.7)
--- NOTE | 2023-06-23 08:16 | Surgery Progress Note ---
Date of Service June 23, 2023 Assessment & Plan (1) Esophageal cancer: Plan: patient s/p robotic j- tube placement TEN currently at 40cc/hour. pt tolerating this well, may adv to goal as tolerates abd. soft, non distended, non tender. wounds c/d/i. J-tube in tact with surrounding dressing overtop he is passing small amounts of gas, no BM yet. may try another suppository today continues with chest spasms/pain that he feels is worsening. palliative care is on board for assistance with pain management, likely multi-factorial given afib, PE's, esophageal tumor, anxiety Admission and Anticipated Discharge Date Admission Date: June 17, 2023 Subjective Patient reporting worsening pain in chest region, rating it an 11/10. He says it is intermittent and feels like a spasm. From belly standpoint he denies any pain, nausea, or issues related to TEN/medication administration. He believes he is passing small amounts of flatus. No BM yet. Physical Exam Physical Exam: awake,alert, rubbing chest area reporting pain Gastrointestinal (Abdomen): Inspection/Auscultation: + abdominal surgical incision (c/d/i); abdomen not distended Percussion/Palpation: abdomen soft; abdomen nontender J tube in-tact with dressing surrounding. TEN administering currently Results & Data Vital Signs (Past 12 Hours) Vital Signs Temp Pulse Pulse Resp BP Pulse Ox O2 Del Method 06/23/23 07:47 97.9 F 86 17 117/76 92 Room Air 06/23/23 02:40 97.9 F 83 18 125/77 94 Room Air 06/22/23 23:42 83 06/22/23 23:16 99.0 F 88 18 119/75 94 Room Air 06/22/23 22:56 97.9 F 82 18 109/73 93 Nasal Cannula 06/22/23 21:55 Room Air PG Care Time/CCT Total # of Minutes Spent Total Time Spent with Patient: Total time spent is greater than 50% in coordination of care (as documented) at patient's floor/unit and/or counseling patient: Coding Level of Care Code 00950 Post Operative Follow-Up Diagnoses 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
[2023-06-23] MEDS ORDERED: bisacodyL 10 MG SUPP PR PRN (08:23)
[2023-06-23] MEDS: POLYETHYLENE (MIRALAX) 17 GM PACK PO SCH (13:34)
[2023-06-23] MEDS: ACETAMINOPHEN 1,000 MG/100 ML VIAL IV PRN (19:25)
[2023-06-24 06:39] LABS: Hematocrit (blood only) 30.4 % (42.0-52.0); Hemoglobin 10.7 g/dl (14.0-18.0); Mean Corpuscular Hemoglobin 31.3 pg (25.0-34.0); Mean Corpuscular Hgb Conc 35.2 g/dL (32.0-36.0); Mean Corpuscular Volume 88.9 fL (80.0-100.0); Platelet Count 72 K/uL (130-400); RDW Standard Deviation 43.8 fL (36.4-46.3); Red Blood Count 3.42 M/uL (4.70-6.10)
[2023-06-24 06:43] LABS: ANTI-Xa, UFH(UnfractionatedHep 0.43 IU/ml (0.3-0.7)
[2023-06-24 06:46] LABS: BUN Creatinine Ratio 33.3 (10-20); Calcium 7.8 mg/dl (8.6-10.3); Creatinine Clr Calc Pharmacy 163.6 ml/min; Est GFR (African American) 127.4 ml/min; Est GFR (Non-African American) 109.9 ml/min; Magnesium 1.9 mg/dl (1.7-2.4); Phosphorus 3.6 mg/dl (2.5-4.9); Potassium 4.1 mmol/L (3.5-5.1)
--- NOTE | 2023-06-24 07:50 | Hospitalist Progress Note ---
Date of Service June 24, 2023 Assessment & Plan (1) Odynophagia: Plan Pt is a 77yoF with PMHx significant for complete heart block status post PPM, hypertension, TIA/PVD as per records, esophageal cancer with ongoing chemoradiation, prediabetes, BPH, urolithiasis admitted with odynophagia. Odynophagia Esophageal cancer Pt with noted odynophagia Daughter also requesting PEG placement as pt has not been able to eat States he need nutritional support so that surgery can be considered to treat his cancer as well GI consulted, appreciate recs -no EGD -lidocaine -add sucralfate if not improving Reached out to GI about PEG placement on 06/16 about possible PEG placement per daughter request, awaiting further recs. -GI recommending surgery consult given pt might need J tube -surgery consulted, recommending starting ppn, possible transfer to pt's surgical oncologist at [facility] -Pt's surgical oncologist Brian Solis was contacted on 06/16 via [employer] asking to discuss possible transfer. Conversation via [employer] text, he was advised pt currently admitted and General surgery service recommending transfer. -PPN orders placed to start ppn on 06/17. - discussed with Dr. Solis. Pt has received rounds of xrt, plan is for surgery 6 weeks after completion of radiation. He expects sx to improve after completion of radiation. - Dr. Solis recommends J tube vs corflo. Discussed these options with daughter and surgical team, Dr. Ellington. Dr. Solis okay for procedure to be done here and will not interfere with his upcoming surgery. -Tentative plan is for patient to have a J tube placement to assist with nutritional support -Dr. Ellington would like to talk to Dr. Solis, and her number was provided to him to give a call back via [facility] text. -Daughter is in agreement of plan Ongoing chemoradiation for esophageal cancer - J-tube placed by surgery 06/18 starting feeds - cont. to closely monitor - if H&H trending dowm, will stop feeds 3 -substernal/epigastric pain not well-controlled. Starting fentanyl patch in addition to IV Dilaudid as needed. Palliative medicine also consulted for pain control. Discussed with Dr. Duran, from Rad Onc, possible treatment tomorrow if pain is better controlled. 3/5 Per palliative - oxy via j-tube and valium started. Plan for radiation treatment today. 3/6 S/p second radiation treatment, tolerating well. Pain still difficult to control. Constipation - already on miralax - will add enema Paroxysmal atrial fibrillation Received phone call from daughter that patient's pacemaker was interrogated and she was notified that he has been having intermittent episodes of atrial fibrillation transferred patient to telemetry for further monitoring Cardiology consulted - > switched IV metoprolol to PO/ J-tube now PE - scattered pulmonary emboli w/ poss. right heart strain - developed chest pain which led to CT PE study - started IV heparin - discussed w/ surgery - monitor H&H Pancytopenia In setting of chemo, stable Continue to monitor complete heart block s/p pacemaker placement pacer interrogation as above HTN chronic, stable Continue home losartan as tolerated Pt currently npo d/t pain on IV metoprolol -> now switched to po/ J-tube Mood On lexapro Pt currently npo d/t pain GERD Continue ppi - IV form Pt currently npo d/t pain HLD Continue statin Pt currently npo d/t pain BPH Continue home finasteride Pt currently npo d/t pain Prediabetes hemoglobin A1c of 6.20 March 2023 Monitor glucose levels CODE STATUS: full code Diet: Liquids DVT prophylaxis: IV heparin - monitor H&H and Thrombocytopenia Dispo: PT/OT, ( pain w/ movement) Admission and Anticipated Discharge Date Admission Date: June 17, 2023 Subjective Pt is a 77 yo M currently undergoing chemoradiation for GE junction esophageal adenocarcinoma. He is hospitalized secondary to weakness and inability to tolerate oral intake. S/p J tube placement CT PE positive for scattered bilateral PE, with possible right heart strain. Troponin mildly elevated, per cardiology, IV metoprolol switched to p.o. to be able to take via J-tube. IV heparin started, monitor H&H. Pain gets exacerbated with movement. Substernal/epigastric pain. Started fentanyl patch in addition to IV Dilaudid as needed. Palliative medicine consulted - oxy via j-tube and valium started. Discussed with Dr. Duran, radiology - started radiation therapy treatment yesterday - tolerating well. Discussed w/ daughter and updated. Also discussed w/ RN at the bedside. Constipated, will try enema today in addition to current bowel regimen. Sodium trending down, discussed w/ nutrition - will decrease free water. Review of Systems Review of Systems: All systems reviewed & are unremarkable except as noted in Subjective Physical Exam Physical Exam: Gen: WD/WN, elderly, M, sitting up in bed, A&O x3 HEENT: Normocephalic, atraumatic, conjunctivae moist, sclerae anicteric, mucous membranes moist. Lung: Clear to Auscultation bilaterally, no wheezes/rales/rhonchi Heart: Regular rate, regular rhythm, no murmurs, rubs, or gallops Abdomen: Soft, + epigastric pain, ND +BS x 4 Extremities: No edema Skin: Warm, no rash, negative turgor. Results & Data Results & Data Vital Signs (Past 12 Hours) Vital Signs Temp Pulse Pulse Resp BP Pulse Ox O2 Del Method 06/24/23 07:45 36.6 C 83 18 116/73 92 Room Air 06/24/23 07:33 36.6 C 81 18 116/70 91 Room Air 06/24/23 02:51 36.8 C 79 18 125/79 92 Nasal Cannula 06/23/23 23:41 36.6 C 74 18 105/69 95 Room Air 06/23/23 21:58 69 06/23/23 20:00 Room Air Laboratory Results 06/24/23 06/24/23 06/24/23 Range/Units 07:21 05:43 02:21 WBC 2.70 L (4.8-10.8) K/ul RBC 3.42 L (4.70-6.10) M/uL Hgb 10.7 L (14.0-18.0) g/dl Hct 30.4 L (42.0-52.0) % MCV 88.9 (80.0-100.0) fL MCH 31.3 (25.0-34.0) pg MCHC 35.2 (32.0-36.0) g/dL RDW Std Deviation 43.8 (36.4-46.3) fL RDW Coeff of Meka 14.0 (11.5-14.5) % Plt Count 72 L (130-400) K/uL MPV 10.0 (9.4-12.4) fL Heparin Anti-Xa, Unfract 0.43 (0.3-0.7) IU/ml Sodium 127 L (136-145) mmol/L Potassium 4.1 (3.5-5.1) mmol/L Chloride 93 L (98-107) mmol/L Carbon Dioxide 30 (21-32) mmol/L Anion Gap 4 (3-11) BUN 15 (6-23) mg/dl Creatinine 0.45 L (0.6-1.4) mg/dl Est Cr Clr Drug Dosing 163.6 ml/min Est GFR ( Amer) 127.4 ml/min Est GFR (Non-Af Amer) 109.9 ml/min BUN/Creatinine Ratio 33.3 H (10-20) Glucose 141 H (70-99(Fasting)) mg/dl POC Glucose 155 H 140 H (70-99) mg/dl Calcium 7.8 L (8.6-10.3) mg/dl Phosphorus 3.6 (2.5-4.9) mg/dl Magnesium 1.9 (1.7-2.4) mg/dl 06/23/23 06/23/23 06/23/23 Range/Units 16:28 11:27 07:50 WBC (4.8-10.8) K/ul RBC (4.70-6.10) M/uL Hgb (14.0-18.0) g/dl Hct (42.0-52.0) % MCV (80.0-100.0) fL MCH (25.0-34.0) pg MCHC (32.0-36.0) g/dL RDW Std Deviation (36.4-46.3) fL RDW Coeff of Meka (11.5-14.5) % Plt Count (130-400) K/uL MPV (9.4-12.4) fL Heparin Anti-Xa, Unfract (0.3-0.7) IU/ml Sodium (136-145) mmol/L Potassium (3.5-5.1) mmol/L Chloride (98-107) mmol/L Carbon Dioxide (21-32) mmol/L Anion Gap (3-11) BUN (6-23) mg/dl Creatinine (0.6-1.4) mg/dl Est Cr Clr Drug Dosing ml/min Est GFR ( Amer) ml/min Est GFR (Non-Af Amer) ml/min BUN/Creatinine Ratio (10-20) Glucose (70-99(Fasting)) mg/dl POC Glucose 140 H 146 H 138 H (70-99) mg/dl Calcium (8.6-10.3) mg/dl Phosphorus (2.5-4.9) mg/dl Magnesium (1.7-2.4) mg/dl Medications Administered Current Inpatient Medications Aspirin (Aspirin 81 Mg Ectab) 81 mg PO DAILY NEGRO Stop: 07/15/23 08:59 Last Admin: 06/21/23 08:06 Dose: 81 mg Bisacodyl (Bisacodyl 10 Mg Supp) 10 mg [place] BID PRN PRN Reason: Constipation Stop: 07/23/23 08:22 Diazepam (Diazepam 2 Mg Tablet) 1 mg PO BID PRN PRN Reason: spasms, esopha spasms, anxiety Stop: 07/22/23 14:23 Last Admin: 06/23/23 20:16 Dose: 1 mg Enteral Nutritional Formula (Peptamen 1.5 Fam 1,000 Ml Bag) 1,000 ml JT .See Protocol NGERO; Protocol Stop: 07/19/23 10:29 Last Admin: 06/23/23 16:07 Dose: 1,000 ml Escitalopram Oxalate (Escitalopram Oxalate 10 Mg Tab) 10 mg PO DAILY NEGRO Stop: 07/15/23 08:59 Last Admin: 06/23/23 08:11 Dose: 10 mg Fentanyl (Fentanyl 12 Mcg/Hr Tdsy) 12 mcg TD Q72H NEGRO Stop: 07/06/23 07:59 Last Admin: 06/22/23 08:14 Dose: 12 mcg Finasteride (Finasteride 5 Mg Tab) 5 mg PO DAILY NEGRO Stop: 07/15/23 08:59 Last Admin: 06/23/23 08:12 Dose: 5 mg Heparin Sodium (Beef Lung) (Heparin 10 Unit/Ml 5 Ml Flush) 5 ml FLUSH PRN PRN PRN Reason: Flush Stop: 07/22/23 21:02 Last Admin: 06/22/23 23:13 Dose: 5 ml Hydralazine HCl (Hydralazine Hcl 20 Mg/Ml Vial) 10 mg IV Q6 PRN PRN Reason: htn Stop: 07/17/23 17:44 Hydromorphone HCl (Hydromorphone Inj 0.5 Mg/0.5 Ml Syr) 0.5 mg IV Q3H PRN PRN Reason: Pain Stop: 07/03/23 09:18 Last Admin: 06/24/23 07:46 Dose: 0.5 mg Hydromorphone HCl (Hydromorphone Inj 0.5 Mg/0.5 Ml Syr) 0.5 mg IV NOW PRN PRN Reason: pain, radiation txt Stop: 06/25/23 13:08 Promethazine HCl 6.25 mg/ (Sodium Chloride) 50.25 mls @ 201 mls/hr IV Q6H PRN PRN Reason: Nausea And Vomiting Stop: 07/15/23 01:51 Last Infusion: 06/24/23 05:13 Dose: Infused Heparin Sodium/Dextrose (Heparin Sodium/Dextrose) 25,000 units in 500 mls @ 22 mls/hr IV .[id number] [facility]; Protocol Stop: 07/19/23 11:59 Last Admin: 06/24/23 07:27 Dose: 1,100 units/hr, 22 mls/hr Pantoprazole Sodium 40 mg/ (Syringe) 10 mls @ 5 mls/min IV BID [facility] Stop: 07/20/23 20:59 Last Admin: 06/23/23 20:16 Dose: 5 mls/min Acetaminophen (Ofirmev) 1,000 mg in 100 mls @ 400 mls/hr IV Q8H PRN PRN Reason: Pain Stop: 06/26/23 11:31 Last Infusion: 06/24/23 04:58 Dose: Infused Lidocaine HCl (Lidocaine Viscous 2% 15 Ml Udc) 15 ml PO AC [facility] Stop: 07/15/23 11:29 Last Admin: 06/24/23 07:49 Dose: Not Given Losartan Potassium (Losartan Potassium 25 Mg Tab) 25 mg PO DAILY [facility] Stop: 07/15/23 08:59 Last Admin: 06/23/23 10:19 Dose: 25 mg Metoprolol Tartrate (Metoprolol Tartrate 25 Mg Tab) 25 mg PO BID [facility] Stop: 07/19/23 20:59 Last Admin: 06/23/23 20:19 Dose: 25 mg Miscellaneous (Check Fentanyl Patch Placement) 1 each N/A QS [facility] Stop: 07/22/23 15:59 Last Admin: 06/24/23 07:48 Dose: 1 each Miscellaneous (Fentanyl Patch Remove & Waste) 1 each N/A Q72H [facility]GR[facility] Stop: 07/22/23 07:58 Last Admin: 06/22/23 10:11 Dose: Not Given Morphine Sulfate (Morphine Sulfate 4 Mg/Ml 1 Ml Carp\Vial) 4 mg IV Q4H PRN PRN Reason: Pain Stop: 06/29/23 01:51 Last Admin: 06/18/23 12:50 Dose: 4 mg Morphine Sulfate (Morphine Sulfate 2 Mg/Ml Carp) 2 mg IV Q2H PRN PRN Reason: Pain Stop: 07/02/23 12:48 Oxycodone HCl (Oxycodone Hcl Soln 5 Mg/5 Ml Udc) 7.5 mg PO QID PRN PRN Reason: Pain Stop: 06/29/23 01:51 Last Admin: 06/24/23 04:44 Dose: 7.5 mg Polyethylene Glycol (Polyethylene (Miralax) 17 Gm Pack) 17 gm PO DAILY NEGRO Stop: 07/23/23 11:29 Last Admin: 06/23/23 13:34 Dose: 17 gm Rosuvastatin Calcium (Rosuvastatin Calcium 20 Mg Tab) 20 mg PO DAILY NEGRO Stop: 07/15/23 08:59 Last Admin: 06/23/23 08:13 Dose: 20 mg Sterile Water (Tube Feeding Water Flush) 150 ml JT Q4H NEGRO Stop: 07/19/23 10:29 Last Admin: 06/24/23 06:14 Dose: 150 ml
--- NOTE | 2023-06-24 08:29 | Surgery Progress Note ---
<Statement entered by Jose Ellington, - 06/24/23 21:52> I went to see the patient with the surgical PA this afternoon. He was at radiation oncology. Date of Service June 24, 2023 Assessment & Plan (1) Esophageal cancer: Plan: patient s/p robotic j- tube placement J tube feed running 60/hr Received radiation yesterday abd. soft, non distended, TTP RUQ wounds c/d/i. J-tube in tact Reports no gas OR BM, give suppository today Has Xie cath Palliative care following, helping with pain management VSS Admission and Anticipated Discharge Date Admission Date: June 17, 2023 Subjective Pt resting in bed Has epigastric pain, nurse admin. pain meds Review of Systems Constitutional: + weakness Gastrointestinal: + abdominal pain (epigastric ) and + dys phagia; no nausea and no vomiting Musculoskeletal: + muscle weakness Physical Exam Physical Exam: alert oriented Constitutional: cooperative and comfortable; no acute distress Respiratory: normal respiratory effort and able to speak in complete sentences; no respiratory distress Gastrointestinal (Abdomen): Inspection/Auscultation: + abdominal surgical incision (dermabond CDI J tube no s/s of infection noted, dressing dry); abdomen not distended Percussion/Palpation: abdomen soft; no guarding Skin: no rashes, warm and dry Neurologic: awake; not confused Results & Data Vital Signs (Past 12 Hours) Vital Signs Temp Pulse Pulse Resp BP Pulse Ox O2 Del Method 06/24/23 07:45 97.9 F 83 18 116/73 92 Room Air 06/24/23 07:33 97.9 F 81 18 116/70 91 Room Air 06/24/23 02:51 98.2 F 79 18 125/79 92 Nasal Cannula 06/23/23 23:41 97.8 F 74 18 105/69 95 Room Air 06/23/23 21:58 69 PG Care Time/CCT Total # of Minutes Spent Total Time Spent with Patient: Total time spent is greater than 50% in coordination of care (as documented) at patient's floor/unit and/or counseling patient: Coding Level of Care Code 49880 Post Operative Follow-Up Diagnoses 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
[2023-06-24] MEDS: TUBE FEEDING WATER FLUSH JT SCH (14:53)
[2023-06-24] MEDS: POLYETHYLENE (MIRALAX) 17 GM PACK PO ONE (16:34)
--- NOTE | 2023-06-25 06:10 | Hospitalist Progress Note ---
Date of Service June 25, 2023 Assessment & Plan (1) Odynophagia: Plan Pt is a 77yoF with PMHx significant for complete heart block status post PPM, hypertension, TIA/PVD as per records, esophageal cancer with ongoing chemoradiation, prediabetes, BPH, urolithiasis admitted with odynophagia. Odynophagia Esophageal cancer Pt with noted odynophagia Daughter also requesting PEG placement as pt has not been able to eat States he need nutritional support so that surgery can be considered to treat his cancer as well GI consulted, appreciate recs -no EGD -lidocaine -add sucralfate if not improving Reached out to GI about PEG placement on 06/16 about possible PEG placement per daughter request, awaiting further recs. -GI recommending surgery consult given pt might need J tube -surgery consulted, recommending starting ppn, possible transfer to pt's surgical oncologist at [facility] -Pt's surgical oncologist Brian Solis was contacted on 06/16 via Nivela asking to discuss possible transfer. Conversation via [employer] text, he was advised pt currently admitted and General surgery service recommending transfer. -PPN orders placed to start ppn on 06/17. - discussed with Dr. Solis. Pt has received rounds of xrt, plan is for surgery 6 weeks after completion of radiation. He expects sx to improve after completion of radiation. - Dr. Solis recommends J tube vs corflo. Discussed these options with daughter and surgical team, Dr. Ellington. Dr. Solis okay for procedure to be done here and will not interfere with his upcoming surgery. -Tentative plan is for patient to have a J tube placement to assist with nutritional support -Dr. Ellington would like to talk to Dr. Solis, and her number was provided to him to give a call back via Absio text. -Daughter is in agreement of plan Ongoing chemoradiation for esophageal cancer - J-tube placed by surgery 06/18 starting feeds - cont. to closely monitor - if H&H trending dowm, will stop feeds 3 -substernal/epigastric pain not well-controlled. Starting fentanyl patch in addition to IV Dilaudid as needed. Palliative medicine also consulted for pain control. Discussed with Dr. Duran, from Rad Onc, possible treatment tomorrow if pain is better controlled. 3/5 Per palliative - oxy via j-tube and valium started. Plan for radiation treatment today. 3/6 S/p second radiation treatment, tolerating well. Pain still difficult to control. Constipation, vomiting - already on miralax - this AM had BM w/ enema, however also vomited. tube feeds on hold, KUB obtained, NGT placed, surgery contacted - KUB w/ nonobstructive bowel pattern Paroxysmal atrial fibrillation Received phone call from daughter that patient's pacemaker was interrogated and she was notified that he has been having intermittent episodes of atrial fibrillation transferred patient to telemetry for further monitoring Cardiology consulted - > switched IV metoprolol to PO/ J-tube now PE - scattered pulmonary emboli w/ poss. right heart strain - developed chest pain which led to CT PE study - started IV heparin - discussed w/ surgery - monitor H&H, Hgb stable Pancytopenia In setting of chemo, stable Continue to monitor complete heart block s/p pacemaker placement pacer interrogation as above HTN chronic, stable Continue home losartan as tolerated Pt currently npo d/t pain on IV metoprolol -> now switched to po/ J-tube Mood On lexapro Pt currently npo d/t pain GERD Continue ppi - IV form Pt currently npo d/t pain HLD Continue statin Pt currently npo d/t pain BPH Continue home finasteride Pt currently npo d/t pain Prediabetes hemoglobin A1c of 6.20 March 2023 Monitor glucose levels CODE STATUS: full code Diet: Liquids DVT prophylaxis: IV heparin - monitor H&H and Thrombocytopenia Dispo: PT/OT, ( pain w/ movement) Admission and Anticipated Discharge Date Admission Date: June 17, 2023 Subjective Pt is a 77 yo M currently undergoing chemoradiation for GE junction esophageal adenocarcinoma. He is hospitalized secondary to weakness and inability to tolerate oral intake. S/p J tube placement CT PE positive for scattered bilateral PE, with possible right heart strain. Troponin mildly elevated, per cardiology, IV metoprolol switched to p.o. to be able to take via J-tube. IV heparin started, monitor H&H. Pain gets exacerbated with movement. Substernal/epigastric pain. Started fentanyl patch in addition to IV Dilaudid as needed. Palliative medicine consulted - oxy via j-tube and valium started. Discussed with Dr. Duran, radiology - started radiation therapy treatment yesterday - tolerating well. Discussed w/ daughter and updated. Also discussed w/ RN at the bedside. Constipated, but had BM this AM w/ enema. Chest/ epigastric pain seems better. had nausea and vomitting this AM - surgery notified, NGT placed and stat KUB also ordered. Currently feels fairly comfortable. Abdomen is soft. Daughter present at the bedside. nonobstructive bowel pattern on KUB, will further discuss w/ surgery. Review of Systems Review of Systems: All systems reviewed & are unremarkable except as noted in Subjective Physical Exam Physical Exam: Gen: WD/WN, elderly, M, sitting up in bed, A&O x3 HEENT: Normocephalic, atraumatic, conjunctivae moist, sclerae anicteric, mucous membranes moist. Lung: Clear to Auscultation bilaterally, no wheezes/rales/rhonchi Heart: Regular rate, regular rhythm, no murmurs, rubs, or gallops Abdomen: Soft, + epigastric pain (improved), ND +BS x 4 Extremities: No edema Skin: Warm, no rash, negative turgor. Results & Data Results & Data Vital Signs (Past 12 Hours) Vital Signs Temp Pulse Pulse Resp BP Pulse Ox O2 Del Method 06/25/23 02:43 37.1 C 85 18 126/80 95 Room Air 06/24/23 23:02 36.7 C 76 18 128/78 93 Room Air 06/24/23 22:00 79 06/24/23 21:32 Room Air 06/24/23 19:41 36.6 C 84 18 122/85 94 Room Air 06/24/23 18:31 87 20 137/85 Laboratory Results 06/25/23 06/25/23 06/24/23 Range/Units 06:31 06:03 23:59 WBC 3.00 L (4.8-10.8) K/ul RBC 3.35 L (4.70-6.10) M/uL Hgb 10.6 L (14.0-18.0) g/dl Hct 30.0 L (42.0-52.0) % MCV 89.6 (80.0-100.0) fL MCH 31.6 (25.0-34.0) pg MCHC 35.3 (32.0-36.0) g/dL RDW Std Deviation 45.0 (36.4-46.3) fL RDW Coeff of Meka 14.2 (11.5-14.5) % Plt Count 78 L (130-400) K/uL MPV 9.6 (9.4-12.4) fL Immature Gran % (Auto) 4.0 % Neut % (Auto) 77.9 % Lymph % (Auto) 9.7 % Hamblen % (Auto) 6.7 % Eos % (Auto) 1.0 % Baso % (Auto) 0.7 % Neut # (Auto) 2.34 (1.40-6.50) K/uL Lymph # (Auto) 0.29 L (1.20-3.40) K/uL Hamblen # (Auto) 0.20 (0.11-0.59) K/uL Eos # (Auto) 0.03 (0.00-0.50) K/uL Baso # (Auto) 0.02 (0.00-0.20) K/uL Immature Gran # (Auto) 0.12 (0.01-0.20) K/uL Toxic Granulation 1+ Polychromasia 1+ Heparin Anti-Xa, Unfract 0.45 (0.3-0.7) IU/ml Sodium 130 L (136-145) mmol/L Potassium 4.4 (3.5-5.1) mmol/L Chloride 95 L (98-107) mmol/L Carbon Dioxide 30 (21-32) mmol/L Anion Gap 5 (3-11) BUN 14 (6-23) mg/dl Creatinine 0.51 L (0.6-1.4) mg/dl Est Cr Clr Drug Dosing 144.4 ml/min Est GFR ( Amer) 121.0 ml/min Est GFR (Non-Af Amer) 104.4 ml/min BUN/Creatinine Ratio 27.5 H (10-20) Glucose 127 H (70-99(Fasting)) mg/dl POC Glucose 135 H 146 H (70-99) mg/dl Calcium 7.8 L (8.6-10.3) mg/dl Phosphorus 3.5 (2.5-4.9) mg/dl Magnesium 1.9 (1.7-2.4) mg/dl 06/24/23 06/24/23 Range/Units 16:17 11:46 WBC (4.8-10.8) K/ul RBC (4.70-6.10) M/uL Hgb (14.0-18.0) g/dl Hct (42.0-52.0) % MCV (80.0-100.0) fL MCH (25.0-34.0) pg MCHC (32.0-36.0) g/dL RDW Std Deviation (36.4-46.3) fL RDW Coeff of Meka (11.5-14.5) % Plt Count (130-400) K/uL MPV (9.4-12.4) fL Immature Gran % (Auto) % Neut % (Auto) % Lymph % (Auto) % Hamblen % (Auto) % Eos % (Auto) % Baso % (Auto) % Neut # (Auto) (1.40-6.50) K/uL Lymph # (Auto) (1.20-3.40) K/uL Hamblen # (Auto) (0.11-0.59) K/uL Eos # (Auto) (0.00-0.50) K/uL Baso # (Auto) (0.00-0.20) K/uL Immature Gran # (Auto) (0.01-0.20) K/uL Toxic Granulation Polychromasia Heparin Anti-Xa, Unfract (0.3-0.7) IU/ml Sodium (136-145) mmol/L Potassium (3.5-5.1) mmol/L Chloride (98-107) mmol/L Carbon Dioxide (21-32) mmol/L Anion Gap (3-11) BUN (6-23) mg/dl Creatinine (0.6-1.4) mg/dl Est Cr Clr Drug Dosing ml/min Est GFR ( Amer) ml/min Est GFR (Non-Af Amer) ml/min BUN/Creatinine Ratio (10-20) Glucose (70-99(Fasting)) mg/dl POC Glucose 113 H 122 H (70-99) mg/dl Calcium (8.6-10.3) mg/dl Phosphorus (2.5-4.9) mg/dl Magnesium (1.7-2.4) mg/dl Medications Administered Current Inpatient Medications Aspirin (Aspirin 81 Mg Ectab) 81 mg PO DAILY NEGRO Stop: 07/15/23 08:59 Last Admin: 06/21/23 08:06 Dose: 81 mg Bisacodyl (Bisacodyl 10 Mg Supp) 10 mg MO BID PRN PRN Reason: Constipation Stop: 07/23/23 08:22 Diazepam (Diazepam 2 Mg Tablet) 1 mg PO BID PRN PRN Reason: spasms, esopha spasms, anxiety Stop: 07/22/23 14:23 Last Admin: 06/24/23 21:20 Dose: 1 mg Enteral Nutritional Formula (Peptamen 1.5 Fam 1,000 Ml Bag) 1,000 ml JT .See Protocol NEGRO; Protocol Stop: 07/19/23 10:29 Last Admin: 06/25/23 05:55 Dose: 1,000 ml Escitalopram Oxalate (Escitalopram Oxalate 10 Mg Tab) 10 mg PO DAILY NEGRO Stop: 07/15/23 08:59 Last Admin: 06/24/23 09:29 Dose: 10 mg Fentanyl (Fentanyl 12 Mcg/Hr Tdsy) 12 mcg TD Q72H NEGRO Stop: 07/06/23 07:59 Last Admin: 06/22/23 08:14 Dose: 12 mcg Finasteride (Finasteride 5 Mg Tab) 5 mg PO DAILY NEGRO Stop: 07/15/23 08:59 Last Admin: 06/24/23 09:29 Dose: 5 mg Heparin Sodium (Beef Lung) (Heparin 10 Unit/Ml 5 Ml Flush) 5 ml FLUSH PRN PRN PRN Reason: Flush Stop: 07/22/23 21:02 Last Admin: 06/22/23 23:13 Dose: 5 ml Hydralazine HCl (Hydralazine Hcl 20 Mg/Ml Vial) 10 mg IV Q6 PRN PRN Reason: htn Stop: 07/17/23 17:44 Hydromorphone HCl (Hydromorphone Inj 0.5 Mg/0.5 Ml Syr) 0.5 mg IV Q3H PRN PRN Reason: Pain Stop: 07/03/23 09:18 Last Admin: 06/25/23 04:03 Dose: 0.5 mg Hydromorphone HCl (Hydromorphone Inj 0.5 Mg/0.5 Ml Syr) 0.5 mg IV NOW PRN PRN Reason: pain, radiation txt Stop: 06/25/23 13:08 Promethazine HCl 6.25 mg/ (Sodium Chloride) 50.25 mls @ 201 mls/hr IV Q6H PRN PRN Reason: Nausea And Vomiting Stop: 07/15/23 01:51 Last Infusion: 06/24/23 21:36 Dose: Infused Heparin Sodium/Dextrose (Heparin Sodium/Dextrose) 25,000 units in 500 mls @ 22 mls/hr IV .[id number] [facility]; Protocol Stop: 07/19/23 11:59 Last Titration: 06/24/23 19:13 Dose: 1,100 units/hr, 22 mls/hr Pantoprazole Sodium 40 mg/ (Syringe) 10 mls @ 5 mls/min IV BID [facility] Stop: 07/20/23 20:59 Last Admin: 06/24/23 21:21 Dose: 5 mls/min Acetaminophen (Ofirmev) 1,000 mg in 100 mls @ 400 mls/hr IV Q8H PRN PRN Reason: Pain Stop: 06/26/23 11:31 Last Infusion: 06/25/23 00:22 Dose: Infused Lidocaine HCl (Lidocaine Viscous 2% 15 Ml Udc) 15 ml PO AC [facility] Stop: 07/15/23 11:29 Last Admin: 06/24/23 14:53 Dose: Not Given Losartan Potassium (Losartan Potassium 25 Mg Tab) 25 mg PO DAILY [facility] Stop: 07/15/23 08:59 Last Admin: 06/24/23 09:29 Dose: 25 mg Metoprolol Tartrate (Metoprolol Tartrate 25 Mg Tab) 25 mg PO BID [facility] Stop: 07/19/23 20:59 Last Admin: 06/24/23 21:22 Dose: 25 mg Miscellaneous (Check Fentanyl Patch Placement) 1 each N/A QS [facility] Stop: 07/22/23 15:59 Last Admin: 06/25/23 00:08 Dose: 1 each Miscellaneous (Fentanyl Patch Remove & Waste) 1 each N/A Q72H [facility] Stop: 07/22/23 07:58 Last Admin: 06/22/23 10:11 Dose: Not Given Morphine Sulfate (Morphine Sulfate 4 Mg/Ml 1 Ml Carp\Vial) 4 mg IV Q4H PRN PRN Reason: Pain Stop: 06/29/23 01:51 Last Admin: 06/18/23 12:50 Dose: 4 mg Morphine Sulfate (Morphine Sulfate 2 Mg/Ml Carp) 2 mg IV Q2H PRN PRN Reason: Pain Stop: 07/02/23 12:48 Oxycodone HCl (Oxycodone Hcl Soln 5 Mg/5 Ml Udc) 7.5 mg PO QID PRN PRN Reason: Pain Stop: 06/29/23 01:51 Last Admin: 06/25/23 05:55 Dose: 7.5 mg Polyethylene Glycol (Polyethylene (Miralax) 17 Gm Pack) 17 gm PO DAILY NEGRO Stop: 07/23/23 11:29 Last Admin: 06/24/23 09:29 Dose: 17 gm Rosuvastatin Calcium (Rosuvastatin Calcium 20 Mg Tab) 20 mg PO DAILY NEGRO Stop: 07/15/23 08:59 Last Admin: 06/24/23 09:29 Dose: 20 mg Sterile Water (Tube Feeding Water Flush) 75 ml JT Q4H NEGRO Stop: 07/24/23 13:59 Last Admin: 06/25/23 01:49 Dose: 75 ml
[2023-06-25 06:52] LABS: Hemoglobin 10.6 g/dl (14.0-18.0); Mean Corpuscular Hemoglobin 31.6 pg (25.0-34.0); Mean Corpuscular Hgb Conc 35.3 g/dL (32.0-36.0); Mean Corpuscular Volume 89.6 fL (80.0-100.0); Mean Platelet Volume 9.6 fL (9.4-12.4); Platelet Count 78 K/uL (130-400); RDW Coefficient of Variation 14.2 % (11.5-14.5); Red Blood Count 3.35 M/uL (4.70-6.10)
[2023-06-25 07:16] LABS: BUN Creatinine Ratio 27.5 (10-20); Calcium 7.8 mg/dl (8.6-10.3); Creatinine Clr Calc Pharmacy 144.4 ml/min; Est GFR (Non-African American) 104.4 ml/min; Magnesium 1.9 mg/dl (1.7-2.4); Phosphorus 3.5 mg/dl (2.5-4.9); Potassium 4.4 mmol/L (3.5-5.1)
[2023-06-25 07:20] LABS: Basophils # (auto) 0.02 K/uL (0.00-0.20); Basophils % (auto) 0.7 %; Eosinophils # (auto) 0.03 K/uL (0.00-0.50); Immature Granulocytes # (auto) 0.12 K/uL (0.01-0.20); Lymphocytes # (auto) 0.29 K/uL (1.20-3.40); Lymphocytes % (auto) 9.7 %; Monocytes % (auto) 6.7 %; Neutrophils # (auto) 2.34 K/uL (1.40-6.50); Neutrophils % (auto) 77.9 %; Polychromasia 1+; Toxic Granulation 1+
[2023-06-25 07:41] LABS: ANTI-Xa, UFH(UnfractionatedHep 0.45 IU/ml (0.3-0.7)
--- NOTE | 2023-06-25 08:29 | Surgery Progress Note ---
Date of Service June 25, 2023 Assessment & Plan (1) Esophageal cancer: Plan: pt admitted with weakness and odynophagia now s/p robotic j-tube placement on for nutrition and medication administrations, hospital course complicated by afib and PE's -vitals are stable, labs show stable hbg at 10, wbc 3, plt 78, Cr 0.55 -he has been receiving radiation therapy this wk w/ rad/onc (last treatment was yesterday) -j-tube has been used for TEN (rates up to 60cc/hr) and medication administrations without issues, but was awaiting meaningful return of bowel function -this am he had 2 episodes of emesis, this occurred after receiving an enema which resulted in a large BM, but no recent flatus -on exam his abdomen is soft and non distended with mild discomfort around J tube. j-tube is intact with a clean dressing overtop -he actually looks well on exam and his chest pains have improved -given his recent episodes of emesis with lack of flatus we will recommend, holding TEN for now, placing an NGT for now and following up with a KUB for further evaluation -we will continue to follow along closely Admission and Anticipated Discharge Date Admission Date: June 17, 2023 Subjective Patient with 2 episodes of emesis this AM, the feeling came on all of a sudden this AM when he was lying on his side receiving an enema and again while brushing his teeth. He says the emesis was a brownish/red in character. He did end up having a decent sized BM s/p enema administration, however he is not passing much gas. He reports his chest pains are now pretty well controlled. He denies any nausea at the moment and his abdominal pain is also controlled. He denies any issues with increasing the TEN rates and denies any abdominal distention. Physical Exam Physical Exam: awake/alert, no distress Respiratory: normal respiratory effort Gastrointestinal (Abdomen): Inspection/Auscultation: abdomen not distended Percussion/Palpation: + abdomen tender (mild discomfort around J -tube site, not new) and abdomen soft; no guarding j tube in-tact with dressing c/d/i Results & Data Vital Signs (Past 12 Hours) Vital Signs Temp Pulse Pulse Resp BP Pulse Ox O2 Del Method 06/25/23 08:05 89 06/25/23 02:43 98.8 F 85 18 126/80 95 Room Air 06/24/23 23:02 98.1 F 76 18 128/78 93 Room Air 06/24/23 22:00 79 06/24/23 21:32 Room Air PG Care Time/CCT Total # of Minutes Spent Total Time Spent with Patient: Total time spent is greater than 50% in coordination of care (as documented) at patient's floor/unit and/or counseling patient: Coding Level of Care Code 34855 Post Operative Follow-Up Diagnoses 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
--- NOTE | 2023-06-25 08:46 | XRay Report ---
XR KUB/Abdomen 1 view CLINICAL HISTORY: brown emesis, r/o ileus TECHNIQUE: 1 view of the abdomen was obtained. Comparison: Comparison is made to CT chest 06/19/2023 FINDINGS: Implanted pacemaker and enteric tube are seen. Rectal temperature probe is noted. A drain is noted in the left lower quadrant. Degenerative changes are seen in the visualized skeleton. The bowel gas pat tern is nonobstructive. Small stool burden is seen. IMPRESSION: Nonobstructive bowel gas pattern. Pneumoperitoneum is better seen on prior CT chest. ACT 112: Negative or not required by law. Electronically signed by: Fawad Snider M.D. 06/25/2023 8:45 AM
[2023-06-25] MEDS: HYDROmorphone INJ 0.5 MG/0.5 ML SYR IV PRN (13:06)
[2023-06-25 18:46] LABS: Bilirubin,Total 0.4 mg/dl (0.2-1.0)
--- NOTE | 2023-06-25 19:50 | Communication Note ---
Date of Service: June 25, 2023 Contacted by nurse this afternoon, patient with bilious looking vomit despite Ng tube to suction. Ordered RUQ Ultrasound and CT of abd/pelvis. Continue Ng tube to LIWS. LFT checked this afternoon, wnl.
[2023-06-25] MEDS: OPTIRAY 320 100ml IV ONE (20:07)
--- NOTE | 2023-06-25 20:23 | CT Scan Report ---
Exam(s): CT ABDOMEN + PELVIS With Contrast IV Amt: 92 ml opti 320 EXAM: CT Abdomen and Pelvis With Intravenous Contrast CLINICAL HISTORY: Reason for exam: J tube, esophageal CA, now vomiting, check bowels. TECHNIQUE: Axial computed tomography images of the abdomen and pelvis with intravenous contrast. CTDI is 28.06 mGy and DLP is 1516.7 mGy-cm. Automated exposure control was utilized for the study. A dose lowering technique was utilized adhering to the principles of ALARA. CONTRAST: Patient received 92 ml opti 320 of IV contrast COMPARISON: No relevant prior studies available. FINDINGS: Lung bases: Bibasilar atelectasis. ABDOMEN: Liver: Small left hepatic lobe cyst. Gallbladder and bile ducts: Unremarkable. No calcified stones. No ductal dilation. Pancreas: Unremarkable. No mass. No ductal dilation. Spleen: Unremarkable. No splenomegaly. Adrenals: Unremarkable. No mass. Kidneys and ureters: Bilateral renal cysts, unchanged. No follow-up imaging required. No hydronephrosis. Stomach and bowel: Contrast within the stomach and small bowel. Left lower quadrant ostomy. Fluid within the colon. No obstruction. No mucosal thickening. PELVIS: Appendix: Nonvisualization of the pancreas. No CT evidence of acute appendicitis. Bladder: Xie catheter within the urinary bladder Reproductive: Unremarkable as visualized. ABDOMEN and PELVIS: Intraperitoneal space: Unremarkable. No free air. No significant fluid collection. Bones/joints: Moderate/severe multilevel degenerative changes with disc space narrowing and osteophyte formation. No acute fracture. No dislocation. Soft tissues: Small fat-containing umbilical hernia. Vasculature: Atherosclerotic disease. No abdominal aortic aneurysm. Lymph nodes: Unremarkable. No enlarged lymph nodes. IMPRESSION: No acute findings in the abdomen or pelvis. Electronically signed by: Meg Briceño MD 06/25/23 20:22 PM
--- NOTE | 2023-06-25 21:49 | Ultrasound Report ---
ULTRASOUND RIGHT UPPER QUADRANT ABDOMEN CLINICAL HISTORY: Vomiting. COMPARISON STUDY: Abdominal CT performed the same day 06/25/2023 TECHNIQUE: Real-time, grayscale, and color flow sonography of the right upper quadrant of the abdomen was performed. Images are reviewed in the transverse and longitudinal planes. The examination is sig nificantly degraded by overlying bowel gas. FINDINGS: Liver: The liver is normal in size and echotexture. There is no intrahepatic biliary ductal dilatatio n. The main portal vein is patent. Gallbladder: The gallbladder is normal as visualized. No shadowing gallstones are identified. There i s no gallbladder wall thickening or pericholecystic fluid. A sonographic Renteria's sign is reportedly absent. The common bile duct measures up to 0.6 cm in diameter. Pancreas: Not visualized due to overlying bowel gas. Right kidney: Survey images of the right kidney demonstrate normal size and echotexture. There is no hydronephrosis. Ascites: None. IMPRESSION: 1. No acute sonographic abnormality is identified in the right upper quadrant. No gallstones are seen . 2. Nonvisualization of the pancreas. ACT 112: Negative or not required by law. Electronically signed by: Jasper Owusu M.D. 06/25/2023 9:47 PM
[2023-06-25] MEDS: SODIUM CHLORIDE 0.9% 1,000 ML IV ONE (22:04)
[2023-06-25] MEDS: PROMETHAZINE HCL 12.5 MG in SODIUM CHLORIDE 0.9% 50 ML IV STA (22:05)
[2023-06-25] MEDS: MAGNESIUM SULFATE / D5W 1 GM/100 ML BAG IV ONE (22:43)
[2023-06-26] MEDS: PROMETHAZINE HCL 12.5 MG in SODIUM CHLORIDE 0.9% 50 ML IV PRN (04:30)
[2023-06-26 06:11] LABS: BUN Creatinine Ratio 29.4 (10-20); Calcium 8.1 mg/dl (8.6-10.3); Creatinine Clr Calc Pharmacy 144.5 ml/min; Est GFR (Non-African American) 104.4 ml/min; Magnesium 2.1 mg/dl (1.7-2.4); Phosphorus 4.5 mg/dl (2.5-4.9); Potassium 4.4 mmol/L (3.5-5.1)
[2023-06-26 06:23] LABS: ANTI-Xa, UFH(UnfractionatedHep 0.49 IU/ml (0.3-0.7)
[2023-06-26 06:29] LABS: Hematocrit (blood only) 31.7 % (42.0-52.0); Hemoglobin 10.9 g/dl (14.0-18.0); Mean Corpuscular Hemoglobin 31.4 pg (25.0-34.0); Mean Corpuscular Hgb Conc 34.4 g/dL (32.0-36.0); Mean Corpuscular Volume 91.4 fL (80.0-100.0); Mean Platelet Volume 9.7 fL (9.4-12.4); Platelet Count 96 K/uL (130-400); RDW Coefficient of Variation 14.8 % (11.5-14.5); RDW Standard Deviation 46.9 fL (36.4-46.3); Red Blood Count 3.47 M/uL (4.70-6.10); White Blood Count 4.37 K/ul (4.8-10.8)
--- NOTE | 2023-06-26 09:43 | Surgery Progress Note ---
Date of Service June 26, 2023 Assessment & Plan (1) Esophageal cancer: Plan: Pt admitted with weakness and odynophagia now s/p robotic j-tube placement on for nutrition and medication administrations, hospital course complicated by afib and PE's - Vitals this AM show patient is tachycardic to low 100s, afebrile, on room air - Labs reveal WBC 4, Hbg stable at 10, plt 96, Na 129, LFTs yesterday within normal limits - He has been receiving radiation therapy this wk w/ rad/onc (last treatment was yesterday) - Yesterday patient with multiple episodes of emesis and NGT placed. 200cc documented since insertion. KUB yesterday unremarkable and no evidence of SBO, CT without acute intraabdominal findings, and RUQ US normal - Will obtain repeat KUB today for further evaluation and assess for passage of contrast - Abdominal exam reveals a soft abdomen, non tender, non distended, J tube in- tact - Will follow up on KUB, but if unremarkable may consider re-starting TEN. If any issues patient remains with PICC line and can be used for TPN if needed - Is vomiting related to esophageal tumor and higher up ? - Consideration to further stimulation from below for assistance with bowel function. Did have BM and gas after enema yesterday AM, but nothing since Admission and Anticipated Discharge Date Admission Date: June 17, 2023 Supervising Physician Co-Signing Physician Notes I personally saw and evaluated the patient with Sadie Aguilera PA-C and agree with the assessment and plan. 77 yo male s/p laparoscopic j-tube placement, N/V His CT, KUB images and results were personally viewed and interpreted by myself No signs of obstruction on CT, J-tube in good position and there is enteric contrast in his colon on KUB today Can remove NGT Can restart trickle tube feeds and slowly titrate up to goal His N/V is likely due to his malignancy and there is nothing surgical to offer Please call with any questions or concerns, will follow from the periphery Subjective Patient reports feeling about the same as yesterday. Denies abdominal pain or nausea. Chest pain is controlled. He has not passed flatus or BM since enema yesterday. He had emesis yesterday evening and he believes again this AM. He says it comes on all of a sudden and he does not experience nausea prior to the events. NGT causing him some discomfort. Physical Exam Physical Exam: awake/alert, uncomfortale with NGT Gastrointestinal (Abdomen): Inspection/Auscultation: + abdominal surgical incision (c/d/i no signs of infection); abdomen not distended Percussion/Palpation: abdomen soft; abdomen nontender j tube in-tact with dressing c/d/i Results & Data Vital Signs (Past 12 Hours) Vital Signs Temp Pulse Pulse Resp BP Pulse Ox O2 Del Method 06/26/23 07:44 97.3 F L 106 H 21 97/75 L 91 Room Air 06/26/23 03:34 99.3 F 108 H 21 137/77 91 Room Air 06/25/23 23:21 99.0 F 105 H 20 111/84 90 Room Air 06/25/23 22:00 108 H PG Care Time/CCT Total # of Minutes Spent Total Time Spent with Patient: Total time spent is greater than 50% in coordination of care (as documented) at patient's floor/unit and/or counseling patient: Coding Level of Care Code 52788 Post Operative Follow-Up Diagnoses 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
--- NOTE | 2023-06-26 10:30 | XRay Report ---
KUB CLINICAL HISTORY: Generalized abdominal pain. Assess contrast column. FINDINGS: 2 AP, portable, supine abdominal radiographs are compared to abdominal radiographs and CT d ated 06/25/2023. There is no radiographic evidence of bowel obstruction. An enteric tube projects over the stomach. A jejunostomy tube projects over the left midabdomen. A rectal temperature probe is in p lace. Enteric contrast has reached the colon. Excreted IV contrast is noted in the bladder. There are no abnormal abdominal calcifications. No evidence of intraperitoneal free air is seen on these supin e images. The skeletal structures are osteopenic and appear intact. There is moderate to advanced lum bosacral spondylosis. IMPRESSION: 1. No acute abnormality is identified. 2. Lines and tubes as above. Electronically signed by: Jasper Owusu M.D. 06/26/2023 10:27 AM
[2023-06-26] MEDS: PROMETHAZINE HCL 12.5 MG in SODIUM CHLORIDE 0.9% 50 ML IV SCH (12:50)
--- NOTE | 2023-06-26 15:54 | Hospitalist Progress Note ---
Date of Service June 26, 2023 Assessment & Plan (1) Odynophagia: Plan per previous hospitalist notes with addendum: Pt is a 77yoF with PMHx significant for complete heart block status post PPM, hypertension, TIA/PVD as per records, esophageal cancer with ongoing chemoradiation, prediabetes, BPH, urolithiasis admitted with odynophagia. Odynophagia Esophageal cancer Pt with noted odynophagia Daughter also requesting PEG placement as pt has not been able to eat States he need nutritional support so that surgery can be considered to treat his cancer as well GI consulted, appreciate recs -no EGD -lidocaine -add sucralfate if not improving Reached out to GI about PEG placement on 06/16 about possible PEG placement per daughter request, awaiting further recs. -GI recommending surgery consult given pt might need J tube -surgery consulted, recommending starting ppn, possible transfer to pt's surgical oncologist at [facility] -Pt's surgical oncologist Brian Solis was contacted on 06/16 via [employer] asking to discuss possible transfer. Conversation via [employer] text, he was advised pt currently admitted and General surgery service recommending transfer. -PPN orders placed to start ppn on 06/17. - discussed with Dr. Solis. Pt has received rounds of xrt, plan is for surgery 6 weeks after completion of radiation. He expects sx to improve after completion of radiation. - Dr. Solis recommends J tube vs corflo. Discussed these options with daughter and surgical team, Dr. Ellington. Dr. Solis okay for procedure to be done here and will not interfere with his upcoming surgery. -Tentative plan is for patient to have a J tube placement to assist with nutritional support -Dr. Ellington would like to talk to Dr. Solis, and her number was provided to him to give a call back via [employer] text. -Daughter is in agreement of plan Ongoing chemoradiation for esophageal cancer - J-tube placed by surgery 06/18 starting feeds - cont. to closely monitor - if H&H trending dowm, will stop feeds 06/21 -substernal/epigastric pain not well-controlled. Starting fentanyl patch in addition to IV Dilaudid as needed. Palliative medicine also consulted for pain control. Discussed with Dr. Duran, from Rad Onc, possible treatment tomorrow if pain is better controlled. 3/ Per palliative - oxy via j-tube and valium started. Plan for radiation treatment today. 3 S/p second radiation treatment, tolerating well. Pain still difficult to control. 3/7 Nausea improving Chest pain improving CT abdomen pelvis: No obstruction, acute process KUB: No obstruction Okay to remove NG tube and resume tube feeding today per general surgery Will order scheduled Phenergan q6h Will monitor closely Constipation, vomiting - already on miralax - this AM had BM w/ enema, however also vomited. tube feeds on hold, KUB obtained, NGT placed, surgery contacted - KUB w/ nonobstructive bowel pattern Monitor closely Paroxysmal atrial fibrillation Received phone call from daughter that patient's pacemaker was interrogated and she was notified that he has been having intermittent episodes of atrial fibrillation transferred patient to telemetry for further monitoring Cardiology consulted - > switched IV metoprolol to PO/ J-tube now Heart rate control Continue metoprolol p.o. PE - scattered pulmonary emboli w/ poss. right heart strain - developed chest pain which led to CT PE study - started IV heparin - discussed w/ surgery - monitor H&H, Hgb stable Hemoglobin stable Continue IV heparin Pancytopenia In setting of chemo, stable Continue to monitor Complete Heart Block s/p pacemaker placement pacer interrogation as above HTN chronic, stable Continue home losartan as tolerated Pt currently npo d/t pain on IV metoprolol --> now switched to po/ J-tube Mood On Lexapro GERD Continue ppi - IV form HLD Continue statin BPH Continue home finasteride Prediabetes hemoglobin A1c of 6.20 March 2023 Monitor glucose levels CODE STATUS: full code Diet: Liquids DVT prophylaxis: IV heparin - monitor H&H and Thrombocytopenia Disposition pending Admission and Anticipated Discharge Date Admission Date: June 17, 2023 Subjective Follow-up for esophageal cancer, status post G-tube placement, etc. Resting in bed, sitting up, not in distress States nausea seems to be improving No abdominal pain No chest pains today no chest pain, dyspnea, palpitations, dizziness No other new symptoms Review of Systems Review of Systems: all noted and negative except for above Physical Exam Physical Exam: General- oriented x 3, not in distress, speaks in sentences with no effort or accessory muscle use Eyes- anicteric Neck- no JVD Lungs- clear breath sounds bilaterally, no rales/wheezes Heart- normal rate, regular rhythm; no murmurs Abdomen- normal bowel sounds, nondistended, soft, nontender G-tube in place Extremities- no pretibial edema, no calf tenderness Neuro- alert, oriented x 3; no gross focal neurologic deficits Skin- warm & dry Results & Data Results & Data Vital Signs (Past 12 Hours) Vital Signs Temp Pulse Pulse Resp BP Pulse Ox O2 Del Method 06/26/23 15:25 92 H 06/26/23 11:00 36.4 C L 101 H 20 112/79 91 Room Air 06/26/23 07:44 36.3 C L 106 H 21 97/75 L 91 Room Air 06/26/23 07:30 103 H 06/26/23 07:30 Room Air all noted and reviewed including below
[2023-06-27 06:24] LABS: Basophils # (auto) 0.01 K/uL (0.00-0.20); Basophils % (auto) 0.3 %; Eosinophils # (auto) 0.03 K/uL (0.00-0.50); Hemoglobin 9.6 g/dl (14.0-18.0); Immature Granulocytes # (auto) 0.06 K/uL (0.01-0.20); Lymphocytes # (auto) 0.18 K/uL (1.20-3.40); Mean Corpuscular Hemoglobin 31.8 pg (25.0-34.0); Mean Corpuscular Hgb Conc 34.3 g/dL (32.0-36.0); Mean Corpuscular Volume 92.7 fL (80.0-100.0); Mean Platelet Volume 9.2 fL (9.4-12.4); Monocytes # (auto) 0.21 K/uL (0.11-0.59); Neutrophils % (auto) 83.7 %; Platelet Count 82 K/uL (130-400); RDW Coefficient of Variation 15.4 % (11.5-14.5); RDW Standard Deviation 49.9 fL (36.4-46.3); Red Blood Count 3.02 M/uL (4.70-6.10); White Blood Count 2.99 K/ul (4.8-10.8)
[2023-06-27 06:30] LABS: BUN Creatinine Ratio 35.2 (10-20); Calcium 7.9 mg/dl (8.6-10.3); Est GFR (African American) 118.2 ml/min; Magnesium 2.1 mg/dl (1.7-2.4)
[2023-06-27 06:36] LABS: ANTI-Xa, UFH(UnfractionatedHep 0.39 IU/ml (0.3-0.7)
--- NOTE | 2023-06-27 18:02 | Hospitalist Progress Note ---
Date of Service June 27, 2023 Assessment & Plan (1) Odynophagia: Plan per previous hospitalist notes with addendum: Pt is a 77yoF with PMHx significant for complete heart block status post PPM, hypertension, TIA/PVD as per records, esophageal cancer with ongoing chemoradiation, prediabetes, BPH, urolithiasis admitted with odynophagia. Odynophagia Esophageal cancer Pt with noted odynophagia Daughter also requesting PEG placement as pt has not been able to eat States he need nutritional support so that surgery can be considered to treat his cancer as well GI consulted, appreciate recs -no EGD -lidocaine -add sucralfate if not improving Reached out to GI about PEG placement on 06/16 about possible PEG placement per daughter request, awaiting further recs. -GI recommending surgery consult given pt might need J tube -surgery consulted, recommending starting ppn, possible transfer to pt's surgical oncologist at [facility] -Pt's surgical oncologist Brian Solis was contacted on 06/16 via [employer] asking to discuss possible transfer. Conversation via [employer] text, he was advised pt currently admitted and General surgery service recommending transfer. -PPN orders placed to start ppn on 06/17. - discussed with Dr. Solis. Pt has received rounds of xrt, plan is for surgery 6 weeks after completion of radiation. He expects sx to improve after completion of radiation. - Dr. Solis recommends J tube vs corflo. Discussed these options with daughter and surgical team, Dr. Ellington. Dr. Solis okay for procedure to be done here and will not interfere with his upcoming surgery. -Tentative plan is for patient to have a J tube placement to assist with nutritional support -Dr. Ellington would like to talk to Dr. Solis, and her number was provided to him to give a call back via [employer] text. -Daughter is in agreement of plan Ongoing chemoradiation for esophageal cancer - J-tube placed by surgery 06/18 starting feeds - cont. to closely monitor - if H&H trending dowm, will stop feeds 06/21 -substernal/epigastric pain not well-controlled. Starting fentanyl patch in addition to IV Dilaudid as needed. Palliative medicine also consulted for pain control. Discussed with Dr. Duran, from Rad Onc, possible treatment tomorrow if pain is better controlled. 06/22 Per palliative - oxy via j-tube and valium started. Plan for radiation treatment today. 06/23 S/p second radiation treatment, tolerating well. Pain still difficult to control. 06/24 Nausea improving Chest pain improving CT abdomen pelvis: No obstruction, acute process KUB: No obstruction Okay to remove NG tube and resume tube feeding today per general surgery Will order scheduled Phenergan q6h Will monitor closely 06/26 clinically improving tolerating tube feeding continue Phenergan Q6h Constipation, vomiting - already on miralax - this AM had BM w/ enema, however also vomited. tube feeds on hold, KUB obtained, NGT placed, surgery contacted - KUB w/ nonobstructive bowel pattern Monitor closely Paroxysmal atrial fibrillation Received phone call from daughter that patient's pacemaker was interrogated and she was notified that he has been having intermittent episodes of atrial fibrillation transferred patient to telemetry for further monitoring Cardiology consulted - > switched IV metoprolol to PO/ J-tube now Heart rate control Continue metoprolol p.o. PE - scattered pulmonary emboli w/ poss. right heart strain - developed chest pain which led to CT PE study - started IV heparin - discussed w/ surgery - monitor H&H, Hgb stable Hemoglobin stable Continue IV heparin Pancytopenia In setting of chemo, stable Continue to monitor Complete Heart Block s/p pacemaker placement pacer interrogation as above HTN chronic, stable Continue home losartan as tolerated Pt currently npo d/t pain on IV metoprolol --> now switched to po/ J-tube Mood On Lexapro GERD Continue ppi - IV form HLD Continue statin BPH Continue home finasteride Prediabetes hemoglobin A1c of 6.20 March 2023 Monitor glucose levels CODE STATUS: full code Diet: Liquids DVT prophylaxis: IV heparin - monitor H&H and Thrombocytopenia Disposition pending Admission and Anticipated Discharge Date Admission Date: June 17, 2023 Subjective ff up for nausea, etc seen resting in chair, watching TV comfortable in good spirits no abdominal pain, nausea/vomiting no chest pain, dyspnea, palpitations, dizziness no other symptoms Review of Systems Review of Systems: all noted and negative except for above Physical Exam Physical Exam: General- oriented x 3, not in distress, speaks in sentences with no effort or accessory muscle use Eyes- anicteric Neck- no JVD Lungs- clear breath sounds bilaterally, no rales/wheezes Heart- normal rate, regular rhythm; no murmurs Abdomen- normal bowel sounds, nondistended, soft, nontender J tube in place Extremities- no pretibial edema, no calf tenderness Neuro- alert, oriented x 3; no gross focal neurologic deficits Skin- warm & dry Results & Data Results & Data Vital Signs (Past 12 Hours) Vital Signs Temp Pulse Pulse Resp BP Pulse Ox O2 Del Method 06/27/23 15:41 36.6 C 95 H 19 109/71 93 Room Air 06/27/23 15:35 85 06/27/23 11:04 36.8 C 85 16 119/74 93 Room Air 06/27/23 07:30 85 06/27/23 07:30 Room Air 06/27/23 07:22 36.8 C 96 H 18 116/72 98 Room Air all noted and reviewed including below
[2023-06-28 06:24] LABS: ANTI-Xa, UFH(UnfractionatedHep 0.32 IU/ml (0.3-0.7)
--- NOTE | 2023-06-28 10:47 | Hospitalist Progress Note ---
Date of Service June 28, 2023 Assessment & Plan (1) Odynophagia: Plan per previous hospitalist notes with addendum: Pt is a 77yoF with PMHx significant for complete heart block status post PPM, hypertension, TIA/PVD as per records, esophageal cancer with ongoing chemoradiation, prediabetes, BPH, urolithiasis admitted with odynophagia. Odynophagia Esophageal cancer Pt with noted odynophagia Daughter also requesting PEG placement as pt has not been able to eat States he need nutritional support so that surgery can be considered to treat his cancer as well GI consulted, appreciate recs -no EGD -lidocaine -add sucralfate if not improving Reached out to GI about PEG placement on 06/16 about possible PEG placement per daughter request, awaiting further recs. -GI recommending surgery consult given pt might need J tube -surgery consulted, recommending starting ppn, possible transfer to pt's surgical oncologist at [facility] -Pt's surgical oncologist Brian Solis was contacted on 06/16 via [email or web address] asking to discuss possible transfer. Conversation via [employer] text, he was advised pt currently admitted and General surgery service recommending transfer. -PPN orders placed to start ppn on 06/17. - discussed with Dr. Solis. Pt has received rounds of xrt, plan is for surgery 6 weeks after completion of radiation. He expects sx to improve after completion of radiation. - Dr. Solis recommends J tube vs corflo. Discussed these options with daughter and surgical team, Dr. Ellington. Dr. Solis okay for procedure to be done here and will not interfere with his upcoming surgery. -Tentative plan is for patient to have a J tube placement to assist with nutritional support -Dr. Ellington would like to talk to Dr. Solis, and her number was provided to him to give a call back via [employer] text. -Daughter is in agreement of plan Ongoing chemoradiation for esophageal cancer - J-tube placed by surgery 06/18 starting feeds - cont. to closely monitor - if H&H trending dowm, will stop feeds 06/21 -substernal/epigastric pain not well-controlled. Starting fentanyl patch in addition to IV Dilaudid as needed. Palliative medicine also consulted for pain control. Discussed with Dr. Duran, from Rad Onc, possible treatment tomorrow if pain is better controlled. 06/22 Per palliative - oxy via j-tube and valium started. Plan for radiation treatment today. 06/23 S/p second radiation treatment, tolerating well. Pain still difficult to control. 06/24 Nausea improving Chest pain improving CT abdomen pelvis: No obstruction, acute process KUB: No obstruction Okay to remove NG tube and resume tube feeding today per general surgery Will order scheduled Phenergan q6h Will monitor closely 06/26 clinically improving tolerating tube feeding continue Phenergan Q6h 06/27 continues to do well with TF will trial PRN Phenergan Constipation, vomiting - already on miralax - this AM had BM w/ enema, however also vomited. tube feeds on hold, KUB obtain ed, NGT placed, surgery contacted - KUB w/ nonobstructive bowel pattern Miralax via J tube, flush after Monitor closely Paroxysmal atrial fibrillation Received phone call from daughter that patient's pacemaker was interrogated and she was notified that he has been having intermittent episodes of atrial fibrillation transferred patient to telemetry for further monitoring Cardiology consulted - > switched IV metoprolol to PO/ J-tube now Heart rate control Continue metoprolol p.o. PE - scattered pulmonary emboli w/ poss. right heart strain - developed chest pain which led to CT PE study - started IV heparin - discussed w/ surgery - monitor H&H, Hgb stable Hemoglobin stable Continue IV heparin possible transition to Lovenox vs Eliquis Pancytopenia In setting of chemo, stable Continue to monitor Complete Heart Block s/p pacemaker placement pacer interrogation as above HTN chronic, stable Continue home losartan as tolerated Pt currently npo d/t pain on IV metoprolol --> now switched to po/ J-tube Mood On Lexapro GERD Continue ppi - IV form HLD Continue statin BPH Continue home finasteride Prediabetes hemoglobin A1c of 6.20 March 2023 Monitor glucose levels CODE STATUS: full code Diet: Liquids DVT prophylaxis: IV heparin - monitor H&H and Thrombocytopenia Disposition pending Admission and Anticipated Discharge Date Admission Date: June 17, 2023 Subjective ff up for nausea, s/p j tube, esoph CA, etc seen resting in bed, comfortable slept well overnight states he feels fine overall no nausea tolerating TF well no chest pain no other new symptoms Review of Systems Review of Systems: all noted and negative except for above Physical Exam Physical Exam: General- oriented x 3, not in distress, speaks in sentences with no effort or accessory muscle use Eyes- anicteric Neck- no JVD Lungs- clear breath sounds bilaterally, no rales/wheezes Heart- normal rate, regular rhythm; no murmurs Abdomen- normal bowel sounds, nondistended, soft, nontender J tube in place Extremities- no pretibial edema, no calf tenderness Neuro- alert, oriented x 3; no gross focal neurologic deficits Skin- warm & dry Results & Data Results & Data Vital Signs (Past 12 Hours) Vital Signs Temp Pulse Pulse Resp BP Pulse Ox O2 Del Method 06/28/23 07:30 Room Air 06/28/23 07:27 37.4 C 96 H 18 117/73 92 Room Air 06/28/23 01:52 36.8 C 93 H 21 116/72 91 Room Air 06/27/23 22:54 37.6 C H 96 H 16 119/71 93 Room Air 06/27/23 21:56 87 all noted and reviewed including below
--- NOTE | 2023-06-29 06:02 | Communication Note ---
Date of Service: June 29, 2023 Patient with recurrent epistaxis from left nostril. No headache complaints. AP Recurrent epistaxis Ongoing IV heparin for PE CBC now Hold IV heparin for now
[2023-06-29 06:15] LABS: Basophils # (auto) 0.01 K/uL (0.00-0.20); Basophils % (auto) 0.3 %; Eosinophils # (auto) 0.03 K/uL (0.00-0.50); Hematocrit (blood only) 27.1 % (42.0-52.0); Hemoglobin 9.5 g/dl (14.0-18.0); Immature Granulocytes # (auto) 0.11 K/uL (0.01-0.20); Immature Granulocytes % (auto) 3.8 %; Lymphocytes # (auto) 0.26 K/uL (1.20-3.40); Lymphocytes % (auto) 9.1 %; Mean Corpuscular Hemoglobin 32.2 pg (25.0-34.0); Mean Corpuscular Hgb Conc 35.1 g/dL (32.0-36.0); Mean Corpuscular Volume 91.9 fL (80.0-100.0); Mean Platelet Volume 9.2 fL (9.4-12.4); Monocytes # (auto) 0.26 K/uL (0.11-0.59); Monocytes % (auto) 9.1 %; Neutrophils # (auto) 2.19 K/uL (1.40-6.50); Neutrophils % (auto) 76.7 %; Platelet Count 81 K/uL (130-400); RDW Coefficient of Variation 15.5 % (11.5-14.5); RDW Standard Deviation 49.9 fL (36.4-46.3); Red Blood Count 2.95 M/uL (4.70-6.10); White Blood Count 2.86 K/ul (4.8-10.8)
[2023-06-29 06:18] LABS: Albumin Level 2.6 gm/dl (3.4-5.0); BUN Creatinine Ratio 37.5 (10-20); Bilirubin,Total 0.4 mg/dl (0.2-1.0); Calcium 7.7 mg/dl (8.6-10.3); Creatinine Clr Calc Pharmacy 152.4 ml/min; Est GFR (African American) 124.1 ml/min; Globulin 2.6 gm/dl (2.5-4.0); Potassium 4.4 mmol/L (3.5-5.1); Total Protein 5.2 gm/dl (6.0-8.3)
[2023-06-29] MEDS: OXYMETAZOLINE 0.05% 30 ML BTL NAE ONE ×2 (06:19→06:39)
[2023-06-29 06:32] LABS: ANTI-Xa, UFH(UnfractionatedHep 0.31 IU/ml (0.3-0.7)
[2023-06-29 11:06] LABS: Hematocrit (blood only) 30.5 % (42.0-52.0); Hemoglobin 10.4 g/dl (14.0-18.0)
--- NOTE | 2023-06-29 17:21 | Hospitalist Progress Note ---
Date of Service June 29, 2023 Assessment & Plan (1) Odynophagia: Plan per previous hospitalist notes with addendum: Pt is a 77yoF with PMHx significant for complete heart block status post PPM, hypertension, TIA/PVD as per records, esophageal cancer with ongoing chemoradiation, prediabetes, BPH, urolithiasis admitted with odynophagia. Odynophagia Esophageal cancer Pt with noted odynophagia Daughter also requesting PEG placement as pt has not been able to eat States he need nutritional support so that surgery can be considered to treat his cancer as well GI consulted, appreciate recs -no EGD -lidocaine -add sucralfate if not improving Reached out to GI about PEG placement on 06/16 about possible PEG placement per daughter request, awaiting further recs. -GI recommending surgery consult given pt might need J tube -surgery consulted, recommending starting ppn, possible transfer to pt's surgical oncologist at [facility] -Pt's surgical oncologist Brian Solis was contacted on 06/16 via [employer] asking to discuss possible transfer. Conversation via [employer] text, he was advised pt currently admitted and General surgery service recommending transfer. -PPN orders placed to start ppn on 06/17. - discussed with Dr. Solis. Pt has received rounds of xrt, plan is for surgery 6 weeks after completion of radiation. He expects sx to improve after completion of radiation. - Dr. Solis recommends J tube vs corflo. Discussed these options with daughter and surgical team, Dr. Ellington. Dr. Solis okay for procedure to be done here and will not interfere with his upcoming surgery. -Tentative plan is for patient to have a J tube placement to assist with nutritional support -Dr. Ellington would like to talk to Dr. Solis, and her number was provided to him to give a call back via [employer] text. -Daughter is in agreement of plan Ongoing chemoradiation for esophageal cancer - J-tube placed by surgery 06/18 starting feeds - cont. to closely monitor - if H&H trending dowm, will stop feeds 06/21 -substernal/epigastric pain not well-controlled. Starting fentanyl patch in addition to IV Dilaudid as needed. Palliative medicine also consulted for pain control. Discussed with Dr. Duran, from Rad Onc, possible treatment tomorrow if pain is better controlled. 06/22 Per palliative - oxy via j-tube and valium started. Plan for radiation treatment today. 06/23 S/p second radiation treatment, tolerating well. Pain still difficult to control. 06/24 Nausea improving Chest pain improving CT abdomen pelvis: No obstruction, acute process KUB: No obstruction Okay to remove NG tube and resume tube feeding today per general surgery Will order scheduled Phenergan q6h Will monitor closely 06/26 clinically improving tolerating tube feeding continue Phenergan Q6h 06/27 continues to do well with TF will trial PRN Phenergan 06/28 Continues to tolerate tube feeding Currently Phenergan is only on a as needed basis Monitor closely Constipation, vomiting - already on miralax - this AM had BM w/ enema, however also vomited. tube feeds on hold, KUB obtained, NGT placed, surgery contacted - KUB w/ nonobstructive bowel pattern Miralax via J tube, flush after Monitor closely Paroxysmal atrial fibrillation Received phone call from daughter that patient's pacemaker was interrogated and she was notified that he has been having intermittent episodes of atrial fibrillation transferred patient to telemetry for further monitoring Cardiology consulted - > switched IV metoprolol to PO/ J-tube now Heart rate controlled Continue metoprolol p.o. PE - scattered pulmonary emboli w/ poss. right heart strain - developed chest pain which led to CT PE study - started IV heparin - discussed w/ surgery - monitor H&H, Hgb stable Hemoglobin stable Continue IV heparin possible transition to Lovenox vs Eliquis 06/28 Positive epistaxis this morning Resolved Hemoglobin stable No active bleeding or lesions per exam of the naris Gauze removed Vaseline applied Heparin drip resumed this afternoon Pancytopenia In setting of chemo, stable Continue to monitor Complete Heart Block s/p pacemaker placement pacer interrogation as above HTN chronic, stable Continue home losartan as tolerated Pt currently npo d/t pain on IV metoprolol --> now switched to po/ J-tube Mood On Lexapro GERD Continue ppi - IV form HLD Continue statin BPH Continue home finasteride Prediabetes hemoglobin A1c of 6.20 March 2023 Monitor glucose levels CODE STATUS: full code Diet: Liquids DVT prophylaxis: IV heparin - monitor H&H and Thrombocytopenia Disposition pending Admission and Anticipated Discharge Date Admission Date: June 17, 2023 Subjective Follow-up for esophageal cancer, status post j tube placement, etc. Seen resting in bed, watching TV Had radiation session today Developed epistaxis this morning, resolved with application of gauze pack and holding heparin No recurrence since Had some right upper chest area sharp pain again this morning, has since resolved Tube feeding working well On exam, patient is comfortable, not in distress Feels fine overall on exam No other new symptom Review of Systems Review of Systems: all noted and negative except for above Results & Data Results & Data Vital Signs (Past 12 Hours) Vital Signs Temp Pulse Resp BP Pulse Ox O2 Del Method 06/29/23 15:53 96 H 18 117/76 94 Room Air 06/29/23 11:00 36.8 C 99 H 18 107/79 92 Room Air 06/29/23 10:34 36.9 C 98 H 21 103/69 95 Room Air 06/29/23 07:37 110 H 18 110/68 91 Room Air 06/29/23 07:30 Room Air 06/29/23 06:55 36.8 C 103 H 24 127/88 93 Room Air 06/29/23 06:30 108 H 26 H 158/89 H 95 Room Air
[2023-06-29 22:12] LABS: ANTI-Xa, UFH(UnfractionatedHep 0.27 IU/ml (0.3-0.7)
[2023-06-30 04:48] LABS: Hematocrit (blood only) 27.5 % (42.0-52.0); Hemoglobin 9.5 g/dl (14.0-18.0); Mean Corpuscular Hemoglobin 31.6 pg (25.0-34.0); Mean Corpuscular Hgb Conc 34.5 g/dL (32.0-36.0); Mean Corpuscular Volume 91.4 fL (80.0-100.0); Mean Platelet Volume 9.5 fL (9.4-12.4); Platelet Count 78 K/uL (130-400); RDW Coefficient of Variation 15.5 % (11.5-14.5); RDW Standard Deviation 49.7 fL (36.4-46.3); Red Blood Count 3.01 M/uL (4.70-6.10); White Blood Count 2.74 K/ul (4.8-10.8)
[2023-06-30 05:05] LABS: BUN Creatinine Ratio 46.5 (10-20); Calcium 7.8 mg/dl (8.6-10.3); Creatinine Clr Calc Pharmacy 170.1 ml/min; Est GFR (African American) 129.8 ml/min; Potassium 4.7 mmol/L (3.5-5.1)
[2023-06-30 05:20] LABS: ANTI-Xa, UFH(UnfractionatedHep 0.37 IU/ml (0.3-0.7)
[2023-06-30 05:28] LABS: Basophils # (auto) 0.02 K/uL (0.00-0.20); Basophils % (auto) 0.7 %; Eosinophils # (auto) 0.06 K/uL (0.00-0.50); Eosinophils % (auto) 2.2 %; Immature Granulocytes # (auto) 0.07 K/uL (0.01-0.20); Immature Granulocytes % (auto) 2.6 %; Lymphocytes # (auto) 0.27 K/uL (1.20-3.40); Lymphocytes % (auto) 9.9 %; Monocytes # (auto) 0.23 K/uL (0.11-0.59); Monocytes % (auto) 8.4 %; Neutrophils # (auto) 2.09 K/uL (1.40-6.50); Neutrophils % (auto) 76.2 %; Polychromasia 1+
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
--- NOTE | 2023-06-30 16:42 | Hospitalist Progress Note ---
Date of Service June 30, 2023 Assessment & Plan (1) Odynophagia: Plan per previous hospitalist notes with addendum: Pt is a 77yoF with PMHx significant for complete heart block status post PPM, hypertension, TIA/PVD as per records, esophageal cancer with ongoing chemoradiation, prediabetes, BPH, urolithiasis admitted with odynophagia. Esophageal cancer Odynophagia Status post G-tube placement 06/18/2023 - J-tube placed by surgery Developed nausea and vomiting likely secondary to IV Dilaudid and fentanyl patch Tube feeding held, NG tube placed CT abdomen pelvis: No obstruction, acute process KUB: No obstruction Given Phenergan every 6 hours scheduled Patient clinically improved, nausea and vomiting resolved NG tube removed Tube feeding resumed Now only on Phenergan as needed 06/29 Continues to tolerate tube feeding Currently Phenergan is only on a as needed basis Monitor closely Acute bilateral pulmonary embolism -Patient developed chest pain during admission -CT angiogram: Scattered pulmonary emboli w/ poss. right heart strain -Having intermittent chest pain secondary to PE, on fentanyl patch and as needed Dilaudid *Epistaxis 06/28, minimal, resolved Heparin resumed, no recurrence of epistaxis Hemoglobin stable Continue IV heparin possible transition to Lovenox vs Eliquis: Hematology consulted Constipation, vomiting Resolved Miralax via J tube, flush after Monitor closely Cough No signs of aspiration from tube feeding as per RN Repeat chest x-ray today Hypertonic saline nebs Respiratory therapist requested to evaluate for deep suction Paroxysmal atrial fibrillation Received phone call from daughter that patient's pacemaker was interrogated and she was notified that he has been having intermittent episodes of atrial fibrillation transferred patient to telemetry for further monitoring Cardiology consulted - > switched IV metoprolol to PO/ J-tube now Heart rate controlled Continue metoprolol p.o. Pancytopenia In setting of chemo, stable Continue to monitor Complete Heart Block s/p pacemaker placement pacer interrogation as above HTN chronic, stable Continue home losartan as tolerated Pt currently npo d/t pain on IV metoprolol --> now switched to po/ J-tube Mood On Lexapro GERD Continue ppi - IV form HLD Continue statin BPH Continue home finasteride Prediabetes hemoglobin A1c of 6.20 March 2023 Monitor glucose levels CODE STATUS: full code Diet: Liquids DVT prophylaxis: IV heparin - monitor H&H and Thrombocytopenia Disposition pending Anticipate transition to acute rehab when medically stable Admission and Anticipated Discharge Date Admission Date: June 17, 2023 Subjective Follow-up for esophageal cancer, dysphagia, status post G-tube placement; acute PE, etc. Seen resting in bed, comfortable, not in distress Having some cough today, having difficulty expectorating mucus, productive of green thick mucus No fevers or chills No nausea, tolerating tube feeding well Very intermittent right-sided chest pain No other new symptoms Review of Systems Review of Systems: all noted and negative except for above Physical Exam Physical Exam: General- oriented x 3, not in distress, speaks in sentences with no effort or accessory muscle use Eyes- anicteric Neck- no JVD Lungs- clear breath sounds bilaterally, no rales/wheezes Heart- normal rate, regular rhythm; no murmurs Abdomen- normal bowel sounds, nondistended, soft, nontender J-tube in place: No issues Extremities- no pretibial edema, no calf tenderness Neuro- alert, oriented x 3; no gross focal neurologic deficits Skin- warm & dry Results & Data Results & Data Vital Signs (Past 12 Hours) Vital Signs Temp Pulse Pulse Resp BP Pulse Ox O2 Del Method 06/30/23 14:52 36.6 C 104 H 17 115/80 94 Room Air 06/30/23 10:20 36.8 C 95 H 20 110/77 95 Room Air 06/30/23 07:15 100 H 06/30/23 07:15 Room Air 06/30/23 07:11 36.9 C 103 H 18 114/77 95 Room Air all noted and reviewed including below
--- NOTE | 2023-06-30 16:50 | XRay Report ---
XR chest 1V portable HISTORY: cough, r/o pneumonia COMPARISON: Chest CTA 06/19/2023. FINDINGS: There are low lung volumes. No pneumothorax. No pleural effusions. Tortuous thoracic aorta again noted. The heart is mildly enlarged. Is left-sided pacemaker. No new focal lung consolidations to suggest a pneumonia. No evidence for pulmonary edema. Degenerative changes within the shoulders. S lightly rotated study. IMPRESSION: No acute process. ACT 112: Negative or not required by law. Electronically signed by: Won Curiel M.D. 06/30/2023 4:49 PM
[2023-06-30] MEDS: SODIUM CHLOR 7% 4 ML NEB NEB SCH (19:37)
--- NOTE | 2023-07-01 12:01 | Hospitalist Progress Note ---
Date of Service July 01, 2023 Assessment & Plan (1) Odynophagia: Plan Pt is a 77yoF with PMHx significant for complete heart block status post PPM, hypertension, TIA/PVD as per records, esophageal cancer with ongoing chemoradiation, prediabetes, BPH, urolithiasis admitted with odynophagia. Esophageal cancer Odynophagia Status post J-tube placement 06/18/2023 History of recently diagnosed esophageal adenocarcinoma in March 2023 Undergoing neoadjuvant chemoradiation prior to possible esophagectomy Presented with odynophagia Status post robot assisted laparoscopic jejunostomy tube placement by surgery on June 18, 2023 Continue tube feeds as recommendation by nutrition Phenergan as needed Aspiration precautions Acute bilateral pulmonary embolism -CTA chest on 06/19/2023: Scattered pulmonary emboli w/ poss. right heart strain developed Epistaxis 06/28, minimal, resolved Heparin resumed, no recurrence of epistaxis Hemoglobin stable Hematology saw the patient on June 30, 2023; recommends Eliquis. Will continue IV heparin for the time being; switch over to Eliquis when patient is closer to discharge. Constipation, vomiting Resolved Miralax via J tube, flush after Monitor closely Cough Chest x-ray from June 30, 2023 reviewed; no acute process. Airway clearance therapy with hypertonic saline. Paroxysmal atrial fibrillation Received phone call from daughter that patient's pacemaker was interrogated and she was notified that he has been having intermittent episodes of atrial fibrillation transferred patient to telemetry for further monitoring Cardiology was consulted during the hospitalization; on metoprolol tartate 25 mg twice daily as per recommendation Echocardiogram done on June 19, 2023 shows EF of 55 to 60%; right ventricle normal in size. Pancytopenia In setting of chemo, stable Continue to monitor Complete Heart Block s/p pacemaker placement pacer interrogation as above HTN chronic, stable Continue home losartan as tolerated On metoprolol as well Mood On Lexapro GERD Continue ppi HLD Continue statin BPH Continue home finasteride Prediabetes hemoglobin A1c of 6.20 March 2023 Monitor glucose levels CODE STATUS: full code Diet: Liquids DVT prophylaxis: IV heparin - monitor H&H and Thrombocytopenia Disposition pending Anticipate transition to acute rehab when medically stable Time spent evaluating patient, direct bedside care, chart review, placing orders, interpretation of diagnostic studies, discussion with consultants, patient, and family members, as well as other required patient management activities is 50 minutes Please note the above document was generated using voice recognition software. It may contain grammatical, syntax or spelling errors. Any formal questions or concerns about the content, text or information contained within the body of this dictation should be directly addressed to the provider for clarification Admission and Anticipated Discharge Date Admission Date: June 17, 2023 Subjective Patient seen and examined at bedside. He is lying flat on the bed; not in distress. He denies fever, chills, chest pain or shortness of breath. He is tolerating tube feeds well. Later in the morning; he had 1 episode of bilious vomiting. Was given Phenergan Review of Systems Review of Systems: All systems reviewed & are unremarkable except as noted in Subjective Physical Exam Physical Exam: Constitutional: Alert oriented x 3; not in distress. Respiratory: normal respiratory effort, lungs clear to auscultation, no wheeze, rales, rhonchi. Normal insp/exp effort, no accessory muscle use Cardiovascular: RRR, no murmur, no edema Vessels: no JVD or carotid bruit Chest: normal inspection of chest Abdomen: J-tube in place; soft, nontender. Musculoskeletal: no cyanosis or clubbing, extremities motor strength 5/5 Skin: no rashes, warm and dry normal turgor Neurologic: PERRL, EOMI, accommodation nl, no face palsy, no dysarthria CN's II- XI intact bilaterally and moves all extremities Psychiatric: A+Ox3, euthymic affect Results & Data Results & Data Vital Signs (Past 12 Hours) Vital Signs Temp Pulse Resp BP Pulse Ox O2 Del Method 07/01/23 10:42 36.9 C 87 20 107/70 93 Room Air 07/01/23 07:38 36.6 C 94 H 20 112/73 98 Aerosol Mask 07/01/23 07:04 91 H 18 92 Room Air 07/01/23 02:54 37.0 C 97 H 17 119/76 94 Room Air
[2023-07-02 06:29] LABS: Basophils # (auto) 0.02 K/uL (0.00-0.20); Basophils % (auto) 0.7 %; Eosinophils # (auto) 0.04 K/uL (0.00-0.50); Eosinophils % (auto) 1.4 %; Hematocrit (blood only) 25.9 % (42.0-52.0); Hemoglobin 8.8 g/dl (14.0-18.0); Immature Granulocytes # (auto) 0.05 K/uL (0.01-0.20); Immature Granulocytes % (auto) 1.7 %; Lymphocytes # (auto) 0.29 K/uL (1.20-3.40); Lymphocytes % (auto) 9.8 %; Mean Corpuscular Hemoglobin 31.7 pg (25.0-34.0); Mean Corpuscular Volume 93.2 fL (80.0-100.0); Mean Platelet Volume 9.6 fL (9.4-12.4); Monocytes # (auto) 0.27 K/uL (0.11-0.59); Monocytes % (auto) 9.1 %; Neutrophils # (auto) 2.29 K/uL (1.40-6.50); Neutrophils % (auto) 77.3 %; Platelet Count 78 K/uL (130-400); RDW Coefficient of Variation 15.6 % (11.5-14.5); Red Blood Count 2.78 M/uL (4.70-6.10); White Blood Count 2.96 K/ul (4.8-10.8)
[2023-07-02 06:31] LABS: BUN Creatinine Ratio 54.5 (10-20); Creatinine Clr Calc Pharmacy 167.4 ml/min; Est GFR (African American) 128.6 ml/min; Est GFR (Non-African American) 110.9 ml/min; Potassium 4.5 mmol/L (3.5-5.1)
[2023-07-02 06:33] LABS: ANTI-Xa, UFH(UnfractionatedHep 0.55 IU/ml (0.3-0.7)
[2023-07-02] MEDS: HYDROmorphone INJ 0.5 MG/0.5 ML SYR IV STA (07:18)
[2023-07-02] MEDS: ONDANSETRON INJ 2 MG/ML 2 ML VIAL IV STA (07:19)
[2023-07-02] MEDS: TUBE FEEDING WATER FLUSH JT SCH (09:22)
--- NOTE | 2023-07-02 12:21 | Hospitalist Progress Note ---
Date of Service July 02, 2023 Assessment & Plan (1) Odynophagia: Plan Pt is a 77yoF with PMHx significant for complete heart block status post PPM, hypertension, TIA/PVD as per records, esophageal cancer with ongoing chemoradiation, prediabetes, BPH, urolithiasis admitted with odynophagia. Esophageal cancer Odynophagia Status post J-tube placement 06/18/2023 History of recently diagnosed esophageal adenocarcinoma in March 2023 Undergoing neoadjuvant chemoradiation prior to possible esophagectomy Presented with odynophagia Status post robot assisted laparoscopic jejunostomy tube placement by surgery on June 18, 2023 Continue tube feeds as recommendation by nutrition Phenergan as needed Aspiration precautions Patient has persistent nausea and vomiting. Trial of Zofran and Phenergan has not been successful. Will try low-dose Zyprexa 5 mg at night. Acute bilateral pulmonary embolism -CTA chest on 06/19/2023: Scattered pulmonary emboli w/ poss. right heart strain developed Epistaxis 06/28, minimal, resolved Heparin resumed, no recurrence of epistaxis Hemoglobin stable Hematology saw the patient on June 30, 2023; recommends Eliquis. Will continue IV heparin for the time being; switch over to Eliquis when patient is closer to discharge. Duplex ordered to rule out DVT as well Cough Pneumonia ruled out Chest x-ray from June 30, 2023 reviewed; no acute process. Airway clearance therapy with hypertonic saline. Paroxysmal atrial fibrillation Cardiology was consulted during the hospitalization; on metoprolol tartate 25 mg twice daily as per recommendation Echocardiogram done on June 19, 2023 shows EF of 55 to 60%; right ventricle normal in size. Pancytopenia In setting of chemo, stable Continue to monitor Complete Heart Block s/p pacemaker placement pacer interrogation as above HTN chronic, stable Continue home losartan as tolerated On metoprolol as well Mood On Lexapro GERD Continue ppi HLD Continue statin BPH Continue home finasteride Prediabetes hemoglobin A1c of 6.20 March 2023 Monitor glucose levels CODE STATUS: full code Diet: Liquids DVT prophylaxis: IV heparin - monitor H&H and Thrombocytopenia Disposition pending Anticipate transition to acute rehab when medically stable Discussed with patient's daughter. Answered questions/queries. Time spent evaluating patient, direct bedside care, chart review, placing orders, interpretation of diagnostic studies, discussion with consultants, patie nt, and family members, as well as other required patient management activities is 50 minutes Please note the above document was generated using voice recognition software. It may contain grammatical, syntax or spelling errors. Any formal questions or concerns about the content, text or information contained within the body of this dictation should be directly addressed to the provider for clarification Admission and Anticipated Discharge Date Admission Date: June 17, 2023 Subjective Patient seen and examined at bedside. Comfortable lying on the bed; not in distress. Reports multiple episode of vomiting intermittently. No abdominal pain or discomfort. Tolerating tube feeds well Review of Systems Review of Systems: All systems reviewed & are unremarkable except as noted in Subjective Physical Exam Physical Exam: Constitutional: Alert oriented x 3; not in distress. Respiratory: normal respiratory effort, lungs clear to auscultation, no wheeze, rales, rhonchi. Normal insp/exp effort, no accessory muscle use Cardiovascular: RRR, no murmur, no edema Vessels: no JVD or carotid bruit Chest: normal inspection of chest Abdomen: J-tube in place; soft, nontender. Musculoskeletal: no cyanosis or clubbing, extremities motor strength 5/5 Skin: no rashes, warm and dry normal turgor Neurologic: PERRL, EOMI, accommodation nl, no face palsy, no dysarthria CN's II- XI intact bilaterally and moves all extremities Psychiatric: A+Ox3, euthymic affect Results & Data Results & Data Vital Signs (Past 12 Hours) Vital Signs Temp Pulse Pulse Resp BP Pulse Ox O2 Del Method 07/02/23 11:57 36.9 C 92 H 19 93/70 L 94 Room Air 07/02/23 08:00 99 H 07/02/23 07:38 36.8 C 99 H 18 102/72 92 Room Air 07/02/23 07:20 18 07/02/23 02:55 36.6 C 102 H 22 123/81 94 Room Air
--- NOTE | 2023-07-02 15:03 | Ultrasound Report ---
BILATERAL LOWER EXTREMITY VENOUS DOPPLER HISTORY: Lower extremity swelling. rule out dvt COMPARISON STUDY: None. FINDINGS: There is normal compressibility and augmentation within the bilateral lower extremity deep venous systems. There is slow flow seen throughout the bilateral lower extremity venous systems. IMPRESSION: No DVT within the right or left lower extremity. ACT 112: Negative or not required by law. Electronically signed by: Won Curiel M.D. 07/02/2023 3:02 PM
[2023-07-02] MEDS ORDERED: methylPREDNISolone 4 MG TAB, 6 DAY TAPER PO SCH (15:45)
[2023-07-02] MEDS: methylPREDNISolone 4 MG TAB PO ONE (17:36)
[2023-07-02] MEDS: HYDROmorphone INJ 1 MG/ML SYRINGE IV PRN (19:49)
[2023-07-02] MEDS: OLANZAPINE 2.5 MG TAB PO SCH (19:55)
[2023-07-02] MEDS: methylPREDNISolone 4 MG TAB PO SCH (19:55)
[2023-07-03 06:06] LABS: Hematocrit (blood only) 24.4 % (42.0-52.0); Hemoglobin 8.3 g/dl (14.0-18.0); Mean Corpuscular Hemoglobin 31.8 pg (25.0-34.0); Mean Corpuscular Volume 93.5 fL (80.0-100.0); Mean Platelet Volume 9.8 fL (9.4-12.4); Platelet Count 76 K/uL (130-400); RDW Coefficient of Variation 15.9 % (11.5-14.5); RDW Standard Deviation 52.1 fL (36.4-46.3); Red Blood Count 2.61 M/uL (4.70-6.10); White Blood Count 3.02 K/ul (4.8-10.8)
[2023-07-03 06:22] LABS: Calcium 8.1 mg/dl (8.6-10.3); Creatinine Clr Calc Pharmacy 167.4 ml/min; Est GFR (African American) 128.6 ml/min; Est GFR (Non-African American) 110.9 ml/min; Potassium 4.5 mmol/L (3.5-5.1)
[2023-07-03 06:31] LABS: ANTI-Xa, UFH(UnfractionatedHep 0.51 IU/ml (0.3-0.7)
[2023-07-03] MEDS: methylPREDNISolone 4 MG TAB PO SCH ×2 (06:47→20:33)
[2023-07-03 06:51] LABS: Anisocytosis Present; Basophils # (auto) 0.01 K/uL (0.00-0.20); Basophils % (auto) 0.3 %; Eosinophils # (auto) 0.02 K/uL (0.00-0.50); Eosinophils % (auto) 0.7 %; Immature Granulocytes # (auto) 0.05 K/uL (0.01-0.20); Immature Granulocytes % (auto) 1.7 %; Lymphocytes # (auto) 0.26 K/uL (1.20-3.40); Lymphocytes % (auto) 8.6 %; Monocytes # (auto) 0.26 K/uL (0.11-0.59); Monocytes % (auto) 8.6 %; Neutrophils # (auto) 2.42 K/uL (1.40-6.50); Neutrophils % (auto) 80.1 %; Polychromasia 1+
[2023-07-03] MEDS ORDERED: PANTOprazole 40 MG TAB PO SCH (09:00)
[2023-07-03] MEDS: APIXABAN 5 MG TABLET PO SCH (09:34)
[2023-07-03] MEDS: LANSOPRAZOLE 30 MG SOLTAB JT SCH (11:35)
[2023-07-03] MEDS: SUCRALFATE 1 GM/10 ML UDC PO SCH (11:36)
[2023-07-03] MEDS: TUBE FEEDING WATER FLUSH JT SCH (12:06)
--- NOTE | 2023-07-03 12:54 | Hospitalist Progress Note ---
Date of Service July 03, 2023 Assessment & Plan (1) Odynophagia: Plan Pt is a 77yoF with PMHx significant for complete heart block status post PPM, hypertension, TIA/PVD as per records, esophageal cancer with ongoing chemoradiation, prediabetes, BPH, urolithiasis admitted with odynophagia. Esophageal cancer Odynophagia Status post J-tube placement 06/18/2023 History of recently diagnosed esophageal adenocarcinoma in March 2023 Undergoing neoadjuvant chemoradiation prior to possible esophagectomy Presented with odynophagia Status post robot assisted laparoscopic jejunostomy tube placement by surgery on June 18, 2023 Continue tube feeds as recommendation by nutrition Phenergan as needed Aspiration precautions Patient has persistent nausea and vomiting. Trial of Zofran and Phenergan has not been successful. Started on low-dose Zyprexa from July 01; tolerating better. Patient has persistent retrosternal chest pain. Discussed with Dr. Duran from radiation oncology on July 02, 2023. He recommended trial of Medrol Dosepak to reduce inflammation. He also recommended possible GI evaluation for endoscopy given persistent nature of the pain. Discussed with GI PA (Olimpia) will discuss with her attending (Dr. Sauer) regarding further evaluation. They recommended trial of Carafate if patient is able to take oral medication. They did not recommend endoscopy at the moment. Will start trial of Carafate. Also consulted pain management given the patient's severe persistent pain. Appreciate recommendation. Acute bilateral pulmonary embolism -CTA chest on 06/19/2023: Scattered pulmonary emboli w/ poss. right heart strain developed Epistaxis 06/28, minimal, resolved Heparin resumed, no recurrence of epistaxis Hemoglobin stable Hematology saw the patient on June 30, 2023; recommends Eliquis. Will continue IV heparin for the time being; switched over to Eliquis on July 03, 2023 Bilateral lower extremity duplex did not show DVT. Hyponatremia Review of BMP reveals persistent hyponatremia with sodium level of 1 27-1 30 Will reduce free water flushes to 75 mL every 12 hours Obtain urine osmolarity, urine electrolytes BMP tomorrow a.m. Cough Pneumonia ruled out Chest x-ray from June 30, 2023 reviewed; no acute process. Airway clearance therapy with hypertonic saline. Paroxysmal atrial fibrillation Cardiology was consulted during the hospitalization; on metoprolol tartate 25 mg twice daily as per recommendation Echocardiogram done on June 19, 2023 shows EF of 55 to 60%; right ventricle normal in size. Pancytopenia In setting of chemo therapy, stable Continue to monitor Complete Heart Block s/p pacemaker placement pacer interrogation as above HTN chronic, stable Continue home losartan as tolerated On metoprolol as well Mood On Lexapro GERD Continue ppi HLD Continue statin BPH Continue home finasteride Prediabetes hemoglobin A1c of 6.20 March 2023 Monitor glucose levels CODE STATUS: full code Diet: N.p.o., J tube feeding DVT prophylaxis: Eliquis Disposition pending Anticipate transition to acute rehab when medically stable Discussed with patient's daughter. Answered questions/queries. Time spent evaluating patient, direct bedside care, chart review, placing orders, interpretation of diagnostic studies, discussion with consultants, patient, and family members, as well as other required patient management activities is 50 minutes Please note the above document was generated using voice recognition software. It may contain grammatical, syntax or spelling errors. Any formal questions or concerns about the content, text or information contained within the body of this dictation should be directly addressed to the provider for clarification Admission and Anticipated Discharge Date Admission Date: June 17, 2023 Subjective Patient seen and examined at bedside. He is sitting up on the chair at the side of the bed. He reports significant pain in retrosternal area in the chest. No episode of vomiting overnight. Review of Systems Review of Systems: All systems reviewed & are unremarkable except as noted in Subjective Physical Exam Physical Exam: Constitutional: Alert oriented x 3; not in distress. Respiratory: normal respiratory effort, lungs clear to auscultation, no wheeze, rales, rhonchi. Normal insp/exp effort, no accessory muscle use Cardiovascular: RRR, no murmur, no edema Vessels: no JVD or carotid bruit Chest: normal inspection of chest, nontender Abdomen: J-tube in place; soft, nontender. Musculoskeletal: no cyanosis or clubbing, extremities motor strength 5/5 Skin: no rashes, warm and dry normal turgor Neurologic: PERRL, EOMI, accommodation nl, no face palsy, no dysarthria CN's II- XI intact bilaterally and moves all extremities Psychiatric: A+Ox3, euthymic affect Results & Data Results & Data Vital Signs (Past 12 Hours) Vital Signs Temp Pulse Pulse Resp BP Pulse Ox O2 Del Method 07/03/23 11:50 36.6 C 91 H 19 114/80 93 Room Air 07/03/23 08:00 Room Air 07/03/23 07:36 36.7 C 98 H 28 H 107/76 94 Room Air 07/03/23 07:00 93 H 07/03/23 03:09 36.7 C 89 21 127/84 91 Room Air
[2023-07-03] MEDS: SODIUM CHLORIDE 0.65% NA SOLN 45 ML (OCEAN) SCH (13:33)
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
[2023-07-03] MEDS: fentaNYL 25 MCG/HR TDSY TD SCH (14:11)
[2023-07-03 15:26] LABS: Urine Potassium 56.2 mmol/L
[2023-07-03] MEDS: CHECK fentaNYL PATCH PLACEMENT SCH (16:13)
[2023-07-04] MEDS: methylPREDNISolone 4 MG TAB PO SCH (06:08)
[2023-07-04 09:00] LABS: Calcium 8.3 mg/dl (8.6-10.3); Creatinine Clr Calc Pharmacy 179.6 ml/min; Est GFR (African American) 132.4 ml/min; Est GFR (Non-African American) 114.2 ml/min; Potassium 4.6 mmol/L (3.5-5.1)
[2023-07-04 09:17] LABS: Hematocrit (blood only) 25.2 % (42.0-52.0); Hemoglobin 8.6 g/dl (14.0-18.0); Mean Corpuscular Hemoglobin 32.2 pg (25.0-34.0); Mean Corpuscular Hgb Conc 34.1 g/dL (32.0-36.0); Mean Corpuscular Volume 94.4 fL (80.0-100.0); Mean Platelet Volume 9.7 fL (9.4-12.4); Platelet Count 86 K/uL (130-400); RDW Coefficient of Variation 16.4 % (11.5-14.5); RDW Standard Deviation 52.5 fL (36.4-46.3); Red Blood Count 2.67 M/uL (4.70-6.10); White Blood Count 2.87 K/ul (4.8-10.8)
[2023-07-04] MEDS: MAGNESIUM HYDROXIDE SUSP 30 ML UDC PO ONE (09:32)
[2023-07-04 10:22] LABS: Immature Granulocytes # (auto) 0.07 K/uL (0.01-0.20); Immature Granulocytes % (auto) 2.4 %; Lymphocytes # (auto) 0.27 K/uL (1.20-3.40); Lymphocytes % (auto) 9.4 %; Monocytes # (auto) 0.29 K/uL (0.11-0.59); Monocytes % (auto) 10.1 %; Neutrophils # (auto) 2.24 K/uL (1.40-6.50); Neutrophils % (auto) 78.1 %; RBC Morphology Unremarkable
[2023-07-04] MEDS: oxyCODONE HCL IR 5 MG TAB (IMMEDIATE RELEASE) PO PRN (13:20)
--- NOTE | 2023-07-04 13:21 | Hospitalist Progress Note ---
Date of Service July 04, 2023 Assessment & Plan (1) Odynophagia: Plan Pt is a 77yoF with PMHx significant for complete heart block status post PPM, hypertension, TIA/PVD as per records, esophageal cancer with ongoing chemoradiation, prediabetes, BPH, urolithiasis admitted with odynophagia. Esophageal cancer Odynophagia Status post J-tube placement 06/18/2023 History of recently diagnosed esophageal adenocarcinoma in March 2023 Undergoing neoadjuvant chemoradiation prior to possible esophagectomy Presented with odynophagia Status post robot assisted laparoscopic jejunostomy tube placement by surgery on June 18, 2023 Continue tube feeds as recommendation by nutrition Phenergan as needed Aspiration precautions Patient has persistent nausea and vomiting. Trial of Zofran and Phenergan has not been successful. Started on low-dose Zyprexa from July 01; tolerating better. Patient has persistent retrosternal chest pain. Discussed with Dr. Duran from radiation oncology on July 02, 2023. He recommended trial of Medrol Dosepak to reduce inflammation. He also recommended possible GI evaluation for endoscopy given persistent nature of the pain. Discussed with GI PA (Olimpia) will discuss with her attending (Dr. Sauer) regarding further evaluation. They recommended trial of Carafate if patient is able to take oral medication. They did not recommend endoscopy at the moment. Will start trial of Carafate. Also consulted pain management given the patient's severe persistent pain. Dose of fentanyl is increased to 25 mg; recommended to continue Medrol Dosepak. Oxycodone added for pain control. Discussed with nursing to prioritize oxycodone over IV Dilaudid for possible transition to rehab tomorrow. Acute bilateral pulmonary embolism -CTA chest on 06/19/2023: Scattered pulmonary emboli w/ poss. right heart strain developed Epistaxis 06/28, minimal, resolved Heparin resumed, no recurrence of epistaxis Hemoglobin stable Hematology saw the patient on June 30, 2023; recommends Eliquis. Will continue IV heparin for the time being; switched over to Eliquis on July 03, 2023 Bilateral lower extremity duplex did not show DVT. Hyponatremia Review of BMP reveals persistent hyponatremia with sodium level of 1 27-1 30 Will reduce free water flushes to 75 mL every 12 hours Continue to monitor sodium. May require free water flushes to decrease further if continues to have hyponatremia Cough Pneumonia ruled out Chest x-ray from June 30, 2023 reviewed; no acute process. Paroxysmal atrial fibrillation Cardiology was consulted during the hospitalization; on metoprolol tartate 25 mg twice daily as per recommendation Echocardiogram done on June 19, 2023 shows EF of 55 to 60%; right ventricle normal in size. Pancytopenia In setting of chemo therapy, stable Continue to monitor Complete Heart Block s/p pacemaker placement pacer interrogation as above HTN chronic, stable Continue home losartan as tolerated On metoprolol as well Mood On Lexapro GERD Continue ppi HLD Continue statin BPH Continue home finasteride Prediabetes hemoglobin A1c of 6.20 March 2023 Monitor glucose levels CODE STATUS: full code Diet: N.p.o., J tube feeding DVT prophylaxis: Eliquis Disposition pending Anticipate transition to acute rehab when medically stable Discussed with patient's daughter. Answered questions/queries. Time spent evaluating patient, direct bedside care, chart review, placing orders, interpretation of diagnostic studies, discussion with consultants, patient, and family members, as well as other required patient management activities is 50 minutes Please note the above document was generated using voice recognition software. It may contain grammatical, syntax or spelling errors. Any formal questions or concerns about the content, text or information contained within the body of this dictation should be directly addressed to the provider for clarification Admission and Anticipated Discharge Date Admission Date: June 17, 2023 Subjective Patient seen and examined at bedside. No nausea/vomiting. No significant overnight events He is requiring IV Dilaudid for pain control. Review of Systems Review of Systems: All systems reviewed & are unremarkable except as noted in Subjective Physical Exam Physical Exam: Constitutional: Alert oriented x 3; not in distress. Respiratory: normal respiratory effort, lungs clear to auscultation, no wheeze, rales, rhonchi. Normal insp/exp effort, no accessory muscle use Cardiovascular: RRR, no murmur, no edema Vessels: no JVD or carotid bruit Chest: normal inspection of chest, nontender Abdomen: J-tube in place; soft, nontender. Musculoskeletal: no cyanosis or clubbing, extremities motor strength 5/5 Skin: no rashes, warm and dry normal turgor Neurologic: PERRL, EOMI, accommodation nl, no face palsy, no dysarthria CN's II- XI intact bilaterally and moves all extremities Psychiatric: A+Ox3, euthymic affect Results & Data Results & Data Vital Signs (Past 12 Hours) Vital Signs Temp Pulse Pulse Resp BP Pulse Ox O2 Del Method 07/04/23 11:28 36.8 C 84 18 117/82 92 Room Air 07/04/23 08:00 Room Air 07/04/23 07:53 36.5 C 95 H 16 127/79 93 Room Air 07/04/23 07:26 89 07/04/23 03:07 36.6 C 100 H 26 H 119/84 95 Room Air
[2023-07-05] MEDS: methylPREDNISolone 4 MG TAB PO SCH (05:54)
[2023-07-05 08:06] LABS: Albumin Globulin Ratio 1.2 (0.9-2); Albumin Level 2.9 gm/dl (3.4-5.0); Bilirubin,Total 0.5 mg/dl (0.2-1.0); Calcium 8.2 mg/dl (8.6-10.3); Est GFR (African American) 126.3 ml/min; Est GFR (Non-African American) 108.9 ml/min; Globulin 2.5 gm/dl (2.5-4.0); Potassium 4.7 mmol/L (3.5-5.1); Total Protein 5.4 gm/dl (6.0-8.3)
[2023-07-05 08:12] LABS: Hematocrit (blood only) 24.7 % (42.0-52.0); Hemoglobin 8.5 g/dl (14.0-18.0); Mean Corpuscular Hemoglobin 31.8 pg (25.0-34.0); Mean Corpuscular Hgb Conc 34.4 g/dL (32.0-36.0); Mean Corpuscular Volume 92.5 fL (80.0-100.0); Nucleated RBC # (auto) 0.02 K/uL (0.00-0.12); Nucleated RBC % (auto) 0.8 %; Platelet Count 80 K/uL (130-400); RDW Coefficient of Variation 17.1 % (11.5-14.5); RDW Standard Deviation 52.7 fL (36.4-46.3); Red Blood Count 2.67 M/uL (4.70-6.10); White Blood Count 2.62 K/ul (4.8-10.8)
[2023-07-05 08:36] LABS: Basophils # (auto) 0.01 K/uL (0.00-0.20); Basophils % (auto) 0.4 %; Eosinophils # (auto) 0.02 K/uL (0.00-0.50); Eosinophils % (auto) 0.8 %; Immature Granulocytes # (auto) 0.07 K/uL (0.01-0.20); Immature Granulocytes % (auto) 2.7 %; Lymphocytes # (auto) 0.25 K/uL (1.20-3.40); Lymphocytes % (auto) 9.5 %; Monocytes # (auto) 0.31 K/uL (0.11-0.59); Monocytes % (auto) 11.8 %; Neutrophils # (auto) 1.96 K/uL (1.40-6.50); Neutrophils % (auto) 74.8 %; Polychromasia 1+
--- NOTE | 2023-07-05 10:36 | Discharge Summary ---
Date of Service July 05, 2023 Admission HPI Per Admitting Provider History obtained from patient and records. Medical history significant for complete heart block status post PPM, hypertension, TIA/PVD as per records, esophageal cancer ongoing chemoradiation, prediabetes, BPH, urolithiasis. Last confinement 2010 for left ureteral calculus status post surgery. Patient diagnosed to have esophageal adenocarcinoma last March 2023. Neoadjuvant chemoradiation contemplated prior to esophagectomy. Patient noted increased odynophagia symptoms since chemoradiation initiated last month. No fever, no chills. Unquantified weight loss. Patient with regurgitation symptoms, fatigue and generalized weakness. No headache, no chest pain, no SOB, no abdominal pain. Patient brought to ER by family for evaluation. Medical History as above Surgical History : Shoulder surgery, knee surgeries, urologic procedures Family History : Breast cancer, heart disease Personal/Social history : Non-smoker, occasional EtOH intake, retired optimization analyst Admission Exam Per Admitting Provider GENERAL: Slightly uncomfortable, slightly hard of hearing, obese, no respiratory distress SKIN: Normal color, warm HEENT: [place] palpebral conjunctivae, no ptosis, dry buccal mucosa NECK : Supple, no tenderness CHEST : CTA, no tenderness HEART : RRR, no obvious murmurs ABDOMEN: Some distention, nontender EXTREMITIES : Minimal LE swelling, no LE tenderness, no other conspicuous deformities noted NEUROLOGIC : Coherent, no facial asymmetry, mild hearing impairment, no other gross focality Principal Diagnosis Esophageal cancer Odynophagia Status post J-tube placement 06/18/2023 Acute bilateral pulmonary embolism Discharge Exam Constitutional: Alert oriented x 3; not in distress. Respiratory: normal respiratory effort, lungs clear to auscultation, no wheeze, rales, rhonchi. Normal insp/exp effort, no accessory muscle use Cardiovascular: RRR, no murmur, no edema Vessels: no JVD or carotid bruit Chest: normal inspection of chest, nontender Abdomen: J-tube in place; soft, nontender. Musculoskeletal: no cyanosis or clubbing, extremities motor strength 5/5 Skin: no rashes, warm and dry normal turgor Neurologic: PERRL, EOMI, accommodation nl, no face palsy, no dysarthria CN's II- XI intact bilaterally and moves all extremities Psychiatric: A+Ox3, euthymic affect Discharge Data Allergies Allergy/AdvReac Type Severity Reaction Status Date / Time No Known Allergies Allergy Verified 06/14/23 22:58 Consultations 06/15/23 00:53 ED Decision to Admit Stat 06/15/23 04:16 Consult Gastroenterology Routine 06/16/23 06:33 Consult Gastroenterology Routine 06/16/23 08:51 Consult General Surgery Routine 06/17/23 14:31 Consult Cardiology Routine 06/22/23 07:35 Consult Palliative Care Routine 06/30/23 07:53 Consult Hematology Routine 07/03/23 10:19 Consult Pain Management Routine Procedures Performed Operation Date: 06/18/23 11:25 Actual Procedures p Robot assisted Laparoscopic, Jejunostomy Tube Placement(Not Applicable) - Jose Ellington DO Ordered Studies 06/19/23 07:33 CT angio chest PE protocol Urgent 06/25/23 14:30 US RUQ [US liver] Routine 06/25/23 17:11 CT Abd and Pelvis [CT abd pelvis oral and IV con] Urgent 07/02/23 10:19 US venous doppler LE BI Routine Hospital Course (1) Odynophagia: Plan Pt is a 77yoF with PMHx significant for complete heart block status post PPM, hypertension, TIA/PVD as per records, esophageal cancer with ongoing chemoradiation, prediabetes, BPH, urolithiasis admitted with odynophagia. Esophageal cancer Odynophagia Status post J-tube placement 06/18/2023 History of recently diagnosed esophageal adenocarcinoma in March 2023 Undergoing neoadjuvant chemoradiation prior to possible esophagectomy Presented with odynophagia Due to persistent odynophagia; general surgery was consulted. PICC line was initially placed during the hospitalization for possible parenteral nutrition. Status post robot assisted laparoscopic jejunostomy tube placement by surgery on June 18, 2023 Patient completed radiation treatment during the hospitalization Patient was on tube feeds at discharge with Peptamen. Patient had persistent nausea/vomitingtrial of Zofran/Phenergan were not successful. He was started on low-dose Zyprexa on July 01; nausea and vomiting improved. Patient had persistent retrosternal chest pain. Discussed with Dr. Duran from radiation oncology on July 02, 2023. He recommended trial of Medrol Dosepak to reduce inflammation. He also recommended possible GI evaluation for endoscopy given persistent nature of the pain. Discussed with GI PA (Olimpia) will discuss with her attending (Dr. Sauer) regarding further evaluation. They recommended trial of Carafate if patient is able to take oral medication. They did not recommend endoscopy at the moment. Pain management management was given the patient's severe persistent pain. At discharge, he was placed on fentanyl 25 mcg/h patch, oxycodone 5 to 10 mg every 4 hours as needed and IV Dilaudid 1 mg every 4 hours as needed He was [facility] with P[facility] line Instructions were placed to remove the PICC line prior to discharge from rehab or even earlier if he was no longer needing IV pain medication Acute bilateral pulmonary embolism -CTA chest on 06/19/2023: Scattered pulmonary emboli w/ poss. right heart strain Bilateral lower extremity duplex did not show DVT. developed Epistaxis 06/28, minimal, resolved Hemoglobin stable Hematology saw the patient on June 30, 2023; recommends Eliquis. Will continue IV heparin for the time being; switched over to Eliquis on July 03, 2023 Hyponatremia Review of BMP reveals persistent hyponatremia with sodium level of 1 27-1 30 Will reduce free water flushes to 75 mL every 12 hours Sodium of 130 at discharge Discussed with patient's daughter at the time of the discharge. Answer questions/queries. Please note the above document was generated using voice recognition software. It may contain grammatical, syntax or spelling errors. Any formal questions or concerns about the content, text or information contained within the body of this dictation should be directly addressed to the provider for clarification Total Time Total Time Spent Total Time Spent (In Minutes): 45 Total Time Includes: Examination of the Patient, Discharge Planning, Medication Reconciliation, Communication With Other Providers and Other Discharge Plan Discharge Items Patient Disposition: Transfer Inpatient Rehab Fac Reason For Visit: ODYNOPHAGIA, WEAKNESS Discharge Diagnosis: Esophageal cancer Odynophagia Status post J-tube placement 06/18/2023 Acute bilateral pulmonary embolism Hyponatremia Activity: Resume your previous activity Non-emergency contact: Primary Care Provider Call non-emergency contact if: you have any medication questions and your symptoms worsen Follow-up/Referrals: Krissy Lambert PA-C [Physician Glass Vial Filler] - 10/15/23 1:45 pm Jose Ellington DO [Physician] - (Please call to schedule follow up in the office within 2 weeks) Vic Bill DO [Primary Care Provider] - Diet: Regular Addtl Attending Provider Instructions: You were admitted to the hospital due to pain during swallowing. You underwent G-tube placement on June 18, 2023 by surgery. Tube feeds; You are on Peptamen 1.5 with a goal rate of 60 mL/h. Free water flushes of 75 mL every 12 hours. During the discharge from the rehab; consideration can be made to change to bolus feeding. Please coordinate with nutrition at the rehab. Obtain BMP on July 07 to follow-up on serum sodium level. It was 130 at discharge. If the serum sodium level is lower; free water flushes could be changed. You were also diagnosed with pulmonary embolism: You are prescribed Eliquis 5 mg every 12 hours. Your aspirin is currently on hold for next 2 weeks due to low platelet counts. CBC needs to be checked prior to restarting the aspirin. For pain control; Continue fentanyl patch 25 mcg every 72 hours. You are prescribed IV Dilaudid 1 mg to be used as needed every 3 hours. He is also on oxycodone 5 to 10 mg as needed every 4 hours. Prioritize taking oral oxycodone over IV Dilaudid. Will use IV Dilaudid only if the pain is not well-controlled p.o. oxycodone. Use nasal saline spray every 4 hours to keep your nasal naris moist to prevent nosebleeds You were prescribed Zyprexa 2.5 mg at night for nausea/vomiting. You can take as needed Zofran. Please follow-up with your primary care doctor after discharge. Also follow-up with your oncology and surgery after discharge. Remove the PICC line prior to discharge to rehab. Removed with earlier if he is not requiring any IV pain medication. Pending Studies at Discharge: No Stand-Alone Forms: My [facility] Skilled Items Patient informed of condition?: No DNR: No Discharge Level of Care: Skilled Communicable Disease: No Discharge Prognosis: Stable Lines: Peripheral IV Urinary Catheter: No Medications and DC Order Prescriptions: New Eliquis 5 mg Tablet 5 mg PO Q12H Qty: 60 0RF olanzapine 2.5 mg Tablet 2.5 mg PO HS Qty: 30 0RF diazepam 2 mg Tablet 1 mg PO BID PRN (Reason: anxiety) Qty: 30 0RF fentanyl 25 mcg/hr Patch 72 Hour 25 mcg transdermal Q3D Qty: 30 0RF hydromorphone 1 mg/mL Syringe 1 mg IV Q3H PRN (Reason: pain) Qty: 10 0RF Saline Mist 0.65 % Aerosol,[place] 2 spray NA Q4H Qty: 44 0RF lansoprazole [Prevacid SoluTab] 30 mg Tablet,Disintegrat, Delay Rel 30 mg J-tube BID Qty: 60 0RF metoprolol tartrate 25 mg Tablet 25 mg PO BID Qty: 60 0RF Peptamen 1.5 0.068 gram- 1.5 kcal/mL Liquid 1 ea J-tube .See Protocol Qty: 6000 0RF polyethylene glycol 3350 [Miralax] 17 gram Powder In Packet 17 g PO DAILY Qty: 100 0RF Tube Feeding Water Flush 75 ml J-tube Q12H Qty: 4 0RF oxycodone 5 mg Tablet 5 - 10 mg PO Q4H PRN (Reason: pain) Qty: 30 0RF Continued ondansetron HCl 8 mg tablet 8 mg PO TID PRN (Reason: NAUSEA/VOMITING) losartan 25 mg Tablet 25 mg PO DAILY finasteride 5 mg tablet 5 mg PO DAILY Magic Mouthwash 300 mL mouthwash 0 ml mucous membrane ACHS PRN (Reason: Difficulty swallowing) Rx Instructions: Benadryl 12.5 mg/5 mL oral elixir; Maalox 200 mg-200 mg-20 mg/5 mL oral suspension; Xylocaine Viscous 2 % mucosal solution;[Generic substitution ok] 1:1:1 compound Per 300 mL escitalopram oxalate 10 mg tablet 10 mg PO DAILY rosuvastatin 20 mg tablet 20 mg PO DAILY Held aspirin 81 mg Capsule 81 mg PO DAILY Hold Instructions: Resume on 07/17/23. Discontinued pantoprazole [Protonix] [address] for susp in packet 40 mg PO DAILY prochlorperazine maleate 10 mg tablet 10 mg PO DIRECTED PRN (Reason: NAUSEA/VOMITING) omeprazole 40 mg capsule,delayed release(DR/EC) 40 mg PO DAILY Discharge Orders: Discharge Order (Routine); Ordered 07/05/23 Ordered By: Feliciano Ching Admission Data Admit Date/Time: 06/17/23 04:12 Attending Provider: Feliciano Ching Admit Provider: Brian Hernandez Primary Care Provider: Vic Bill Other Providers: Abhijit Koenig; Chikis Melendez; Brian Hernandez; Sherley Holly; Mike Boswell; Rama Palomo; Lakeshia Oh; Airam Box; Amanda Sarabia; Giovani Mcqueen; Shine Kraft; Tay Duran; Barbara Jeffers; Edmund Melgar; Olimpia Jewell; Yady Luis; Cheri Salmon; Deja Sauer; Chucho Palma; Darren Pelayo; Lore Eugene; Grace Ch Jr; Jose Ellington; [facility]; Latasha Colon; [facility]; Travis Hopson; Mariaa Martinez Other Interventions: Discharge Summary Assessment (RN) Last Done: 07/05/23 08:00
--- NOTE | 2023-07-05 10:46 | Hospitalist Progress Note ---
Date of Service July 05, 2023 Assessment & Plan (1) Odynophagia: Plan Pt is a 77yoF with PMHx significant for complete heart block status post PPM, hypertension, TIA/PVD as per records, esophageal cancer with ongoing chemoradiation, prediabetes, BPH, urolithiasis admitted with odynophagia. Esophageal cancer Odynophagia Status post J-tube placement 06/18/2023 History of recently diagnosed esophageal adenocarcinoma in March 2023 Undergoing neoadjuvant chemoradiation prior to possible esophagectomy Presented with odynophagia Due to persistent odynophagia; general surgery was consulted. PICC line was initially placed during the hospitalization for possible parenteral nutrition. Status post robot assisted laparoscopic jejunostomy tube placement by surgery on June 18, 2023 Patient completed radiation during the hospitalization on July 03, 2023 Patient was on tube feeds at discharge with Peptamen. Patient had persistent nausea/vomitingtrial of Zofran/Phenergan were not successful. He was started on low-dose Zyprexa on July 01; nausea and vomiting improved. Patient has persistent retrosternal chest pain. Discussed with Dr. Duran from radiation oncology on July 02, 2023. He recommended trial of Medrol Dosepak to reduce inflammation. He also recommended possible GI evaluation for endoscopy given persistent nature of the pain. Discussed with GI PA (Olimpia) will discuss with her attending (Dr. Sauer) regarding further evaluation. They recommended trial of Carafate if patient is able to take oral medication. They did not recommend endoscopy at the moment. Will start trial of Carafate. Also consulted pain management given the patient's severe persistent pain. Dose of fentanyl is increased to 25 mg; recommended to continue Medrol Dosepak. Oxycodone added for pain control. Discussed with nursing to prioritize oxycodone over IV Dilaudid. Acute bilateral pulmonary embolism -CTA chest on 06/19/2023: Scattered pulmonary emboli w/ poss. right heart strain developed Epistaxis 06/28, minimal, resolved Heparin resumed, no recurrence of epistaxis Hemoglobin stable Hematology saw the patient on June 30, 2023; recommends Eliquis. Will continue IV heparin for the time being; switched over to Eliquis on July 03, 2023 Bilateral lower extremity duplex did not show DVT. Hyponatremia Review of BMP reveals persistent hyponatremia with sodium level of 1 27-1 30 Will reduce free water flushes to 75 mL every 12 hours Continue to monitor sodium. May require free water flushes to decrease further if continues to have hyponatremia Cough Pneumonia ruled out Chest x-ray from June 30, 2023 reviewed; no acute process. Paroxysmal atrial fibrillation Cardiology was consulted during the hospitalization; on metoprolol tartate 25 mg twice daily as per recommendation Echocardiogram done on June 19, 2023 shows EF of 55 to 60%; right ventricle normal in size. Pancytopenia In setting of chemo therapy, stable Continue to monitor Complete Heart Block s/p pacemaker placement pacer interrogation as above HTN chronic, stable Continue home losartan as tolerated On metoprolol as well Mood On Lexapro GERD Continue ppi HLD Continue statin BPH Continue home finasteride Prediabetes hemoglobin A1c of 6.20 March 2023 Monitor glucose levels CODE STATUS: full code Diet: N.p.o., J tube feeding DVT prophylaxis: Eliquis Disposition pending Anticipate transition to acute rehab when medically stable Discussed with patient's daughter. Answered questions/queries. Time spent evaluating patient, direct bedside care, chart review, placing orders, interpretation of diagnostic studies, discussion with consultants, patient, and family members, as well as other required patient management activities is 50 minutes Please note the above document was generated using voice recognition software. It may contain grammatical, syntax or spelling errors. Any formal questions or concerns about the content, text or information contained within the body of this dictation should be directly addressed to the provider for clarification Admission and Anticipated Discharge Date Admission Date: June 17, 2023 Subjective Patient seen and examined at bedside. He reports that pain is slightly better compared to yesterday. Review of Systems Review of Systems: All systems reviewed & are unremarkable except as noted in Subjective Physical Exam Physical Exam: Constitutional: Alert oriented x 3; not in distress. Respiratory: normal respiratory effort, lungs clear to auscultation, no wheeze, rales, rhonchi. Normal insp/exp effort, no accessory muscle use Cardiovascular: RRR, no murmur, no edema Vessels: no JVD or carotid bruit Chest: normal inspection of chest, nontender Abdomen: J-tube in place; soft, nontender. Musculoskeletal: no cyanosis or clubbing, extremities motor strength 5/5 Skin: no rashes, warm and dry normal turgor Neurologic: PERRL, EOMI, accommodation nl, no face palsy, no dysarthria CN's II- XI intact bilaterally and moves all extremities Psychiatric: A+Ox3, euthymic affect Results & Data Results & Data Vital Signs (Past 12 Hours) Vital Signs Temp Pulse Pulse Resp BP Pulse Ox O2 Del Method 07/05/23 08:00 36.9 C 93 H 20 137/82 92 07/05/23 07:52 36.9 C 93 H 20 137/82 92 Room Air 07/05/23 07:14 95 H 07/05/23 03:16 36.5 C 90 20 137/85 94 Room Air 07/04/23 23:24 36.7 C 95 H 20 114/72 93 Room Air
[2023-07-05] MEDS: HYDROmorphone INJ 0.5 MG/0.5 ML SYR IV STA (19:55)
[2023-07-06 06:24] LABS: Hematocrit (blood only) 27.2 % (42.0-52.0); Hemoglobin 8.9 g/dl (14.0-18.0); Mean Corpuscular Hemoglobin 31.3 pg (25.0-34.0); Mean Corpuscular Hgb Conc 32.7 g/dL (32.0-36.0); Mean Corpuscular Volume 95.8 fL (80.0-100.0); Mean Platelet Volume 9.6 fL (9.4-12.4); Nucleated RBC # (auto) 0.02 K/uL (0.00-0.12); Nucleated RBC % (auto) 0.7 %; Platelet Count 76 K/uL (130-400); RDW Coefficient of Variation 18.1 % (11.5-14.5); RDW Standard Deviation 57.1 fL (36.4-46.3); Red Blood Count 2.84 M/uL (4.70-6.10); White Blood Count 3.05 K/ul (4.8-10.8)
[2023-07-06 06:36] LABS: Albumin Globulin Ratio 1.2 (0.9-2); Albumin Level 2.9 gm/dl (3.4-5.0); BUN Creatinine Ratio 63.3 (10-20); Bilirubin,Total 0.5 mg/dl (0.2-1.0); Calcium 8.2 mg/dl (8.6-10.3); Creatinine Clr Calc Pharmacy 148.3 ml/min; Est GFR (Non-African American) 106.1 ml/min; Globulin 2.5 gm/dl (2.5-4.0); Total Protein 5.4 gm/dl (6.0-8.3)
[2023-07-06 07:23] LABS: Basophils # (auto) 0.02 K/uL (0.00-0.20); Basophils % (auto) 0.7 %; Eosinophils # (auto) 0.02 K/uL (0.00-0.50); Eosinophils % (auto) 0.7 %; Immature Granulocytes # (auto) 0.07 K/uL (0.01-0.20); Immature Granulocytes % (auto) 2.3 %; Lymphocytes # (auto) 0.57 K/uL (1.20-3.40); Lymphocytes % (auto) 18.7 %; Monocytes # (auto) 0.32 K/uL (0.11-0.59); Monocytes % (auto) 10.5 %; Neutrophils # (auto) 2.05 K/uL (1.40-6.50); Neutrophils % (auto) 67.1 %; Polychromasia 1+
[2023-07-06] MEDS: methylPREDNISolone 4 MG TAB PO SCH (08:38)
[2023-07-06] MEDS: POLYETHYLENE (MIRALAX) 17 GM PACK PO SCH (08:40)
[2023-07-06] MEDS: MAGNESIUM HYDROXIDE SUSP 30 ML UDC PO SCH (08:43)
--- NOTE | 2023-07-06 13:02 | Hospitalist Progress Note ---
Date of Service July 06, 2023 Assessment & Plan (1) Odynophagia: Plan Pt is a 77yoF with PMHx significant for complete heart block status post PPM, hypertension, TIA/PVD as per records, esophageal cancer with ongoing chemoradiation, prediabetes, BPH, urolithiasis admitted with odynophagia. Esophageal cancer Odynophagia Status post J-tube placement 06/18/2023 History of recently diagnosed esophageal adenocarcinoma in March 2023 Undergoing neoadjuvant chemoradiation prior to possible esophagectomy Presented with odynophagia Due to persistent odynophagia; general surgery was consulted. PICC line was initially placed during the hospitalization for possible parenteral nutrition. Status post robot assisted laparoscopic jejunostomy tube placement by surgery on June 18, 2023 Patient completed radiation during the hospitalization on July 03, 2023 Patient was on tube feeds at discharge with Peptamen. Patient had persistent nausea/vomitingtrial of Zofran/Phenergan were not successful. He was started on low-dose Zyprexa on July 01; nausea and vomiting improved. Patient has persistent retrosternal chest pain. Discussed with Dr. Duran from radiation oncology on July 02, 2023. He recommended trial of Medrol Dosepak to reduce inflammation. He also recommended possible GI evaluation for endoscopy given persistent nature of the pain. Discussed with GI PA (Olimpia) will discuss with her attending (Dr. Sauer) regarding further evaluation. They recommended trial of Carafate if patient is able to take oral medication. They did not recommend endoscopy at the moment. Trial of Carafate was unsuccessful Consulted pain management given the patient's severe persistent pain. Dose of fentanyl is increased to 25 mg; recommended to continue Medrol Dosepak. Oxycodone added for pain control. Discussed with nursing to prioritize oxycodone over IV Dilaudid. Acute bilateral pulmonary embolism -CTA chest on 06/19/2023: Scattered pulmonary emboli w/ poss. right heart strain developed Epistaxis 06/28, minimal, resolved Heparin resumed, no recurrence of epistaxis Hemoglobin stable Hematology saw the patient on June 30, 2023; recommends Eliquis. Will continue IV heparin for the time being; switched over to Eliquis on July 03, 2023 Bilateral lower extremity duplex did not show DVT. Hyponatremia Review of BMP reveals persistent hyponatremia with sodium level of 1 27-1 30 Will reduce free water flushes to 75 mL every 12 hours Continue to monitor sodium. May require free water flushes to decrease further if continues to have hyponatremia Cough Pneumonia ruled out Chest x-ray from June 30, 2023 reviewed; no acute process. Paroxysmal atrial fibrillation Cardiology was consulted during the hospitalization; on metoprolol tartate 25 mg twice daily as per recommendation Echocardiogram done on June 19, 2023 shows EF of 55 to 60%; right ventricle normal in size. Pancytopenia In setting of chemo therapy, stable Continue to monitor Complete Heart Block s/p pacemaker placement pacer interrogation as above HTN chronic, stable Continue home losartan as tolerated On metoprolol as well Mood On Lexapro GERD Continue ppi HLD Continue statin BPH Continue home finasteride Prediabetes hemoglobin A1c of 6.20 March 2023 Monitor glucose levels CODE STATUS: full code Diet: N.p.o., J tube feeding DVT prophylaxis: Eliquis Disposition pending Anticipate transition to acute rehab. Patient is currently medically stable for transfer. Discussed with patient's daughter. Answered questions/queries. Time spent evaluating patient, direct bedside care, chart review, placing orders, interpretation of diagnostic studies, discussion with consultants, patient, and family members, as well as other required patient management activities is 50 minutes Please note the above document was generated using voice recognition software. It may contain grammatical, syntax or spelling errors. Any formal questions or concerns about the content, text or information contained within the body of this dictation should be directly addressed to the provider for clarification Admission and Anticipated Discharge Date Admission Date: June 17, 2023 Subjective Patient seen and examined at bedside. He is comfortable; not in distress. He reports that the pain is well-controlled on current medication Occasionally requiring IV Dilaudid for pain control. Review of Systems Review of Systems: All systems reviewed & are unremarkable except as noted in Subjective Physical Exam 2 Physical Exam: Constitutional: Alert oriented x 3; not in distress. Respiratory: normal respiratory effort, lungs clear to auscultation, no wheeze, rales, rhonchi. Normal insp/exp effort, no accessory muscle use Cardiovascular: RRR, no murmur, no edema Vessels: no JVD or carotid bruit Chest: normal inspection of chest, nontender Abdomen: J-tube in place; soft, nontender. Musculoskeletal: no cyanosis or clubbing, extremities motor strength 5/5 Skin: no rashes, warm and dry normal turgor Neurologic: PERRL, EOMI, accommodation nl, no face palsy, no dysarthria CN's II- XI intact bilaterally and moves all extremities Psychiatric: A+Ox3, euthymic affect Results & Data Results & Data Vital Signs (Past 12 Hours) Vital Signs Temp Pulse Pulse Resp BP Pulse Ox O2 Del Method 07/06/23 11:43 36.8 C 90 24 185/60 H 92 Room Air 07/06/23 07:58 36.6 C 106 H 16 104/77 93 Room Air 07/06/23 07:00 99 H 07/06/23 03:05 37.0 C 94 H 22 139/88 92 Room Air
[2023-07-06] MEDS ORDERED: HYDROmorphone INJ 1 MG/ML SYRINGE IV PRN (15:04)
[2023-07-06] MEDS: fentaNYL 50 MCG/HR TDSY TD SCH (15:30)
[2023-07-06] MEDS: HYDROmorphone HCL 4 MG TAB PO PRN (15:30)
[2023-07-06] MEDS: ALUMINUM/MAGNESIUM SUSP 30 ML UDC PO STA (16:20)
[2023-07-06] MEDS: ALTEPLASE, RECOMBINANT 1 MG/ML 2ML VIAL INSTIL ONE (17:01)
[2023-07-07 06:35] LABS: Hematocrit (blood only) 27.1 % (42.0-52.0); Hemoglobin 9.2 g/dl (14.0-18.0); Mean Corpuscular Hemoglobin 32.4 pg (25.0-34.0); Mean Corpuscular Hgb Conc 33.9 g/dL (32.0-36.0); Mean Corpuscular Volume 95.4 fL (80.0-100.0); Mean Platelet Volume 10.1 fL (9.4-12.4); Platelet Count 75 K/uL (130-400); RDW Coefficient of Variation 18.5 % (11.5-14.5); RDW Standard Deviation 57.6 fL (36.4-46.3); Red Blood Count 2.84 M/uL (4.70-6.10); White Blood Count 3.49 K/ul (4.8-10.8)
[2023-07-07 06:44] LABS: BUN Creatinine Ratio 67.9 (10-20); Calcium 8.1 mg/dl (8.6-10.3); Est GFR (African American) 119.1 ml/min; Est GFR (Non-African American) 102.8 ml/min; Potassium 4.9 mmol/L (3.5-5.1)
[2023-07-07 07:09] LABS: Basophils # (auto) 0.02 K/uL (0.00-0.20); Basophils % (auto) 0.6 %; Dohle Bodies 1+; Eosinophils # (auto) 0.01 K/uL (0.00-0.50); Eosinophils % (auto) 0.3 %; Immature Granulocytes # (auto) 0.05 K/uL (0.01-0.20); Immature Granulocytes % (auto) 1.4 %; Lymphocytes % (auto) 28.7 %; Monocytes # (auto) 0.27 K/uL (0.11-0.59); Monocytes % (auto) 7.7 %; Neutrophils # (auto) 2.14 K/uL (1.40-6.50); Neutrophils % (auto) 61.3 %; Polychromasia 1+
[2023-07-07] MEDS: ESCITALOPRAM OXALATE 20 MG TAB PO ONE (09:57)
[2023-07-07] MEDS: methylPREDNISolone 4 MG TAB PO SCH (09:58)
--- NOTE | 2023-07-07 10:56 | Gastroenterology Progress Note ---
Date of Service July 07, 2023 Assessment & Plan (1) Odynophagia: (2) Esophageal cancer: Plan Pt is a 77 yo male w esophageal ca s/p chemo and XRT. He's being re-evaluated for odynophagia symptoms. Pain is likely related to his cancer and post radiation status. Discussed case w Dr. Duran who recommend deferring EGD evaluation given pt's PE status, currently being on Eliquis puts him at higher risk for anesthesia and procedural complications. - J-tube feeding - Carafate 1g suspension PO QID - Empiric treatment for possible esophageal candidiasis w Diflucan - Pls recall GI PRN Admission and Anticipated Discharge Date Admission Date: June 17, 2023 Supervising Physician Co-Signing Physician Notes I saw and evalauted the patient, we were asked to see him with regard to chest pain in the setting of radiation and chemotherapy for a known esophageal maliagnacy. In many circumstances EGD may prove helpful, however, the patient did recently suffer a PE, therefore endoscopy may not be in his best interest. The pain could be related to his recent radiaiton therapy and will likely resolve over time. Another plausible cause could be calin. Recomendaitons: 1 time daily PPI Carafat Slurry QID Diflucan 100 mg daily for 10 days (200 mg on day 1) as epiric therapy please call with any additional quesitons or concerns GI to sign off. Subjective Pt re-evaluated per hospitalist's request for c/o odynophagia. Was unable to tolerate swallowing Carafate slurry yesterday c/o pain. Upon my questioning today, pt report he's mostly having mid chest wall pain but has improved. Denies pain on swallowing. Is receiving J-tube feeding. Denies abd pain, n/v. Review of Systems Review of Systems: All systems reviewed & are unremarkable except as noted in HPI & below Physical Exam Constitutional: WD/WN, vitals as above well groomed, cooperative and comfortable Eyes: PERRL, conjunctivae normal, anicteric sclerae ENMT: external ear and nose normal, oropharynx normal Respiratory: normal respiratory effort, lungs clear to auscultation Cardiovascular: RRR, no murmur, no edema Gastrointestinal (Abdomen): normal bowel sounds, soft, nontender, no hepatosplenomegaly Skin: no rashes, warm and dry no jaundice Psychiatric: A+Ox3, euthymic affect Lymphatic: no lymphedema Results & Data Vital Signs (Past 12 Hours) Vital Signs Temp Pulse Pulse Resp BP Pulse Ox O2 Del Method 07/07/23 10:28 36.7 C 106 H 20 112/76 91 Room Air 07/07/23 07:34 100 H 07/07/23 07:26 36.7 C 108 H 17 124/76 91 Room Air 07/07/23 04:27 96 H 16 119/78 92 Room Air 07/07/23 02:16 97 H 07/07/23 00:23 36.6 C 93 H 19 95/73 L 93 Room Air
[2023-07-07] MEDS ORDERED: FLUCONAZOLE 100 MG TAB PO SCH (11:15)
[2023-07-07] MEDS: FLUCONAZOLE 100 MG TAB PO ONE (12:12)
--- NOTE | 2023-07-07 13:54 | Discharge Summary ---
Date of Service July 07, 2023 Admission HPI Per Admitting Provider History obtained from patient and records. Medical history significant for complete heart block status post PPM, hypertension, TIA/PVD as per records, esophageal cancer ongoing chemoradiation, prediabetes, BPH, urolithiasis. Last confinement 2010 for left ureteral calculus status post surgery. Patient diagnosed to have esophageal adenocarcinoma last March 2023. Neoadjuvant chemoradiation contemplated prior to esophagectomy. Patient noted increased odynophagia symptoms since chemoradiation initiated last month. No fever, no chills. Unquantified weight loss. Patient with regurgitation symptoms, fatigue and generalized weakness. No headache, no chest pain, no SOB, no abdominal pain. Patient brought to ER by family for evaluation. Medical History as above Surgical History : Shoulder surgery, knee surgeries, urologic procedures Family History : Breast cancer, heart disease Personal/Social history : Non-smoker, occasional EtOH intake, retired pharmacy resident Admission Exam Per Admitting Provider GENERAL: Slightly uncomfortable, slightly hard of hearing, obese, no respiratory distress SKIN: Normal color, warm HEENT: [place] palpebral conjunctivae, no ptosis, dry buccal mucosa NECK : Supple, no tenderness CHEST : CTA, no tenderness HEART : RRR, no obvious murmurs ABDOMEN: Some distention, nontender EXTREMITIES : Minimal LE swelling, no LE tenderness, no other conspicuous deformities noted NEUROLOGIC : Coherent, no facial asymmetry, mild hearing impairment, no other gross focality Principal Diagnosis Esophageal cancer Odynophagia Status post J-tube placement 06/18/2023 Acute bilateral pulmonary embolism Discharge Exam Constitutional: Alert oriented x 3; not in distress. Respiratory: normal respiratory effort, lungs clear to auscultation, no wheeze, rales, rhonchi. Normal insp/exp effort, no accessory muscle use Cardiovascular: RRR, no murmur, no edema Vessels: no JVD or carotid bruit Chest: normal inspection of chest, nontender Abdomen: J-tube in place; soft, nontender. Musculoskeletal: no cyanosis or clubbing, extremities motor strength 5/5 Skin: no rashes, warm and dry normal turgor Neurologic: PERRL, EOMI, accommodation nl, no face palsy, no dysarthria CN's II- XI intact bilaterally and moves all extremities Psychiatric: A+Ox3, euthymic affect Discharge Data Allergies Allergy/AdvReac Type Severity Reaction Status Date / Time No Known Allergies Allergy Verified 06/14/23 22:58 Consultations 06/15/23 00:53 ED Decision to Admit Stat 06/15/23 04:16 Consult Gastroenterology Routine 06/16/23 06:33 Consult Gastroenterology Routine 06/16/23 08:51 Consult General Surgery Routine 06/17/23 14:31 Consult Cardiology Routine 06/22/23 07:35 Consult Palliative Care Routine 06/30/23 07:53 Consult Hematology Routine 07/03/23 10:19 Consult Pain Management Routine Procedures Performed Operation Date: 06/18/23 11:25 Actual Procedures p Robot assisted Laparoscopic, Jejunostomy Tube Placement(Not Applicable) - Jose Ellington DO Ordered Studies 06/19/23 07:33 CT angio chest PE protocol Urgent 06/25/23 14:30 US RUQ [US liver] Routine 06/25/23 17:11 CT Abd and Pelvis [CT abd pelvis oral and IV con] Urgent 07/02/23 10:19 US venous doppler LE BI Routine Hospital Course (1) Odynophagia: Plan Pt is a 77yoF with PMHx significant for complete heart block status post PPM, hypertension, TIA/PVD as per records, esophageal cancer with ongoing ch emoradiation, prediabetes, BPH, urolithiasis admitted with odynophagia. Esophageal cancer Odynophagia Status post J-tube placement 06/18/2023 History of recently diagnosed esophageal adenocarcinoma in March 2023 Undergoing neoadjuvant chemoradiation prior to possible esophagectomy Presented with odynophagia Due to persistent odynophagia; general surgery was consulted. PICC line was initially placed during the hospitalization for possible parenteral nutrition. Status post robot assisted laparoscopic jejunostomy tube placement by surgery on June 18, 2023 Patient completed radiation during the hospitalization on July 03, 2023 Patient was on tube feeds at discharge with Peptamen. Patient had persistent nausea/vomitingtrial of Zofran/Phenergan were not successful. He was started on low-dose Zyprexa on July 01; nausea and vomiting improved. At discharge, patient was placed on fentanyl 50 mcg/h along with 8 mg of Dilaudid as needed every 4 hours. Discussion was done with GI regarding patient persisted with odynophagia/pain. He was empirically placed on fluconazole. Patient was discharged to acute rehab. Acute bilateral pulmonary embolism -CTA chest on 06/19/2023: Scattered pulmonary emboli w/ poss. right heart strain developed Epistaxis 06/28, minimal, resolved Heparin resumed, no recurrence of epistaxis Hemoglobin stable Hematology saw the patient on June 30, 2023; recommends Eliquis. Will continue IV heparin for the time being; switched over to Eliquis on July 03, 2023 Bilateral lower extremity duplex did not show DVT. Hyponatremia Review of BMP reveals persistent hyponatremia with sodium level of 1 27-1 30 Will reduce free water flushes to 75 mL every 12 hours Continue to monitor sodium. May require free water flushes to decrease further if continues to have hyponatremia Sodium is stable around 130. Please note the above document was generated using voice recognition software. It may contain grammatical, syntax or spelling errors. Any formal questions or concerns about the content, text or information contained within the body of this dictation should be directly addressed to the provider for clarification Total Time Total Time Spent Total Time Spent (In Minutes): 45 Total Time Includes: Examination of the Patient, Discharge Planning, Medication Reconciliation, Communication With Other Providers and Other Discharge Plan Discharge Items Patient Disposition: Transfer Inpatient Rehab Fac Reason For Visit: ODYNOPHAGIA, WEAKNESS Discharge Diagnosis: Esophageal cancer Odynophagia Status post J-tube placement 06/18/2023 Acute bilateral pulmonary embolism Hyponatremia Activity: Resume your previous activity Non-emergency contact: Primary Care Provider Call non-emergency contact if: you have any medication questions and your symptoms worsen Follow-up/Referrals: Krissy Lambert PA-C [Physician Bond Broker] - 10/15/23 1:45 pm Jose Ellington DO [Physician] - (Please call to schedule follow up in the office within 2 weeks) Vic Bill DO [Primary Care Provider] - Diet: Nothing by Mouth and Other - See Diet Comment Diet Comment: Ice chips and sips ok Addtl Attending Provider Instructions: You were admitted to the hospital due to pain during swallowing. You underwent G-tube placement on June 18, 2023 by surgery. Tube feeds; You are on Peptamen 1.5 with a goal rate of 60 mL/h. Free water flushes of 75 mL every 12 hours. Patient can have ice chips as needed. During the discharge from the rehab; consideration can be made to change to bolus feeding. Please coordinate with nutrition at the rehab. Obtain [facility] on July 10 to follow-up on serum sodium level. It was 130 at discharge. If the serum sodium level is lower; free water flushes could be changed. You were also diagnosed with pulmonary embolism: You are prescribed Eliquis 5 mg every 12 hours. Your aspirin is currently on hold for next 2 weeks due to low platelet counts. CBC needs to be checked prior to restarting the aspirin. For pain control; Continue fentanyl patch 50 mcg every 72 hours. You are prescribed po Dilaudid 8 mg to be used as needed every 4 hours. Use nasal saline spray every 4 hours to keep your nasal naris moist to prevent nosebleeds You were prescribed Zyprexa 2.5 mg at night for nausea/vomiting. You can take as needed Zofran. Please follow-up with your primary care doctor after discharge. Also follow-up with your oncology and surgery after discharge. You were prescribed fluconazole 100 mg once a day for 7 days for possible esophageal candidiasis. Pending Studies at Discharge: No Stand-Alone Forms: [facility] Skilled Items Patient informed of condition?: No DNR: No Discharge Level of Care: Skilled Communicable Disease: No Discharge Prognosis: Stable Lines: Peripheral IV Urinary Catheter: No Medications and DC Order Prescriptions: New Eliquis 5 mg Tablet 5 mg PO Q12H Qty: 60 0RF olanzapine 2.5 mg Tablet 2.5 mg PO HS Qty: 30 0RF diazepam 2 mg Tablet 1 mg PO BID PRN (Reason: anxiety) Qty: 30 0RF Saline Mist 0.65 % Aerosol,[place] 2 spray NA Q4H Qty: 44 0RF lansoprazole [Prevacid SoluTab] 30 mg Tablet,Disintegrat, Delay Rel 30 mg J-tube BID Qty: 60 0RF metoprolol tartrate 25 mg Tablet 25 mg PO BID Qty: 60 0RF Peptamen 1.5 0.068 gram- 1.5 kcal/mL Liquid 1 ea J-tube .See Protocol Qty: 6000 0RF polyethylene glycol 3350 [Miralax] 17 gram Powder In Packet 17 g PO DAILY Qty: 100 0RF Tube Feeding Water Flush 75 ml J-tube Q12H Qty: 4 0RF fentanyl 50 mcg/hr Patch 72 Hour 50 mcg transdermal Q3D Qty: 30 0RF magnesium hydroxide [Milk of Magnesia] 400 mg/5 mL Suspension 30 ml PO BID Qty: 3780 0RF hydromorphone 4 mg Tablet 8 mg PO Q4H PRN (Reason: pain) Qty: 30 0RF fluconazole [Diflucan] 100 mg Tablet 100 mg PO QAM 7 Days Qty: 7 0RF Continued ondansetron HCl 8 mg tablet 8 mg PO TID PRN (Reason: NAUSEA/VOMITING) losartan 25 mg Tablet 25 mg PO DAILY finasteride 5 mg tablet 5 mg PO DAILY Magic Mouthwash 300 mL mouthwash 0 ml mucous membrane ACHS PRN (Reason: Difficulty swallowing) Rx Instructions: Benadryl 12.5 mg/5 mL oral elixir; Maalox 200 mg-200 mg-20 mg/5 mL oral suspension; Xylocaine Viscous 2 % mucosal solution;[Generic substitution ok] 1:1:1 compound Per 300 mL escitalopram oxalate 10 mg tablet 10 mg PO DAILY rosuvastatin 20 mg tablet 20 mg PO DAILY Held aspirin 81 mg Capsule 81 mg PO DAILY Hold Instructions: Resume on 07/17/23. Discontinued pantoprazole [Protonix] [address] for susp in packet 40 mg PO DAILY prochlorperazine maleate 10 mg tablet 10 mg PO DIRECTED PRN (Reason: NAUSEA/VOMITING) omeprazole 40 mg capsule,delayed release(DR/EC) 40 mg PO DAILY Discharge Orders: Discharge Order (Routine); Ordered 07/07/23 Ordered By: Feliciano Ching Admission Data Admit Date/Time: 06/17/23 04:12 Attending Provider: Feliciano Ching Admit Provider: Brian Hernandez Primary Care Provider: Vic Bill Other Providers: Abhijit Koenig; Chikis Melendez; Brian Hernandez; Sherley Holly; Mike Boswell; Rama Palomo; Lakeshia Oh; Airam Box; Amanda Sarabia; Giovani Mcqueen; Shine Kraft; Tay Duran; Barbara Jeffers; Edmund Melgar; Olimpia Jewell; Yady Luis; Cheri Salmon; Deja Sauer; Chucho Palma; Darren Pelayo; Lore Eugene; Grace Ch Jr; Jose Ellington; [facility]; Latasha Colon; [facility]; Travis Hopson; Mariaa Martinez Other Interventions: Discharge Summary Assessment (RN) Last Done: 07/07/23 12:48
--- NOTE | 2023-07-07 22:18 | Palliative Care Progress Note ---
Date of Service July 07, 2023 Assessment & Plan (1) Cancer related pain: Plan: Continue TDF and prn oxycodone No dose increase as he is anticipating rehab dc today, so will defer to rehab if further dose change is needed as therapy progresses (2) Weakness generalized: (3) Esophageal spasm: Plan: Mediated by anxiety Valium is helping, so would consider BID dosing on a schedule SSRIs and TCAs may offer benefit but rapid relief may best be seen with NTG sublingual prn (Gastroenterol Hepatol ([place]) 2007 Jan;3(10):765-767. A trial of dicyclomine might help Would suggest moving him off medrol and using decadron instead Consider adding ice massage and /or lidocaine for chest wall tenderness (4) Right-sided chest pain: (5) Palliative care by specialist: Plan * esophag spasms rx reccs above * dc to rehab planned for today * offered follow up in OP Pall med clinic for ongoing cancer sx mgt if desired * Encouraged him to get clinic appt with Dr Solis scheduled for 3-[address] Birmingham can assess his readiness for surgery and determine if more rehab or additional interventions may be needed Thank you for allowing us to participate in the ongoing care of this patient. Please don't hesitate to call or page with any additional concerns. Dr. Latasha Colon DNP Director, Palliative Care Admission and Anticipated Discharge Date Admission Date: June 17, 2023 Ambreen Maldonado is sitting OOB in recliner and feeling "ok but anxious." Some of the pain is a little better with TDF and oxy however he notes best relief was with IV Dilaudid. He feels the valium might have helped his anxiety more than the spasmodic pain and feels he needs to be on scheduled anti anxiety meds anticipating dc later today [facility]. is a bit worried that surgery will be delayed d/t rehab but hopes he can get out of rehab quickly Review of Systems Review of Systems: All systems reviewed & are unremarkable except as noted in Subjective Physical Exam Physical Exam: Anxious and rubbing right upper anterior chest at times no diaphoresis or dyspnea, no conversational dyspnea, no use of accessory muscles chest diminished but mostly clear intermittent dry cough S1S2, no JVD +j tube generalized weakness trace edema AAOx3, anxious skin pink, warm Results & Data Vital Signs (Past 12 Hours) Vital Signs Temp Pulse Resp BP Pulse Ox O2 Del Method 07/07/23 11:12 Room Air 07/07/23 10:28 36.7 C 106 H 20 112/76 91 Room Air Laboratory Results reviewed Diagnostic Findings reviewed PG Care Time/CCT Total # of Minutes Spent Total Time Spent with Patient: Total time spent is greater than 50% in coordination of care (as documented) at patient's floor/unit and/or counseling patient: I spent 60 minutes overall addressing this case: 15 min in medical data review/discussion with referring provider(s) and/or preparation for the visit 20 min in direct interaction with the patient/exam 10 min in Advance Care Planning/Goals of Care discussions as detailed above in note (must be >16min) 5 min in subsequent review and synthesis of assessment and plan 10 min communicating with other providers regarding the patient's case: [place] [address] SUB INP/OBS CARE 3/50MIN Patient Type Established History Comprehensive Exam Comprehensive Medical Decision Making High Complexity Diagnoses Cancer related pain G89.3 Weakness generalized R53.1 Esophageal spasm K22.4 Right-sided chest pain R07.9 Palliative care by specialist Z51.5
[2023-07-08] MEDS ORDERED: FLUCONAZOLE 100 MG TAB PO SCH (09:00)
== END 2023-07-07 14:35 | DRG 374 ==
LOC: 3N 21:43 → ED 21:43 → SUATTDRO 06-15 01:51 → 3N 06-15 04:22 → 3E 06-16 15:08 → SUATTDRO 06-17 04:12 → 1E 06-17 14:30 → 2E 06-19 18:31
DX: E78.5 Hyperlipidemia, unspecified; I44.2 Atrioventricular block, complete; N40.0 Benign prostatic hyperplasia without lower urinary tract symptoms; D61.810 Antineoplastic chemotherapy induced pancytopenia; K22.4 Dyskinesia of esophagus; I45.10 Unspecified right bundle-branch block; I10 Essential (primary) hypertension; E87.1 Hypo-osmolality and hyponatremia; E86.0 Dehydration; Z95.0 Presence of cardiac pacemaker; G89.3 Neoplasm related pain (acute) (chronic); R63.0 Anorexia; R13.19 Other dysphagia; I48.0 Paroxysmal atrial fibrillation; Z96.653 Presence of artificial knee joint, bilateral; Z79.82 Long term (current) use of aspirin; I73.9 Peripheral vascular disease, unspecified; Z92.3 Personal history of irradiation; I26.99 Other pulmonary embolism without acute cor pulmonale; Z86.73 Personal history of transient ischemic attack (TIA), and cerebral infarction without residual deficits; Z96.612 Presence of left artificial shoulder joint; C15.5 Malignant neoplasm of lower third of esophagus; R73.03 Prediabetes